=== PATIENT | male | born 1960 | race Caucasian/White ===

== ENCOUNTER → 2016-04-21 | Outpatient (CLI) | payer MEDICARE ==
[2016-04-21 16:31] LABS: CH 34.2; CHCM 32.7; HCT 38.2 % (39.0-53.0); HGB 12.5 gm/dL (13.0-17.5); MCH 34.4 pg (25.0-35.0); MCHC 32.8 g/dL (31.0-37.0); Macrocytosis Slight; Mean Platelet Volume 7.4; RBC 3.64 m/uL (4.30-5.90); RDW 14.9 % (11.5-15.5); WBC 7.1 k/uL (3.8-10.6)
[2016-04-21 16:41] LABS: INR 1.5 (<1.1); Prothrombin Time 14.4 sec (9.0-12.0)
[2016-04-21 16:46] LABS: ALT 36 U/L (21-72); AST 104 U/L (17-59); Alkaline Phosphatase 57 U/L (38-126); Anion Gap 14 mmol/L; Blood Urea Nitrogen 3 mg/dL (9-20); Calcium 8.2 mg/dL (8.4-10.2); Carbon Dioxide 26 mmol/L (22-30); Chloride 107 mmol/L (98-107); Glucose 102 mg/dL (74-99); Non-African American GFR(MDRD) >60 (>60 ml/min/1.73 sqM); Potassium 4.5 mmol/L (3.5-5.1); Sodium 147 mmol/L (137-145); Total Bilirubin 1.1 mg/dL (0.2-1.3); Total Protein 9.8 g/dL (6.3-8.2)
== END | disposition home or self-care (01) ==
LOC: LABWHC1 15:44
PROVIDERS: ATTEND Internal Medicine Gastroenterology
DX: K74.60 Unspecified cirrhosis of liver (principal)
CPT/HCPCS: 36415; 80053; 82105; 85027; 85610

== ENCOUNTER → 2016-06-18 | Outpatient (CLI) | payer MEDICARE ==
[2016-06-18 15:43] LABS: CH 34.4; CHCM 32.7; HCT 34.5 % (39.0-53.0); HDW 2.22; HGB 11.5 gm/dL (13.0-17.5); MCH 35.2 pg (25.0-35.0); MCHC 33.3 g/dL (31.0-37.0); MCV 105.8 fL (80.0-100.0); Macrocytosis Moderate; Mean Platelet Volume 8.4; RBC 3.26 m/uL (4.30-5.90); RDW 15.6 % (11.5-15.5)
[2016-06-18 15:56] LABS: ALT 22 U/L (21-72); AST 79 U/L (17-59); Alkaline Phosphatase 58 U/L (38-126); Anion Gap 12 mmol/L; Blood Urea Nitrogen 6 mg/dL (9-20); Calcium 8.7 mg/dL (8.4-10.2); Carbon Dioxide 25 mmol/L (22-30); Chloride 102 mmol/L (98-107); Glucose 102 mg/dL (74-99); INR 1.7 (<1.1); Non-African American GFR(MDRD) >60 (>60 ml/min/1.73 sqM); Potassium 4.3 mmol/L (3.5-5.1); Prothrombin Time 16.9 sec (9.0-12.0); Sodium 139 mmol/L (137-145); Total Bilirubin 2.3 mg/dL (0.2-1.3); Total Protein 9.5 g/dL (6.3-8.2)
--- NOTE | 2016-06-18 16:42 | US ---
EXAMINATION TYPE: US scrotum with doppler. Grayscale and color Doppler Duplex imaging performed of nika chen scrotum. DATE OF EXAM: 06/18/2016 3:28 PM COMPARISON: NONE CLINICAL HISTORY: N49.2 Chron's Disease. enlarged scrotal sac with thickened skin wall EXAM MEASUREMENTS: TESTICLES: Right Testicle: 3.7 x 1.4 x 2.8 cm Left Testicle: 3.8 x 2.7 x 2.7 cm EPIDIDYMIS HEAD: Right Epididymis: 0.7 cm Left Epididymis: 0.7 cm Doppler performed to assess for testicular vascularity; good bilateral color flow and waveforms are s een. There is no evidence of testicular torsion. Bilateral testicles were found and scanned within the inguinal canal. Within the enlarged scrotal sa c there is a significant amount of heterogeneous mixed tissue. Patients states he has a lot of fistu las. Scrotal contents demonstrates a small amount of vascularity. No hydrocele is evident. No fluid surrounding the testicles is evident. IMPRESSION: 1. No evidence of torsion. 2. Irregular signal within the scrotal sac can be compatible with debris. Testicles reside within the inguinal canals.
== END | disposition home or self-care (01) ==
LOC: RADUSWWP 15:06
PROVIDERS: ATTEND Internal Medicine Gastroenterology
DX: N49.2 Inflammatory disorders of scrotum (principal); K74.60 Unspecified cirrhosis of liver
CPT/HCPCS: 76870; 80053; 82105; 85027; 85610; 93975

== ENCOUNTER → 2016-10-20 | Outpatient (CLI) | payer MEDICARE ==
[2016-10-20 11:04] LABS: INR 1.7 (<1.2); Prothrombin Time 16.3 sec (9.0-12.0)
[2016-10-20 11:06] LABS: CH 34.3; CHCM 32.8; HCT 32.7 % (39.0-53.0); HDW 2.03; HGB 11.2 gm/dL (13.0-17.5); MCH 36.2 pg (25.0-35.0); MCHC 34.4 g/dL (31.0-37.0); MCV 105.3 fL (80.0-100.0); Macrocytosis Slight; Mean Platelet Volume 7.7; WBC 9.1 k/uL (3.8-10.6)
[2016-10-20 11:23] LABS: ALT 32 U/L (21-72); AST 77 U/L (17-59); Alkaline Phosphatase 59 U/L (38-126); Anion Gap 10 mmol/L; Blood Urea Nitrogen 6 mg/dL (9-20); Calcium 8.8 mg/dL (8.4-10.2); Carbon Dioxide 24 mmol/L (22-30); Chloride 101 mmol/L (98-107); Glucose 70 mg/dL (74-99); Non-African American GFR(MDRD) >60 (>60 ml/min/1.73 sqM); Sodium 135 mmol/L (137-145); Total Bilirubin 4.4 mg/dL (0.2-1.3); Total Protein 9.3 g/dL (6.3-8.2)
== END | disposition home or self-care (01) ==
LOC: LABWHC1 10:38
PROVIDERS: ATTEND Internal Medicine Gastroenterology
DX: K74.60 Unspecified cirrhosis of liver (principal)
CPT/HCPCS: 36415; 80053; 82105; 85027; 85610

== ENCOUNTER → 2017-05-25 | Outpatient (CLI) | payer MEDICARE ==
[2017-05-25 15:39] LABS: HCT 32.5 % (39.0-53.0); HGB 11.1 gm/dL (13.0-17.5); MCH 35.1 pg (25.0-35.0); MCHC 34.1 g/dL (31.0-37.0); MCV 102.7 fL (80.0-100.0); Macrocytosis Slight; Mean Platelet Volume 7.1; Platelet Count 160 k/uL (150-450); RBC 3.17 m/uL (4.30-5.90); RDW 15.6 % (11.5-15.5); WBC 10.4 k/uL (3.8-10.6)
[2017-05-25 15:56] LABS: ALT 12 U/L (21-72); AST 39 U/L (17-59); Albumin 3.2 g/dL (3.5-5.0); Alkaline Phosphatase 44 U/L (38-126); Anion Gap 9 mmol/L; Blood Urea Nitrogen 4 mg/dL (9-20); Calcium 8.5 mg/dL (8.4-10.2); Carbon Dioxide 25 mmol/L (22-30); Chloride 100 mmol/L (98-107); Glucose 94 mg/dL (74-99); Potassium 4.3 mmol/L (3.5-5.1); Sodium 134 mmol/L (137-145); Total Bilirubin 2.7 mg/dL (0.2-1.3); Total Protein 8.7 g/dL (6.3-8.2)
[2017-05-25 15:59] LABS: INR 1.6 (<1.2)
== END | disposition home or self-care (01) ==
LOC: LABWHC1 14:55
PROVIDERS: ATTEND Internal Medicine Gastroenterology
DX: K74.60 Unspecified cirrhosis of liver (principal)
CPT/HCPCS: 36415; 80053; 85027; 85610

== ENCOUNTER → 2017-08-12 | Outpatient (CLI) | payer MEDICARE ==
[2017-08-12 13:43] LABS: ALT 27 U/L (21-72); AST 65 U/L (17-59); Albumin 3.1 g/dL (3.5-5.0); Alkaline Phosphatase 53 U/L (38-126); Anion Gap 13 mmol/L; Blood Urea Nitrogen 2 mg/dL (9-20); Calcium 7.9 mg/dL (8.4-10.2); Carbon Dioxide 26 mmol/L (22-30); Chloride 105 mmol/L (98-107); Glucose 94 mg/dL (74-99); Potassium 4.4 mmol/L (3.5-5.1); Sodium 144 mmol/L (137-145); Total Bilirubin 1.5 mg/dL (0.2-1.3); Total Protein 8.4 g/dL (6.3-8.2)
[2017-08-12 14:00] LABS: INR 1.6 (<1.2)
[2017-08-12 14:04] LABS: HGB 11.5 gm/dL (13.0-17.5); MCH 34.9 pg (25.0-35.0); MCHC 33.8 g/dL (31.0-37.0); MCV 103.3 fL (80.0-100.0); Macrocytosis Slight; Mean Platelet Volume 7.1; Platelet Count 135 k/uL (150-450); RBC 3.29 m/uL (4.30-5.90); RDW 13.8 % (11.5-15.5)
== END | disposition home or self-care (01) ==
LOC: LABWHC1 12:23
PROVIDERS: ATTEND Internal Medicine Gastroenterology
DX: K74.60 Unspecified cirrhosis of liver (principal)
CPT/HCPCS: 36415; 80053; 85027; 85610

== ENCOUNTER → 2017-11-10 | Outpatient (CLI) | payer MEDICARE ==
[2017-11-10 15:30] LABS: HCT 33.6 % (39.0-53.0); MCH 35.2 pg (25.0-35.0); MCHC 32.8 g/dL (31.0-37.0); MCV 107.4 fL (80.0-100.0); Macrocytosis Moderate; Mean Platelet Volume 6.8; Platelet Count 162 k/uL (150-450); RBC 3.13 m/uL (4.30-5.90); RDW 15.4 % (11.5-15.5); WBC 7.3 k/uL (3.8-10.6)
[2017-11-10 15:38] LABS: INR 1.5 (<1.2)
[2017-11-10 15:41] LABS: ALT 26 U/L (21-72); AST 64 U/L (17-59); Albumin 3.3 g/dL (3.5-5.0); Alkaline Phosphatase 54 U/L (38-126); Anion Gap 10 mmol/L; Blood Urea Nitrogen 3 mg/dL (9-20); Carbon Dioxide 24 mmol/L (22-30); Chloride 110 mmol/L (98-107); Glucose 95 mg/dL (74-99); Potassium 4.2 mmol/L (3.5-5.1); Sodium 144 mmol/L (137-145); Total Bilirubin 1.4 mg/dL (0.2-1.3); Total Protein 9.3 g/dL (6.3-8.2)
== END | disposition home or self-care (01) ==
LOC: LABWHC1 14:55
PROVIDERS: ATTEND Internal Medicine Gastroenterology
DX: K74.60 Unspecified cirrhosis of liver (principal)
CPT/HCPCS: 36415; 80053; 85027; 85610

== ENCOUNTER → 2017-12-10 | Outpatient (CLI) | payer MEDICARE ==
[2017-12-10 11:04] LABS: INR 1.5 (<1.2); Prothrombin Time 14.3 sec (9.0-12.0)
[2017-12-10 11:17] LABS: ALT 16 U/L (21-72); AST 59 U/L (17-59); Albumin 3.4 g/dL (3.5-5.0); Alkaline Phosphatase 51 U/L (38-126); Anion Gap 10 mmol/L; Blood Urea Nitrogen 5 mg/dL (9-20); Calcium 8.5 mg/dL (8.4-10.2); Carbon Dioxide 23 mmol/L (22-30); Chloride 113 mmol/L (98-107); Glucose 81 mg/dL (74-99); Potassium 4.3 mmol/L (3.5-5.1); Sodium 146 mmol/L (137-145); Total Bilirubin 2.1 mg/dL (0.2-1.3); Total Protein 9.7 g/dL (6.3-8.2)
[2017-12-10 11:50] LABS: HCT 35.4 % (39.0-53.0); HGB 11.5 gm/dL (13.0-17.5); Hypochromasia Slight; MCHC 32.4 g/dL (31.0-37.0); Macrocytosis Moderate; Platelet Count 119 k/uL (150-450); RBC 3.28 m/uL (4.30-5.90); RDW 13.9 % (11.5-15.5); WBC 8.2 k/uL (3.8-10.6)
--- NOTE | 2017-12-10 14:50 | US ---
EXAMINATION TYPE: US abdomen complete DATE OF EXAM: 12/10/2017 COMPARISON: US 01/25/2010 CLINICAL HISTORY: 57-year-old male K70.30 ALCOHOLIC CIRRHOSIS OF THE LIVER WITHOUT ASCITES. TECHNIQUE: Multiple sonographic images of the abdomen are obtained. FINDINGS: EXAM MEASUREMENTS: Liver Length: 15.4 cm Gallbladder Wall: 0.4 cm CBD: 0.3 cm Spleen: 14.6 cm Right Kidney: 12.8 x 5.1 x 5.7 cm Left Kidney: 12.9 x 5.2 x 5.3 cm Pancreas: Most of the pancreas is seen and shows no gross abnormality. Liver: Cirrhotic nodular contour with parenchymal heterogeneity. No focal lesion. Color flow patency within the portal vein? Yes Portal Vein flow: Dilated at 1.5 cm with sluggish Hepatopetal flow of approximately 10 cm/s. Gallbladder: 1.1 cm calculus. Hydropic measuring 5.5 cm wide. Circumferential bladder wall thickening is noted. Evidence for sonographic Ham's sign: No CBD: wnl as visualized, distal portion obscured by bowel gas Spleen: Enlarged Right Kidney: No hydronephrosis. Left Kidney: No hydronephrosis. Upper IVC: wnl Abd Aorta: Prox portion ectatic a 2.6 cm, limited visualization due to overlying bowel gas Ascites noted? Yes, mild in the right upper quadrant. IMPRESSION: 1. Cirrhosis with evidence of portal venous hypertension (sluggish flow in a mildly dilated portal ve in, mild right upper quadrant ascites, and splenomegaly). 2. No sonographic evidence for hepatoma.
== END | disposition home or self-care (01) ==
LOC: RADUSWWP 09:00
PROVIDERS: ATTEND Internal Medicine Gastroenterology
DX: K70.31 Alcoholic cirrhosis of liver with ascites (principal); K76.6 Portal hypertension; R16.1 Splenomegaly, not elsewhere classified
CPT/HCPCS: 36415; 76700; 80053; 85027; 85610

== ENCOUNTER 2018-03-19 12:15 | Inpatient (IN) | payer MEDICARE ==
[2018-03-19] MEDS ORDERED: SODIUM CHLORIDE 0.9% 1,000 ML IV STA (12:45)
--- NOTE | 2018-03-19 12:50 | ED ---
General Adult HPI - General Chief complaint: Abdominal Pain Stated complaint: rectal bleeding Time Seen by Provider: 03/19/18 12:23 Source: patient, RN notes reviewed Mode of arrival: ambulatory Limitations: no limitations - History of Present Illness Initial comments: 58-year-old male with a past medical history of Crohn's, alcoholism presents to the emergency department for a chief complaint of rectal bleeding. Patient states this has been ongoing for a week. He states he is using a Maxi pad at home that he is changing twice a day due to the rectal bleeding. He states he cannot walk to the bathroom without the bleeding dripping on the floor. Patient states he also has some lower abdominal pain that has been consistent over the past month. Patient normally sees Dr. Lomas for his Crohn's but has not yet seen her for this. He states he did call the office today but she was not in. Her staff told him to come to the emergency department. Patient does admit to some feelings of lightheadedness. He states he has been eating normally and drinking water. He states he has not been drinking alcohol excessively for the past 2 months. Patient has no other complaints at this time including shortness of breath, chest pain, nausea or vomiting, headache, or visual changes. - Related Data Home Medications Medication Instructions Recorded Confirmed Albuterol Sulfate [Proair Hfa] 2 puff INHALATION RT-Q6H PRN 03/19/18 03/19/18 Clobetasol Propionate [Temovate 1 applic TOPICAL BID 03/19/18 03/19/18 0.05% Oint] Humira (Unknown Dose) 1 dose SQ Q14D 03/19/18 03/19/18 Hydrocodone/Acetaminophen [Milfay 1 tab PO TID PRN 03/19/18 03/19/18 7.5-325] Hydrocortisone Oint 1 applic TOPICAL BID 03/19/18 03/19/18 [Hydrocortisone 2.5% Oint] Loperamide [Imodium] 4 mg PO QID PRN 03/19/18 03/19/18 Multivitamin [Men's Multi-Vitamin] 1 tab PO DAILY 03/19/18 03/19/18 Triamcinolone 0.025% Cream 1 applic TOPICAL BID 03/19/18 03/19/18 [Kenalog 0.025% Cream] Allergies Allergy/AdvReac Type Severity Reaction Status Date / Time infliximab [[facility] Allergy Unknown Verified 03/19/18 13:28 Review of Systems ROS Statement: Those systems with pertinent positive or pertinent negative responses have been documented in the HPI. ROS Other: All systems not noted in ROS Statement are negative. Past Medical History Additional Past Medical History / Comment(s): crohn's History of Any Multi-Drug Resistant Organisms: None Reported Past Surgical History: Bowel Resection Past Psychological History: No Psychological Hx Reported Smoking Status: Current every day smoker Past Alcohol Use History: Daily Past Drug Use History: None Reported General Exam Limitations: no limitations General appearance: alert, in no apparent distress Head exam: Present: atraumatic, normocephalic, normal inspection Eye exam: Present: normal appearance, PERRL, EOMI. Absent: scleral icterus, conjunctival injection, periorbital swelling ENT exam: Present: normal exam, mucous membranes moist Neck exam: Present: normal inspection, full ROM. Absent: tenderness, meningismus, lymphadenopathy Respiratory exam: Present: normal lung sounds bilaterally. Absent: respiratory distress, wheezes, rales, rhonchi, stridor Cardiovascular Exam: Present: regular rate, normal rhythm, normal heart sounds. Absent: systolic murmur, diastolic murmur, rubs, gallop, clicks GI/Abdominal exam: Present: soft, tenderness (minimal LLQ tenderness), normal bowel sounds. Absent: distended, guarding, rebound, rigid Rectal exam: Present: normal rectal tone, other (sores on right buttock) Neurological exam: Present: alert, oriented X3, CN II-XII intact Psychiatric exam: Present: normal affect, normal mood Course Vital Signs 03/19/18 03/19/18 12:16 14:41 Temperature 97.9 F Pulse Rate 99 82 Respiratory 20 18 Rate Blood Pressure 117/73 126/75 O2 Sat by Pulse 98 98 Oximetry Medical Decision Making - Medical Decision Making 58-year-old male with a past medical history of Crohn's, alcoholism, anal fistula presents for rectal bleeding. Patient states this has been ongoing for a week and states he is using a Maxi pad changing twice a day due to the bleeding. He states he cannot walk to the bathroom without dripping blood on the floor. He also some lower abdominal pain that has been consistent over the past month. He does admit to feelings of lightheadedness. States he has been drinking water and eating normally. He does have history of alcoholism and has cut back on his drinking over the past 2 months. Vitals are within acceptable limits. On exam patient's lower abdomen is minimally tender, exam is unremarkable. However patient does have some sores noted to the right buttock. Hemoglobin 9.4, usually around 11. INR 1.4, no blood thinners on board. Sodium 133, patient given normal saline. Occult blood was negative, however patient's clinical description is significant for rectal bleeding. CT abdomen and pelvis with contrast did show anterior abdominal wall hernia with nonobstructive loops of small bowel, patient was unaware of this. There is also thickening of the rectal wall which is correlated for colitis. Anastomosis of the rectosigmoid junction and appears uninvolved. At this time it is believed patient will benefit from inpatient admission with GI consult. - Lab Data Result diagrams: 03/19/18 12:34 03/19/18 12:34 Lab Results 03/19/18 03/19/18 03/19/18 Range/Units 12:34 12:34 12:34 WBC 8.5 (3.8-10.6) k/uL RBC 2.79 L (4.30-5.90) m/uL Hgb 9.4 L (13.0-17.5) gm/dL Hct 29.0 L (39.0-53.0) % MCV 104.0 H (80.0-100.0) fL MCH 33.8 (25.0-35.0) pg MCHC 32.6 (31.0-37.0) g/dL RDW 14.9 (11.5-15.5) % Plt Count 153 (150-450) k/uL Neutrophils % 73 % Lymphocytes % 12 % Monocytes % 10 % Eosinophils % 2 % Basophils % 1 % Neutrophils # 6.2 (1.3-7.7) k/uL Lymphocytes # 1.0 (1.0-4.8) k/uL Monocytes # 0.9 (0-1.0) k/uL Eosinophils # 0.2 (0-0.7) k/uL Basophils # 0.1 (0-0.2) k/uL Macrocytosis Moderate PT 14.3 H (9.0-12.0) sec INR 1.4 H (<1.2) APTT 30.6 H (22.0-30.0) sec Sodium 133 L (137-145) mmol/L Potassium 4.3 (3.5-5.1) mmol/L Chloride 103 (98-107) mmol/L Carbon Dioxide 23 (22-30) mmol/L Anion Gap 7 mmol/L BUN 4 L (9-20) mg/dL Creatinine 0.60 L (0.66-1.25) mg/dL Est GFR (CKD-EPI)AfAm >90 (>60 ml/min/1.73 sqM) Est GFR (CKD-EPI)NonAf >90 (>60 ml/min/1.73 sqM) Glucose 122 H (74-99) mg/dL Calcium 7.6 L (8.4-10.2) mg/dL Total Bilirubin 1.8 H (0.2-1.3) mg/dL AST 51 (17-59) U/L ALT 12 L (21-72) U/L Alkaline Phosphatase 47 (38-126) U/L Total Protein 8.5 H (6.3-8.2) g/dL Albumin 2.8 L (3.5-5.0) g/dL Amylase 88 (30-110) U/L Lipase 172 (23-300) U/L Urine Color Urine Appearance (Clear) Urine pH (5.0-8.0) Ur Specific [place] (1.001-1.035) Urine Protein (Negative) Urine Glucose (UA) (Negative) Urine Ketones (Negative) Urine Blood (Negative) Urine Nitrite (Negative) Urine Bilirubin (Negative) Urine Urobilinogen (<2.0) mg/dL Ur Leukocyte Esterase (Negative) Stool Occult Blood (Negative) 03/19/18 03/19/18 Range/Units 12:34 14:22 WBC (3.8-10.6) k/uL RBC (4.30-5.90) m/uL Hgb (13.0-17.5) gm/dL Hct (39.0-53.0) % MCV (80.0-100.0) fL MCH (25.0-35.0) pg MCHC (31.0-37.0) g/dL RDW (11.5-15.5) % Plt Count (150-450) k/uL Neutrophils % % Lymphocytes % % Monocytes % % Eosinophils % % Basophils % % Neutrophils # (1.3-7.7) k/uL Lymphocytes # (1.0-4.8) k/uL Monocytes # (0-1.0) k/uL Eosinophils # (0-0.7) k/uL Basophils # (0-0.2) k/uL Macrocytosis PT (9.0-12.0) sec INR (<1.2) APTT (22.0-30.0) sec Sodium (137-145) mmol/L Potassium (3.5-5.1) mmol/L Chloride (98-107) mmol/L Carbon Dioxide (22-30) mmol/L Anion Gap mmol/L BUN (9-20) mg/dL Creatinine (0.66-1.25) mg/dL Est GFR (CKD-EPI)AfAm (>60 ml/min/1.73 sqM) Est GFR (CKD-EPI)NonAf (>60 ml/min/1.73 sqM) Glucose (74-99) mg/dL Calcium (8.4-10.2) mg/dL Total Bilirubin (0.2-1.3) mg/dL AST (17-59) U/L ALT (21-72) U/L Alkaline Phosphatase (38-126) U/L Total Protein (6.3-8.2) g/dL Albumin (3.5-5.0) g/dL Amylase (30-110) U/L Lipase (23-300) U/L Urine Color Yellow Urine Appearance Clear (Clear) Urine pH 6.5 (5.0-8.0) Ur Specific [place] 1.050 H (1.001-1.035) Urine Protein Trace H (Negative) Urine Glucose (UA) Negative (Negative) Urine Ketones Negative (Negative) Urine Blood Negative (Negative) Urine Nitrite Negative (Negative) Urine Bilirubin Negative (Negative) Urine Urobilinogen 2.0 (<2.0) mg/dL Ur Leukocyte Esterase Negative (Negative) Stool Occult Blood Negative (Negative) Disposition Clinical Impression: Rectal bleeding, Anemia Disposition: ADMITTED IP TO THIS [facility] Condition: Good Referrals: Elfego Yepez III, MD [Primary Care Provider] - 1-2 days Time of Disposition: 14:51
[2018-03-19 13:23] LABS: INR 1.4 (<1.2); Partial Thromboplastin Time 30.6 sec (22.0-30.0); Prothrombin Time 14.3 sec (9.0-12.0)
[2018-03-19 13:32] LABS: ALT 12 U/L (21-72); AST 51 U/L (17-59); Albumin 2.8 g/dL (3.5-5.0); Alkaline Phosphatase 47 U/L (38-126); Amylase 88 U/L (30-110); Anion Gap 7 mmol/L; Blood Urea Nitrogen 4 mg/dL (9-20); Calcium 7.6 mg/dL (8.4-10.2); Carbon Dioxide 23 mmol/L (22-30); Chloride 103 mmol/L (98-107); Glucose 122 mg/dL (74-99); Lipase 172 U/L (23-300); Potassium 4.3 mmol/L (3.5-5.1); Sodium 133 mmol/L (137-145); Total Bilirubin 1.8 mg/dL (0.2-1.3); Total Protein 8.5 g/dL (6.3-8.2)
[2018-03-19 13:59] LABS: Basophils # (A) 0.1 k/uL (0-0.2); Basophils % (A) 1 %; Eosinophils # (A) 0.2 k/uL (0-0.7); Eosinophils % (A) 2 %; HGB 9.4 gm/dL (13.0-17.5); Lymphocytes % (A) 12 %; MCH 33.8 pg (25.0-35.0); MCHC 32.6 g/dL (31.0-37.0); Macrocytosis Moderate; Mean Platelet Volume 7.4; Monocytes # (A) 0.9 k/uL (0-1.0); Monocytes % (A) 10 %; Neutrophils # (A) 6.2 k/uL (1.3-7.7); Neutrophils % (A) 73 %; Platelet Count 153 k/uL (150-450); RBC 2.79 m/uL (4.30-5.90); RDW 14.9 % (11.5-15.5); WBC 8.5 k/uL (3.8-10.6)
--- NOTE | 2018-03-19 14:19 | CT ---
EXAMINATION TYPE: CT abdomen pelvis w con DATE OF EXAM: 03/19/2018 COMPARISON: 11/02/2017 INDICATION: Patient complains of pelvic pain and rectal bleeding. DLP: 687.4 mGycm, Automated exposure control for dose reduction was used. CONTRAST: 100 mL of Isovue 300. Study performed without Oral Contrast TECHNIQUE: Axial images were obtained from above the diaphragm to the pubic rami in the axial plane a t 5 mm thick sections. Reconstructed images are reviewed on the computer in the coronal plane. FINDINGS: Limited CT sections are obtained the lung bases. The lung bases are clear. There is a small hiatal hernia present. CT ABDOMEN: There is a large anterior abdominal wall hernia in the periumbilical region which contain s nonobstructed loops of small bowel with contrast. Opening wide measuring 6.7 cm. There is an additi onal anterior abdominal wall hernia containing mesenteric fat measuring 1.7 cm opening. Series 3 imag e 54. On delayed images a loop of small bowel containing contrast material is hernia. Series 7 2. No obstruction is evident. Liver: Normal Spleen: Normal Pancreas: Normal Adrenal glands: The adrenal glands are normal. Gallbladder: Normal Kidneys: No masses are evident. No hydronephrosis is present. No cysts are present. Delayed images were obtained through the kidneys, which remain unremarkable. Aorta: Vascular calcification is within the aorta. Inferior vena cava: Normal. CT PELVIS: The rectum appears to have thickened bowel wall. Correlate for colitis of the rectum. The sigmoid col on to the rectosigmoid anastomosis appears normal. Appendix: Not identified. No suspicious inflammatory changes are evident. Urinary bladder: Normal. Genitourinary structures: Prostate is prominent. Osseous structures: No suspicious lytic or sclerotic lesions. Scoliosis and degenerative disc changes are through the lumbar spine. IMPRESSIONS: 1. Anterior abdominal wall hernia containing nonobstructed loops of small bowel. Contrast extends th rough to the colon. 2. Thickening of the rectal wall. Correlate for colitis through this region. The anastomosis at the r ectosigmoid junction appears uninvolved.
[2018-03-19 14:37] LABS: Appearance,Urine Clear (Clear); Bilirubin,Urine Negative (Negative); Blood,Urine Negative (Negative); Color,Urine Yellow; Glucose,Urine (UA) Negative (Negative); Ketones,Urine Negative (Negative); Leukocyte Esterase,Urine Negative (Negative); Nitrite,Urine Negative (Negative); PH, Urine 6.5 (5.0-8.0); Protein,Urine Trace (Negative)
[2018-03-19] MEDS ORDERED: NALOXONE 0.4 MG/ML 1 ML VIAL IV PRN (14:47)
[2018-03-19] MEDS ORDERED: ONDANSETRON 4 MG/2 ML VIAL IVP PRN (14:47)
[2018-03-19 16:44] VITALS: BMI 23.0
[2018-03-19] MEDS: MORPHINE SULFATE 4 MG/ML SYRINGE IV PRN (18:05)
[2018-03-19] MEDS: SODIUM CHLORIDE 0.9% 1,000 ML IV SCH (18:06)
[2018-03-19] MEDS ORDERED: LORazepam 2 MG/ML INJ IV PRN ×3 (18:54)
[2018-03-19] MEDS ORDERED: THIAMINE 100 MG/ML 2 ML VIAL IM STA (18:54)
[2018-03-19] MEDS: THIAMINE 100 MG TAB PO SCH (22:39)
[2018-03-19] MEDS ORDERED: ALBUTEROL NEBULIZED 2.5 MG/3 ML INHALATION PRN (22:43)
--- NOTE | 2018-03-19 23:23 | HP ---
HISTORY AND PHYSICAL DATE IS SERVICE: 03/19/2018 CHIEF COMPLAINTS: Chief abdominal pain, rectal bleeding. HISTORY OF PRESENT ILLNESS: This 58-year-old gentleman with a past history of gastrointestinal bleed, history of Crohn's disease, history of bowel discussion because of Crohn's disease, nicotine dependence, history of EtOH being followed by Dr. Yepez in the outpatient setting, is complaining of abdominal pain, GI bleed for several days. The patient also had history of alcoholism. The bleeding was going for 1 week and the patient using a maxi pad. Because of increasing bleeding and discomfort and other issues, patient came to [facility] and admitted for further evaluation and treatment. There is significant keratotic lesions in and around the perianal region with severe pain, severe penile and genital edema was also noted. CT scan of the abdomen and pelvis showed anterior abdominal hernia and also thickening of the rectal wall and possible colitis also considered. The patient is also taking immunosuppressives at this time. There is no history of fever, rigors or chills. No history of headache, loss of consciousness or seizures. PAST MEDICAL HISTORY: History of Crohn's, history of GI bleed, history of bowel resection, history of EtOH, history of nicotine dependence. MEDICATIONS: Prior to admission include: 1. Humira 1 dose q14 days. 2. Kenalog local application. 3. Temovate b.i.d. 4. Imodium 4 mg q.i.d. p.r.n. 5. Hydrocortisone 2.5 mg 1 application topically b.i.d. 6. [place] 7.5 t.i.d. p.r.n. 7. Multivitamins. 8. ProAir 2 puffs q.6h p.r.n. ALLERGIES: INFLIXIMAB. FAMILY HISTORY: History of cancer in the family. History of pancreatitis. SOCIAL HISTORY: History of alcohol, history of smoking. REVIEW OF SYSTEMS: ENT: No diminished vision. No diminished hearing. CARDIOVASCULAR: No angina or palpitations. RESPIRATORY: No cough. GI as mentioned earlier. : As mentioned earlier. NERVOUS SYSTEM: No numbness or weakness. ALLERGY/IMMUNOLOGY: No asthma or hayfever. MUSCULOSKELETAL: As mentioned earlier. HEMATOLOGY/ONCOLOGY: No history of anemia. ENDOCRINE: No history of diabetes or hypothyroidism. CONSTITUTIONAL: As mentioned earlier. Dermatology: Negative. Rheumatology: Negative. Psychiatry: As mentioned earlier. PHYSICAL EXAMINATION: Alert and oriented times three. Pulse is 88. Blood pressure 129/71, respiration 22, temperature 98 degrees, pulse ox 98% on room air. HEENT: Conjunctivae normal. NECK: No jugular venous distention. CARDIOVASCULAR: S1, S2. RESPIRATION: Breath sounds diminished in the bases. A few rhonchi. No crackles. ABDOMEN: Soft. Mild diffuse distention. Mild diffuse discomfort on palpation. Hepatomegaly present. Otherwise significant penile edema and minimal scrotal edema. Significant keratotic lesions with fissures around the perianal area severely tender and bleeding also present. LEGS: No edema. No swelling. NERVOUS SYSTEM: Higher functions as mentioned earlier. Moves all four limbs. No focal deficits. Lymphatics: No lymph nodes palpable in the neck, axillae or groin. SKIN: As mentioned earlier. JOINTS: No active deforming arthropathy. Cranial nerves 2 thru 12 grossly intact. LABS: WBC 8.2, hemoglobin 9.4, INR 1.4. Sodium 133. Bilirubin is 1.8. ASSESSMENT: 1. Severe perianal skin lesions as well as gastrointestinal bleed, possibly colitis. 2. Possible acute cellulitis. 3. Rule out malignancy or oppertunistic infections. 4. Mild coagulopathy possible because of chronic liver disease. 5. Possible cirrhosis of liver with hepatomegaly. 6. Increased bilirubin. 7. Anemia macrocytic possibly secondary to alcohol. 8. History of gastrointestinal bleed. 9. History of Crohn's disease. 10.History of bowel resection. 11.History of nicotine dependence. 12.History of ETOH dependence. 13.FULL CODE. RECOMMENDATIONS AND DISCUSSION: In this 58-year-old gentleman who presents with multiple complex medical issues , we will monitor the patient closely, continue the current medications, management and symptomatic treatment. Otherwise, at this time, I recommend local cultures, the blood cultures and symptomatic treatment. Monitor hemoglobin closely. Gastroenterology and surgical evaluation, possible endoscopies. Infectious disease evaluation. Otherwise, the possibility of oppertunistic infections also to be considered. [facility] protocol for ETOH. Multivitamins supplements. Pain medications, symptomatic treatment. DVT prophylaxis. INR is elevated. Further recommendations to follow. A copy of dictation being forwarded to Dr. Yepez who is the primary physician. MMODL / IJN: [id number] / [facility]
[2018-03-20] MEDS: MORPHINE SULFATE 4 MG/ML SYRINGE IV PRN (00:28)
[2018-03-20] MEDS: SODIUM CHLORIDE 0.9% 1,000 ML IV SCH ×2 (03:00→16:58)
[2018-03-20] MEDS: HYDROcodone/APAP 7.5-325MG 1 EACH TAB PO PRN ×2 (07:04→16:57)
[2018-03-20 07:14] LABS: Basophils # (A) 0.1 k/uL (0-0.2); Basophils % (A) 1 %; Eosinophils # (A) 0.2 k/uL (0-0.7); Eosinophils % (A) 3 %; HCT 27.4 % (39.0-53.0); HGB 8.7 gm/dL (13.0-17.5); Lymphocytes % (A) 16 %; MCH 33.7 pg (25.0-35.0); MCHC 31.9 g/dL (31.0-37.0); MCV 105.6 fL (80.0-100.0); Macrocytosis Moderate; Mean Platelet Volume 7.1; Monocytes # (A) 0.7 k/uL (0-1.0); Monocytes % (A) 12 %; Neutrophils # (A) 4.2 k/uL (1.3-7.7); Neutrophils % (A) 66 %; Platelet Count 156 k/uL (150-450); RBC 2.59 m/uL (4.30-5.90); RDW 15.2 % (11.5-15.5); WBC 6.4 k/uL (3.8-10.6)
[2018-03-20 07:25] LABS: ALT 18 U/L (21-72); AST 32 U/L (17-59); Albumin 2.4 g/dL (3.5-5.0); Alkaline Phosphatase 33 U/L (38-126); Anion Gap 4 mmol/L; Blood Urea Nitrogen 4 mg/dL (9-20); Calcium 7.5 mg/dL (8.4-10.2); Carbon Dioxide 24 mmol/L (22-30); Chloride 107 mmol/L (98-107); Glucose 81 mg/dL (74-99); Potassium 4.6 mmol/L (3.5-5.1); Sodium 135 mmol/L (137-145); Total Bilirubin 2.7 mg/dL (0.2-1.3); Total Protein 7.6 g/dL (6.3-8.2)
[2018-03-20 07:33] LABS: INR 1.5 (<1.2); Prothrombin Time 15.4 sec (9.0-12.0)
[2018-03-20] MEDS ORDERED: NON-FORMULARY DRUG (Multivitamin [Men's Multi-Vitamin] 1 TAB) PO SCH (09:00)
[2018-03-20] MEDS: PANTOPRAZOLE 40 MG TABLET PO SCH (09:09)
[2018-03-20] MEDS: THIAMINE 100 MG TAB PO SCH ×2 (12:25→16:57)
[2018-03-20] MEDS: MULTIVITAMINS, THERA 1 EACH TAB PO SCH (12:25)
[2018-03-20] MEDS: NICOTINE 14MG/24HR PATCH TRANSDERM SCH (12:26)
[2018-03-20] MEDS: CLOBETASOL PROP 0.05% OINT 15GM TOPICAL SCH ×2 (12:27→20:02)
--- NOTE | 2018-03-20 18:24 | PN ---
PROGRESS NOTE DATE OF SERVICE: 03/20/2018 This 58-year-old gentleman who was admitted with severe perianal skin lesions and also GI bleed, possible colitis. Patient also had thickening in the CT scan. The patient also had Crohn's disease on immunosuppressants. The patient also has significant history of EtOH. Patient is on CIWA protocol. The abdomen and pelvis CAT scan was reviewed and hemoglobin is 8.7. At this time, multiple consultants are following the patient. INR is 1.2. The patient also had chronic liver disease also. PAST MEDICAL HISTORY: Reviewed. REVIEW OF SYSTEMS: CARDIOVASCULAR: No angina or palpitations. RESPIRATORY: As mentioned earlier. GASTROINTESTINAL: As mentioned earlier. : No dysuria. CENTRAL NERVOUS SYSTEM: No numbness or weakness. CURRENT MEDICATIONS: Reviewed and include: 1. [place] 7.5 t.i.d. p.r.n. 2. Ventolin 2.5 q.6h p.r.n. 3. Clobetasol. 4. Ativan 1 mg q.2h p.r.n. 5. Ativan. 6. CIWA protocol. 7. Morphine. 8. Narcan. 9. Habitrol 14. 10.Zofran. 11.Protonix. 12.Vitamin B1. PHYSICAL EXAM: GENERAL: Patient is alert, oriented x3. VITAL SIGNS: Pulse 70, blood pressure 118/66, respiration 18, temperature 98.2, pulse ox 94% on room air. HEENT is conjunctivae normal. NECK: No jugular venous distention. CARDIOVASCULAR: S1, S2 muffled. RESPIRATORY: Breath sounds diminished in the bases. A few scattered rhonchi and crackles. ABDOMEN: Soft, nontender. LEGS: No edema. No swelling. CENTRAL NERVOUS SYSTEM: No focal deficits. with bleeding also present. LABS: WBC 6.2, hemoglobin is 8.7, INR 1.5. Sodium 135. Other labs are noted. Bilirubin 2.7. ASSESSMENT: 1. Severe perianal and perineal skin lesions as well as gastrointestinal bleed, possibly cellulitis with possible colitis. 2. Possible acute cellulitis. 3. Rule out malignancy or infections. 4. Mild coagulopathy secondary to chronic liver disease. 5. History of possible cirrhosis of liver with hepatomegaly. 6. Increased bilirubin. 7. Anemia macrocytic possibly secondary to alcohol. 8. History of gastrointestinal bleed. 9. History of Crohn's disease. 10.History of bowel resection. 11.History of nicotine dependence. 12.History of ETOH. 13.FULL CODE. RECOMMENDATIONS AND DISCUSSION: Recommend to continue current medications, management and symptomatic treatment. Otherwise, at this time, I recommend continue with broad-spectrum IV antibiotics , infectious disease evaluation. Also recommend surgery and gastroenterology consultations also. Prognosis guarded because of multiple complex medical issues. Further recommendations to follow. MMODL / IJN: [id number] / [facility]
[2018-03-21] MEDS: PIPERACILLIN-TAZOBACTAM 3.375 GM in SODIUM CHLORIDE 0.9% 100 ML IVPB SCH ×3 (01:00→16:03)
[2018-03-21] MEDS: HYDROcodone/APAP 7.5-325MG 1 EACH TAB PO PRN ×3 (01:02→20:17)
[2018-03-21] MEDS: SODIUM CHLORIDE 0.9% 1,000 ML IV SCH ×2 (03:30→16:02)
[2018-03-21] MEDS: PANTOPRAZOLE 40 MG TABLET PO SCH (07:52)
[2018-03-21] MEDS: NICOTINE 14MG/24HR PATCH TRANSDERM SCH (07:57)
[2018-03-21 08:00] LABS: INR 1.6 (<1.2); Prothrombin Time 15.9 sec (9.0-12.0)
[2018-03-21 08:01] LABS: ALT 15 U/L (21-72); AST 29 U/L (17-59); Albumin 2.5 g/dL (3.5-5.0); Alkaline Phosphatase 31 U/L (38-126); Anion Gap 6 mmol/L; Blood Urea Nitrogen 4 mg/dL (9-20); Calcium 7.8 mg/dL (8.4-10.2); Carbon Dioxide 23 mmol/L (22-30); Chloride 107 mmol/L (98-107); Glucose 108 mg/dL (74-99); Potassium 4.8 mmol/L (3.5-5.1); Sodium 136 mmol/L (137-145); Total Bilirubin 2.3 mg/dL (0.2-1.3); Total Protein 7.9 g/dL (6.3-8.2)
[2018-03-21 08:46] LABS: Basophils % (A) 0 %; Eosinophils # (A) 0.1 k/uL (0-0.7); Eosinophils % (A) 1 %; HCT 33.1 % (39.0-53.0); HGB 10.6 gm/dL (13.0-17.5); Lymphocytes # (A) 0.8 k/uL (1.0-4.8); Lymphocytes % (A) 14 %; MCH 33.8 pg (25.0-35.0); MCHC 32.1 g/dL (31.0-37.0); MCV 105.3 fL (80.0-100.0); Macrocytosis Moderate; Mean Platelet Volume 7.3; Monocytes # (A) 0.5 k/uL (0-1.0); Monocytes % (A) 9 %; Neutrophils # (A) 4.6 k/uL (1.3-7.7); Neutrophils % (A) 76 %; Platelet Count 148 k/uL (150-450); RBC 3.14 m/uL (4.30-5.90); RDW 14.2 % (11.5-15.5)
--- NOTE | 2018-03-21 10:25 | CONS ---
CONSULTATION DATE OF SERVICE: 03/20/2018 REASON FOR CONSULTATION: cellulitis. HISTORY OF PRESENT ILLNESS: The patient is a 58-year-old male with a past medical history significant for Crohn's disease which the patient has had for almost 15 years now. The patient is on immune modulating agents presenting to the [facility] ER with chief complaints of rectal bleeding. The patient's said his symptoms have been getting worse for almost a month. However, for the last one week, he noticed to have more irritation around his left gluteal area with some superficial ulceration. He did have some dull aching pain at that side. Pain is mostly 5 to 6/10, and no radiation. He did have some blood- stained drainage with it. The patient denies any high-grade fever, rigors or chills. Denies having any chest pain or shortness of breath or cough or any diarrhea. With these symptoms, the patient has been evaluated by the ER physician. On arrival to the ER, the patient did have a CT of abdomen and pelvis completed which shows anterior abdominal wall hernia containing nonobstructed loops of bowel, thickening of the rectal wall, colitis through this region. The rectosigmoid junction appears to be normal. No mention of any inflammatory changes at the left gluteal area or any abscess formation. The patient did not have any fever or any elevated white count. He did have some local wound cultures obtained and Infectious Disease was consulted for further recommendation regarding antibiotic therapy. Blood culture currently pending. REVIEW OF SYSTEMS: Positive points have been mentioned in HPI. Rest of the systems has been negative. PAST MEDICAL HISTORY: Significant for Crohn's disease. PAST SURGERY HISTORY: Did have history of bowel resection. SOCIAL HISTORY: Current everyday smoker and did have history of heavy drinking. No drug use. ALLERGIES: ALLERGY TO INFLIXIMAB. FAMILY HISTORY: No pertinent findings noticed. MEDICATIONS: The patient is currently on [place], Ventolin, Temovate, Ativan, morphine sulfate, Theragran, Narcan nicotine patch, Zofran, Protonix, vitamin B1. PHYSICAL EXAMINATION: Blood pressure 102/62 with a pulse of 65, temperature 98. He is 96% on room air. General description is a middle-aged male lying in bed in no distress. No tachypnea or accessory muscles of respiration use. HEENT: Shows pallor. No scleral icterus. Oral mucosa membranes are dry. No pharyngeal erythema or thrush. Neck trachea is central. No thyromegaly. LUNGS: Unlabored breathing. Clear to auscultation anteriorly. No wheeze or crackles. Heart S1, S2. Regular rate and rhythm. ABDOMEN: Soft, no tenderness. No guarding or rigidity. EXTREMITIES: No edema of the feet. Examination of the perirectal area: The patient did have a dark lesion of the left gluteal area only with some blood-stained drainage. No foul smelling. Did have some of his genital scrotal area, but no redness or any foul-smelling drainage. NEUROLOGICAL: Patient is awake, alert, oriented x3. Mood and affect normal. LABS: Hemoglobin 8.7, white count 6.4 with a BUN of 4, creatinine 0.54. Local wound culture showing gram-negative bacilli. DIAGNOSTIC IMPRESSION AND PLAN: Patient presenting to the hospital with bleeding per rectum. The patient also had ulcerative lesion to his left gluteal area that has been getting worse over the last 1 month with features suggestive more likely of a skin condition associated with Crohn's disease that is pyoderma and less likely a bacterial cellulitis in this patient currently not running any fever or did not have elevated white count. Did have some cultures obtained which are currently showing a gram-negative bacilli, more likely secondary to to the gastrointestinal tract. PLAN: 1. Await Gastroenterology evaluation and more aggressive treatment of his underlying Crohn's and steroids per Gastroenterology. 2. We will [facility] the [facility] while waiting for his cultures to finalize. 3. We will follow up on his clinical condition and culture to further adjust medication if needed. Thank you for this consultation. Will follow this patient along with you. MMODL / IJN: [id number] /
[2018-03-21] MEDS: THIAMINE 100 MG TAB PO SCH ×2 (11:49→16:03)
[2018-03-21] MEDS: MULTIVITAMINS, THERA 1 EACH TAB PO SCH (11:50)
[2018-03-21] MEDS: CLOBETASOL PROP 0.05% OINT 15GM TOPICAL SCH ×2 (11:57→20:16)
[2018-03-21] MEDS: PHYTONADIONE ORAL 5 MG/5 ML ORAL.SYRG PO SCH (12:29)
--- NOTE | 2018-03-21 12:39 | P.GSCN ---
History of Present Illness Consult date: 03/21/18 Reason for Consult: History of Crohn disease with perianal inflammation History of present illness: This is a 58-year-old male who has a history of Crohn's disease. Patient has seen Dr. Zaldivar in the past. Patient was admitted to the hospital complaints of abdominal pain and exacerbation of Crohn's disease. Patient's significant perianal Crohn's disease. He has multiple fistulas and inflammation in his perirectal area. Past Medical History Past Medical History: GI Bleed Additional Past Medical History / Comment(s): crohn's History of Any Multi-Drug Resistant Organisms: None Reported Past Surgical History: Bowel Resection Past Anesthesia/Blood Transfusion Reactions: No Reported Reaction Past Psychological History: No Psychological Hx Reported Smoking Status: Current every day smoker Past Alcohol Use History: Daily Past Drug Use History: None Reported - Past Family History Father History Unknown: Yes Additional Family Medical History / Comment(s): pancreatitis Mother History Unknown: Yes Family Medical History: Cancer Additional Family Medical History / Comment(s): mother of metastatic breast cancer Medications and Allergies Home Medications Medication Instructions Recorded Confirmed Type Albuterol Sulfate [Proair Hfa] 2 puff INHALATION RT-Q6H PRN 03/19/18 03/19/18 History Clobetasol Propionate [Temovate 1 applic TOPICAL BID 03/19/18 03/19/18 History 0.05% Oint] Humira (Unknown Dose) 1 dose SQ Q14D 03/19/18 03/19/18 History Hydrocodone/Acetaminophen [[place] 1 tab PO TID PRN 03/19/18 03/19/18 History 7.5-325] Hydrocortisone Oint 1 applic TOPICAL BID 03/19/18 03/19/18 History [Hydrocortisone 2.5% Oint] Loperamide [Imodium] 4 mg PO QID PRN 03/19/18 03/19/18 History Multivitamin [Men's Multi-Vitamin] 1 tab PO DAILY 03/19/18 03/19/18 History Triamcinolone 0.025% Cream 1 applic TOPICAL BID 03/19/18 03/19/18 History [Kenalog 0.025% Cream] Allergies Allergy/AdvReac Type Severity Reaction Status Date / Time infliximab [From Remicade] Allergy Unknown Verified 03/19/18 13:28 Surgical - Exam Vital Signs Temp Pulse Resp BP Pulse Ox 97.9 F 99 20 117/73 98 03/19/18 12:16 03/19/18 12:16 03/19/18 12:16 03/19/18 12:16 03/19/18 12:16 - General well developed, no distress - Eyes PERRL - ENT normal pinna - Neck no masses - Respiratory normal expansion - Cardiovascular Rhythm: regular - Abdomen Abdomen: soft, non tender - Rectum Multiple perianal fissures and fistulas. Patient will be evaluated by gastroenterology. He will have to have his medical therapy optimized. We will remain on surgical standby. Results - Labs 03/21/18 07:23 03/21/18 07:23 Abnormal Lab Results - Last 24 Hours (Table) 03/21/18 03/21/18 03/21/18 Range/Units 07:23 07:23 07:23 RBC 3.14 L (4.30-5.90) m/uL Hgb 10.6 L (13.0-17.5) gm/dL Hct 33.1 L (39.0-53.0) % MCV 105.3 H (80.0-100.0) fL Plt Count 148 L (150-450) k/uL Lymphocytes # 0.8 L (1.0-4.8) k/uL PT 15.9 H (9.0-12.0) sec INR 1.6 H (<1.2) Sodium 136 L (137-145) mmol/L BUN 4 L (9-20) mg/dL Creatinine 0.53 L (0.66-1.25) mg/dL Glucose 108 H (74-99) mg/dL Calcium 7.8 L (8.4-10.2) mg/dL Total Bilirubin 2.3 H (0.2-1.3) mg/dL ALT 15 L (21-72) U/L Alkaline Phosphatase 31 L (38-126) U/L Albumin 2.5 L (3.5-5.0) g/dL Microbiology - Last 24 Hours (Table) 03/19/18 03:15 Gram Stain - Preliminary Buttock Wound Culture - Preliminary Gram Neg Bacilli 03/20/18 03:15 Gram Stain - Preliminary Buttock Wound Culture - Preliminary Gram Neg Bacilli 03/19/18 14:22 Urine Culture - Final Urine,Voided 03/19/18 12:34 Blood Culture - Preliminary Blood No Growth after 24 hours Diabetes panel 03/21/18 Range/Units 07:23 Sodium 136 L (137-145) mmol/L Potassium 4.8 (3.5-5.1) mmol/L Chloride 107 (98-107) mmol/L Carbon Dioxide 23 (22-30) mmol/L BUN 4 L (9-20) mg/dL Creatinine 0.53 L (0.66-1.25) mg/dL Glucose 108 H (74-99) mg/dL Calcium 7.8 L (8.4-10.2) mg/dL AST 29 (17-59) U/L ALT 15 L (21-72) U/L Alkaline Phosphatase 31 L (38-126) U/L Total Protein 7.9 (6.3-8.2) g/dL Albumin 2.5 L (3.5-5.0) g/dL Calcium panel 03/21/18 Range/Units 07:23 Calcium 7.8 L (8.4-10.2) mg/dL Albumin 2.5 L (3.5-5.0) g/dL Pituitary panel 03/21/18 Range/Units 07:23 Sodium 136 L (137-145) mmol/L Potassium 4.8 (3.5-5.1) mmol/L Chloride 107 (98-107) mmol/L Carbon Dioxide 23 (22-30) mmol/L BUN 4 L (9-20) mg/dL Creatinine 0.53 L (0.66-1.25) mg/dL Glucose 108 H (74-99) mg/dL Calcium 7.8 L (8.4-10.2) mg/dL Adrenal panel 03/21/18 Range/Units 07:23 Sodium 136 L (137-145) mmol/L Potassium 4.8 (3.5-5.1) mmol/L Chloride 107 (98-107) mmol/L Carbon Dioxide 23 (22-30) mmol/L BUN 4 L (9-20) mg/dL Creatinine 0.53 L (0.66-1.25) mg/dL Glucose 108 H (74-99) mg/dL Calcium 7.8 L (8.4-10.2) mg/dL Total Bilirubin 2.3 H (0.2-1.3) mg/dL AST 29 (17-59) U/L ALT 15 L (21-72) U/L Alkaline Phosphatase 31 L (38-126) U/L Total Protein 7.9 (6.3-8.2) g/dL Albumin 2.5 L (3.5-5.0) g/dL
--- NOTE | 2018-03-21 22:19 | PN ---
PROGRESS NOTE DATE OF SERVICE: This 58 -year-old gentleman admitted with severe perianal and perineal skin lesion which is ulcerated, possibly fungating also. The patient also had multiple other medical issues and Crohn's disease, immunosuppression, history of significant alcohol also. The patient is started on broad-spectrum IV antibiotics by Dr. Montoya who is considering the possibility of pyoderma vegetans, which is an unusual manifestation of Crohn's at this time. Biopsies also recommended by Dr. Montoya, which could be done by Dr. Denis. The patient is being closely monitored. PAST MEDICAL HISTORY: Reviewed. REVIEW OF SYSTEMS: CARDIOVASCULAR: No angina or palpitations. RESPIRATION: As mentioned earlier. GI as mentioned earlier. : No dysuria. NERVOUS SYSTEM: As mentioned earlier. CURRENT MEDICATIONS ARE: Reviewed and include home medications are: 1. [place] 7.5 q.6h p.r.n. 2. Ventolin 2.5 q.i.d. p.r.n. 3. Temovate 1 application b.i.d. 4. Ativan 1 mg b.i.d. 5. Morphine sulfate. 6. Multivitamins. 7. Narcan 0.2 q.2h p.r.n. 8. Habitrol 14 daily. PHYSICAL EXAM: Patient is alert, oriented x3. Pulse 70, blood pressure 91/54, respirations 16, temperature 97.2, pulse ox 98% on room air. HEENT: Conjunctivae normal. NECK: No jugular venous distention. CARDIOVASCULAR: S1, S2. RESPIRATORY: Breath sounds diminished in the bases. A few scattered rhonchi and crackles. ABDOMEN is soft, nontender. LEGS are no edema. No swelling. CENTRAL NERVOUS SYSTEM: No focal deficits. LABS: WBC 6, hemoglobin is 10.6, INR 1.6 and total bilirubin 2.3. ASSESSMENT: 1. Severe perianal perineal lesions as well as gastrointestinal bleed, possibly cellulitis with possible colitis. 2. Possible acute cellulitis. 3. Rule out malignancy, opportunistic infections. 4. Mild coagulopathy secondary to chronic liver disease. 5. History of possible cirrhosis of the liver with hepatomegaly. 6. Increased bilirubin. 7. Anemia macrocytic. 8. History of gastrointestinal bleed. 9. History of Crohn's disease. 10.History of bowel resection. 11.History of nicotine dependence. 12.History of ETOH. 13.FULL CODE. RECOMMENDATIONS AND DISCUSSION: Recommend to continue the current medications, management and symptomatic treatment. Await cultures. The wound culture showed gram-negative bacilli. Otherwise, we will continue with broad-spectrum IV antibiotics. Closely follow with Infectious Disease and Gastroenterology and Surgery. Infectious Disease thoughts are detailed as mentioned earlier. The entire presentation could be a manifestation of Crohn's, but however we will continue to monitor. HIV has been ordered. Syphilis testing will also be ordered at this time. Once again the prognosis extremely guarded because of the multiple complex medical issues and further recommendations to follow. MMODL / IJN: [id number] /
--- NOTE | 2018-03-21 22:58 | PN ---
PROGRESS NOTE DATE OF SERVICE: 03/21/2018. REASON FOR FOLLOWUP: Right gluteal wound with cellulitis. INTERVAL HISTORY: The patient is currently afebrile. He has been breathing comfortably. Denies having any chest pain or shortness of breath. No cough. No abdominal pain or any worsening pain in the right gluteal rash area. PHYSICAL EXAMINATION: Blood pressure 101/61 with a pulse of 74. Temperature 97.5. He is 96% on room air. General description is a middle-aged male lying in bed in no distress. Respiratory system: Unlabored breathing. Clear to auscultation anteriorly. Heart S1, S2. Regular rate and rhythm. Abdomen soft. No tenderness. The right gluteal erythematous patch. However, less bleeding was noticed today. No purulent drainage. LABS: Hemoglobin is 10.0, white count 6.0, BUN of 4, creatinine 0.53. Wound culture with gram-negative bacilli. Blood culture has been negative. DIAGNOSTIC IMPRESSION AND PLAN: Patient with right gluteal rash branch more likely related to his underlying Crohn's disease with clinical suspicion for underlying cellulitis, though some superficial culture showing gram-negative. The patient is covered with Zosyn to continue. The pain is more aggressive management of underlying Crohn's disease that will have this pressure as well. Continue supportive care. MMODL / IJN: [id number] /
[2018-03-22] MEDS: PIPERACILLIN-TAZOBACTAM 3.375 GM in SODIUM CHLORIDE 0.9% 100 ML IVPB SCH ×3 (00:38→16:26)
[2018-03-22] MEDS: SODIUM CHLORIDE 0.9% 1,000 ML IV SCH ×2 (04:35→20:33)
[2018-03-22 08:09] LABS: INR 1.5 (<1.2); Prothrombin Time 15.3 sec (9.0-12.0)
[2018-03-22 08:15] LABS: Basophils % (A) 0 %; Eosinophils % (A) 0 %; HCT 29.3 % (39.0-53.0); HGB 9.4 gm/dL (13.0-17.5); Lymphocytes # (A) 0.5 k/uL (1.0-4.8); Lymphocytes % (A) 9 %; MCH 34.2 pg (25.0-35.0); MCHC 32.2 g/dL (31.0-37.0); MCV 106.2 fL (80.0-100.0); Macrocytosis Moderate; Mean Platelet Volume 6.8; Monocytes # (A) 0.3 k/uL (0-1.0); Monocytes % (A) 5 %; Neutrophils % (A) 84 %; Platelet Count 185 k/uL (150-450); RBC 2.76 m/uL (4.30-5.90); RDW 14.9 % (11.5-15.5)
[2018-03-22 08:22] LABS: ALT 12 U/L (21-72); AST 24 U/L (17-59); Albumin 2.3 g/dL (3.5-5.0); Alkaline Phosphatase 26 U/L (38-126); Anion Gap 6 mmol/L; Blood Urea Nitrogen 4 mg/dL (9-20); Calcium 7.6 mg/dL (8.4-10.2); Carbon Dioxide 22 mmol/L (22-30); Chloride 111 mmol/L (98-107); Glucose 114 mg/dL (74-99); Potassium 3.7 mmol/L (3.5-5.1); Sodium 139 mmol/L (137-145); Total Bilirubin 1.4 mg/dL (0.2-1.3)
[2018-03-22] MEDS: PANTOPRAZOLE 40 MG TABLET PO SCH (08:31)
[2018-03-22] MEDS: MULTIVITAMINS, THERA 1 EACH TAB PO SCH (08:31)
[2018-03-22] MEDS: NICOTINE 14MG/24HR PATCH TRANSDERM SCH (08:32)
[2018-03-22] MEDS: CLOBETASOL PROP 0.05% OINT 15GM TOPICAL SCH ×2 (08:38→20:34)
[2018-03-22] MEDS: HYDROcodone/APAP 7.5-325MG 1 EACH TAB PO PRN ×2 (08:50→20:42)
[2018-03-22] MEDS: PHYTONADIONE ORAL 5 MG/5 ML ORAL.SYRG PO SCH (08:53)
[2018-03-22 10:12] LABS: Anisocytosis (M) Present
[2018-03-22 12:28] LABS: HIV 1 AB Non-Reactive (Non-Reactive); HIV AB P24 Non-Reactive (Non-Reactive); HIV P24 AG Non-Reactive (Non-Reactive)
[2018-03-22] MEDS: THIAMINE 100 MG TAB PO SCH ×2 (13:43→16:25)
--- NOTE | 2018-03-22 15:02 | P.PN ---
Progress Note - Text Progress Note Date: 03/22/18 The patient is resting in his bed comfortably. He has no significant complaints of pain. Apparently he was seen by Dr. Pina yesterday. On exam his vital signs are stable. His perineum shows evidence of multiple perianal fistulas and chronic skin irritation. Exacerbation of Crohn's. Patient will be medically managed this point. We will remain on surgical standby.
--- NOTE | 2018-03-22 19:55 | PN ---
PROGRESS NOTE DATE OF SERVICE: 03/22/2018 This 58-year-old gentleman who was admitted with severe perianal and perineal lesions is being closely monitored at this time. Surgery is following the patient. No chest pain. No palpitations. No fever. On exam, alert and oriented x3. Pulse 57, blood pressure 92/53, respirations 16, temperature 97.5, pulse ox 96% on room air. HEENT: Conjunctivae normal. NECK: No jugular venous distention. CARDIOVASCULAR SYSTEM: S1, S2 muffled. RESPIRATORY SYSTEM: Breath sounds diminished at the bases. No rhonchi. No crackles. ABDOMEN: Soft, non-tender. LEGS: Perineal area with significant lesions present. The lab investigations at this time show WBC 6, hemoglobin 9.4. INR is 1.5. Other labs are noted. HIV not reactive. Troponin also not reactive. ASSESSMENT: 1. Severe perianal and perineal lesions as well as gastrointestinal bleed, possibly cellulitis with possible colitis or proctitis. 2. Acute cellulitis, possibly. 3. Rule out malignancy or opportunistic infections. 4. 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 5. Mild coagulopathy, possibly secondary to liver disease. 6. History of possible cirrhosis of the liver or hepatomegaly. 7. Increased bilirubin. 8. Anemia, normocytic. 9. History of gastrointestinal bleed. 10.History of Crohn's disease. 11.History of bowel resection. 12.History of nicotine dependence. 13.History of ethanol. 14.FULL CODE. RECOMMENDATIONS AND DISCUSSION: I recommend to continue current medication, continue symptomatic treatment. Closely follow with Gastroenterology and Surgery. Possible colonoscopy. Possible local biopsy. Guarded prognosis. Further recommendations to follow. MMODL / IJN: [id number] /
--- NOTE | 2018-03-22 21:23 | P.PN ---
Subjective Progress Note Date: 03/22/18 Principal diagnosis: Blood per rectum, perirectal fistula Patient sitting in bed. He reports less blood per rectum. Tolerating diet. No abdominal pain. Objective - Vital Signs Vital signs: Vital Signs Temp 97.5 F L 03/22/18 12:39 Pulse 57 L 03/22/18 12:39 Resp 16 03/22/18 12:39 BP 92/53 03/22/18 12:39 Pulse Ox 96 03/22/18 12:39 Intake & Output 03/22/18 03/22/18 03/23/18 06:59 18:59 06:59 Intake Total 300 1500 Output Total 1050 Balance -750 1500 Intake: Intake, IV Titration 300 700 Amount Piperacillin-Tazobactam 3 100 .375 gm In Sodium Chloride 0.9% 100 ml @ 25 mls/hr IVPB Q8HR [facility] Rx# :[id number] Sodium Chloride 0.9% 1, 300 600 000 ml @ 75 mls/hr IV . [id number] [facility] Rx#:[id number] Oral 800 Output: Urine 1050 Other: Voiding Method Toilet Toilet Urinal Urinal # Voids 1 2 # Bowel Movements 1 2 - Exam On physical examination, patient appears comfortable in no apparent distress. HEAD: Normocephalic, atraumatic. EYES: No scleral icterus. No conjunctival injection. MOUTH: No lesions, tongue midline. NECK: Trachea midline, no gross abnormalities. CHEST: Clear to auscultation with no wheezing or rhonchi appreciated. HEART: Regular rate and rhythm. ABDOMEN: Soft, obese. Bowel sounds are positive. No organomegaly. No guarding or rigidity. EXTREMITIES: No pedal edema. SKIN: No rashes, no jaundice. NEUROLOGIC: Alert and oriented x3. No focal deficits. - Labs CBC & Chem 7: 03/22/18 07:21 03/22/18 07:21 Labs: Abnormal Lab Results - Last 24 Hours (Table) 03/22/18 03/22/18 03/22/18 Range/Units 07:21 07:21 07:21 RBC 2.76 L (4.30-5.90) m/uL Hgb 9.4 L (13.0-17.5) gm/dL Hct 29.3 L (39.0-53.0) % MCV 106.2 H (80.0-100.0) fL Lymphocytes # 0.5 L (1.0-4.8) k/uL PT 15.3 H (9.0-12.0) sec INR 1.5 H (<1.2) Chloride 111 H (98-107) mmol/L BUN 4 L (9-20) mg/dL Creatinine 0.51 L (0.66-1.25) mg/dL Glucose 114 H (74-99) mg/dL Calcium 7.6 L (8.4-10.2) mg/dL Total Bilirubin 1.4 H (0.2-1.3) mg/dL ALT 12 L (21-72) U/L Alkaline Phosphatase 26 L (38-126) U/L Albumin 2.3 L (3.5-5.0) g/dL Microbiology - Last 24 Hours (Table) 03/19/18 12:34 Blood Culture - Preliminary Blood No Growth after 72 hours 03/19/18 03:15 Gram Stain - Final Buttock Wound Culture - Final Escherichia coli Strep agalactiae - (group b) 03/20/18 03:15 Gram Stain - Final Buttock Wound Culture - Final Escherichia coli Strep agalactiae - (group b) Assessment and Plan (1) Perianal fistula due to Crohn's disease Narrative/Plan: Patient with long-standing history of complicated Crohn's disease, requiring surgery due to abscess with small bowel resection in the past and active perianal Crohn's disease. The patient's disease has developed in spite of biologic therapy. Previously he has been on symptoms, and currently he is treated with Humira therapy. Current Visit: Yes Status: Acute Code(s): K50.913 - CROHN'S DISEASE, UNSPECIFIED, WITH FISTULA SNOMED Code(s): 142254176 (2) Anemia Current Visit: Yes Status: Acute Code(s): D64.9 - ANEMIA, UNSPECIFIED SNOMED Code(s): 625639556 (3) Rectal bleeding Current Visit: Yes Status: Acute Code(s): K62.5 - HEMORRHAGE OF ANUS AND RECTUM SNOMED Code(s): 05971040 Plan: Supportive care Appreciate surgical recommendations Continue to monitor for signs and symptoms of GI bleeding Continue to monitor hemoglobin and transfuse as needed Continue antibiotic therapy Continue Humira therapy Patient will need outpatient follow-up after discharge with Dr. Lomas the gastroenterology service, with possible titration of therapy and consideration for possible addition of immunomodulators or other medication to the patient's medical regimen Thank you for allowing us to discontinue the care of this patient we will continue to follow
--- NOTE | 2018-03-22 22:41 | PN ---
PROGRESS NOTE DATE OF SERVICE: 03/22/2018. REASON FOR FOLLOWUP: Right gluteal rash and possible cellulitis. INTERVAL HISTORY: The patient is currently afebrile. He is breathing comfortably. Denies having any chest pain or shortness of breath. No cough. No abdominal pain. Did have slight diarrhea but no blood in the stool. Overall pain and swelling to the right gluteal wound has decreased and less drainage. PHYSICAL EXAMINATION: Blood pressure 92/53 with a pulse of 57, temperature 97.5, he is 96% on room air. GENERAL DESCRIPTION: A middle-aged male lying in bed in no distress. RESPIRATORY SYSTEM: Unlabored breathing. Clear to auscultation anteriorly. HEART: S1, S2. Regular rate and rhythm. ABDOMEN: Soft, no tenderness. EXTREMITIES: Right gluteal area with swelling and redness, decreased drainage. LABS: Hemoglobin 9.4, white count 6.0, BUN of 4, creatinine 0.51. Culture from gluteal rash area is showing E coli and Streptococcus agalactiae. DIAGNOSTIC IMPRESSION AND PLAN: Patient with right gluteal area rash, likely related to his underlying Crohn's disease with question of pyoderma, with possible secondary cellulitis. Culture positive for E coli and Streptococcus agalactiae sensitive pathogen. Antibiotic will be transitioned to Augmentin 875 b.i.d. Continue for about a week. Continue supportive care. MMODL / IJN: [id number] /
[2018-03-23] MEDS: PIPERACILLIN-TAZOBACTAM 3.375 GM in SODIUM CHLORIDE 0.9% 100 ML IVPB SCH ×2 (00:41→08:15)
[2018-03-23] MEDS: SODIUM CHLORIDE 0.9% 1,000 ML IV SCH (00:45)
[2018-03-23] MEDS: PANTOPRAZOLE 40 MG TABLET PO SCH (08:14)
[2018-03-23] MEDS: NICOTINE 14MG/24HR PATCH TRANSDERM SCH (08:15)
[2018-03-23] MEDS: CLOBETASOL PROP 0.05% OINT 15GM TOPICAL SCH ×2 (08:17→20:18)
[2018-03-23] MEDS: THIAMINE 100 MG TAB PO SCH ×2 (08:18→18:02)
[2018-03-23] MEDS: MULTIVITAMINS, THERA 1 EACH TAB PO SCH (08:18)
[2018-03-23 09:57] LABS: Anion Gap 5 mmol/L; Blood Urea Nitrogen 3 mg/dL (9-20); Carbon Dioxide 22 mmol/L (22-30); Chloride 110 mmol/L (98-107); Glucose 144 mg/dL (74-99); Sodium 137 mmol/L (137-145)
[2018-03-23 09:58] LABS: ALT 9 U/L (21-72); AST 27 U/L (17-59); Albumin 2.4 g/dL (3.5-5.0); Alkaline Phosphatase 27 U/L (38-126); Calcium 7.8 mg/dL (8.4-10.2); Total Bilirubin 1.1 mg/dL (0.2-1.3); Total Protein 7.3 g/dL (6.3-8.2)
[2018-03-23 10:02] LABS: INR 1.5 (<1.2); Prothrombin Time 14.8 sec (9.0-12.0)
[2018-03-23 10:16] LABS: HCT 31.5 % (39.0-53.0); Hypochromasia Moderate; MCH 34.5 pg (25.0-35.0); MCHC 31.7 g/dL (31.0-37.0); MCV 108.6 fL (80.0-100.0); Macrocytosis Marked; Mean Platelet Volume 7.4; Platelet Count 218 k/uL (150-450); RDW 14.8 % (11.5-15.5); WBC 7.9 k/uL (3.8-10.6)
[2018-03-23] MEDS: PHYTONADIONE ORAL 5 MG/5 ML ORAL.SYRG PO SCH (11:25)
[2018-03-23] MEDS: AMOXIC-POT CLAV 875-125MG 1 EACH TAB PO SCH ×2 (12:53→20:18)
[2018-03-23 12:57] LABS: Lymphocytes # (M) 0.71 k/uL (1.0-4.8); Monocytes # (M) 0.47 k/uL (0-1.0); Neutrophils # (M) 6.72 k/uL (1.3-7.7); Neutrophils % (M) 85 %; Nucleated Red Blood Cells 0 /100 WBC (0-0); Total Cells Counted 100
--- NOTE | 2018-03-23 14:02 | P.PN ---
Subjective Progress Note Date: 03/23/18 Patient examined at the bedside. Patient is awake and alert. States his pain is tolerable. Diet has been upgraded to low fiber diet. Tolerating well without nausea or vomiting. Vital signs are stable. PHYSICAL EXAM: GENERAL: This is a 58-year-old male in no apparent distress at the time of examination. Pleasant and cooperative. HEENT: Head is atraumatic, normocephalic. Pupils are equal, round, and reactive to light. Conjunctivae are clear. Mucus membranes of the mouth are moist. Neck is supple. RESPIRATORY: Clear to auscultation. No wheezes, rales, or rhonchi. No use of accessory muscles. Patient maintaining oxygen saturation greater than 92%. CARDIOVASCULAR: Regular rate and rhythm. S1 and S2 noted. GASTROINTESTINAL: No distention noted. Abdomen soft and round. Normal active bowel sounds auscultated x 4 quadrants. : Perineum with multiple perianal fistulas and chronic skin irritation. No bleeding noted. INTEGUMENTARY: No cyanosis. No jaundice. No rashes noted. No cellulitis noted. EXTREMITIES: 2+ peripheral pulses. No evidence of peripheral edema. NEUROLOGIC: Cranial nerves II-XII intact. PSYCHIATRIC: Awake, alert, and oriented X 3. Appropriate affect. ASSESSMENT: Perianal fistula Crohns disease with acute exacerbation History of bowel resection Rectal bleeding Anemia secondary to rectal bleeding PLAN: Continue medical management. No acute surgical intervention at this time. Dr. Denis will consider performing skin biopsy of perineum on . Patient agreeable. Nurse practitioner note has been reviewed by physician. Signing provider agrees with the documented findings, assessment, and plan of care. Objective - Vital Signs Vital signs: Vital Signs Temp 97.5 F L 03/23/18 11:42 Pulse 63 03/23/18 11:42 Resp 16 03/23/18 11:42 BP 114/62 03/23/18 11:42 Pulse Ox 96 03/23/18 11:42 Intake & Output 03/22/18 03/23/18 03/23/18 18:59 06:59 18:59 Intake Total 1500 600 Output Total 800 Balance 1500 -200 Weight 70.76 kg 70.76 kg Intake: Intake, IV Titration 700 600 Amount Piperacillin-Tazobactam 3 100 .375 gm In Sodium Chloride 0.9% 100 ml @ 25 mls/hr IVPB Q8HR [facility] Rx# :[id number] Sodium Chloride 0.9% 1, 600 600 000 ml @ 75 mls/hr IV . [id number] [facility] Rx#:[id number] Oral 800 Output: Urine 800 Other: Voiding Method Toilet Toilet Toilet Urinal Urinal Urinal # Voids 2 1 # Bowel Movements 2 - Labs CBC & Chem 7: 03/23/18 09:00 03/23/18 09:00 Labs: Abnormal Lab Results - Last 24 Hours (Table) 03/23/18 03/23/18 03/23/18 Range/Units 09:00 09:00 09:00 RBC 2.90 L (4.30-5.90) m/uL Hgb 10.0 L (13.0-17.5) gm/dL Hct 31.5 L (39.0-53.0) % MCV 108.6 H (80.0-100.0) fL Lymphocytes # (Manual) 0.71 L (1.0-4.8) k/uL PT 14.8 H (9.0-12.0) sec INR 1.5 H (<1.2) Chloride 110 H (98-107) mmol/L BUN 3 L (9-20) mg/dL Creatinine 0.52 L (0.66-1.25) mg/dL Glucose 144 H (74-99) mg/dL Calcium 7.8 L (8.4-10.2) mg/dL ALT 9 L (21-72) U/L Alkaline Phosphatase 27 L (38-126) U/L Albumin 2.4 L (3.5-5.0) g/dL Microbiology - Last 24 Hours (Table) 03/19/18 03:15 Gram Stain - Final Buttock Wound Culture - Final Escherichia coli Strep agalactiae - (group b) 03/19/18 12:34 Blood Culture - Preliminary Blood No Growth after 72 hours 03/20/18 03:15 Gram Stain - Final Buttock Wound Culture - Final Escherichia coli Strep agalactiae - (group b)
[2018-03-23] MEDS: HYDROcodone/APAP 7.5-325MG 1 EACH TAB PO PRN (18:03)
--- NOTE | 2018-03-23 22:06 | PN ---
PROGRESS NOTE DATE OF SERVICE: 03/23/2018 REASON FOR FOLLOWUP: Right gluteal rash/cellulitis. INTERVAL HISTORY: The patient is currently afebrile, has been breathing comfortably. Pain to the right gluteal area has currently decreased. The patient denies having any chest pain, shortness of breath or cough. No abdominal pain. Denies having hematochezia. Mild diarrhea. PHYSICAL EXAMINATION: Blood pressure is 108/63 with a pulse of 58, temperature 97.9. He is 97% on room air. General description is a middle-aged male lying in bed in no distress. RESPIRATORY SYSTEM: Unlabored breathing. Clear to auscultation anteriorly. HEART: S1, S2. Regular rate and rhythm. ABDOMEN: Soft. No tenderness. EXTREMITIES: No edema of the feet. LABS: Hemoglobin is 10, white count 7.9, BUN of 3, creatinine 0.52. DIAGNOSTIC IMPRESSION AND PLAN: Patient with right gluteal area rash/cellulitis with culture positive for Escherichia coli and Streptococcus agalactiae, currently on oral Augmentin, to continue for about a week. Continue with supportive care. MMODL / IJN: [id number] /
[2018-03-24] MEDS: SODIUM CHLORIDE 0.9% 1,000 ML IV SCH ×2 (06:32→11:43)
[2018-03-24 07:11] LABS: Basophils % (A) 0 %; Eosinophils # (A) 0.1 k/uL (0-0.7); Eosinophils % (A) 1 %; HCT 29.2 % (39.0-53.0); HGB 9.3 gm/dL (13.0-17.5); Hypochromasia Slight; Lymphocytes # (A) 0.7 k/uL (1.0-4.8); Lymphocytes % (A) 11 %; MCH 34.2 pg (25.0-35.0); MCHC 31.7 g/dL (31.0-37.0); MCV 107.6 fL (80.0-100.0); Macrocytosis Marked; Mean Platelet Volume 7.3; Monocytes # (A) 0.5 k/uL (0-1.0); Monocytes % (A) 8 %; Neutrophils # (A) 5.2 k/uL (1.3-7.7); Neutrophils % (A) 79 %; Platelet Count 180 k/uL (150-450); RBC 2.72 m/uL (4.30-5.90); WBC 6.6 k/uL (3.8-10.6)
[2018-03-24 07:26] LABS: INR 1.4 (<1.2); Prothrombin Time 14.6 sec (9.0-12.0)
[2018-03-24 07:27] LABS: ALT 19 U/L (21-72); AST 31 U/L (17-59); Albumin 2.3 g/dL (3.5-5.0); Alkaline Phosphatase 36 U/L (38-126); Anion Gap 4 mmol/L; Blood Urea Nitrogen 5 mg/dL (9-20); Carbon Dioxide 26 mmol/L (22-30); Chloride 108 mmol/L (98-107); Glucose 105 mg/dL (74-99); Potassium 3.9 mmol/L (3.5-5.1); Sodium 138 mmol/L (137-145); Total Bilirubin 0.9 mg/dL (0.2-1.3); Total Protein 7.2 g/dL (6.3-8.2)
[2018-03-24] MEDS: PANTOPRAZOLE 40 MG TABLET PO SCH (08:39)
[2018-03-24] MEDS: PHYTONADIONE ORAL 5 MG/5 ML ORAL.SYRG PO SCH (08:40)
[2018-03-24] MEDS: AMOXIC-POT CLAV 875-125MG 1 EACH TAB PO SCH ×2 (08:40→20:19)
[2018-03-24] MEDS: NICOTINE 14MG/24HR PATCH TRANSDERM SCH (08:40)
[2018-03-24] MEDS: THIAMINE 100 MG TAB PO SCH ×2 (08:41→17:09)
[2018-03-24] MEDS: MULTIVITAMINS, THERA 1 EACH TAB PO SCH (08:41)
[2018-03-24] MEDS: CLOBETASOL PROP 0.05% OINT 15GM TOPICAL SCH ×2 (08:42→20:19)
[2018-03-24] MEDS: HYDROcodone/APAP 7.5-325MG 1 EACH TAB PO PRN ×2 (08:49→17:10)
[2018-03-24 09:01] LABS: Rouleaux Present
--- NOTE | 2018-03-24 11:18 | P.PN ---
Subjective Progress Note Date: 03/24/18 Principal diagnosis: Crohns disease perirectal fistula Afebrile. No bleeding. Perianal soreness. Hemoglobin 9.3. Objective - Vital Signs Vital signs: Vital Signs Temp 97.7 F 03/24/18 05:00 Pulse 57 L 03/24/18 05:00 Resp 16 03/24/18 05:00 BP 129/65 03/24/18 05:00 Pulse Ox 97 03/24/18 05:00 Intake & Output 03/23/18 03/24/18 03/24/18 18:59 06:59 18:59 Intake Total 400 570 Output Total 500 Balance 400 70 Weight 70.76 kg 70.76 kg Intake: Intake, IV Titration 400 Amount Piperacillin-Tazobactam 3 100 .375 gm In Sodium Chloride 0.9% 100 ml @ 25 mls/hr IVPB Q8HR [facility] Rx# :[id number] Sodium Chloride 0.9% 1, 300 000 ml @ 75 mls/hr IV . [id number] [facility] Rx#:[id number] Oral 570 Output: Urine 500 Other: Voiding Method Toilet Toilet Toilet Urinal Urinal Urinal # Voids 1 # Bowel Movements 1 - Constitutional General appearance: Present: average body habitus - EENT Eyes: Present: normal appearance ENT: Present: normal oropharynx - Neck Neck: Present: normal ROM Carotids: bilateral: upstroke normal - Respiratory Respiratory: bilateral: CTA - Cardiovascular Rhythm: regular Heart sounds: normal: S1, S2 - Gastrointestinal General gastrointestinal: Present: soft - Neurologic Neurologic: Present: CNII-XII intact - Psychiatric Psychiatric: Present: A&O x's 3, appropriate affect - Labs CBC & Chem 7: 03/24/18 06:53 03/24/18 06:53 Labs: Abnormal Lab Results - Last 24 Hours (Table) 03/23/18 03/24/18 03/24/18 Range/Units 09:00 06:53 06:53 RBC 2.72 L (4.30-5.90) m/uL Hgb 9.3 L (13.0-17.5) gm/dL Hct 29.2 L (39.0-53.0) % MCV 107.6 H (80.0-100.0) fL Lymphocytes # 0.7 L (1.0-4.8) k/uL Lymphocytes # (Manual) 0.71 L (1.0-4.8) k/uL PT 14.6 H (9.0-12.0) sec INR 1.4 H (<1.2) Chloride (98-107) mmol/L BUN (9-20) mg/dL Creatinine (0.66-1.25) mg/dL Glucose (74-99) mg/dL Calcium (8.4-10.2) mg/dL ALT (21-72) U/L Alkaline Phosphatase (38-126) U/L Albumin (3.5-5.0) g/dL 03/24/18 Range/Units 06:53 RBC (4.30-5.90) m/uL Hgb (13.0-17.5) gm/dL Hct (39.0-53.0) % MCV (80.0-100.0) fL Lymphocytes # (1.0-4.8) k/uL Lymphocytes # (Manual) (1.0-4.8) k/uL PT (9.0-12.0) sec INR (<1.2) Chloride 108 H (98-107) mmol/L BUN 5 L (9-20) mg/dL Creatinine 0.60 L (0.66-1.25) mg/dL Glucose 105 H (74-99) mg/dL Calcium 8.0 L (8.4-10.2) mg/dL ALT 19 L (21-72) U/L Alkaline Phosphatase 36 L (38-126) U/L Albumin 2.3 L (3.5-5.0) g/dL Microbiology - Last 24 Hours (Table) 03/19/18 03:15 Gram Stain - Final Buttock Wound Culture - Final Escherichia coli Strep agalactiae - (group b) 03/19/18 12:34 Blood Culture - Preliminary Blood No Growth after 96 hours Assessment and Plan (1) Perianal fistula due to Crohn's disease Current Visit: Yes Status: Acute Code(s): K50.913 - CROHN'S DISEASE, UNSPECIFIED, WITH FISTULA SNOMED Code(s): 386751625 (2) Anemia Current Visit: Yes Status: Acute Code(s): D64.9 - ANEMIA, UNSPECIFIED SNOMED Code(s): 895676686 (3) Rectal bleeding Current Visit: Yes Status: Acute Code(s): K62.5 - HEMORRHAGE OF ANUS AND RECTUM SNOMED Code(s): 83237785 Plan: 1. Agreeable for discharge. Continue Humira next dose Thursday03/26/18. Assessment and plan of care discussed with Dr. Landis
--- NOTE | 2018-03-24 16:49 | PN ---
PROGRESS NOTE DATE OF SERVICE: 03/24/2018. REASON FOR FOLLOWUP: Right gluteal cellulitis and wound. INTERVAL HISTORY: The patient is currently afebrile, has been breathing comfortably. Denies having any chest pain or shortness of breath or cough. No abdominal pain. Did have some diarrhea, but no hematochezia. Overall, swelling and redness to the right gluteal area has improved. No further drainage. PHYSICAL EXAMINATION: Blood pressure is 98/56, pulse of 57, temperature 97.7. He is 97% on room air. General description is a middle-aged male lying in bed in no distress. Respiratory system: Unlabored breathing. Clear to auscultation anteriorly. Heart S1, S2. Regular rate and rhythm. Abdomen soft, no tenderness. LABS: Hemoglobin 9.8, white count 6.6, BUN of 5, creatinine 0.60. DIAGNOSTIC IMPRESSION AND PLAN: Patient with right gluteal skin rash with possible cellulitis, more likely due to his underlying Crohn's disease secondary cellulitis not entirely excluded. Currently on oral Augmentin, continue for a short course and continue supportive care. MMODL / IJN: [id number] /
[2018-03-25] MEDS: SODIUM CHLORIDE 0.9% 1,000 ML IV SCH (03:04)
[2018-03-25 05:15] VITALS: PULSE 60
[2018-03-25] MEDS: PANTOPRAZOLE 40 MG TABLET PO SCH (08:54)
[2018-03-25] MEDS: AMOXIC-POT CLAV 875-125MG 1 EACH TAB PO SCH (08:54)
[2018-03-25] MEDS: NICOTINE 14MG/24HR PATCH TRANSDERM SCH (08:55)
[2018-03-25] MEDS: CLOBETASOL PROP 0.05% OINT 15GM TOPICAL SCH (08:56)
[2018-03-25] MEDS: PHYTONADIONE ORAL 5 MG/5 ML ORAL.SYRG PO SCH (09:40)
[2018-03-25 11:44] VITALS: BP 123/68; RESP 16; TEMP 97
[2018-03-25] MEDS: THIAMINE 100 MG TAB PO SCH (12:15)
[2018-03-25] MEDS: MULTIVITAMINS, THERA 1 EACH TAB PO SCH (12:15)
--- NOTE | 2018-03-25 14:15 | P.PN ---
Subjective Progress Note Date: 03/25/18 Patient examined at the bedside. Patient is awake and alert. States his pain is tolerable. Denies rectal bleeding. Tolerating oral intake without nausea or vomiting. Vital signs are stable. He is anticipating discharge home today. PHYSICAL EXAM: GENERAL: This is a 58-year-old male in no apparent distress at the time of examination. Pleasant and cooperative. HEENT: Head is atraumatic, normocephalic. Pupils are equal, round, and reactive to light. Conjunctivae are clear. Mucus membranes of the mouth are moist. Neck is supple. RESPIRATORY: Clear to auscultation. No wheezes, rales, or rhonchi. No use of accessory muscles. Patient maintaining oxygen saturation greater than 92%. CARDIOVASCULAR: Regular rate and rhythm. S1 and S2 noted. GASTROINTESTINAL: No distention noted. Abdomen soft and round. Normal active bowel sounds auscultated x 4 quadrants. : Perineum with multiple perianal fistulas and chronic skin irritation. No bleeding noted. INTEGUMENTARY: No cyanosis. No jaundice. No rashes noted. No cellulitis noted. EXTREMITIES: 2+ peripheral pulses. No evidence of peripheral edema. NEUROLOGIC: Cranial nerves II-XII intact. PSYCHIATRIC: Awake, alert, and oriented X 3. Appropriate affect. ASSESSMENT: Perianal fistula Crohns disease with acute exacerbation History of bowel resection Rectal bleeding Anemia secondary to rectal bleeding PLAN: Continue medical management. No acute surgical intervention at this time. Patient is stable for discharge from a surgical standpoint. We will sign off at this time. Nurse practitioner note has been reviewed by physician. Signing provider agrees with the documented findings, assessment, and plan of care. Objective - Vital Signs Vital signs: Vital Signs Temp 97 F L 03/25/18 11:43 Pulse 60 03/25/18 11:43 Resp 16 03/25/18 11:43 BP 123/68 03/25/18 11:43 Pulse Ox 98 03/25/18 11:43 Intake & Output 03/24/18 03/25/18 03/25/18 18:59 06:59 18:59 Intake Total 500 Output Total 525 Balance -25 Intake: Oral 500 Output: Urine 525 Other: Voiding Method Toilet Toilet Toilet Urinal # Voids 1 # Bowel Movements 3 - Labs CBC & Chem 7: 03/24/18 06:53 03/24/18 06:53 Labs: Microbiology - Last 24 Hours (Table) 03/19/18 12:34 Blood Culture - Preliminary Blood No Growth after 120 hours 03/19/18 03:15 Gram Stain - Final Buttock Wound Culture - Final Escherichia coli Strep agalactiae - (group b)
--- NOTE | 2018-03-25 17:20 | PN ---
PROGRESS NOTE DATE OF SERVICE: 03/25/2018. REASON FOR FOLLOWUP: Right gluteal rash and possible cellulitis. INTERVAL HISTORY: The patient is afebrile. He was seen on rounds earlier this afternoon. He is breathing comfortably. Denies having any chest pain. No cough. No abdominal pain or any worsening diarrhea. Pain to the right gluteal rash, is decreased. PHYSICAL EXAMINATION: Blood pressure 123/68, pulse of 73, temperature 97. He is 98% on room air. General description is a middle-aged male lying in bed in no distress. Respiratory system: Unlabored breathing. Clear to auscultation anteriorly. Heart S1, S2. Regular rate and rhythm. Abdomen is soft, no tenderness. LABORATORY DATA: Hemoglobin 9.8, white count 6.6, BUN of 5, creatinine 0.60. DIAGNOSTIC IMPRESSION AND PLAN: Patient with right gluteal rash with secondary cellulitis. Culture positive for gram- negative and E. coli. The patient can finish short course of oral Augmentin with close outpatient follow up. Continue supportive care. MMODL / IJN: [id number] /
== END 2018-03-25 15:10 | disposition home or self-care (01) | DRG 386 ==
LOC: EC 12:15 → 3NMEDONC 15:27
PROVIDERS: ADMIT Hospitalist; ATTEND Hospitalist
DX: K50.113 Crohn's disease of large intestine with fistula (principal); D68.4 Acquired coagulation factor deficiency; L03.317 Cellulitis of buttock; D50.0 Iron deficiency anemia secondary to blood loss (chronic); D53.9 Nutritional anemia, unspecified; F17.210 Nicotine dependence, cigarettes, uncomplicated; F10.21 Alcohol dependence, in remission; K43.9 Ventral hernia without obstruction or gangrene; K60.4 Rectal fistula; K70.30 Alcoholic cirrhosis of liver without ascites; L08.0 Pyoderma; Z80.3 Family history of malignant neoplasm of breast; Z90.49 Acquired absence of other specified parts of digestive tract; B96.20 Unspecified Escherichia coli [E. coli] as the cause of diseases classified elsewhere; E80.6 Other disorders of bilirubin metabolism; Z79.899 Other long term (current) drug therapy; Z87.19 Personal history of other diseases of the digestive system; Z83.79 Family history of other diseases of the digestive system
CPT/HCPCS: 36415; 74177; 80053; 81003; 82150; 82272; 83690; 85025; 85610; 85730; 86780; 87040; 87070; 87077; 87086; 87186; 87205; 87390; 96360; 96361; 99285

== ENCOUNTER → 2018-04-26 | Outpatient (CLI) | payer MEDICARE ==
[2018-04-26 16:05] LABS: Anisocytosis Slight; HCT 29.8 % (39.0-53.0); HGB 10.9 gm/dL (13.0-17.5); MCH 36.9 pg (25.0-35.0); MCHC 36.5 g/dL (31.0-37.0); Macrocytosis Slight; Mean Platelet Volume 6.7; Platelet Count 204 k/uL (150-450); RBC 2.95 m/uL (4.30-5.90); WBC 12.6 k/uL (3.8-10.6)
[2018-04-26 16:16] LABS: MCV 101.1 fL (80.0-100.0)
[2018-04-27 02:42] LABS: Albumin/Globulin Ratio 0.64 (1.60-3.17); Anion Gap 10.4 mmol/L (4.00-12.00); Calcium 8.6 mg/dL (8.7-10.3); Carbon Dioxide 22.6 mmol/L (21.6-31.8); Globulin 4.7 g/dL (1.6-3.3); Potassium 4.6 mmol/L (3.5-5.5); Total Bilirubin 1.7 mg/dL (0.2-1.2); Total Protein 7.7 g/dL (6.2-8.2)
== END | disposition home or self-care (01) ==
LOC: LABWHC1 14:35
PROVIDERS: ATTEND Internal Medicine Gastroenterology
DX: K74.60 Unspecified cirrhosis of liver (principal)
CPT/HCPCS: 36415; 80053; 85027

== ENCOUNTER → 2018-05-07 | Day surgery (SDC) | payer MEDICARE ==
[2018-05-05 10:42] VITALS: BMI 24.0
[~2018-05-07] MED LIST: LACTATED RINGERS 1,000 ML IV SCH; LIDOCAINE 1% 20 ML VIAL (10MG/ML) FOR IV START INTRADERMA PRN; LIDOCAINE 1% INJ 10MG/ML (20 ML MDV) ONE; PROPOFOL 10 MG/ML 20 ML VIAL IV ONE
[2018-05-07 11:17] VITALS: RESP 16; TEMP 98.4
[2018-05-07 12:36] VITALS: BP 116/68; PULSE 97
--- NOTE | 2018-05-07 12:43 | P.PCN ---
Date of Procedure: 05/07/18 Procedure(s) Performed: Brief history: Patient is a pleasant 58-year-old white male scheduled for an elective upper endoscopy as well as colonoscopy as a part of evaluation of alcoholic cirrhosis of the liver/screening for esophageal varices. He has history of visualizing Crohn's disease diagnosed 20 years ago and recently was admitted to the hospital in March 2018 with severe rectal bleeding. His and scheduled for an upper endoscopy as well as colonoscopy today. He is maintained on Humira for the Crohn's disease for the last 1 year. Complains of multiple fistulas that are draining all the time. Procedure performed: Esophagogastroduodenoscopy with biopsy Colonoscopy with biopsy Preoperative diagnosis: Cirrhosis of the liver/screening for esophageal varices History of Crohn's ileitis/perianal visualizing Crohn's Rectal bleeding Anesthesia: MAC Procedure: After informed consent was obtained from the patient was brought into the endoscopy unit and IV sedation was administered by anesthesia under continuous monitoring. Initially upper endoscopy was done. The Olympus GF 160 video endoscope was inserted inserted into the mouth and esophagus intubated without any difficulty and was gradually advanced into the stomach and duodenum and carefully examined. The bulb and second part of the duodenum appeared normal. The scope was then withdrawn into the stomach adequately insufflated with air and upon careful examination the antrum appeared normal. There was mild to moderate portal hypertensive gastropathy involving the fundus and cardia of the stomach. No gastric varices seen. The scope was then withdrawn into the esophagus. The GE junction was located at 40 cm to the incisors. It appeared regular with no erythema erosions or ulcerations. There were large esophageal varices mainly in the distal esophagus. Rest of the esophagus appeared normal. Patient tolerated the procedure well. At this time the patient continued to remain sedation. Initial digital rectal examination was normal. Olympus CF 160 video colonoscope was then inserted into the rectum and gradually advanced to the right colon where the ileocolic anastomosis was visualized and appeared patent and normal. The distal ileum appeared normal., Labs were done from the anastomosis and transverse colon. Mucosa of the ascending colon, transverse colon, descending colon, sigmoid colon and rectum appeared normal. Retroflexion was performed in the rectum and rectal varices noted.. Patient tolerated the procedure well. Impression: 1. Upper endoscopy revealed large distal esophageal varices and severe portal hypertensive gastropathy 2. Colonoscopy revealed severe perianal erythema, induration and fistulous and rectal varices. No evidence of recurrent Crohn's at the anastomosis. Recommendations: Findings of this examination were discussed with the patient as well as his family. He will be scheduled for MRI of the pelvis and he'll be seen back in office in 2 weeks
== END ==
LOC: ORWHC2ENDO 10:50
PROVIDERS: ATTEND Internal Medicine Gastroenterology
DX: K52.9 Noninfective gastroenteritis and colitis, unspecified (principal); K29.50 Unspecified chronic gastritis without bleeding; K76.6 Portal hypertension; K70.30 Alcoholic cirrhosis of liver without ascites; K31.89 Other diseases of stomach and duodenum; I85.00 Esophageal varices without bleeding; I86.8 Varicose veins of other specified sites; Z98.0 Intestinal bypass and anastomosis status; J44.9 Chronic obstructive pulmonary disease, unspecified; F17.210 Nicotine dependence, cigarettes, uncomplicated; Z79.891 Long term (current) use of opiate analgesic; Z79.899 Other long term (current) drug therapy; Z88.8 Allergy status to other drugs, medicaments and biological substances
CPT/HCPCS: 88305; 45380; 43239; J2001; J2704

== ENCOUNTER → 2018-05-12 | Outpatient (CLI) | payer MEDICARE ==
--- NOTE | 2018-05-12 12:34 | MR ---
EXAMINATION TYPE: MR pelvis wo/w con DATE OF EXAM: 05/12/2018 COMPARISON: NONE HISTORY: 58-year-old male with history of Crohn's disease Technique: Multiplanar, multisequence images of the pelvis were obtained before and after administrat ion of 7 mL intravenous Gadavist gadolinium contrast. FINDINGS: Complex perianal fistulas are demonstrated. The cutaneous perianal surface is not included on this ex am. There appears to be a right-sided perianal fistula arising from just anterior to the transverse anal line, axial image 9 that extends inferiorly into the ischiorectal fossa, axial image 7, and then serv es as the origin for 2 separate fistulous tracts, one coursing posteriorly to the skin surface near t he superior gluteal crease (axial image 4). The second coursing inferiorly beyond the [id number], axial image 1. The mid aspect of the posteriorly coursing fistulous tract seems to have an additional branch which e xtends up and anteriorly (axial image 6). At the posterior midline, the fistula becomes patulous gudelia uring 2.1 x 1.6 cm, axial image 7, and then courses around to the left side of the anus to insert jus t posterior anal line (axial image 8). The patulous portion of the midline posterior fistula seems to also give off additional tracts extend ing posterior to the superior gluteal crease, axial image 6. No abnormal fluid collection is seen in the pelvis. IMPRESSION: 1. Complex, multidirectional perianal fistulas. 2. Right-sided fistula arising just anterior to the transverse anal line extends inferiorly to the is chiorectal fossa and then serves as an origin for 2 branches, one extending inferiorly beyond the fie ld-of-view, and the second extending posteriorly to the skin surface near the superior gluteal crease . 3. The mid aspect of the posteriorly coursing fistula seems to have an additional branch which extend s up and anterior to the posterior midline where it becomes patulous (possible small subcutaneous abs cess measuring 2.1 x 1.6 cm) and then courses around to the left side of the anus and seems to insert just posterior to the transverse anal line. 4. The patulous portion along the posterior midline also gives off additional tracts extending supervisor [employer] iorly to the superior gluteal crease. A number of fistulous openings to the skin surface seem to be p resent. 5. Note that this is a routine pelvic MRI and was not tailored for detailed perianal fistula characte rization. In particular, the right-sided fistula which courses inferiorly from the ischiorectal fossa is not fully characterized. If indicated, this may need to be done at a site with an established pro tocol.
== END | disposition home or self-care (01) ==
LOC: RADMRIMAIN 07:12
PROVIDERS: ATTEND Internal Medicine Gastroenterology
DX: K60.3 Anal fistula (principal); K50.90 Crohn's disease, unspecified, without complications
CPT/HCPCS: 72197; A9585

== ENCOUNTER → 2018-06-15 | Outpatient (CLI) | payer MEDICARE ==
[2018-06-15 17:21] LABS: Anisocytosis Slight; HCT 31.9 % (39.0-53.0); HGB 10.8 gm/dL (13.0-17.5); MCH 33.6 pg (25.0-35.0); MCV 98.9 fL (80.0-100.0); Macrocytosis Slight; Mean Platelet Volume 6.7; Platelet Count 190 k/uL (150-450); RBC 3.22 m/uL (4.30-5.90); RDW 19.1 % (11.5-15.5); WBC 8.6 k/uL (3.8-10.6)
[2018-06-16 01:52] LABS: Albumin 2.8 g/dL (3.80-4.90); Albumin/Globulin Ratio 0.62 (1.60-3.17); Anion Gap 7.3 mmol/L (4.00-12.00); Carbon Dioxide 23.7 mmol/L (21.6-31.8); Globulin 4.5 g/dL (1.6-3.3); Potassium 4.4 mmol/L (3.5-5.5); Total Bilirubin 1.3 mg/dL (0.2-1.2); Total Protein 7.3 g/dL (6.2-8.2)
== END | disposition home or self-care (01) ==
LOC: LABWHC1 16:09
PROVIDERS: ATTEND Internal Medicine Gastroenterology
DX: K74.60 Unspecified cirrhosis of liver (principal)
CPT/HCPCS: 36415; 80053; 85027

== ENCOUNTER → 2018-08-12 | Outpatient (CLI) | payer MEDICARE ==
[2018-08-12 15:43] LABS: Anisocytosis Slight; HCT 30.7 % (39.0-53.0); HGB 11.1 gm/dL (13.0-17.5); MCH 36.5 pg (25.0-35.0); MCV 101.6 fL (80.0-100.0); Macrocytosis Slight; Mean Platelet Volume 6.7; Platelet Count 194 k/uL (150-450); RBC 3.03 m/uL (4.30-5.90); RDW 18.1 % (11.5-15.5); WBC 7.7 k/uL (3.8-10.6)
[2018-08-12 23:18] LABS: Albumin/Globulin Ratio 0.68 (1.60-3.17); Anion Gap 7.4 mmol/L (4.00-12.00); Carbon Dioxide 23.6 mmol/L (21.6-31.8); Globulin 4.4 g/dL (1.6-3.3); Potassium 4.6 mmol/L (3.5-5.5); Total Protein 7.4 g/dL (6.2-8.2)
== END | disposition home or self-care (01) ==
LOC: LABWHC1 14:23
PROVIDERS: ATTEND Internal Medicine Gastroenterology
DX: K74.60 Unspecified cirrhosis of liver (principal)
CPT/HCPCS: 36415; 80053; 85027

== ENCOUNTER → 2019-10-17 | Outpatient (CLI) | payer MEDICARE ==
[2019-10-17 14:26] LABS: Anisocytosis Slight; HCT 37.7 % (39.0-53.0); HGB 12.2 gm/dL (13.0-17.5); Hypochromasia Slight; MCH 32.2 pg (25.0-35.0); MCHC 32.4 g/dL (31.0-37.0); MCV 99.4 fL (80.0-100.0); Macrocytosis Slight; Mean Platelet Volume 7.1; Platelet Count 243 k/uL (150-450); RBC 3.79 m/uL (4.30-5.90); RDW 16.8 % (11.5-15.5); WBC 14.8 k/uL (3.8-10.6)
[2019-10-17 20:21] LABS: Anion Gap 5.3 mmol/L (4.00-12.00); BUN/Creat Ratio 12.86 Ratio (12.00-20.00); Carbon Dioxide 27.7 mmol/L (21.6-31.8); Potassium 4.6 mmol/L (3.5-5.5)
[2019-10-17 20:22] LABS: African American GFR (CKD) 120.6 (60.0-200.0); Albumin 3.4 g/dL (3.80-4.90); Albumin/Globulin Ratio 0.72 (1.60-3.17); Calcium 9.3 mg/dL (8.7-10.3); Globulin 4.7 g/dL (1.6-3.3); Total Protein 8.1 g/dL (6.2-8.2)
== END | disposition home or self-care (01) ==
LOC: LABWHC1 13:30
PROVIDERS: ATTEND Internal Medicine Gastroenterology
DX: K74.60 Unspecified cirrhosis of liver (principal); K50.90 Crohn's disease, unspecified, without complications
CPT/HCPCS: 36415; 80053; 85027; 86480

== ENCOUNTER 2022-01-31 13:08 | Day surgery (SDC) | payer MEDICARE ==
[2022-01-30 10:29] VITALS: BMI 22.6
[~2022-01-31 13:08] MED LIST changes: -LIDOCAINE 1% 20 ML VIAL (10MG/ML) FOR IV START INTRADERMA PRN; -LIDOCAINE 1% INJ 10MG/ML (20 ML MDV) ONE; -PROPOFOL 10 MG/ML 20 ML VIAL IV ONE
[2022-01-31 14:37] VITALS: TEMP 97
[2022-01-31] MEDS ORDERED: PROPOFOL 10 MG/ML 20 ML VIAL IV ONE (15:29)
[2022-01-31] MEDS ORDERED: LIDOCAINE 2% INJ 20 MG/ML (2 ML VIAL) ONE (15:29)
--- NOTE | 2022-01-31 15:57 | P.PCN ---
Date of Procedure: 01/31/22 Procedure(s) Performed: BRIEF HISTORY: Patient is a 61-year-old pleasant male scheduled for an elective colonoscopy as a part of long-standing history of Crohn's disease and prior history of colon polyps. He was diagnosed with Crohn's disease 25 years ago. He is status post terminal ileal resection 7 years ago PROCEDURE PERFORMED: Colonoscopy with random biopsies. PREOPERATIVE DIAGNOSIS: Long-standing history of Crohn's disease status post right colon resection. IV sedation per Anesthesia. PROCEDURE: After informed consent was obtained, the patient, was brought into the endoscopy unit. IV sedation was administered by Anesthesia under continuous monitoring. Digital rectal examination was normal. Initially the Olympus CF-160 flexible video colonoscope was then inserted in the rectum, gradually advanced into the right colon where the prep was extremely poor endoscopic sticky still noted in this area. The ileocolic anastomosis could not be adequately visualized because of poor prep in the right colon. Mucosa of ascending colon transverse colon, descending colon, sigmoid colon, and rectum appeared normal. Random biopsies were done from the rectum to right colon at every 10 cm into well. Retroflexion was performed in the rectum and no lesions were seen. The patient tolerated the procedure well. IMPRESSION: Normal-appearing colon from rectum to right colon with ileocolic anastomosis could not be adequately visualized because of poor prep in this area. No evidence of colorectal neoplasia RECOMMENDATIONS: Findings of this examination were discussed with the patient as well as his family. He was advised to have a repeat colonoscopy in 5 years..
[2022-01-31 16:01] VITALS: RESP 16
[2022-01-31 16:20] VITALS: BP 127/73; PULSE 71
== END 2022-01-31 16:36 | disposition home or self-care (01) ==
LOC: ORWHC2ENDO 13:08
PROVIDERS: ATTEND Internal Medicine Gastroenterology
DX: K50.90 Crohn's disease, unspecified, without complications (principal); F17.210 Nicotine dependence, cigarettes, uncomplicated; K74.60 Unspecified cirrhosis of liver; Z79.899 Other long term (current) drug therapy
CPT/HCPCS: 45380; J2704; J2001; 88305

== ENCOUNTER → 2022-02-20 | Outpatient (CLI) | payer MEDICARE ==
--- NOTE | 2022-02-20 11:44 | CTL ---
EXAMINATION TYPE: CT Low Dose Lung DATE OF EXAM ORDERED: 02/20/2022 COMPARISON: None HISTORY: . Low Dose CT Lung Screening CT DLP: 86.[address] CTDI: 2.2 mGy IV CONTRAST USED: None. SCREENING VISIT: First visit COMPARISON: None. TECHNIQUE: Low dose computed tomography scan was performed through the chest at 1 millimeter thick se ctions and reconstructed images in the coronal plane at [address] DIAGNOSTIC QUALITY: Satisfactory FINDINGS: LUNG NODULES: Not presentLeft lung: no nodules identified.Right lung: no nodules identified. LUNGS: COPD: Severity: None Fibrosis: Severity: Small area of fibrotic change right upper lobe. Lymph nodes: None Other findings: None RIGHT PLEURAL SPACE: Effusion: None Calcification: None Thickening: None Pneumothorax: None LEFT PLEURAL SPACE: Effusion: None Calcification: None Thickening: None Pneumothorax: None HEART: Heart Size: Mildly enlarged Coronary calcification: Mild Pericardial effusion: None OTHER FINDINGS: Upper abdomen: Splenomegaly with AP measurement of 17.5 cm. Bony thorax: Degenerative changes Supraclavicular region: No significant abnormalityOther: No significant abnormalityI IMPRESSION: 1. No evidence for pulmonary nodularity. 2. Splenomegaly. FOLLOW UP CT CHEST RECOMMENDATION: Follow-up screening in one year CT LUNG RAD: LUNG RAD CATEGORY 1 negative
== END | disposition home or self-care (01) ==
LOC: RADCTMAIN 11:03
PROVIDERS: ATTEND Internal Medicine Hematology & Oncology
DX: Z12.2 Encounter for screening for malignant neoplasm of respiratory organs (principal); R16.1 Splenomegaly, not elsewhere classified; Z87.891 Personal history of nicotine dependence
CPT/HCPCS: 71271

== ENCOUNTER → 2022-04-11 | Outpatient (CLI) | payer MEDICARE, OTHER ==
[2022-04-11 18:56] LABS: Anion Gap 9.5 mmol/L (10.00-18.00); BUN/Creat Ratio 10.69 Ratio (12.00-20.00); Blood Urea Nitrogen 6.4 mg/dL (9.0-27.0); Calcium 8.4 mg/dL (8.7-10.3); Carbon Dioxide 22.8 mmol/L (20.0-27.5); Non-African American GFR(CKD) 108.7 (60.0-200.0); Potassium 4.2 mmol/L (3.5-5.5)
[2022-04-11 20:01] LABS: Eosinophils # (A) 0.21 X 10*3/uL (0.04-0.35); Eosinophils % (A) 2.2 %; HCT 41.2 % (39.6-50.0); Immature Grans, Automated 0.9 %; Lymphocytes % (A) 9.3 %; MCH 34.1 pg (27.0-32.0); MCHC 31.6 g/dL (32.0-37.0); MCV 108.1 fL (80.0-97.0); Mean Platelet Volume 9.1 fL (9.5-12.2); Monocytes # (A) 1.06 X 10*3/uL (0.20-1.00); NRBC Per 100 WBC 0 /100 WBCS (0.0-0.0); Neutrophils # (A) 7.32 X 10*3/uL (1.80-7.70); Neutrophils % (A) 75.6 %; Platelet Count 133 X 10*3/uL (140-440); RBC 3.81 X 10*6/uL (4.40-5.60); RDW 15.9 % (11.5-14.5); WBC 9.68 X 10*3/uL (4.50-10.00)
== END | disposition home or self-care (01) ==
LOC: LABPAT 09:12
PROVIDERS: ATTEND Orthopaedic Surgery Hand Surgery
DX: Z01.818 Encounter for other preprocedural examination (principal); S52.532A Colles' fracture of left radius, initial encounter for closed fracture
CPT/HCPCS: 80048; 85025; 93005

== ENCOUNTER 2022-08-05 20:02 | Emergency (ER) | payer MEDICARE, OTHER ==
[2022-08-05 20:31] VITALS: BP 121/78; PULSE 74; TEMP 97.4
--- NOTE | 2022-08-05 21:33 | XR ---
EXAMINATION TYPE: XR wrist complete RT DATE OF EXAM: 08/05/2022 COMPARISON: None HISTORY: Injury, pain, fall TECHNIQUE: 3 view right wrist FINDINGS: There is a transverse fracture of the distal metaphyseal radius. The distal fracture fragme nt is dorsally angulated. There is shift of the distal fracture fragment posteriorly approximately tw o thirds one shaft width. Soft tissue swelling is present. Distal ulnar fracture also appears to be present. This may be impacted. IMPRESSION: 1. Fracture distal radius with dorsal displacement and angulation of the distal fracture fragment of the radius. 2. There may be an impacted fracture of the distal ulna.
[2022-08-05] MEDS ORDERED: SODIUM CHLORIDE 0.9% 1,000 ML IV ONE (22:24)
[2022-08-05] MEDS ORDERED: LIDOCAINE 1% INJ 10MG/ML (30 ML VIAL-PF) SQ ONE (23:26)
--- NOTE | 2022-08-06 00:17 | ED ---
Upper Extremity HPI - General Chief Complaint: Extremity Injury, Upper Stated Complaint: RT WRIST INJURY Time Seen by Provider: 08/05/22 22:15 Source: patient Mode of arrival: ambulatory Limitations: no limitations - History of Present Illness Initial Comments: Patient is a 62-year-old male presenting with chief complaint of right wrist pain. Patient had a trip and fall earlier this afternoon and is complaining of continuing pain and swelling to the right wrist. There is obvious deformity. No numbness or tingling. No discoloration. No head injury, loss of consciousness, or use of blood thinners. Patient did admit to having "a few shots of whiskey" after the injury to help with the pain - Related Data Home Medications Medication Instructions Recorded Confirmed Albuterol Sulfate [Proair Hfa] 2 puff INHALATION RT-Q6H PRN 03/19/18 04/10/22 Clobetasol Propionate [Temovate 1 applic TOPICAL BID PRN 03/19/18 04/10/22 0.05% Oint] Hydrocodone/Acetaminophen [[place] 1 tab PO TID PRN 03/19/18 04/15/22 7.5-325] Hydrocortisone Oint 1 applic TOPICAL BID 03/19/18 04/10/22 [Hydrocortisone 2.5% Oint] Loperamide [Imodium] 4 mg PO QID PRN 03/19/18 04/10/22 Multivitamin [Men's Multi-Vitamin] 1 tab PO DAILY 03/19/18 04/10/22 Triamcinolone 0.025% Cream 1 applic TOPICAL BID 03/19/18 04/10/22 [Kenalog 0.025% Cream] Albuterol Nebulized [Ventolin 2.5 mg INHALATION Q4H PRN 05/05/18 04/10/22 Nebulized] Furosemide [Lasix] 20 mg PO BID 05/05/18 04/10/22 Spironolactone 50 mg PO BID 05/05/18 04/10/22 Clindamycin Phosphate [Cleocin T 1 applic TOPICAL DAILY 01/30/22 04/10/22 1%] Ferrous Sulfate [Feosol] 325 mg PO DAILY 01/30/22 04/10/22 Guselkumab [Tremfya] 100 mg SQ Q60D 01/30/22 04/10/22 hydrOXYzine pamoate [hydrOXYzine 25 mg PO DAILY PRN 01/30/22 04/10/22 PAMOATE] metroNIDAZOLE [Flagyl] 500 mg PO TID 04/15/22 04/15/22 Previous Rx's Medication Instructions Recorded HYDROcodone/APAP 5-325MG [[place] 1 tab PO Q6HR PRN 3 Days #18 tab 04/15/22 5-325] Allergies Allergy/AdvReac Type Severity Reaction Status Date / Time infliximab [From Remicade] Allergy Rash/Hives Verified 04/15/22 09:48 Review of Systems ROS Statement: Those systems with pertinent positive or pertinent negative responses have been documented in the HPI. ROS Other: All systems not noted in ROS Statement are negative. Past Medical History Past Medical History: GI Bleed, Skin Disorder Additional Past Medical History / Comment(s): crohn's,. "ezcema type rash". seasonal allergies. HX CIRRHOSIS. FX LT WRIST 04/06/22 History of Any Multi-Drug Resistant Organisms: None Reported Past Surgical History: Bowel Resection Additional Past Surgical History / Comment(s): lt achilles tendon, rt leg ligament repair. COLONOSCOPIES Past Anesthesia/Blood Transfusion Reactions: No Reported Reaction Past Psychological History: No Psychological Hx Reported Smoking Status: Current every day smoker - Past Family History Father History Unknown: Yes Family Medical History: Cancer Additional Family Medical History / Comment(s): pancreatitis Mother History Unknown: Yes Family Medical History: Cancer Additional Family Medical History / Comment(s): mother of metastatic breast cancer General Exam Limitations: no limitations General appearance: alert, in no apparent distress Head exam: Present: atraumatic, normocephalic, normal inspection Eye exam: Present: normal appearance, EOMI. Absent: scleral icterus, periorbit al swelling Neck exam: Present: normal inspection, full ROM Right Forearm Wrist exam: Present: tenderness, swelling, deformity. Absent: normal i nspection, full ROM Neurological exam: Present: alert, oriented X3, CN II-XII intact Psychiatric exam: Present: normal affect, normal mood Skin exam: Present: warm, dry, intact, normal color. Absent: rash Course Vital Signs 08/05/22 08/06/22 20:28 01:00 Temperature 97.4 F L Pulse Rate 74 Respiratory 20 18 Rate Blood Pressure 121/78 O2 Sat by Pulse 96 Oximetry Medical Decision Making - Medical Decision Making Was pt. sent in by a medical professional or institution ([facility], [employer], urgent care, hospital, or retirement...) When possible be specific @ -No Did you speak to anyone other than the patient for history (EMS, parent, family, police, friend...)? What history was obtained from this source @ -No Did you review nursing and triage notes (agree or disagree)? Why? @ -I reviewed and agree with nursing and triage notes Were old charts reviewed (outside hosp., previous admission, EMS record, old EKG, old radiological studies, urgent care reports/EKG's, retirement records)? Report findings @ -No old charts were reviewed Differential Diagnosis (chest pain, altered mental status, abdominal pain women, abdominal pain men, vaginal bleeding, weakness, fever, dyspnea, syncope, headache, dizziness, GI bleed, back pain, seizure, CVA, palpatations, mental health, musculoskeletal)? @ -Differential Musculoskeletal Muscular strain, contusion, ligament sprain, fracture, arthritis, septic arthritis, bursitis, cellulitis, muscle spasm, nerve compression, DVT, arterial occlusion, herpes zoster, electrolyte abnormality, tumor.... This is not meant to be in all inclusive list EKG interpreted by me (3pts min.). @ -As above X-rays interpreted by me (1pt min.). @ -X-ray shows distal radius fracture with dorsal displacement and angulation of the distal fracture fragment of the radius. There may be an impacted fracture of the distal ulna. CT interpreted by me (1pt min.). @ -None done U/S interpreted by me (1pt. min.). @ -None done What testing was considered but not performed or refused? (CT, X-rays, U/S, labs)? Why? @ -None What meds were considered but not given or refused? Why? @ -None Did you discuss the management of the patient with other professionals (professionals i.e. [facility], [employer], lab, RT, psych nurse, social organization professor, second steward, teacher, command center officer, case folder)? Give summary @ -No Was smoking cessation discussed for >3mins.? @ -No Was critical care preformed (if so, how long)? @ -No Were there social determinants of health that impacted care today? How? (Homelessness, low income, unemployed, alcoholism, drug addiction, transportation, low edu. Level, literacy, decrease access to med. care, assisted, rehab)? @ -No Was there de-escalation of care discussed even if they declined (Discuss DNR or withdrawal of care, Hospice)? DNR status @ -No What co-morbidities impacted this encounter? (DM, HTN, Smoking, COPD, CAD, Cancer, CVA, ARF, Chemo, Hep., AIDS, mental health diagnosis, sleep apnea, morbid obesity)? @ -None Was patient admitted / discharged? Hospital course, mention meds given and route, prescriptions, significant lab abnormalities, going to OR and other pertinent info. @ -This is a 62-year-old male presenting with chief complaint of right wrist injury after a trip and fall. No head injury, loss of consciousness, use of blood thinners. X-ray shows dorsally displaced distal radius fracture. Hematoma block was placed and fracture was reduced. Patient is placed in a sugar tong splint and instructed to follow-up with orthopedics. He has seen Dr. Ventura in the past and is instructed to call the office tomorrow. Follow-up with PCP. Report back to ER with any new or worsening symptoms. Discussed return parameters and answered all questions. Patient conveyed verbal understanding and agreed to the plan. I discussed this case in detail with my attending Dr. Walters Undiagnosed new problem with uncertain prognosis? @ -No Drug Therapy requiring intensive monitoring for toxicity (Heparin, Nitro, Insulin, Cardizem)? @ -No Were any procedures done? @ -Reduction of displaced fracture and hematoma block Diagnosis/symptom? @ -Distal radius fracture Acute, or Chronic, or Acute on Chronic? @ -Acute Uncomplicated (without systemic symptoms) or Complicated (systemic symptoms)? @ -Uncomplicated Side effects of treatment? @ -No Exacerbation, Progression, or Severe Exacerbation? @ -No Poses a threat to life or bodily function? How? (Chest pain, [place], [place], pneumonia, PE, COPD, DKA, ARF, appy, cholecystitis, CVA, Diverticulitis, Homicidal, Suicidal, threat to staff... and all critical care pts) @ -No Disposition Clinical Impression: Radial fracture Disposition: HOME SELF-CARE Condition: Good Instructions (If sedation given, give patient instructions): Wrist Fracture in Adults (ED) Additional Instructions: Follow-up with orthopedist. Report back to ER with any new or worsening symptoms. Take Motrin and Tylenol as needed for pain control. Rest, ice, elevate the wrist. Is patient prescribed a controlled substance at d/c from ED?: No Referrals: Elfego Yepez III, MD [Primary Care Provider] - 1-2 days Sean Ventura DO [Doctor of Osteopathic Medicine] - 1-2 days Time of Disposition: 00:17
--- NOTE | 2022-08-06 00:36 | XR ---
EXAM: XR Right Wrist Complete, 3 or More Views CLINICAL HISTORY: ITS.REASON XR Reason: post-reduction TECHNIQUE: Frontal, lateral and oblique views of the right wrist. COMPARISON: 08/05/22 [id number] FINDINGS: Bones/joints: Acute comminuted distal radial and ulnar metaphyseal fractures with dorsal displacement of the distal fracture fragments. Alignment is not significantly changed since prior exam. Soft tissues: Soft tissue edema. No radiopaque foreign body. IMPRESSION: Similar alignment of distal radial and ulnar fractures.
[2022-08-06 01:02] VITALS: RESP 18
== END 2022-08-06 01:02 | disposition home or self-care (01) ==
LOC: EC 20:02
DX: S52.501A Unspecified fracture of the lower end of right radius, initial encounter for closed fracture (principal); F17.200 Nicotine dependence, unspecified, uncomplicated; Z88.8 Allergy status to other drugs, medicaments and biological substances; W01.0XXA Fall on same level from slipping, tripping and stumbling without subsequent striking against object, initial encounter
CPT/HCPCS: 25605; 99283

== ENCOUNTER 2022-08-13 11:46 | Day surgery (SDC) | payer MEDICARE, OTHER ==
--- NOTE | 2022-08-12 09:26 | P.HPOR ---
History of Present Illness H&P Date: 08/12/22 Subjective: This is a 62 year old male that presents today for initial evaluation regarding a right wrist injury that occurred on 08/05/22 when he fell on a ceramic floor. He was seen at [facility] ED and closed reduction and immobilization was performed. He complains of pain and swelling in the hand. He just recently underwent a left distal radius ORIF in March of this year. Physical Examination: RUE: AIN/PIN/Radial/Ulnar/Median motor intact. Radial/Ulnar/Median SILT. 2+/4 Radial/Ulnar pulses palpated. / APB, / FDI. TTP over distal radius with bruising/swelling present. Imaging: X-Rays of the right wrist 2 view taken in the office today demonstrate a comminuted intra-articular distal radius fracture with 40% dorsal displacement and nondisplaced ulnar styloid fracture. X-Rays of the right elbow 3V taken in office today demonstrate no acute fracture/dislocation. Impression: 1.) Right intra-articular distal radius fracture 2.) Right ulnar styloid fracture Plan: Diagnosis and treatment options were discussed with the patient. Due to the amount of displacement and angulation on imaging today I recommend surgical intervention with a left distal radius open reduction internal fixation. Risks and benefits of surgery including bleeding, infection, damage to surrounding tissue, need for further surgery, residual numbness were discussed and the patient wished to go forward with surgery. The patient was agreeable with this plan. -Sean Ventura DO Orthopedic Hand/Upper Extremity Surgeon Past Medical History Past Medical History: GI Bleed, Skin Disorder Additional Past Medical History / Comment(s): crohn's,. "ezcema type rash". seasonal allergies. HX CIRRHOSIS. FX LT WRIST 04/06/22 History of Any Multi-Drug Resistant Organisms: None Reported Past Surgical History: Bowel Resection Additional Past Surgical History / Comment(s): lt achilles tendon, rt leg ligament repair. COLONOSCOPIES Past Anesthesia/Blood Transfusion Reactions: No Reported Reaction Past Psychological History: No Psychological Hx Reported Smoking Status: Current every day smoker - Past Family History Father History Unknown: Yes Family Medical History: Cancer Additional Family Medical History / Comment(s): pancreatitis Mother History Unknown: Yes Family Medical History: Cancer Additional Family Medical History / Comment(s): mother of metastatic breast cancer Medications and Allergies Home Medications Medication Instructions Recorded Confirmed Type Albuterol Sulfate [Proair Hfa] 2 puff INHALATION RT-Q6H PRN 03/19/18 04/10/22 History Clobetasol Propionate [Temovate 1 applic TOPICAL BID PRN 03/19/18 04/10/22 History 0.05% Oint] Hydrocodone/Acetaminophen [[place] 1 tab PO TID PRN 03/19/18 04/15/22 History 7.5-325] Hydrocortisone Oint 1 applic TOPICAL BID 03/19/18 04/10/22 History [Hydrocortisone 2.5% Oint] Loperamide [Imodium] 4 mg PO QID PRN 03/19/18 04/10/22 History Multivitamin [Men's Multi-Vitamin] 1 tab PO DAILY 03/19/18 04/10/22 History Triamcinolone 0.025% Cream 1 applic TOPICAL BID 03/19/18 04/10/22 History [Kenalog 0.025% Cream] Albuterol Nebulized [Ventolin 2.5 mg INHALATION Q4H PRN 05/05/18 04/10/22 History Nebulized] Furosemide [Lasix] 20 mg PO BID 05/05/18 04/10/22 History Spironolactone 50 mg PO BID 05/05/18 04/10/22 History Clindamycin Phosphate [Cleocin T 1 applic TOPICAL DAILY 01/30/22 04/10/22 History 1%] Ferrous Sulfate [Feosol] 325 mg PO DAILY 01/30/22 04/10/22 History Guselkumab [Tremfya] 100 mg SQ Q60D 01/30/22 04/10/22 History hydrOXYzine pamoate [hydrOXYzine 25 mg PO DAILY PRN 01/30/22 04/10/22 History PAMOATE] HYDROcodone/APAP 5-325MG [[place] 1 tab PO Q6HR PRN 3 Days #18 tab 04/15/22 Rx 5-325] metroNIDAZOLE [Flagyl] 500 mg PO TID 04/15/22 04/15/22 History Allergies Allergy/AdvReac Type Severity Reaction Status Date / Time infliximab [From Remicade] Allergy Rash/Hives Verified 04/15/22 09:48 Physical Examination Osteopathic Statement: *. No significant issues noted on an osteopathic structural exam other than those noted in the History and Physical/Consult.
[2022-08-12 13:52] VITALS: BMI 22.1
[2022-08-13] MEDS ORDERED: ONDANSETRON 4 MG/2 ML VIAL ONE (12:09)
[2022-08-13] MEDS ORDERED: LACTATED RINGERS 1,000 ML IV ONE (12:14)
[2022-08-13] MEDS ORDERED: ONDANSETRON 4 MG/2 ML VIAL IVP ONE ×2 (12:30→14:40)
[2022-08-13] MEDS ORDERED: DEXAMETHASONE SOD PHOSPHATE 4 MG/ML 1 ML VIAL IVP ONE (12:30)
[2022-08-13] MEDS ORDERED: MIDAZOLAM 2 MG/2 ML VIAL IVP ONE (12:47)
[2022-08-13] MEDS ORDERED: fentaNYL (PF) 50 MCG/ML 2 ML AMP IVP ONE (12:48)
[2022-08-13] MEDS ORDERED: ROPIVACAINE 5 MG/ML 30 ML VIAL ONE (12:51)
[2022-08-13] MEDS ORDERED: fentaNYL (PF) 50 MCG/ML 2 ML AMP ONE (12:51)
[2022-08-13] MEDS ORDERED: LIDOCAINE 2% INJ 20 MG/ML (2 ML VIAL) ONE (12:51)
[2022-08-13] MEDS ORDERED: PROPOFOL 10 MG/ML 20 ML VIAL IV ONE (12:51)
[2022-08-13] MEDS ORDERED: SODIUM CHLORIDE 0.9% (PF) 10 ML VIAL ONE (12:51)
--- NOTE | 2022-08-13 14:05 | P.OP ---
Date of Procedure: 08/13/22 Preoperative Diagnosis: Right intra-articular distal radius fracture, 3 parts. Postoperative Diagnosis: Right intra-articular distal radius fracture, 3 parts. Procedure(s) Performed: Open reduction internal fixation of right intra-articular distal radius f racture, 3 parts. Implants: Arthrex volar distal radius locking plate Anesthesia: YAMILE, regional Surgeon: Sean Ventura Estimated Blood Loss (ml): 5 Pathology: none sent Condition: stable Disposition: PACU Description of Procedure: This is a 62 year old male who sustained a displaced intra-articular distal radius fracture and presents today for open reduction internal fixation of their right distal radius fracture. Risks and benefits of surgery were discussed with the patient including bleeding, damage to surrounding tissue, infection, need for further surgery as well as risks of anesthesia including pulmonary embolism and even and the patient wished to proceed with surgical intervention. The patients was seen in the pre-operative area by myself. Consent and H&P were completed and updated. The correct extremity was marked in the pre- operative area by myself and all other questions were answered. Operative Narrative: The patient was brought to the operating room by the department of anesthesia. They remained on the portable stretcher and a rolling hand table was brought to the side of the operative extremity. Pre-operative time out was performed indicating the correct patient, procedure and laterality. All in the room agreed. Pre-operative antibiotics were given prior to skin incision. The patient was then drifted off to sleep by the department of anesthesia. A nonsterile tourniquet was then applied to the operative extremity and the right upper extremity was then prepped and draped in normal sterile fashion. The operative extremity was the exsanguinated with an esmarch bandage and the tourniquet was inflated to 250mmHg. A longitudinal incision centered over the FCR tendon was made with a 15-blade scalpel. Blunt dissection was taken down to the FCR tendon sheath using Bovie cautery for meticulous hemostasis. The FCR sheath was opened with tenotomy scissors. The floor of the FCR sheath was then incised with a 15-blade scalpel and the FPL tendon and muscle belly was swept bluntly in an ulnar direction to reveal the pronator quadratus. Pronator quadratus was sharply incised with a 15-blade scalpel along the radial border of the distal radius, coming across transversely parallel to the joint at the level of the watershed line, radial artery was identified and protected. Periosteal elevator was then used to elevate the pronator quadratus off the distal radius from a radial to ulnar fashion. A Gerry elevator was used to lever the distal piece back into place and free up the fractured fragments. A narrow width 3 hole Arthrex titanium volar locking distal radius plate was chosen to fit the patients anatomy best. This was placed on the distal radius under direct visualization and the oblong hole was drilled and filled with a non-locking screw. The fracture was then reduced to the plate distally and a k-wire was placed in the ulnar most k-wire hole in the proximal row. Fluoroscopy was then utilized to confirm correct placement of plate in the radial/ulnar plane and distal k-wire placement was confirmed to be proximal to the subchondral bone on 20 degree elevated lateral view confirming extra-articular screw placement. Yazdanism of radial height, inclination and volar tilt was achieved. The distal rows and radial styloid screw holes were then drilled and filled from ulnar to radial with locking screw s. Attention was then brought to the proximal shaft screws. Proximal nonlocking and locking shaft screws were drilled, measured, and filled. The wrist joint was the ranged and full smooth flexion/extension with no crepitus appreciated. Final imaging was taken confirming extra-articular placement of distal screws at DRUJ and radiocarpal joint. The wound was then irrigated. Subcutaneous closure was performed with 4-0 monocryl followed by skin closure with 4-0 nylon suture. Sterile dressing consisting of adaptic, 4x4s, and a volar plaster splint was applied. Tourniquet was let down and the hand had immediate perfusion. The patient was then woken by the department of anesthesia and transferred to PACU in stable condition. Gerhard MONTAGUE was present for the case and assisted in major portions of the operation and hardware placement. Sean Ventura D.O. Orthopedic Hand/Upper Extremity Surgeon
[2022-08-13 14:17] VITALS: TEMP 98.4
--- NOTE | 2022-08-13 14:33 | P.ANPRN ---
Procedure Note - Anesthesia - Nerve Block Performed Right Axillary Single Time Out Performed: Yes ([id number]) Date of Procedure: 08/13/22 Procedure Start Time: 12:48 Procedure Stop Time: 12:53 Location of Patient: PreOp Indication: Acute Post-Operative Pain, Requested by Surgeon Specifically requested for management of pain by DrJose: Sean Ventura Sedation Type: Sedate with meaningful contact maintained Preparation: Sterile Prep Position: Supine Catheter: None Needle Types: Pajunk Needle Gauge: 21 Ultrasound used to visualize needle placement: Yes Ultrasound used to observe medication spread: Yes Injectate: 0.5% Ropivacaine (see comment for volume) ((7.5 + 5cc nacl pf)x4 each side) Blood Aspirated: No Pain Paresthesia on Injection Noted: No Resistance on Injection: Normal Image Stored and Saved: Yes Events: Uneventful and Well Tolerated
[2022-08-13 16:06] VITALS: PULSE 113
[2022-08-13 16:39] VITALS: BP 108/70; RESP 20
== END 2022-08-13 16:30 | disposition home or self-care (01) ==
LOC: OR 11:46
PROVIDERS: ATTEND Orthopaedic Surgery Hand Surgery
DX: S52.571A Other intraarticular fracture of lower end of right radius, initial encounter for closed fracture (principal); S52.614A Nondisplaced fracture of right ulna styloid process, initial encounter for closed fracture; W01.198A Fall on same level from slipping, tripping and stumbling with subsequent striking against other object, initial encounter; J44.9 Chronic obstructive pulmonary disease, unspecified; F17.210 Nicotine dependence, cigarettes, uncomplicated; K74.60 Unspecified cirrhosis of liver; Z87.19 Personal history of other diseases of the digestive system; Z79.51 Long term (current) use of inhaled steroids; Z79.899 Other long term (current) drug therapy; Z88.1 Allergy status to other antibiotic agents; Z88.8 Allergy status to other drugs, medicaments and biological substances; G89.18 Other acute postprocedural pain
CPT/HCPCS: 25609; 64415; 84132; C1713; J2250; J1100; J0690; J2405; J3010; J2795; J2704; J2001

== ENCOUNTER → 2022-11-14 | Outpatient (CLI) | payer MEDICARE, OTHER ==
--- NOTE | 2022-11-14 08:57 | US ---
EXAMINATION TYPE: US liver DATE OF EXAM: 11/14/2022 COMPARISON: CT abdomen and pelvis 03/19/2018 CLINICAL INDICATION: Male, 62 years old with history of K70.30 alcoholic cirrhosis; cirrhosis TECHNIQUE: Multiple sonographic images of the right upper quadrant are obtained. FINDINGS: EXAM MEASUREMENTS: Liver Length: 15.2 cm Gallbladder Wall: .3 cm CBD: .3 cm Right Kidney: 11.9 x 5.3 x 5.4 cm MINCEMEAT MAKER NOTES: Pancreas: Tail obscured by overlying bowel gas heterogenous Liver: Heterogenous lobulated Gallbladder: stone visualized Evidence for sonographic Ham's sign: no CBD: wnl Right Kidney: No hydronephrosis or masses seen The visualized portions of pancreas unremarkable. The tail is obscured by overlying bowel gas. Hetero genous lobulated appearance of the liver with coarsened echotexture consistent with cirrhosis. No foc al lesion identified. No intrahepatic biliary duct dilatation. Cholelithiasis demonstrated. No wall t hickening or pericholecystic fluid identified. Per camp head counselor, negative sonographic Ham sign. Com mon bile duct is within normal limits. Right kidney is unremarkable without evidence of hydronephrosi s, solid mass, or nephrolithiasis. No visualized ascites. IMPRESSION: 1. Hepatic cirrhosis without focal lesion identified. 2. Cholelithiasis without evidence for acute cholecystitis.
== END | disposition home or self-care (01) ==
LOC: RADUSWWP 07:42
PROVIDERS: ATTEND Internal Medicine Gastroenterology
DX: K70.30 Alcoholic cirrhosis of liver without ascites (principal); K80.20 Calculus of gallbladder without cholecystitis without obstruction
CPT/HCPCS: 76705

== ENCOUNTER 2023-01-21 10:16 | Day surgery (SDC) | payer MEDICARE, OTHER ==
[~2023-01-21 10:16] MED LIST changes: -LACTATED RINGERS 1,000 ML IV SCH; +LIDOCAINE 1% (10MG/ML) FOR IV START INTRADERMA PRN
[2023-01-21] MEDS: LACTATED RINGERS 1,000 ML IV SCH ×2 (11:50→12:02)
[2023-01-21 11:55] VITALS: TEMP 98.5
[2023-01-21] MEDS ORDERED: PROPOFOL 10 MG/ML 20 ML VIAL IV ONE (12:05)
[2023-01-21] MEDS ORDERED: LIDOCAINE 2% (PF) 20 MG/ML 5 ML VIAL ONE (12:05)
--- NOTE | 2023-01-21 12:19 | P.PCN ---
Date of Procedure: 01/21/23 Procedure(s) Performed: BRIEF HISTORY: Patient is a 62-year-old, pleasant, white male with history of liver cirrhosis secondary to alcohol abuse and prior history of esophageal varices for which she underwent EGD with variceal ligation about 3 years ago. He scheduled for follow-up upper endoscopy today.. PROCEDURE PERFORMED: Esophagogastroduodenoscopy with variceal ligation. PREOPERATIVE DIAGNOSIS: History of alcoholic liver cirrhosis/esophageal varices. IV sedation per anesthesia. PROCEDURE: After informed consent was obtained, the patient was brought into the endoscopy unit. IV sedation was administered by Anesthesia under continuous monitoring. Initially the Olympus GIF-140 video endoscope was inserted into the mouth. Esophagus intubated without any difficulty. It was gradually advanced into the stomach and duodenum and carefully examined. The bulb and the second part of the duodenum appeared normal. The scope at this time was withdrawn to the stomach, adequately insufflated with air, and upon careful examination, mucosa of the antrum, body, cardia and the fundus had changes consistent with moderate portal hypertensive gastropathy. No gastric varices seen. The scope was then withdrawn into the esophagus. The GE junction was located at 40 cm from the incisors. There were large mid and distal esophageal varices seen with no stigmata of bleeding. At this time the scope was removed and esophageal variceal ligation equipment was introduced onto the tip of the scope and eso phagus reintubated without any difficulty. It was gradually advanced and the proximal cervical esophagus there was an esophageal web identified and with gentle pressure I was able to advance the scope into the distal esophagus. Using suction total of seven bands were deployed in a spiral fashion starting distally and into the midesophagus. The proximal cervical esophagus and a small mucosal tear at the site of passage of the scope noted. Patient tolerated the procedure well. IMPRESSION: 1. Large mid and distal esophageal varices status post variceal ligation as described above. 2. Moderate portal hypertensive gastropathy. RECOMMENDATIONS: The findings of this examination were discussed with the patient as well as his family. He will remain on a soft diet today. We will plan on repeat upper endoscopy in 3 months. Recommended strict abstinence from alcohol..
[2023-01-21 12:47] VITALS: BP 149/80; PULSE 75; RESP 14
== END 2023-01-21 13:04 | disposition home or self-care (01) ==
LOC: ORWHC2ENDO 10:16
PROVIDERS: ATTEND Internal Medicine Gastroenterology
DX: I85.00 Esophageal varices without bleeding (principal); K76.6 Portal hypertension; K31.89 Other diseases of stomach and duodenum; J44.9 Chronic obstructive pulmonary disease, unspecified; K50.90 Crohn's disease, unspecified, without complications; K70.30 Alcoholic cirrhosis of liver without ascites; F17.200 Nicotine dependence, unspecified, uncomplicated; Z79.51 Long term (current) use of inhaled steroids; Z98.890 Other specified postprocedural states; Z79.899 Other long term (current) drug therapy
CPT/HCPCS: 43255; J2704; J2001

== ENCOUNTER 2023-05-07 17:50 | Inpatient (IN) | payer MEDICARE, OTHER ==
--- NOTE | 2023-05-07 19:29 | ED ---
General Adult HPI - General Chief complaint: GI Bleed Stated complaint: Bloody stool Time Seen by Provider: 05/07/23 19:25 Source: patient Mode of arrival: ambulatory Limitations: no limitations - History of Present Illness Initial comments: 63-year-old male with past medical history significant for at bedtime presenting to the ED for chief complaint skin problem. Patient notes lesions near the rectum that intermittently causes pain and bleeding ongoing for the past few months however recently feels as if with lesions has got bigger and "blew up" an d started bleeding recently prompting presentation to the ED for further evaluation. - Related Data Home Medications Medication Instructions Recorded Confirmed Albuterol Sulfate [Proair Hfa] 2 puff INHALATION RT-Q6H PRN 03/19/18 01/21/23 Clobetasol Propionate [Temovate 1 applic TOPICAL BID PRN 03/19/18 01/21/23 0.05% Oint] Hydrocortisone Oint 1 applic TOPICAL BID PRN 03/19/18 01/21/23 [Hydrocortisone 2.5% Oint] Loperamide [Imodium] 4 mg PO QID PRN 03/19/18 01/21/23 Multivitamin [Men's Multi-Vitamin] 1 tab PO DAILY 03/19/18 01/21/23 Triamcinolone 0.025% Cream 1 applic TOPICAL BID 03/19/18 01/21/23 [Kenalog 0.025% Cream] Albuterol Nebulized [Ventolin 2.5 mg INHALATION Q4H PRN 05/05/18 01/21/23 Nebulized] Furosemide [Lasix] 20 mg PO BID PRN 05/05/18 01/21/23 Spironolactone 50 mg PO BID PRN 05/05/18 01/21/23 Clindamycin Phosphate [Cleocin T 1 applic TOPICAL DAILY 01/30/22 01/21/23 1%] Ferrous Sulfate [Feosol] 325 mg PO DAILY 01/30/22 01/21/23 Infliximab-Dyyb [Inflectra] 100 mg IV Q30D 08/12/22 01/21/23 Previous Rx's Medication Instructions Recorded HYDROcodone/APAP 5-325MG [[place] 1 tab PO Q6HR PRN 3 Days #24 tab 08/13/22 5-325] Allergies Allergy/AdvReac Type Severity Reaction Status Date / Time No Known Allergies Allergy Verified 05/07/23 18:32 Review of Systems ROS Statement: Those systems with pertinent positive or pertinent negative responses have been documented in the HPI. ROS Other: All systems not noted in ROS Statement are negative. Past Medical History Past Medical History: COPD, GI Bleed, Hearing Disorder / Deafness, Liver Disease, Skin Disorder Additional Past Medical History / Comment(s): crohn's,. "ezcema type rash". seasonal allergies. HX CIRRHOSIS. FX LT WRIST 04/06/22 rt wrist 08/05/2022 fx History of Any Multi-Drug Resistant Organisms: None Reported Past Surgical History: Bowel Resection Additional Past Surgical History / Comment(s): lt achilles tendon repair , rt leg ligament repair, bilateral cataract surgery with implants gary wrist fx repair. COLONOSCOPIES, left hand surgery Past Anesthesia/Blood Transfusion Reactions: No Reported Reaction Past Psychological History: No Psychological Hx Reported Smoking Status: Current every day smoker - Past Family History Father History Unknown: Yes Family Medical History: Cancer Additional Family Medical History / Comment(s): pancreatitis Mother History Unknown: Yes Family Medical History: Cancer Additional Family Medical History / Comment(s): mother of metastatic breast cancer General Exam - General Exam Comments Initial Comments: Visual Physical Exam Vital signs reviewed General: Well-appearing, nontoxic, no acute distress. Head: Normocephalic, atraumatic Eyes: PERRLA, EOMI ENT: Airway patent Chest: Nonlabored breathing Skin: No visual rash, normal skin tone Neuro: Alert and oriented 3 Musculoskeletal: No gross abnormalities Limitations: no limitations General appearance: alert Eye exam: Present: scleral icterus Neck exam: Present: normal inspection Respiratory exam: Present: normal lung sounds bilaterally Cardiovascular Exam: Present: regular rate GI/Abdominal exam: Present: soft Neurological exam: Present: alert, oriented X3 Skin exam: Present: warm, other (Jaundiced. Review of the perianal area revealed erythema of the skin with several nodularities. ) Course Vital Signs 05/07/23 05/07/23 05/07/23 18:26 21:59 23:36 Temperature 98.3 F Pulse Rate 99 85 84 Respiratory 16 16 16 Rate Blood Pressure 119/71 121/71 91/50 O2 Sat by Pulse 97 97 97 Oximetry Medical Decision Making - Medical Decision Making Was pt. sent in by a medical professional or institution (, PA, SERVICE ORDER CLERK, urgent care, hospital, or custodial...) When possible be specific @ -No Did you speak to anyone other than the patient for history (EMS, parent, family, police, friend...)? What history was obtained from this source @ -No Did you review nursing and triage notes (agree or disagree)? Why? @ -I reviewed and agree with nursing and triage notes Were old charts reviewed (outside hosp., previous admission, EMS record, old EKG, old radiological studies, urgent care reports/EKG's, custodial records)? Report findings @ -Review of prior medical records shows history of alcoholic cirrhosis Differential Diagnosis (chest pain, altered mental status, abdominal pain women, abdominal pain men, vaginal bleeding, weakness, fever, dyspnea, syncope, headache, dizziness, GI bleed, back pain, seizure, CVA, palpatations, mental health, musculoskeletal)? @ -Differential Abdominal Pain Men: Appendicitis, cholecystitis, diverticulosis, ischemic bowel, pancreatitis, hepatitis, UTI, gastroenteritis, AAA, incarcerated hernia, bowel obstruction, constipation, inflammatory bowel, hepatitis, peptic ulcer disease, splenic infarction, perforated viscus, testicular torsion, this is not meant to be an all-inclusive list EKG interpreted by me (3pts min.). @ -None X-rays interpreted by me (1pt min.). @ -None done CT interpreted by me (1pt min.). @ -None done U/S interpreted by me (1pt. min.). @ -None done What testing was considered but not performed or refused? (CT, X-rays, U/S, labs)? Why? @ -None What meds were considered but not given or refused? Why? @ -None Did you discuss the management of the patient with other professionals (professionals i.e. EDDI Stark, SERVICE ORDER CLERK, lab, RT, psych nurse, social media assistant, keg header, teacher, president and chief commercial officer, home health care case manager)? Give summary @ -Case discussed with Dr. Terry who accepts admission. Was smoking cessation discussed for >3mins.? @ -No Was critical care preformed (if so, how long)? @ -No Were there social determinants of health that impacted care today? How? (Homelessness, low income, unemployed, alcoholism, drug addiction, transportation, low edu. Level, literacy, decrease access to med. care, half-way, rehab)? @ -No Was there de-escalation of care discussed even if they declined (Discuss DNR or withdrawal of care, Hospice)? DNR status @ -No What co-morbidities impacted this encounter? (DM, HTN, Smoking, COPD, CAD, Ca ncer, CVA, ARF, Chemo, Hep., AIDS, mental health diagnosis, sleep apnea, morbid obesity)? @ -Alcoholism Was patient admitted / discharged? Hospital course, mention meds given and route, prescriptions, significant lab abnormalities, going to OR and other pertinent info. @ -Admission 63-year-old male presenting to the ED complaints of lesions in the perianal area. However on exam patient does appear to be jaundiced with some scleral icterus. Patient denies any abdominal pain. Reports that he does still drink 3 beers daily. Laboratory studies reviewed. CBC shows hemoglobin of 11.3 with some macrocytosis. PT elevated at 19.9. INR 2.0. PTT 32.4. Chemistry panel significant for a elevated lactic acid at 2.2. Hypocalcemia at 7.4. Bilirubin is 6.6. AST of 115. UA does show trace protein and 2+ bilirubin. Patient will be admitted for IV antibiotics and continued monitoring of his liver function. Undiagnosed new problem with uncertain prognosis? @ -No Drug Therapy requiring intensive monitoring for toxicity (Heparin, Nitro, Insulin, Cardizem)? @ -No Were any procedures done? @ -No Diagnosis/symptom? @ -Perianal skin lesions, alcoholic cirrhosis Acute, or Chronic, or Acute on Chronic? @ -Acute Uncomplicated (without systemic symptoms) or Complicated (systemic symptoms)? @ -Complicated Side effects of treatment? @ -No Exacerbation, Progression, or Severe Exacerbation? @ -No Poses a threat to life or bodily function? How? (Chest pain, USA, CA, pneumonia, PE, COPD, DKA, ARF, appy, cholecystitis, CVA, Diverticulitis, Homicidal, Jones icidal, threat to staff... and all critical care pts) @ -Possibly - Lab Data Result diagrams: 05/07/23 21:57 05/07/23 21:57 Lab Results 05/07/23 05/07/23 05/07/23 Range/Units 21:57 21:57 21:57 WBC 10.6 (3.8-10.6) k/uL RBC 2.98 L (4.30-5.90) m/uL Hgb 11.3 L (13.0-17.5) gm/dL Hct 32.5 L (39.0-53.0) % MCV 109.1 H (80.0-100.0) fL MCH 37.9 H (25.0-35.0) pg MCHC 34.7 (31.0-37.0) g/dL RDW 16.8 H (11.5-15.5) % Plt Count 98 L (150-450) k/uL MPV 9.0 Neutrophils % 82 % Lymphocytes % 7 % Monocytes % 8 % Eosinophils % 1 % Basophils % 1 % Neutrophils # 8.7 H (1.3-7.7) k/uL Lymphocytes # 0.7 L (1.0-4.8) k/uL Monocytes # 0.8 (0-1.0) k/uL Eosinophils # 0.1 (0-0.7) k/uL Basophils # 0.1 (0-0.2) k/uL Manual Slide Review Performed Anisocytosis Slight Macrocytosis Marked A PT 19.9 H (10.0-12.5) sec INR 2.0 H (<1.2) APTT 32.4 H (22.0-30.0) sec Sodium (137-145) mmol/L Potassium (3.5-5.1) mmol/L Chloride (98-107) mmol/L Carbon Dioxide (22-30) mmol/L Anion Gap mmol/L BUN (9-20) mg/dL Creatinine (0.66-1.25) mg/dL Est GFR (CKD-EPI)AfAm (>60 ml/min/1.73 sqM) Est GFR (CKD-EPI)NonAf (>60 ml/min/1.73 sqM) Glucose (74-99) mg/dL Plasma Lactic Acid José (0.7-2.0) mmol/L Calcium (8.4-10.2) mg/dL Total Bilirubin (0.2-1.3) mg/dL AST (17-59) U/L ALT (4-49) U/L Alkaline Phosphatase (38-126) U/L Ammonia (<30) umol/L Total Protein (6.3-8.2) g/dL Albumin (3.5-5.0) g/dL Urine Color Dark Brown Urine Appearance Cloudy (Clear) Urine pH 6.0 (5.0-8.0) Ur Specific [place] 1.031 (1.001-1.035) Urine Protein Trace H (Negative) Urine Glucose (UA) Negative (Negative) Urine Ketones Negative (Negative) Urine Blood Negative (Negative) Urine Nitrite Negative (Negative) Urine Bilirubin 2+ H (Negative) Urine Urobilinogen 8.0 (<2.0) mg/dL Ur Leukocyte Esterase Negative (Negative) Urine RBC 2 (0-5) /hpf Urine WBC 3 (0-5) /hpf Urine Mucus Many H (None) /hpf 05/07/23 05/07/23 Range/Units 21:57 21:57 WBC (3.8-10.6) k/uL RBC (4.30-5.90) m/uL Hgb (13.0-17.5) gm/dL Hct (39.0-53.0) % MCV (80.0-100.0) fL MCH (25.0-35.0) pg MCHC (31.0-37.0) g/dL RDW (11.5-15.5) % Plt Count (150-450) k/uL MPV Neutrophils % % Lymphocytes % % Monocytes % % Eosinophils % % Basophils % % Neutrophils # (1.3-7.7) k/uL Lymphocytes # (1.0-4.8) k/uL Monocytes # (0-1.0) k/uL Eosinophils # (0-0.7) k/uL Basophils # (0-0.2) k/uL Manual Slide Review Anisocytosis Macrocytosis PT (10.0-12.5) sec INR (<1.2) APTT (22.0-30.0) sec Sodium 134 L (137-145) mmol/L Potassium 4.3 (3.5-5.1) mmol/L Chloride 108 H (98-107) mmol/L Carbon Dioxide 21 L (22-30) mmol/L Anion Gap 5 mmol/L BUN 9 (9-20) mg/dL Creatinine 0.43 L (0.66-1.25) mg/dL Est GFR (CKD-EPI)AfAm >90 (>60 ml/min/1.73 sqM) Est GFR (CKD-EPI)NonAf >90 (>60 ml/min/1.73 sqM) Glucose 129 H (74-99) mg/dL Plasma Lactic Acid José 2.2 H* (0.7-2.0) mmol/L Calcium 7.4 L (8.4-10.2) mg/dL Total Bilirubin 6.6 H (0.2-1.3) mg/dL AST 115 H (17-59) U/L ALT 41 (4-49) U/L Alkaline Phosphatase 70 (38-126) U/L Ammonia 29 (<30) umol/L Total Protein 7.8 (6.3-8.2) g/dL Albumin 2.5 L (3.5-5.0) g/dL Urine Color Urine Appearance (Clear) Urine pH (5.0-8.0) Ur Specific [place] (1.001-1.035) Urine Protein (Negative) Urine Glucose (UA) (Negative) Urine Ketones (Negative) Urine Blood (Negative) Urine Nitrite (Negative) Urine Bilirubin (Negative) Urine Urobilinogen (<2.0) mg/dL Ur Leukocyte Esterase (Negative) Urine RBC (0-5) /hpf Urine WBC (0-5) /hpf Urine Mucus (None) /hpf Disposition Clinical Impression: Alcoholic cirrhosis, Perianal lesion Disposition: ADMITTED IP TO THIS HOSP Condition: Fair Referrals: Pramod Terry MD [Primary Care Provider] - 1-2 days Time of Disposition: 00:00
[2023-05-07 22:14] LABS: ALT 41 U/L (4-49); African American GFR (CKD) >90 (>60 ml/min/1.73 sqM); Anion Gap 5 mmol/L; Blood Urea Nitrogen 9 mg/dL (9-20); Calcium 7.4 mg/dL (8.4-10.2); Carbon Dioxide 21 mmol/L (22-30); Chloride 108 mmol/L (98-107); Glucose 129 mg/dL (74-99); Non-African American GFR(CKD) >90 (>60 ml/min/1.73 sqM); Partial Thromboplastin Time 32.4 sec (22.0-30.0); Prothrombin Time 19.9 sec (10.0-12.5); Sodium 134 mmol/L (137-145); Total Bilirubin 6.6 mg/dL (0.2-1.3)
[2023-05-07 22:22] LABS: AST 115 U/L (17-59); Albumin 2.5 g/dL (3.5-5.0); Alkaline Phosphatase 70 U/L (38-126); Potassium 4.3 mmol/L (3.5-5.1); Total Protein 7.8 g/dL (6.3-8.2)
[2023-05-07 22:23] LABS: Lactic Acid, Venous 2.2 mmol/L (0.7-2.0)
[2023-05-07 22:25] LABS: Anisocytosis Slight; Basophils # (A) 0.1 k/uL (0-0.2); Basophils % (A) 1 %; Eosinophils # (A) 0.1 k/uL (0-0.7); Eosinophils % (A) 1 %; HCT 32.5 % (39.0-53.0); HGB 11.3 gm/dL (13.0-17.5); Lymphocytes # (A) 0.7 k/uL (1.0-4.8); Lymphocytes % (A) 7 %; MCH 37.9 pg (25.0-35.0); MCHC 34.7 g/dL (31.0-37.0); MCV 109.1 fL (80.0-100.0); Macrocytosis Marked; Monocytes # (A) 0.8 k/uL (0-1.0); Monocytes % (A) 8 %; Neutrophils # (A) 8.7 k/uL (1.3-7.7); Neutrophils % (A) 82 %; RBC 2.98 m/uL (4.30-5.90); RDW 16.8 % (11.5-15.5); WBC 10.6 k/uL (3.8-10.6)
[2023-05-07 22:50] LABS: Platelet Count 98 k/uL (150-450)
[2023-05-07 22:52] LABS: Appearance,Urine Cloudy (Clear); Bilirubin,Urine 2+ (Negative); Blood,Urine Negative (Negative); Color,Urine Dark Brown; Glucose,Urine (UA) Negative (Negative); Ketones,Urine Negative (Negative); Leukocyte Esterase,Urine Negative (Negative); Mucus,Urine Many /hpf; Nitrite,Urine Negative (Negative); Protein,Urine Trace (Negative); RBC,Urine 2 /hpf (0-5); Specific Gravity,Urine 1.031 (1.001-1.035); WBC,Urine 3 /hpf (0-5)
[2023-05-08] MEDS ORDERED: NALOXONE 0.4 MG/ML 1 ML VIAL IV PRN (00:19)
[2023-05-08] MEDS ORDERED: ONDANSETRON 4 MG/2 ML VIAL IVP PRN (00:19)
[2023-05-08] MEDS ORDERED: LORazepam 2 MG/ML INJ IV PRN ×3 (00:23)
[2023-05-08] MEDS: AMPICILLIN-SULBACTAM 3 GM in SODIUM CHLORIDE 0.9% 100 ML IVPB STA (01:13)
[2023-05-08] MEDS: SODIUM CHLORIDE 0.9% 1,000 ML IV SCH (01:19)
[2023-05-08] MEDS: THIAMINE 100 MG/ML 2 ML VIAL IM STA (01:37)
[2023-05-08] MEDS: AMPICILLIN-SULBACTAM 3 GM in SODIUM CHLORIDE 0.9% 100 ML IVPB SCH (06:11)
[2023-05-08] MEDS ORDERED: AMPICILLIN-SULBACTAM 3 GM in SODIUM CHLORIDE 0.9% 50 ML IVPB SCH (07:00)
[2023-05-08] MEDS ORDERED: IOPAMIDOL CONTRAST (ORAL USE) VIAL PO PRN (10:21)
[2023-05-08] MEDS ORDERED: LORazepam 0.5 MG TAB PO PRN (10:22)
--- NOTE | 2023-05-08 13:29 | CT ---
EXAMINATION TYPE: CT abdomen pelvis w con DATE OF EXAM: 05/08/2023 COMPARISON: 03/19/2018 HISTORY: Elevated LFTs, pernial abscess CT DLP: 929.6 mGycm Automated exposure control for dose reduction was used. TECHNIQUE: Helical acquisition of images was performed from the lung bases through the pelvis. CONTRAST: Performed with Oral Contrast and with IV Contrast, patient injected with 100 ml mL of Isovue 300. FINDINGS: There is a partially consolidative/airspace density in the left lung base with a small left pleural e ffusion consistent with acute pneumonia. There is mild atelectasis in the right lung base. There are multiple left rib deformities consistent with healed fractures.. The liver contour is markedly irregular/nodular and shrunken consistent with cirrhosis. There is a ne w large ill-defined mass in the medial segment left lobe of the liver measuring approximately 0.5 x 5 .2 cm. It is highly suspicious for neoplasm. There is persistent marked splenomegaly with portal hypertension There has been interval development of moderate to large ascites. There is a large gallstone. There is no pancreatic mass. There is a stable 1.5 cm left adrenal mass. There is no solid renal mass or hydronephrosis. The caliber of the abdominal aorta is normal. The bowel loops are normal in caliber and there is no dilatation or obstruction. There is no free int raperitoneal air. There are small bilateral inguinal hernias containing ascitic fluid. In the perineum, there is a 3.7 x 5.7 cm ill-defined soft tissue mass with a few gas bubbles which c ould represent developing peritoneal abscess. The osseous structures are intact. IMPRESSION: 1. Left lower lobe infiltrate and small effusion suspicious for acute pneumonia. 2. Markedly cirrhotic shrunken liver with marked splenomegaly consistent with cirrhosis and portal hy pertension. 3. Large ill-defined mass within the liver highly suspicious for primary neoplasm such as hepatocellu lar carcinoma. 4. Interval development of moderate to large ascites. 5. Stable large gallstone. 6. Stable left adrenal mass as described above. 7. Soft tissue mass with gas bubbles in the perineum suspicious for developing perineal abscess
--- NOTE | 2023-05-08 15:02 | P.GSCN ---
History of Present Illness Consult date: 05/08/23 History of present illness: CHIEF COMPLAINT: bleeding from rectal lesion HISTORY OF PRESENT ILLNESS: This is a 63-year-old male with a known history of Crohn's and significant perianal Crohn's disease with multiple fistulas and inflammation in the perirectal area. Patient is also jaundiced with known alcohol cirrhosis. Patient is currently in liver failure with elevated bilirubin he is jaundiced. Patient reports that he has chronic drainage from the fistulas around his rectum. However he did have 1 that started to bleed and therefore he came in to the ER for evaluation. CT scan of the abdomen and pelvis had revealed a soft tissue mass with gas bubbles in the perineum suspicious for developing perineal abscess. Patient also with evidence of an large ill-defined mass within the liver highly suspicious for primary neoplasm. PAST MEDICAL HISTORY: See list. PAST SURGICAL HISTORY: See list. MEDICATIONS: See list. ALLERGIES: See list. SOCIAL HISTORY: No illicit drug use. REVIEW OF SYSTEMS: CONSTITUTIONAL: Denies fever or chills. HEENT: Denies blurred vision, vision changes, or eye pain. Denies hemoptysis ENDOCRINE: Denies heat or cold intolerance. CARDIOVASCULAR: Denies chest pain or pressure. RESPIRATORY: No shortness of breath. GASTROINTESTINAL: Denies abdominal pain. Denies nausea or vomiting. NEURO: Denies history of seizures. PSYCH: No depression or suicidal ideation HEMATOLOGIC: Denies bleeding disorders. LYMPHATIC: The patient denies any lumps and bumps around the neck. GENITOURINARY: Denies any blood in urine or increased urinary frequency. MUSCULOSKELETAL: Denies myalgias. Denies joint swelling. Denies decreased range of motion beyond patients baseline. SKIN: Denies pruitis. Denies rash. PHYSICAL EXAM: VITAL SIGNS: Reviewed GENERAL: Jaundiced HEENT: sclera icterus present. Extraocular movements grossly intact. Moist buccal mucosa. Head is atraumatic, normocephalic. Hears conversational speech. No nasal drainage. NECK: Supple without lymphadenopathy. CHEST: Non-labored respirations and equal bilateral excursions. CARDIOVASCULAR: Palpable 2+ radial pulses. ABDOMEN: Soft. Distended with evidence of ascites. Nontender. Patient's buttocks shows inflammation along the right glute and left glut. There is evidence of fistula is draining stool and pus. The inflammation appears chronic it does reach into the testicular area MUSCULOSKELETAL: No clubbing or cyanosis. NEUROLOGIC: No focal or lateralizing signs. Cranial nerves II through XII grossly intact. PSYCH: Appropriate affect. Alert and oriented to person, place and time. SKIN: Well perfused. Good skin turgor. LABORATORY DATA: WBC 10.6 Hgb 11.3 platelets 98 INR elevated 2.0 Sodium 134 potassium is 4.3 creatinine 0.43 Lactic acid 2.2 down to 1.8 Total bilirubin 6.6 AST 115 ALT 41 alk phos 70 ammonia 29 Albumin 2.5 IMAGING: CT scan abdomen pelvis left lower lobe infiltrate and small effusion suspicious for acute pneumonia. Markedly cirrhotic shrunken liver with marked splenomegaly consistent with cirrhosis and portal hypertension large ill-defined mass within the liver highly suspicious for primary neoplasm such as hepatocellular carcinoma. Interval development of moderate to large ascites. Stable large gallstone. Stable left adrenal mass. Soft tissue mass with gas bubbles in the perineum suspicious for developing perineal abscess ASSESSMENT: 1. Complicated Crohn's disease with chronic perianal inflammation and fistulas 2. CT scan reports soft tissue mass with gas bubbles in the perineum suspicious for developing perineal abscess 3. Liver failure 4. History of alcohol liver cirrhosis with portal hypertension and abdominal ascites 5. CT findings of ill-defined mass within the liver highly suspicious for primary neoplasm PLAN: -Recommend transfer to tertiary care center. Patient needs to be evaluated by GI/liver specialist. No GI specialist available at this facility. -No surgical intervention planned -Continue supportive care -Consult infectious disease for complication of Crohn's -Continue antibiotics Physician Visiting Nurse note has been reviewed by physician. Signing provider agrees with the documented findings, assessment, and plan of care. Past Medical History Past Medical History: COPD, GI Bleed, Hearing Disorder / Deafness, Liver Dise ase, Skin Disorder Additional Past Medical History / Comment(s): crohn's,. "ezcema type rash". seasonal allergies. HX CIRRHOSIS. FX LT WRIST 04/06/22 rt wrist 08/05/2022 fx History of Any Multi-Drug Resistant Organisms: None Reported Past Surgical History: Bowel Resection Additional Past Surgical History / Comment(s): lt achilles tendon repair , rt leg ligament repair, bilateral cataract surgery with implants gary wrist fx repair. COLONOSCOPIES, left hand surgery Past Anesthesia/Blood Transfusion Reactions: No Reported Reaction Past Psychological History: No Psychological Hx Reported Smoking Status: Current every day smoker - Past Family History Father History Unknown: Yes Family Medical History: Cancer Additional Family Medical History / Comment(s): pancreatitis Mother History Unknown: Yes Family Medical History: Cancer Additional Family Medical History / Comment(s): mother of metastatic breast cancer Medications and Allergies Home Medications Medication Instructions Recorded Confirmed Type Spironolactone 100 mg PO DAILY 05/05/18 05/08/23 History Clindamycin Phosphate [Cleocin T 1 applic TOPICAL BID PRN 01/30/22 05/08/23 History 1%] HYDROcodone/APAP 5-325MG [[place] 1 tab PO Q6HR PRN 3 Days #24 tab 08/13/22 05/08/23 Rx 5-325] Benzoyl Peroxide 10% Gel 1 applic TOPICAL DAILY 05/08/23 05/08/23 History Budesonide/Formoterol Fumarate 2 puff INHALATION RT-BID 05/08/23 05/08/23 History [Symbicort 80-4.5 Mcg Inhaler] LORazepam 0.5 mg PO HS PRN 05/08/23 05/08/23 History Nystatin 100,000 Unit/gm Powd 1 applic TOPICAL QID PRN 05/08/23 05/08/23 History [Mycostatin Powder] Triamcinolone 0.1% Ointment 1 applic TOPICAL TID 05/08/23 05/08/23 History [Kenalog 0.1% Ointment] Allergies Allergy/AdvReac Type Severity Reaction Status Date / Time No Known Allergies Allergy Verified 05/08/23 08:39 Surgical - Exam Vital Signs Temp Pulse Resp BP Pulse Ox 98.3 F 99 16 119/71 97 05/07/23 18:26 05/07/23 18:26 05/07/23 18:26 05/07/23 18:26 05/07/23 18:26 Results - Labs 05/07/23 21:57 05/07/23 21:57 Abnormal Lab Results - Last 24 Hours (Table) 05/07/23 05/07/23 05/07/23 Range/Units 21:57 21:57 21:57 RBC 2.98 L (4.30-5.90) m/uL Hgb 11.3 L (13.0-17.5) gm/dL Hct 32.5 L (39.0-53.0) % MCV 109.1 H (80.0-100.0) fL MCH 37.9 H (25.0-35.0) pg RDW 16.8 H (11.5-15.5) % Plt Count 98 L (150-450) k/uL Neutrophils # 8.7 H (1.3-7.7) k/uL Lymphocytes # 0.7 L (1.0-4.8) k/uL Macrocytosis Marked A PT 19.9 H (10.0-12.5) sec INR 2.0 H (<1.2) APTT 32.4 H (22.0-30.0) sec Sodium (137-145) mmol/L Chloride (98-107) mmol/L Carbon Dioxide (22-30) mmol/L Creatinine (0.66-1.25) mg/dL Glucose (74-99) mg/dL Plasma Lactic Acid José (0.7-2.0) mmol/L Calcium (8.4-10.2) mg/dL Total Bilirubin (0.2-1.3) mg/dL AST (17-59) U/L Albumin (3.5-5.0) g/dL Urine Protein Trace H (Negative) Urine Bilirubin 2+ H (Negative) Urine Mucus Many H (None) /hpf 05/07/23 05/07/23 Range/Units 21:57 21:57 RBC (4.30-5.90) m/uL Hgb (13.0-17.5) gm/dL Hct (39.0-53.0) % MCV (80.0-100.0) fL MCH (25.0-35.0) pg RDW (11.5-15.5) % Plt Count (150-450) k/uL Neutrophils # (1.3-7.7) k/uL Lymphocytes # (1.0-4.8) k/uL Macrocytosis PT (10.0-12.5) sec INR (<1.2) APTT (22.0-30.0) sec Sodium 134 L (137-145) mmol/L Chloride 108 H (98-107) mmol/L Carbon Dioxide 21 L (22-30) mmol/L Creatinine 0.43 L (0.66-1.25) mg/dL Glucose 129 H (74-99) mg/dL Plasma Lactic Acid José 2.2 H* (0.7-2.0) mmol/L Calcium 7.4 L (8.4-10.2) mg/dL Total Bilirubin 6.6 H (0.2-1.3) mg/dL AST 115 H (17-59) U/L Albumin 2.5 L (3.5-5.0) g/dL Urine Protein (Negative) Urine Bilirubin (Negative) Urine Mucus (None) /hpf Diabetes panel 05/07/23 Range/Units 21:57 Sodium 134 L (137-145) mmol/L Potassium 4.3 (3.5-5.1) mmol/L Chloride 108 H (98-107) mmol/L Carbon Dioxide 21 L (22-30) mmol/L BUN 9 (9-20) mg/dL Creatinine 0.43 L (0.66-1.25) mg/dL Glucose 129 H (74-99) mg/dL Calcium 7.4 L (8.4-10.2) mg/dL AST 115 H (17-59) U/L ALT 41 (4-49) U/L Alkaline Phosphatase 70 (38-126) U/L Total Protein 7.8 (6.3-8.2) g/dL Albumin 2.5 L (3.5-5.0) g/dL Calcium panel 05/07/23 Range/Units 21:57 Calcium 7.4 L (8.4-10.2) mg/dL Albumin 2.5 L (3.5-5.0) g/dL Pituitary panel 05/07/23 Range/Units 21:57 Sodium 134 L (137-145) mmol/L Potassium 4.3 (3.5-5.1) mmol/L Chloride 108 H (98-107) mmol/L Carbon Dioxide 21 L (22-30) mmol/L BUN 9 (9-20) mg/dL Creatinine 0.43 L (0.66-1.25) mg/dL Glucose 129 H (74-99) mg/dL Calcium 7.4 L (8.4-10.2) mg/dL Adrenal panel 05/07/23 Range/Units 21:57 Sodium 134 L (137-145) mmol/L Potassium 4.3 (3.5-5.1) mmol/L Chloride 108 H (98-107) mmol/L Carbon Dioxide 21 L (22-30) mmol/L BUN 9 (9-20) mg/dL Creatinine 0.43 L (0.66-1.25) mg/dL Glucose 129 H (74-99) mg/dL Calcium 7.4 L (8.4-10.2) mg/dL Total Bilirubin 6.6 H (0.2-1.3) mg/dL AST 115 H (17-59) U/L ALT 41 (4-49) U/L Alkaline Phosphatase 70 (38-126) U/L Total Protein 7.8 (6.3-8.2) g/dL Albumin 2.5 L (3.5-5.0) g/dL
[2023-05-08] MEDS: SYMBICORT 80-4.5 MCG INHALER INHALATION SCH (19:53)
[2023-05-08] MEDS: HYDROcodone/APAP 5-325MG 1 EACH TAB PO PRN (22:45)
--- NOTE | 2023-05-08 23:00 | P.CONS ---
History of Present Illness - Reason for Consult Consult date: 05/08/23 Complicated Crohn's disease Requesting physician: Rosemary Gastelum - Chief Complaint Increased discomfort and drainage from his bilateral gluteal wound x days - History of Present Illness Patient is a 63-year-old male with a past medical history significant for COPD did have a history of Crohn's disease and hidradenitis suppurativa with multiple draining sinuses to the bilateral gluteal area also with a history of alcoholic cirrhosis patient presenting to the hospital for evaluation of multiple draining sinuses near the rectal area that has been bleeding and did have pain patient describing the pain to be sharp moderate intensity without any radiation patient mention lesion has gotten bigger and blew up and started bleeding for the patient to come to the ER patient did have some chills but denies high-grade fever patient denies having any headache or URI symptoms no chest pain shortness of breath or cough no abdominal pain or any diarrhea patient on presentation to the hospital was afebrile patient was not tachycardic or hypotensive no O2 sats on room air has been documented is currently 98% on room air patient did have white count of 10.6 with a left shift creatinine 0.43 lactic acid is over 2.2 repeat is normal, UA has been negative patient did have abdominal pelvis CT did shows left lower lobe infiltrate small effusion markedly cirrhotic shrunken liver large ill-defined mass within the liver highly suspicious for primary neoplasm such as hepatocellular carcinoma and development of moderate to large ascites soft tissue mass with gas bubbles in the perineum suspicious for developing perineal abscess patient was started on Unasyn admitte d to the hospital [facility] he was consulted who is recommend the patient to be transferred to the tertiary care infectious disease was consulted for further management of antibiotic therapy Review of Systems Positive point and negatives has been mentioned in the HPI, complete review of systems was performed and all other systems are negative Past Medical History Past Medical History: COPD, GI Bleed, Hearing Disorder / Deafness, Liver Disease, Skin Disorder Additional Past Medical History / Comment(s): crohn's,. "ezcema type rash". seasonal allergies. HX CIRRHOSIS. FX LT WRIST 04/06/22 rt wrist 08/05/2022 fx History of Any Multi-Drug Resistant Organisms: None Reported Past Surgical History: Bowel Resection Additional Past Surgical History / Comment(s): lt achilles tendon repair , rt leg ligament repair, bilateral cataract surgery with implants gary wrist fx repair. COLONOSCOPIES, left hand surgery Past Anesthesia/Blood Transfusion Reactions: No Reported Reaction Past Psychological History: No Psychological Hx Reported Smoking Status: Current every day smoker - Past Family History Father History Unknown: Yes Family Medical History: Cancer Additional Family Medical History / Comment(s): pancreatitis Mother History Unknown: Yes Family Medical History: Cancer Additional Family Medical History / Comment(s): mother of metastatic breast cancer Medications and Allergies Home Medications Medication Instructions Recorded Confirmed Type Spironolactone 100 mg PO DAILY 05/05/18 05/08/23 History Clindamycin Phosphate [Cleocin T 1 applic TOPICAL BID PRN 01/30/22 05/08/23 History 1%] HYDROcodone/APAP 5-325MG [Lindsay 1 tab PO Q6HR PRN 3 Days #24 tab 08/13/22 05/08/23 Rx 5-325] Benzoyl Peroxide 10% Gel 1 applic TOPICAL DAILY 05/08/23 05/08/23 History Budesonide/Formoterol Fumarate 2 puff INHALATION RT-BID 05/08/23 05/08/23 History [Symbicort 80-4.5 Mcg Inhaler] LORazepam 0.5 mg PO HS PRN 05/08/23 05/08/23 History Nystatin 100,000 Unit/gm Powd 1 applic TOPICAL QID PRN 05/08/23 05/08/23 History [Mycostatin Powder] Triamcinolone 0.1% Ointment 1 applic TOPICAL TID 05/08/23 05/08/23 History [Kenalog 0.1% Ointment] Amoxic-Pot Clav 875-125Mg 1 tab PO BID 10 Days #20 tab 05/15/23 Rx [Augmentin 875-125] Allergies Allergy/AdvReac Type Severity Reaction Status Date / Time No Known Allergies Allergy Verified 05/08/23 08:39 Physical Exam Vitals: Vital Signs Temp Pulse Pulse Resp BP BP Pulse Ox 05/08/23 13:25 97.7 F 72 18 101/63 97 05/08/23 13:15 73 20 107/75 98 05/08/23 12:45 79 18 97/64 99 05/08/23 11:36 74 18 97/86 98 05/08/23 09:15 98.7 F 70 20 100/57 98 05/08/23 07:38 98.2 F 74 18 100/63 98 05/08/23 06:12 72 16 96/57 96 05/08/23 03:30 79 17 93/48 95 05/07/23 23:36 84 16 91/50 97 05/07/23 21:59 85 16 121/71 97 05/07/23 18:26 98.3 F 99 16 119/71 97 Intake and Output 05/08/23 05/08/23 05/08/23 06:59 14:59 22:59 Other: Weight 65.771 kg GENERAL DESCRIPTION: Middle-aged male lying in bed, no distress. No tachypnea or accessory muscle of respiration use. HEENT: Shows Pallor , scleral icterus. Oral mucous membrane is dry. No pharyngeal erythema or thrush NECK: Trachea central, no thyromegaly. LUNGS: Unlabored breathing. Clear to auscultation anteriorly. No wheeze or crackle. HEART: S1, S2, regular rate and rhythm. No loud murmur ABDOMEN: Soft, no tenderness , guarding or rigidity, no organomegaly EXTREMITIES: No edema of feet. SKIN: Patient did have multiple draining sinus to the bilateral gluteal area with some purulent drainage induration NEUROLOGICAL: The patient is awake, alert, oriented x3, mood and affect normal. Results CBC & Chem 7: 05/25/23 05:51 05/25/23 05:51 Labs: Abnormal Lab Results - Last 24 Hours (Table) 05/07/23 05/07/23 05/07/23 Range/Units 21:57 21:57 21:57 RBC 2.98 L (4.30-5.90) m/uL Hgb 11.3 L (13.0-17.5) gm/dL Hct 32.5 L (39.0-53.0) % MCV 109.1 H (80.0-100.0) fL MCH 37.9 H (25.0-35.0) pg RDW 16.8 H (11.5-15.5) % Plt Count 98 L (150-450) k/uL Neutrophils # 8.7 H (1.3-7.7) k/uL Lymphocytes # 0.7 L (1.0-4.8) k/uL Macrocytosis Marked A PT 19.9 H (10.0-12.5) sec INR 2.0 H (<1.2) APTT 32.4 H (22.0-30.0) sec Sodium (137-145) mmol/L Chloride (98-107) mmol/L Carbon Dioxide (22-30) mmol/L Creatinine (0.66-1.25) mg/dL Glucose (74-99) mg/dL Plasma Lactic Acid José (0.7-2.0) mmol/L Calcium (8.4-10.2) mg/dL Total Bilirubin (0.2-1.3) mg/dL AST (17-59) U/L Albumin (3.5-5.0) g/dL Urine Protein Trace H (Negative) Urine Bilirubin 2+ H (Negative) Urine Mucus Many H (None) /hpf 05/07/23 05/07/23 Range/Units 21:57 21:57 RBC (4.30-5.90) m/uL Hgb (13.0-17.5) gm/dL Hct (39.0-53.0) % MCV (80.0-100.0) fL MCH (25.0-35.0) pg RDW (11.5-15.5) % Plt Count (150-450) k/uL Neutrophils # (1.3-7.7) k/uL Lymphocytes # (1.0-4.8) k/uL Macrocytosis PT (10.0-12.5) sec INR (<1.2) APTT (22.0-30.0) sec Sodium 134 L (137-145) mmol/L Chloride 108 H (98-107) mmol/L Carbon Dioxide 21 L (22-30) mmol/L Creatinine 0.43 L (0.66-1.25) mg/dL Glucose 129 H (74-99) mg/dL Plasma Lactic Acid José 2.2 H* (0.7-2.0) mmol/L Calcium 7.4 L (8.4-10.2) mg/dL Total Bilirubin 6.6 H (0.2-1.3) mg/dL AST 115 H (17-59) U/L Albumin 2.5 L (3.5-5.0) g/dL Urine Protein (Negative) Urine Bilirubin (Negative) Urine Mucus (None) /hpf Assessment and Plan (1) Perianal fistula due to Crohn's disease Status: Acute Code(s): K50.913 - CROHN'S DISEASE, UNSPECIFIED, WITH FISTULA SNOMED Code(s): 392863293 (2) Perirectal abscess Status: Acute Priority: High Code(s): K61.1 - RECTAL ABSCESS SNOMED Code(s): 50525668 Plan: 1patient with a complicated history of Crohn's disease this patient with concern for 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 perirectal area versus hidradenitis suppurative presenting to the hospital with multiple draining sinuses along the perirectal area with associated increasing pain patient did have abnormal CT suggestive of abscess we will need to cover for the enteric gram-negative both aerobes and anaerobes 2-patient would benefit from surgical drainage and culture that would guide further antibiotic therapy surgical team is requesting the patient to be transferred to the tertiary care patient preferring and report with the patient has been previously treated 3-we will continue patient on Unasyn 3 g every 6 hours while waiting for transfer Sister at the bedside questions were answered We will follow on clinical condition and cultures to further adjust medication if needed Thank you for this consultation we will follow the patient along with you Dictation was produced using [employer] dictation software. please excuse any grammatical, word or spelling errors. Time with Patient: Greater than 30
--- NOTE | 2023-05-09 00:16 | HP ---
HISTORY AND PHYSICAL CHIEF COMPLAINT: Jaundice and perineal infection. HISTORY OF PRESENT ILLNESS: First known admission for this 63-year-old white male to my service. He has been in the office over the last year or so. He is an alcoholic and has an encephalopathy. He also has been having purulent drainage from the left groin and scrotum area. He was being followed at [facility] for this. We are not completely clear as to whether or not he was seen in [facility] or if anything was done. He presented to the emergency room with weakness, increased confusion, excessive purulent drainage from the perineal area and jaundice. History cannot be reliably obtained otherwise. Past medical history, family history, personal and social histories reveal that he still is drinking and smoking. MEDICATIONS: He has been on include, 1. Ativan. 2. Xeljanz. 3. Nystatin powder. 4. Symbicort. 5. Spironolactone. PHYSICAL EXAMINATION: VITAL SIGNS: Blood pressure 116/60 with a pulse of 90, respirations of 36, and temperature of 99. GENERAL: He appeared weak, poorly nourished and jaundiced. HEENT: Head, ears, eyes, nose, mouth and throat were normal. CHEST: Clear. CARDIAC: Normal. ABDOMEN: Soft, nontender. : He had extensive purulent material on the perineum coming from the base of the scrotum. Neurologically, he was somewhat lethargic and he does have dementia. DIAGNOSES: He was admitted to the hospital with diagnoses, 1. Purulent drainage from perineal or scrotal abscess. 2. Jaundice. 3. Chronic alcoholism. 4. Alcoholic encephalopathy. PLAN: 1. Bed rest. 2. IV fluids. 3. CT scan of the abdomen and pelvis. 4. General surgery consult. MMODL / IJN: [id number] /
[2023-05-09] MEDS: THIAMINE 100 MG TAB PO SCH (08:29)
[2023-05-09 09:04] LABS: ALT 43 U/L (4-49); AST 89 U/L (17-59); African American GFR (CKD) >90 (>60 ml/min/1.73 sqM); Albumin 2.1 g/dL (3.5-5.0); Albumin/Globulin Ratio 0.4; Alkaline Phosphatase 87 U/L (38-126); Anion Gap 7 mmol/L; Blood Urea Nitrogen 8 mg/dL (9-20); Calcium 7.3 mg/dL (8.4-10.2); Carbon Dioxide 20 mmol/L (22-30); Chloride 109 mmol/L (98-107); Globulin 4.9 g/dL; Glucose 92 mg/dL (74-99); Non-African American GFR(CKD) >90 (>60 ml/min/1.73 sqM); Potassium 3.7 mmol/L (3.5-5.1); Sodium 136 mmol/L (137-145); Total Bilirubin 6.7 mg/dL (0.2-1.3)
--- NOTE | 2023-05-09 11:42 | P.PN ---
Subjective Progress Note Date: 05/09/23 Principal diagnosis: Reason for follow-up is perirectal abscess Patient is a 63-year-old male with a past medical history significant for COPD did have a history of Crohn's disease and hidradenitis suppurativa with multiple draining sinuses to the bilateral gluteal area also with a history of alcoholic cirrhosis patient presenting to the hospital for evaluation of mu ltiple draining sinuses near the rectal area that has been bleeding, patient did have a CT of abdominal pelvis suggestive of soft tissue mass with gas bubbles in the perineum suspicious for developing perineal abscess, general surgery was consulted recommending transfer to tertiary care and asked for infectious disease evaluation. On today's visit that is 05/09/2023, the patient continues to be afebrile, the patient is on 2 L nasal cannula oxygen and breathing comfortably, the Pt denies having any chest pain or cough, the patient complaining of some abdominal discomfort but no nausea vomiting still complaining of drainage from his sinuses and the perirectal area. Patient did have a creatinine of 0.47 today no CBC was done Objective - Vital Signs Vital signs: Vital Signs Temp 98.6 F 05/09/23 07:42 Pulse 74 05/09/23 07:42 Resp 16 05/09/23 07:42 BP 92/52 05/09/23 07:42 Pulse Ox 93 L 05/09/23 07:42 FiO2 Intake & Output 05/08/23 05/09/23 05/09/23 18:59 06:59 18:59 Output Total 450 Balance -450 Output: Urine 450 Other: # Bowel Movements 1 - Exam GENERAL DESCRIPTION: Middle-age male lying in bed in no distress RESPIRATORY SYSTEM: Unlabored breathing , decreased breath sounds at bases HEART: S1 S2 regular rate and rhythm , ABDOMEN: Soft , no tenderness EXTREMITIES: No edema feet - Labs CBC & Chem 7: 05/07/23 21:57 05/09/23 06:42 Labs: Abnormal Lab Results - Last 24 Hours (Table) 05/09/23 Range/Units 06:42 Sodium 136 L (137-145) mmol/L Chloride 109 H (98-107) mmol/L Carbon Dioxide 20 L (22-30) mmol/L BUN 8 L (9-20) mg/dL Creatinine 0.47 L (0.66-1.25) mg/dL Calcium 7.3 L (8.4-10.2) mg/dL Total Bilirubin 6.7 H (0.2-1.3) mg/dL AST 89 H (17-59) U/L Albumin 2.1 L (3.5-5.0) g/dL Assessment and Plan (1) Perirectal abscess Current Visit: Yes Status: Acute Code(s): K61.1 - RECTAL ABSCESS SNOMED Code(s): 37701716 Plan: 1patient with a complicated history of Crohn's disease this patient with concern for 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 perirectal area versus hidradenitis suppurative presenting to the hospital with multiple draining sinuses along the perirectal area with associated increasing pain pb ent did have abnormal CT suggestive of abscess we will need to cover for the enteric gram-negative both aerobes and anaerobes 2-patient would benefit from surgical drainage and culture that would guide further antibiotic therapy surgical team is requesting the patient to be transferred to the tertiary care, currently waiting for the transfer process 3-patient to patient on Unasyn 3 g every 6 hours while inpatient awaiting cultures Dictation was produced using [employer] dictation software. please excuse any grammatical, word or spelling errors. Time with Patient: Less than 30
--- NOTE | 2023-05-09 12:51 | PN ---
PROGRESS NOTE DATE OF SERVICE: 05/09/2023 CHIEF COMPLAINT: 1. Jaundice. 2. Alcoholism. 3. Alcoholic encephalopathy. 4. Perineal abscess or fistula. PLAN: Continue with current management and he is being evaluated by Surgery. MMODL / IJN: [id number] /
[2023-05-09 15:24] LABS: Basophils % (A) 0 %; Eosinophils # (A) 0.1 k/uL (0-0.7); Eosinophils % (A) 2 %; HCT 31.2 % (39.0-53.0); Lymphocytes # (A) 0.6 k/uL (1.0-4.8); Lymphocytes % (A) 8 %; MCH 35.2 pg (25.0-35.0); MCHC 32.2 g/dL (31.0-37.0); MCV 109.6 fL (80.0-100.0); Macrocytosis Marked; Mean Platelet Volume 9.2; Monocytes # (A) 0.5 k/uL (0-1.0); Monocytes % (A) 6 %; Neutrophils # (A) 6.7 k/uL (1.3-7.7); Neutrophils % (A) 83 %; RBC 2.84 m/uL (4.30-5.90); RDW 15.4 % (11.5-15.5); WBC 8.1 k/uL (3.8-10.6)
[2023-05-09 15:31] LABS: Platelet Count 89 k/uL (150-450)
--- NOTE | 2023-05-09 15:53 | P.PN ---
Subjective Progress Note Date: 05/09/23 ASSESSMENT: 1. Complicated Crohn's disease with chronic perianal inflammation and fistulas 2. CT scan reports soft tissue mass with gas bubbles in the perineum suspicious for developing perineal abscess 3. Liver failure 4. History of alcohol liver cirrhosis with portal hypertension and abdominal ascites 5. CT findings of ill-defined mass within the liver highly suspicious for primary neoplasm General-NAD Abdomen-soft, NTND PLAN: -Recommend transfer to tertiary care center. Patient needs to be evaluated by GI/liver specialist. No GI specialist available at this facility. -No surgical intervention planned -Continue supportive care -Consult infectious disease for complication of Crohn's -Continue antibiotics Objective - Vital Signs Vital signs: Vital Signs Temp 97.7 F 05/09/23 14:00 Pulse 74 05/09/23 14:00 Resp 17 05/09/23 14:00 BP 94/60 05/09/23 14:00 Pulse Ox 94 L 05/09/23 14:00 FiO2 Intake & Output 05/08/23 05/09/23 05/09/23 18:59 06:59 18:59 Output Total 450 Balance -450 Output: Urine 450 Other: # Bowel Movements 1 - Labs CBC & Chem 7: 05/09/23 14:18 05/09/23 06:42 Labs: Abnormal Lab Results - Last 24 Hours (Table) 05/09/23 05/09/23 05/09/23 Range/Units 06:42 14:18 14:18 RBC 2.84 L (4.30-5.90) m/uL Hgb 10.0 L (13.0-17.5) gm/dL Hct 31.2 L (39.0-53.0) % MCV 109.6 H (80.0-100.0) fL MCH 35.2 H (25.0-35.0) pg Plt Count 89 L (150-450) k/uL Lymphocytes # 0.6 L (1.0-4.8) k/uL Macrocytosis Marked A Sodium 136 L (137-145) mmol/L Chloride 109 H (98-107) mmol/L Carbon Dioxide 20 L (22-30) mmol/L BUN 8 L (9-20) mg/dL Creatinine 0.47 L (0.66-1.25) mg/dL Calcium 7.3 L (8.4-10.2) mg/dL Total Bilirubin 6.7 H (0.2-1.3) mg/dL AST 89 H (17-59) U/L C-Reactive Protein 2.8 H (<1.0) mg/dL Albumin 2.1 L (3.5-5.0) g/dL
--- NOTE | 2023-05-10 11:54 | P.PN ---
Subjective Progress Note Date: 05/10/23 Patient denies any significant perirectal pain. He complains primarily of occasional abdominal pain. He also reports most of his workup is at [facility] where he had a pending appointment. At this time, patient is pending transfer to [facility] due to fulminant liver failure. At this time, GI or triage technician not available for management. Infectious disease appreciated for antibiotic management. Also patient would benefit for Crohn's management for severe perirectal disease. Objective - Vital Signs Vital signs: Vital Signs Temp 97.8 F 05/10/23 08:00 Pulse 70 05/10/23 08:00 Resp 18 05/10/23 08:00 BP 100/62 05/10/23 08:00 Pulse Ox 91 L 05/10/23 08:29 FiO2 Intake & Output 05/09/23 05/10/23 05/10/23 18:59 06:59 18:59 Intake Total 1300 Balance 1300 Intake: Intake, IV Titration 800 Amount Ampicillin-Sulbactam 3 gm 200 In Sodium Chloride 0.9% 100 ml @ 200 mls/hr IVPB Q6H [facility]EL Rx#:[id number] Sodium Chloride 0.9% 1, 600 000 ml @ 50 mls/hr IV . Q20H [facility]EL Rx#:[id number] Oral 500 Other: # Voids 3 3 # Bowel Movements 2 - Labs CBC & Chem 7: 05/09/23 14:18 05/09/23 06:42 Labs: Abnormal Lab Results - Last 24 Hours (Table) 05/09/23 05/09/23 Range/Units 14:18 14:18 RBC 2.84 L (4.30-5.90) m/uL Hgb 10.0 L (13.0-17.5) gm/dL Hct 31.2 L (39.0-53.0) % MCV 109.6 H (80.0-100.0) fL MCH 35.2 H (25.0-35.0) pg Plt Count 89 L (150-450) k/uL Lymphocytes # 0.6 L (1.0-4.8) k/uL Macrocytosis Marked A C-Reactive Protein 2.8 H (<1.0) mg/dL
[2023-05-10 13:45] LABS: INR 2.1 (<1.2); Prothrombin Time 20.6 sec (10.0-12.5)
[2023-05-10 13:47] LABS: HCT 32.7 % (39.0-53.0); HGB 10.8 gm/dL (13.0-17.5); MCH 36.8 pg (25.0-35.0); MCHC 33.1 g/dL (31.0-37.0); MCV 111.2 fL (80.0-100.0); Macrocytosis Marked; RBC 2.94 m/uL (4.30-5.90); RDW 15.1 % (11.5-15.5); WBC 8.7 k/uL (3.8-10.6)
[2023-05-10 13:58] LABS: ALT 38 U/L (4-49); AST 81 U/L (17-59); African American GFR (CKD) >90 (>60 ml/min/1.73 sqM); Albumin 2.1 g/dL (3.5-5.0); Albumin/Globulin Ratio 0.4; Alkaline Phosphatase 75 U/L (38-126); Anion Gap 4 mmol/L; Blood Urea Nitrogen 6 mg/dL (9-20); Calcium 7.2 mg/dL (8.4-10.2); Carbon Dioxide 20 mmol/L (22-30); Chloride 112 mmol/L (98-107); Globulin 5.1 g/dL; Glucose 101 mg/dL (74-99); Non-African American GFR(CKD) >90 (>60 ml/min/1.73 sqM); Potassium 3.7 mmol/L (3.5-5.1); Sodium 136 mmol/L (137-145); Total Bilirubin 6.6 mg/dL (0.2-1.3); Total Protein 7.2 g/dL (6.3-8.2)
[2023-05-10 14:17] LABS: Platelet Count 99 k/uL (150-450)
--- NOTE | 2023-05-10 14:34 | P.PN ---
Subjective Progress Note Date: 05/10/23 Principal diagnosis: Reason for follow-up is perirectal abscess Patient is a 63-year-old male with a past medical history significant for COPD did have a history of Crohn's disease and hidradenitis suppurativa with multiple draining sinuses to the bilateral gluteal area also with a history of alcoholic cirrhosis patient presenting to the hospital for evaluation of mu ltiple draining sinuses near the rectal area that has been bleeding, patient did have a CT of abdominal pelvis suggestive of soft tissue mass with gas bubbles in the perineum suspicious for developing perineal abscess, general surgery was consulted recommending transfer to tertiary care and asked for infectious disease evaluation. On today's visit that is 05/10/2023, Patient is afebrile ,patient is currently on 3 L nasal cannula oxygen and denies having any shortness of breath, the patient denies any chest pain or cough, the patient denies any nausea vomiting abdominal and perirectal discomfort has slightly decreased in intensity mention less drainage. Patient white count is 8.7, creatinine 0.42 Objective - Vital Signs Vital signs: Vital Signs Temp 97.8 F 05/10/23 08:00 Pulse 70 05/10/23 08:00 Resp 18 05/10/23 08:00 BP 100/62 05/10/23 08:00 Pulse Ox 91 L 05/10/23 08:29 FiO2 Intake & Output 05/09/23 05/10/23 05/10/23 18:59 06:59 18:59 Intake Total 1300 Balance 1300 Intake: Intake, IV Titration 800 Amount Ampicillin-Sulbactam 3 gm 200 In Sodium Chloride 0.9% 100 ml @ 200 mls/hr IVPB Q6H [facility] Rx#:[id number] Sodium Chloride 0.9% 1, 600 000 ml @ 50 mls/hr IV . Q20H [facility]EL Rx#:[id number] Oral 500 Other: # Voids 3 3 # Bowel Movements 2 - Exam GENERAL DESCRIPTION: Middle-age male lying in bed in no distress RESPIRATORY SYSTEM: Unlabored breathing , decreased breath sounds at bases HEART: S1 S2 regular rate and rhythm , ABDOMEN: Soft , no tenderness EXTREMITIES: No edema feet - Labs CBC & Chem 7: 05/10/23 12:44 05/10/23 12:44 Labs: Abnormal Lab Results - Last 24 Hours (Table) 05/09/23 05/09/2305/10/24 Range/Units 14:18 14:18 12:44 RBC 2.84 L 2.94 L (4.30-5.90) m/uL Hgb 10.0 L 10.8 L (13.0-17.5) gm/dL Hct 31.2 L 32.7 L (39.0-53.0) % MCV 109.6 H 111.2 H (80.0-100.0) fL MCH 35.2 H 36.8 H (25.0-35.0) pg Plt Count 89 L 99 L (150-450) k/uL Lymphocytes # 0.6 L (1.0-4.8) k/uL Macrocytosis Marked A Marked A PT (10.0-12.5) sec INR (<1.2) Sodium (137-145) mmol/L Chloride (98-107) mmol/L Carbon Dioxide (22-30) mmol/L BUN (9-20) mg/dL Creatinine (0.66-1.25) mg/dL Glucose (74-99) mg/dL Calcium (8.4-10.2) mg/dL Total Bilirubin (0.2-1.3) mg/dL AST (17-59) U/L C-Reactive Protein 2.8 H (<1.0) mg/dL Albumin (3.5-5.0) g/dL 05/10/23 05/10/23 Range/Units 12:44 12:44 RBC (4.30-5.90) m/uL Hgb (13.0-17.5) gm/dL Hct (39.0-53.0) % MCV (80.0-100.0) fL MCH (25.0-35.0) pg Plt Count (150-450) k/uL Lymphocytes # (1.0-4.8) k/uL Macrocytosis PT 20.6 H (10.0-12.5) sec INR 2.1 H (<1.2) Sodium 136 L (137-145) mmol/L Chloride 112 H (98-107) mmol/L Carbon Dioxide 20 L (22-30) mmol/L BUN 6 L (9-20) mg/dL Creatinine 0.42 L (0.66-1.25) mg/dL Glucose 101 H (74-99) mg/dL Calcium 7.2 L (8.4-10.2) mg/dL Total Bilirubin 6.6 H (0.2-1.3) mg/dL AST 81 H (17-59) U/L C-Reactive Protein (<1.0) mg/dL Albumin 2.1 L (3.5-5.0) g/dL Assessment and Plan (1) Perirectal abscess Current Visit: Yes Status: Acute Code(s): K61.1 - RECTAL ABSCESS SNOMED Code(s): 64457984 Plan: 1patient with a complicated history of Crohn's disease this patient with concern for 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 perirectal area versus hidradenitis suppurative presenting to the hospital with multiple draining sinuses along the perirectal area with associated increasing pain patient did have abnormal CT suggestive of abscess we will need to cover for the enteric gram-negative both aerobes and anaerobes 2-patient would benefit from surgical drainage and culture that would guide further antibiotic therapy surgical team is requesting the patient to be transferred to the tertiary care, currently waiting for the transfer process 3-patient is afebrile, white count normal, to patient on Unasyn 3 g every 6 hours while inpatient awaiting cultures Dictation was produced using [employer] dictation software. please excuse any grammatical, word or spelling errors.
[2023-05-10 15:31] LABS: Eosinophils # (M) 0.09 k/uL (0-0.7); Lymphocytes # (M) 0.87 k/uL (1.0-4.8); Monocytes # (M) 0.78 k/uL (0-1.0); Neutrophils # (M) 6.96 k/uL (1.3-7.7); Neutrophils % (M) 80 %; Nucleated Red Blood Cells 0 /100 WBC (0-0); Total Cells Counted 100
--- NOTE | 2023-05-11 08:18 | PN ---
PROGRESS NOTE DATE OF SERVICE: 05/10/2023 CHIEF COMPLAINT: 1. Perineal abscess and fistula. 2. Alcoholism. 3. Cirrhosis. 4. Alcoholic hepatitis. 5. Crohn disease. PLAN: This gentleman remains fairly stable. He has been seen by surgery and it is recommended that he be transferred down to [facility] and this may be necessary. PHYSICAL EXAMINATION: GENERAL: He is quite alert. He remains jaundiced. CHEST: Clear. CARDIAC: Normal. ABDOMEN: Slightly distended. IMPRESSION: 1. 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 2. Cirrhosis. 3. Alcoholism. PLAN: Consider transfer back to [facility]. MMODL / IJN: [id number] /
[2023-05-11 10:45] LABS: ALT 35 U/L (4-49); AST 76 U/L (17-59); African American GFR (CKD) >90 (>60 ml/min/1.73 sqM); Albumin 1.9 g/dL (3.5-5.0); Albumin/Globulin Ratio 0.4; Alkaline Phosphatase 72 U/L (38-126); Anion Gap 3 mmol/L; Blood Urea Nitrogen 6 mg/dL (9-20); Calcium 7.1 mg/dL (8.4-10.2); Carbon Dioxide 21 mmol/L (22-30); Chloride 111 mmol/L (98-107); Globulin 4.8 g/dL; Glucose 119 mg/dL (74-99); INR 2.1 (<1.2); Non-African American GFR(CKD) >90 (>60 ml/min/1.73 sqM); Potassium 3.6 mmol/L (3.5-5.1); Prothrombin Time 21.4 sec (10.0-12.5); Sodium 135 mmol/L (137-145); Total Bilirubin 6.3 mg/dL (0.2-1.3); Total Protein 6.7 g/dL (6.3-8.2)
[2023-05-11 10:53] LABS: HCT 31.4 % (39.0-53.0); HGB 10.3 gm/dL (13.0-17.5); MCH 36.4 pg (25.0-35.0); MCHC 32.8 g/dL (31.0-37.0); MCV 111.1 fL (80.0-100.0); Macrocytosis Marked; Mean Platelet Volume 8.5; RBC 2.83 m/uL (4.30-5.90); RDW 14.9 % (11.5-15.5); WBC 7.8 k/uL (3.8-10.6)
[2023-05-11 10:55] LABS: Platelet Count 94 k/uL (150-450)
--- NOTE | 2023-05-11 12:05 | P.PN ---
Subjective Progress Note Date: 05/11/23 Principal diagnosis: Reason for follow-up is perirectal abscess Patient is a 63-year-old male with a past medical history significant for COPD did have a history of Crohn's disease and hidradenitis suppurativa with multiple draining sinuses to the bilateral gluteal area also with a history of alcoholic cirrhosis patient presenting to the hospital for evaluation of mu ltiple draining sinuses near the rectal area that has been bleeding, patient did have a CT of abdominal pelvis suggestive of soft tissue mass with gas bubbles in the perineum suspicious for developing perineal abscess, general surgery was consulted recommending transfer to tertiary care and asked for infectious disease evaluation. On today's visit that is 05/11/2023,the patient denies any fever or any chills, patient is breathing comfortably on 2 L nasal cannula oxygen, the patient denies chest pain shortness of breath and no significant cough, patient abdominal pain rectal pain has slightly decreased mention drainage Decreased. The patient did have white count of 7.8, creatinine 0.41 blood cultures so far negative Objective - Vital Signs Vital signs: Vital Signs Temp 97.8 F 05/11/23 07:15 Pulse 66 05/11/23 07:15 Resp 18 05/11/23 07:15 BP 95/51 05/11/23 07:15 Pulse Ox 94 L 05/11/23 07:15 FiO2 Intake & Output 05/10/23 05/11/23 05/11/23 18:59 06:59 18:59 Other: # Voids 3 - Exam GENERAL DESCRIPTION: Middle-age male lying in bed in no distress RESPIRATORY SYSTEM: Unlabored breathing , decreased breath sounds at bases HEART: S1 S2 regular rate and rhythm , ABDOMEN: Soft , no tenderness EXTREMITIES: No edema feet - Labs CBC & Chem 7: 05/11/23 10:11 05/11/23 10:11 Labs: Abnormal Lab Results - Last 24 Hours (Table) 05/10/23 05/10/23 05/10/23 Range/Units 12:44 12:44 12:44 RBC 2.94 L (4.30-5.90) m/uL Hgb 10.8 L (13.0-17.5) gm/dL Hct 32.7 L (39.0-53.0) % MCV 111.2 H (80.0-100.0) fL MCH 36.8 H (25.0-35.0) pg Plt Count 99 L (150-450) k/uL Lymphocytes # (Manual) 0.87 L (1.0-4.8) k/uL Macrocytosis Marked A PT 20.6 H (10.0-12.5) sec INR 2.1 H (<1.2) Sodium 136 L (137-145) mmol/L Chloride 112 H (98-107) mmol/L Carbon Dioxide 20 L (22-30) mmol/L BUN 6 L (9-20) mg/dL Creatinine 0.42 L (0.66-1.25) mg/dL Glucose 101 H (74-99) mg/dL Calcium 7.2 L (8.4-10.2) mg/dL Total Bilirubin 6.6 H (0.2-1.3) mg/dL AST 81 H (17-59) U/L Albumin 2.1 L (3.5-5.0) g/dL 05/11/23 05/11/23 05/11/23 Range/Units 10:11 10:11 10:11 RBC 2.83 L (4.30-5.90) m/uL Hgb 10.3 L (13.0-17.5) gm/dL Hct 31.4 L (39.0-53.0) % MCV 111.1 H (80.0-100.0) fL MCH 36.4 H (25.0-35.0) pg Plt Count 94 L (150-450) k/uL Lymphocytes # (Manual) (1.0-4.8) k/uL Macrocytosis Marked A PT 21.4 H (10.0-12.5) sec INR 2.1 H (<1.2) Sodium 135 L (137-145) mmol/L Chloride 111 H (98-107) mmol/L Carbon Dioxide 21 L (22-30) mmol/L BUN 6 L (9-20) mg/dL Creatinine 0.41 L (0.66-1.25) mg/dL Glucose 119 H (74-99) mg/dL Calcium 7.1 L (8.4-10.2) mg/dL Total Bilirubin 6.3 H (0.2-1.3) mg/dL AST 76 H (17-59) U/L Albumin 1.9 L (3.5-5.0) g/dL Microbiology - Last 24 Hours (Table) 05/09/23 14:18 Blood Culture - Preliminary Blood Assessment and Plan (1) Perirectal abscess Current Visit: Yes Status: Acute Code(s): K61.1 - RECTAL ABSCESS SNOMED Code(s): 07233316 Plan: 1patient with a complicated history of Crohn's disease this patient with concern for 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 perirectal area versus hidradenitis suppurative presenting to the hospital with multiple draining sinuses along the perirectal area with associated increasing pain patient did have abnormal CT suggestive of abscess we will need to cover for the enteric gram-negative both aerobes and anaerobes 2-patient would benefit from surgical drainage and culture that would guide further antibiotic therapy surgical team is requesting the patient to be transferred to the tertiary care, currently waiting for the transfer process 3-patient is afebrile, white count normal, patient is currently covered with the Unasyn to continue and monitor clinical course closely Dictation was produced using [employer] dictation software. please excuse any grammatical, word or spelling errors. Time with Patient: Less than 30
--- NOTE | 2023-05-11 12:20 | P.CONS ---
History of Present Illness - Reason for Consult Consult date: 05/11/23 Liver failure, Crohn's disease Requesting physician: Pramod Terry - Chief Complaint Rectal bleeding - History of Present Illness This is a pleasant 63-year-old male with a past medical history including Crohn's disease diagnosed about 27 years ago who has followed with Dr. Lomas in the past. He presented to the emergency department 4 days ago with concerns of rectal bleeding and perineal pain. He has a history of previous terminal ileal resection, COPD, alcohol cirrhosis of the liver. He is currently not on any medication because he states he lost his insurance but prior to that was getting infusions unclear which one at this time. Last colonoscopy done 01/31/[address] Lomas which reported normal colon, anastomosis not clearly seen due to poor prep. He underwent EGD in January [address] Lomas secondary to alcohol abuse and history of portal hypertension with findings of large mid and distal varices status post ligation, moderate portal hypertension gastropathy. States he has not follow-up with Dr. Lomas in a few months as he had lost his insurance. Again he stopped taking his medications at least 2 weeks ago. He has a history of underlying alcoholic liver disease with cirrhosis of the liver. He has been on diuretics however again has not been taking them for the last couple weeks or more. He has abdominal distention. He came in with rectal bleeding which he states he had for 2 days prior to coming in, also noticed perineal and rectal pain and swelling and discomfort. States he has been having about 3 bowel movements a day, mostly loose mostly nonbloody at this time. He had a CT of the abdomen and pelvis concerning for large ill-defined liver mass, moderate to large ascites and soft tissue mass with gas bubbles in the perineum suspicious for developing perineal abscess. Patient has been afebrile. He was started on IV Unasyn. General surgery was consulted for perirectal abscess, the recommendation was transfer to tertiary center for complicated Crohn's as well as consulted infectious disease. He currently denies any abdominal pain, nausea, or vomiting. No current rectal bleeding. Labs WBC 7.8 hemoglobin 10.3 platelet count 94,000 and INR 2.1 sodium 135 potassium 3.6 BUN 6 creatinine 0.4 total bilirubin 6.3 AST 76 ALT 35 alkaline phosphatase 72 Review of Systems REVIEW OF SYSTEMS: CARDIOPULMONARY: No chest pain or shortness of breath. Gastrointestinal: No abdominal pain. Abdominal distention, ascites. No nausea or vomiting. No hematemesis, coffee-ground emesis. Rectal bleeding with perirectal abscess and pain. GENITOURINARY: No dysuria or hematuria. MUSCULOSKELETAL: Reports normal range of motion. SKIN: No rashes. No jaundice. ENDOCRINE: No chills, fevers. No excessive weight gain or loss. No polydipsia or polyuria. PSYCHIATRIC: Unremarkable. NEUROLOGY: No change in mental status. Denies dizziness, headache. ENT: Vision unremarkable. CONSTITUTIONAL: No recent weight loss. No fever, chills, night sweats. Past Medical History Past Medical History: COPD, GI Bleed, Hearing Disorder / Deafness, Liver Disease, Skin Disorder Additional Past Medical History / Comment(s): crohn's,. "ezcema type rash". seasonal allergies. HX CIRRHOSIS. FX LT WRIST 04/06/22 rt wrist 08/05/2022 fx History of Any Multi-Drug Resistant Organisms: None Reported Past Surgical History: Bowel Resection Additional Past Surgical History / Comment(s): lt achilles tendon repair , rt leg ligament repair, bilateral cataract surgery with implants gary wrist fx repair. COLONOSCOPIES, left hand surgery Past Anesthesia/Blood Transfusion Reactions: No Reported Reaction Past Psychological History: No Psychological Hx Reported Smoking Status: Current every day smoker - Past Family History Father History Unknown: Yes Family Medical History: Cancer Additional Family Medical History / Comment(s): pancreatitis Mother History Unknown: Yes Family Medical History: Cancer Additional Family Medical History / Comment(s): mother of metastatic breast cancer Medications and Allergies Home Medications Medication Instructions Recorded Confirmed Type Spironolactone 100 mg PO DAILY 05/05/18 05/08/23 History Clindamycin Phosphate [Cleocin T 1 applic TOPICAL BID PRN 01/30/22 05/08/23 History 1%] HYDROcodone/APAP 5-325MG [Dunn 1 tab PO Q6HR PRN 3 Days #24 tab 08/13/22 05/08/23 Rx 5-325] Benzoyl Peroxide 10% Gel 1 applic TOPICAL DAILY 05/08/23 05/08/23 History Budesonide/Formoterol Fumarate 2 puff INHALATION RT-BID 05/08/23 05/08/23 History [Symbicort 80-4.5 Mcg Inhaler] LORazepam 0.5 mg PO HS PRN 05/08/23 05/08/23 History Nystatin 100,000 Unit/gm Powd 1 applic TOPICAL QID PRN 05/08/23 05/08/23 History [Mycostatin Powder] Triamcinolone 0.1% Ointment 1 applic TOPICAL TID 05/08/23 05/08/23 History [Kenalog 0.1% Ointment] Allergies Allergy/AdvReac Type Severity Reaction Status Date / Time No Known Allergies Allergy Verified 05/08/23 08:39 Physical Exam Vitals: Vital Signs Temp Pulse Resp BP Pulse Ox 05/11/23 07:15 97.8 F 66 18 95/51 94 L 05/11/23 02:00 98.2 F 73 103/61 94 L 05/10/23 19:17 98.0 F 71 14 106/51 97 05/10/23 14:00 98.1 F 68 15 94/56 94 L Intake and Output 05/10/23 05/11/23 05/11/23 22:59 06:59 14:59 Other: # Voids 3 General appearance: The patient is alert, oriented, appears in no acute distress. Emaciated appearing. HET: Head is normocephalic and atraumatic. Conjunctiva pink. Sclera anicteric. Neck: Supple without lymphadenopathy. Trachea midline. Heart: Regular. Lungs: Equal expansion, normal respiratory effort. Abdomen: Distended, ascites, nontender. Skin: No rashes. Jaundice. Perianal swelling, abscess. Extremities: Normal skin color and turgor. No pedal edema. Neurological: No focal deficits. Alert and oriented x3. Results CBC & Chem 7: 05/11/23 10:11 05/11/23 10:11 Labs: Abnormal Lab Results - Last 24 Hours (Table) 05/10/23 05/10/23 05/10/23 Range/Units 12:44 12:44 12:44 RBC 2.94 L (4.30-5.90) m/uL Hgb 10.8 L (13.0-17.5) gm/dL Hct 32.7 L (39.0-53.0) % MCV 111.2 H (80.0-100.0) fL MCH 36.8 H (25.0-35.0) pg Plt Count 99 L (150-450) k/uL Lymphocytes # (Manual) 0.87 L (1.0-4.8) k/uL Macrocytosis Marked A PT 20.6 H (10.0-12.5) sec INR 2.1 H (<1.2) Sodium 136 L (137-145) mmol/L Chloride 112 H (98-107) mmol/L Carbon Dioxide 20 L (22-30) mmol/L BUN 6 L (9-20) mg/dL Creatinine 0.42 L (0.66-1.25) mg/dL Glucose 101 H (74-99) mg/dL Calcium 7.2 L (8.4-10.2) mg/dL Total Bilirubin 6.6 H (0.2-1.3) mg/dL AST 81 H (17-59) U/L Albumin 2.1 L (3.5-5.0) g/dL Microbiology - Last 24 Hours (Table) 05/09/23 14:18 Blood Culture - Preliminary Blood Comments: CT abdomen pelvis with contrast reports left lower lobe infiltrate and small effusion suspicious for acute pneumonia. Markedly cirrhotic shrunken liver with marked splenomegaly consistent with cirrhosis and portal hypertension. Large ill-defined mass within the liver highly suspicious for primary neoplasm such as hepatocellular carcinoma. Interval development of moderate to large ascites. Stable large gallstone. Stable left adrenal mass as described above. Soft tissue mass with gas bubbles in the peritoneum suspicious for developing perineal abscess. In the perineum there is a 3.7 x 5.7 cm ill-defined soft tissue mass with a few gas bubbles which could represent developing peritoneal abscess. Assessment and Plan (1) Alcoholic cirrhosis Narrative/Plan: 63-year-old male with known history of alcoholic cirrhosis of the liver as well as longstanding history of Crohn's disease. Patient came in for rectal bleeding and perianal swelling and pain. He was noted to have elevated LFTs consistent with his underlying liver disease. He has stopped all of his medications rec ently over the last couple weeks due to loss of insurance. He has not followed with Dr. Lomas this last month as he was scheduled. He was on Biologics unsure which one at this point. CT abdomen pelvis concerning for liver mass, large amount of ascites. Patient denies previous history of paracentesis. He has not been taking his diuretics due to insurance coverage. Cirrhosis of the liver stable. Would recommend paracentesis however INR is at 2.1. Will monitor and resume diuretics. Current Visit: Yes Status: Acute Code(s): K70.30 - ALCOHOLIC CIRRHOSIS OF LIVER WITHOUT ASCITES SNOMED Code(s): 297489051 (2) Crohn's disease Narrative/Plan: 63-year-old with longstanding history of Crohn's disease with a history of terminal ileal resection. Patient was diagnosed with Crohn's about 27 years ago. Last colonoscopy in January 2022. Presenting with rectal bleeding and a perianal lesion/abscess. General surgery following, they consulted infectious disease who recommend surgical drainage and culture however general surgery is recommending recommending transfer to tertiary center for further surgical evaluation of complicated Crohn's disease. Currently on IV antibiotics. Pending transfer to [facility]. Current Visit: Yes Status: Acute Code(s): K50.90 - CROHN'S DISEASE, UNSPECIFIED, WITHOUT COMPLICATIONS SNOMED Code(s): 65395155 (3) Perianal lesion Current Visit: Yes Status: Acute Code(s): K62.9 - DISEASE OF ANUS AND RECTUM, UNSPECIFIED SNOMED Code(s): 242813184 (4) Rectal bleeding Current Visit: No Status: Acute Code(s): K62.5 - HEMORRHAGE OF ANUS AND RECTUM SNOMED Code(s): 43250000 Plan: 1. Continue symptomatic and supportive care 2. Consult to interventional radiology for paracentesis with fluid studies 3. Lasix 40 mg and Aldactone 100 mg daily ordered 4. Appreciate recommendations from infectious disease and general surgery 5. Current plan is for transfer to [facility] for surgical evaluation and treatment Thank you for this consultation, we will continue to follow. Dr. Jeremy Lomas I agree with the dictator's note, documented as a scribe by Mary Anne Lafleur.
[2023-05-11] MEDS: SPIRONOLACTONE 25 MG TAB PO SCH (12:42)
[2023-05-11] MEDS: FUROSEMIDE 40 MG TAB PO SCH (12:43)
--- NOTE | 2023-05-11 14:13 | P.PN ---
Subjective Progress Note Date: 05/11/23 CHIEF COMPLAINT: Extensive Crohn's disease with perirectal disease HISTORY OF PRESENT ILLNESS: Patient reports that he continues to have purulent drainage from the rectal area. Patient seen by GI service they have initiated his diuretics and recommending paracentesis. Patient on antibiotics. Afebrile. WBC 7.8 Hgb 10.3 platelets 94 INR 2.1 total bilirubin 6.3 AST 76 ALT 35 PHYSICAL EXAM: VITAL SIGNS: Reviewed GENERAL: Well-developed in no acute distress. HEENT: No sclera icterus. Extraocular movements grossly intact. Moist buccal mucosa. Head is atraumatic, normocephalic. Hears conversational speech. No nasal drainage. NECK: Supple without lymphadenopathy. CHEST: Non-labored respirations and equal bilateral excursions. CARDIOVASCULAR: Palpable 2+ radial pulses. ABDOMEN: Distended MUSCULOSKELETAL: No clubbing or cyanosis. NEUROLOGIC: No focal or lateralizing signs. Cranial nerves II through XII grossly intact. PSYCH: Appropriate affect. Alert and oriented to person, place and time. SKIN: Well perfused. Good skin turgor. ASSESSMENT: 1. Complicated Crohn's disease with chronic perianal inflammation and fistulas 2. History of alcohol liver cirrhosis with portal hypertension and abdominal ascites PLAN: -Continue antibiotics -Continue GI management of liver cirrhosis and Crohns -Continue low-salt diet -No need for transfer to [facility] from general surgical standpoint. GI service is now available to see patient. Physician Fire Management Specialist note has been reviewed by physician. Signing provider agrees with the documented findings, assessment, and plan of care. Objective - Vital Signs Vital signs: Vital Signs Temp 97.8 F 05/11/23 07:15 Pulse 67 05/11/23 14:07 Resp 16 05/11/23 14:07 BP 112/74 05/11/23 14:07 Pulse Ox 97 05/11/23 14:07 FiO2 Intake & Output 05/10/23 05/11/23 05/11/23 18:59 06:59 18:59 Other: # Voids 3 - Labs CBC & Chem 7: 05/11/23 10:11 05/11/23 10:11 Labs: Abnormal Lab Results - Last 24 Hours (Table) 05/10/23 05/11/23 05/11/23 Range/Units 12:44 10:11 10:11 RBC 2.94 L 2.83 L (4.30-5.90) m/uL Hgb 10.8 L 10.3 L (13.0-17.5) gm/dL Hct 32.7 L 31.4 L (39.0-53.0) % MCV 111.2 H 111.1 H (80.0-100.0) fL MCH 36.8 H 36.4 H (25.0-35.0) pg Plt Count 99 L 94 L (150-450) k/uL Lymphocytes # (Manual) 0.87 L (1.0-4.8) k/uL Macrocytosis Marked A Marked A PT 21.4 H (10.0-12.5) sec INR 2.1 H (<1.2) Sodium (137-145) mmol/L Chloride (98-107) mmol/L Carbon Dioxide (22-30) mmol/L BUN (9-20) mg/dL Creatinine (0.66-1.25) mg/dL Glucose (74-99) mg/dL Calcium (8.4-10.2) mg/dL Total Bilirubin (0.2-1.3) mg/dL AST (17-59) U/L Albumin (3.5-5.0) g/dL 05/11/23 Range/Units 10:11 RBC (4.30-5.90) m/uL Hgb (13.0-17.5) gm/dL Hct (39.0-53.0) % MCV (80.0-100.0) fL MCH (25.0-35.0) pg Plt Count (150-450) k/uL Lymphocytes # (Manual) (1.0-4.8) k/uL Macrocytosis PT (10.0-12.5) sec INR (<1.2) Sodium 135 L (137-145) mmol/L Chloride 111 H (98-107) mmol/L Carbon Dioxide 21 L (22-30) mmol/L BUN 6 L (9-20) mg/dL Creatinine 0.41 L (0.66-1.25) mg/dL Glucose 119 H (74-99) mg/dL Calcium 7.1 L (8.4-10.2) mg/dL Total Bilirubin 6.3 H (0.2-1.3) mg/dL AST 76 H (17-59) U/L Albumin 1.9 L (3.5-5.0) g/dL Microbiology - Last 24 Hours (Table) 05/09/23 14:18 Blood Culture - Preliminary Blood
--- NOTE | 2023-05-11 16:04 | US ---
EXAMINATION TYPE: US paracentesis abd w/image DATE OF EXAM: 05/11/2023 1:57 PM CLINICAL INDICATION:Male, 63 years old with history of ascites COMPARISON: 05/08/2023 ATTENDING: Dr. Rajinder Figueroa PROCEDURE: Informed consent was obtained. The risks of the procedure were extensively explained incl uding risk of damage to surrounding bowel with perforation and need for additional procedures. Proced ure was performed in the ultrasound procedure suite. Ultrasound imaging of the abdomen demonstrate as citic fluid. An appropriate access site was localized to the right lower abdomen. Timeout was taken p er protocol. The skin was prepped and draped in the usual sterile fashion and then locally anesthetiz ed with 1% lidocaine. The peritoneal cavity was then accessed via a 5-Marshallese one-step needle/cathete r. Approximately 5460 cc of clear straw-colored fluid was obtained. Samples were sent to the lab for analysis. Postprocedural imaging of the abdomen demonstrate a minimal amount of abdominal fluid. Patient tolerated procedure well without immediate complication. Hemostasis at the procedural site w as obtained with a sterile bandage placed. The patient was monitored in the holding area following th e procedure and was subsequently discharged in stable condition. IMPRESSION: Ultrasound guided paracentesis, with approximately 5460 cc of clear straw-colored fluid drained. Path ology results pending. No immediate complications were evident.
[2023-05-11] MEDS ORDERED: CALCIUM CARBONATE 500 MG CHEWABLE PO PRN (16:13)
[2023-05-11] MEDS: PHYTONADIONE ORAL 5 MG/5 ML ORAL.SYRG PO STA (16:41)
[2023-05-11] MEDS: ALBUMIN HUMAN 25% 50 ML in EMPTY BAG 1 BAG IVPB SCH (16:42)
[2023-05-11 20:26] LABS: Appearance,BF Clear (Clear)
--- NOTE | 2023-05-12 00:10 | PN ---
PROGRESS NOTE CHIEF COMPLAINT: Crohn disease with perineal fistula and abscess. HISTORY OF PRESENT ILLNESS: This gentleman is fairly stable. It has been recommended by surgery the patient will be transferred to [facility] and this will be arranged. REVIEW OF SYSTEMS: The patient is not having any significant amount of pain and he is responsive. He is awake and alert. PHYSICAL EXAMINATION: VITAL SIGNS: Normal. Jaundice is improving. HEENT: Head, ears, eyes, nose, mouth and throat are normal. CHEST: Clear but breath sounds are shallow. CARDIAC: Normal. ABDOMEN: Protuberant and somewhat firm with ascites. EXTREMITIES: Normal. IMPRESSION: 1. 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 2. Chronic alcoholism. 3. Cirrhosis. 4. Ascites. PLAN: He will be moved to [facility]. Transfer team was contacted and I spoke with the physician who agreed to take the patient. Several hours later, transfer service called back that they had more than 100 people waiting for admission and could not take the transfer. MMPRIYA / CHAIMN: [id number] /
[2023-05-12 00:53] LABS: T. Protein, Body Fluid Source Ascities; Total Protein, Body Fluid 694 mg/dL
[2023-05-12 01:26] LABS: Albumin, Fluid Source Ascities
[2023-05-12 09:29] LABS: Anisocytosis Slight; Basophils % (A) 0 %; Eosinophils # (A) 0.1 k/uL (0-0.7); Eosinophils % (A) 2 %; HCT 31.3 % (39.0-53.0); HGB 10.4 gm/dL (13.0-17.5); Lymphocytes # (A) 0.8 k/uL (1.0-4.8); Lymphocytes % (A) 11 %; MCH 37.2 pg (25.0-35.0); MCHC 33.4 g/dL (31.0-37.0); MCV 111.6 fL (80.0-100.0); Macrocytosis Marked; Mean Platelet Volume 8.7; Monocytes # (A) 0.4 k/uL (0-1.0); Monocytes % (A) 6 %; Neutrophils # (A) 5.4 k/uL (1.3-7.7); Neutrophils % (A) 79 %; RDW 16.4 % (11.5-15.5); WBC 6.8 k/uL (3.8-10.6)
[2023-05-12 09:32] LABS: Platelet Count 92 k/uL (150-450)
[2023-05-12 09:44] LABS: ALT 33 U/L (4-49); AST 70 U/L (17-59); African American GFR (CKD) >90 (>60 ml/min/1.73 sqM); Albumin 2.2 g/dL (3.5-5.0); Albumin/Globulin Ratio 0.5; Alkaline Phosphatase 82 U/L (38-126); Anion Gap 6 mmol/L; Blood Urea Nitrogen 4 mg/dL (9-20); Calcium 7.2 mg/dL (8.4-10.2); Carbon Dioxide 21 mmol/L (22-30); Chloride 108 mmol/L (98-107); Globulin 4.6 g/dL; Glucose 97 mg/dL (74-99); Non-African American GFR(CKD) >90 (>60 ml/min/1.73 sqM); Potassium 3.5 mmol/L (3.5-5.1); Sodium 135 mmol/L (137-145); Total Bilirubin 6.4 mg/dL (0.2-1.3); Total Protein 6.8 g/dL (6.3-8.2)
--- NOTE | 2023-05-12 13:55 | P.PN ---
Subjective Progress Note Date: 05/12/23 CHIEF COMPLAINT: Extensive Crohn's disease with perirectal disease HISTORY OF PRESENT ILLNESS: Patient reports that he continues to have purulent drainage from the rectal area. Patient reports that the drainage is less today. Reports decrease in pain. He is status post paracentesis with 5.4 L removed. Patient remains on antibiotics. Afebrile. WBC 6.8 Hgb 10.4 platelets 92 sodium is 135 potassium 3.5 creatinine 0.48 PHYSICAL EXAM: VITAL SIGNS: Reviewed GENERAL: Well-developed in no acute distress. HEENT: No sclera icterus. Extraocular movements grossly intact. Moist buccal mucosa. Head is atraumatic, normocephalic. Hears conversational speech. No nasal drainage. NECK: Supple without lymphadenopathy. CHEST: Non-labored respirations and equal bilateral excursions. CARDIOVASCULAR: Palpable 2+ radial pulses. ABDOMEN: Decrease in distention MUSCULOSKELETAL: No clubbing or cyanosis. NEUROLOGIC: No focal or lateralizing signs. Cranial nerves II through XII grossly intact. PSYCH: Appropriate affect. Alert and oriented to person, place and time. SKIN: Well perfused. Good skin turgor. ASSESSMENT: 1. Complicated Crohn's disease with chronic perianal inflammation and fistulas 2. History of alcohol liver cirrhosis with portal hypertension and abdominal ascites 3. History of suppurativa hidradenitis PLAN: -Continue antibiotics -Continue GI management of liver cirrhosis and Crohns -Continue low-salt diet -No surgical intervention planned Physician Fastener Sewing Machine Operator note has been reviewed by physician. Signing provider agrees with the documented findings, assessment, and plan of care. Objective - Vital Signs Vital signs: Vital Signs Temp 97.7 F 05/12/23 07:09 Pulse 66 05/12/23 07:09 Resp 16 05/12/23 07:09 BP 82/45 05/12/23 07:09 Pulse Ox 96 05/12/23 09:29 FiO2 Intake & Output 05/11/23 05/12/23 05/12/23 18:59 06:59 18:59 Output Total 400 Balance -400 Output: Urine 400 Other: Voiding Method Toilet Urinal # Voids 3 4 # Bowel Movements 1 - Labs CBC & Chem 7: 05/12/23 08:46 05/12/23 08:46 Labs: Abnormal Lab Results - Last 24 Hours (Table) 02/05/12/23 05/12/23 Range/Units 08:46 08:46 10:58 RBC 2.80 L (4.30-5.90) m/uL Hgb 10.4 L (13.0-17.5) gm/dL Hct 31.3 L (39.0-53.0) % MCV 111.6 H (80.0-100.0) fL MCH 37.2 H (25.0-35.0) pg RDW 16.4 H (11.5-15.5) % Plt Count 92 L (150-450) k/uL Lymphocytes # 0.8 L (1.0-4.8) k/uL Macrocytosis Marked A Sodium 135 L (137-145) mmol/L Chloride 108 H (98-107) mmol/L Carbon Dioxide 21 L (22-30) mmol/L BUN 4 L (9-20) mg/dL Creatinine 0.48 L (0.66-1.25) mg/dL Calcium 7.2 L (8.4-10.2) mg/dL Total Bilirubin 6.4 H (0.2-1.3) mg/dL AST 70 H (17-59) U/L Ammonia 30 H (<30) umol/L Albumin 2.2 L (3.5-5.0) g/dL Microbiology - Last 24 Hours (Table) 05/11/23 14:00 Gram Stain - Preliminary Ascites Fluid Body Fluid Culture - Preliminary 05/09/23 14:18 Blood Culture - Preliminary Blood
--- NOTE | 2023-05-12 15:34 | P.PN ---
Subjective Progress Note Date: 05/12/23 Principal diagnosis: Reason for follow-up is perirectal abscess Patient is a 63-year-old male with a past medical history significant for COPD did have a history of Crohn's disease and hidradenitis suppurativa with multiple draining sinuses to the bilateral gluteal area also with a history of alcoholic cirrhosis patient presenting to the hospital for evaluation of mu ltiple draining sinuses near the rectal area that has been bleeding, patient did have a CT of abdominal pelvis suggestive of soft tissue mass with gas bubbles in the perineum suspicious for developing perineal abscess, general surgery was consulted recommending transfer to tertiary care and asked for infectious disease evaluation. On today's visit that is 05/12/2023,the patient remains to be afebrile, patient is on room air not requiring supplemental oxygen and denies any shortness of breath no chest pain or cough.Patient denies having any nausea or vomiting, abdominal discomfort has decreased and drainage from the perirectal area slightly decreased. Patient did have a white count of 6.8, creatinine 0.48 blood cultures so far pending ascitic fluid cultures pending, ascitic fluid white count was 57 Objective - Vital Signs Vital signs: Vital Signs Temp 97.7 F 05/12/23 07:09 Pulse 66 05/12/23 07:09 Resp 16 05/12/23 07:09 BP 82/45 05/12/23 07:09 Pulse Ox 96 05/12/23 09:29 FiO2 Intake & Output 05/11/23 05/12/23 05/12/23 18:59 06:59 18:59 Output Total 400 Balance -400 Output: Urine 400 Other: Voiding Method Toilet Urinal # Voids 3 4 # Bowel Movements 1 - Exam GENERAL DESCRIPTION: Middle-age male lying in bed in no distress RESPIRATORY SYSTEM: Unlabored breathing , decreased breath sounds at bases HEART: S1 S2 regular rate and rhythm , ABDOMEN: Soft , no tenderness EXTREMITIES: No edema feet - Labs CBC & Chem 7: 05/12/23 08:46 05/12/23 08:46 Labs: Abnormal Lab Results - Last 24 Hours (Table) 05/12/23 05/12/23 05/12/23 Range/Units 08:46 08:46 10:58 RBC 2.80 L (4.30-5.90) m/uL Hgb 10.4 L (13.0-17.5) gm/dL Hct 31.3 L (39.0-53.0) % MCV 111.6 H (80.0-100.0) fL MCH 37.2 H (25.0-35.0) pg RDW 16.4 H (11.5-15.5) % Plt Count 92 L (150-450) k/uL Lymphocytes # 0.8 L (1.0-4.8) k/uL Macrocytosis Marked A Sodium 135 L (137-145) mmol/L Chloride 108 H (98-107) mmol/L Carbon Dioxide 21 L (22-30) mmol/L BUN 4 L (9-20) mg/dL Creatinine 0.48 L (0.66-1.25) mg/dL Calcium 7.2 L (8.4-10.2) mg/dL Total Bilirubin 6.4 H (0.2-1.3) mg/dL AST 70 H (17-59) U/L Ammonia 30 H (<30) umol/L Albumin 2.2 L (3.5-5.0) g/dL Microbiology - Last 24 Hours (Table) 05/11/23 14:00 Gram Stain - Preliminary Ascites Fluid Body Fluid Culture - Preliminary 05/09/23 14:18 Blood Culture - Preliminary Blood Assessment and Plan (1) Perirectal abscess Current Visit: Yes Status: Acute Code(s): K61.1 - RECTAL ABSCESS SNOMED Code(s): 30397704 Plan: 1patient with a complicated history of Crohn's disease this patient with concern for 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 perirectal area versus hidradenitis suppurative presenting to the hospital with multiple draining sinuses along the perirectal area with associated increasing pain patient did have abnormal CT suggestive of abscess we will need to cover for the enteric gram-negative both aerobes and anaerobes 2-patient would benefit from surgical drainage and culture that would guide further antibiotic therapy surgical team is requesting the patient to be transferred to the tertiary care, currently waiting for the transfer process 3-patient is afebrile, white count normal, patient to continue with the Unasyn for now in view of some clinical improvement and monitor the course closely Dictation was produced using [employer] dictation software. please excuse any grammatical, word or spelling errors. Time with Patient: Less than 30
--- NOTE | 2023-05-12 15:56 | P.PN ---
Subjective Progress Note Date: 05/12/23 Principal diagnosis: Liver cirrhosis, Crohn's This is a pleasant 63-year-old male with a past medical history including Crohn's disease diagnosed about 27 years ago who has followed with Dr. Lomas in the past. He presented to the emergency department 4 days ago with concerns of rectal bleeding and perineal pain. He has a history of Crohn's disease, hidradenitis suppurative, previous terminal ileal resection, COPD, alcohol cirrhosis of the liver. He has a history of he is currently not on any medication because he states he lost his insurance but prior to that was getting infusions unclear which one at this time. Last colonoscopy done 01/31/[address] Lomas which reported normal colon, anastomosis not clearly seen due to poor prep. He underwent EGD in January [address] Lomas secondary to alcohol abuse and history of portal hypertension with findings of large mid and distal varices status post ligation, moderate portal hypertension gastropathy. States he has not follow-up with Dr. Lomas in a few months as he had lost his insurance. Again he stopped taking his medications at least 2 weeks ago. He has a history of underlying alcoholic liver disease with cirrhosis of the liver. He has been on diuretics however again has not been taking them for the last couple weeks or more. He has abdominal distention. He came in with rectal bleeding which he states he had for 2 days prior to coming in, also noticed perineal and rectal pain and swelling and discomfort. States he has been having about 3 bowel movements a day, mostly loose mostly nonbloody at this time. He had a CT of the abdomen and pelvis concerning for large ill-defined liver mass, moderate to large ascites and soft tissue mass with gas bubbles in the perineum suspicious for developing perineal abscess. Patient has been afebrile. He was started on IV Unasyn. General surgery was consulted for perirectal abscess, the recommendation was transfer to tertiary center for complicated Crohn's as well as consulted infectious disease. He currently denies any abdominal pain, nausea, or vomiting. No current rectal bleeding. Patient has followed with [facility] in the past for his Crohn's disease and hidradenitis suppurative. Labs WBC 7.8 hemoglobin 10.3 platelet count 94,000 and INR 2.1 sodium 135 potassium 3.6 BUN 6 creatinine 0.4 total bilirubin 6.3 AST 76 ALT 35 alkaline phosphatase 72 05/12/2023 Patient seen and examined today as a follow-up. No acute changes through the night. He underwent paracentesis yesterday with 5 L of fluid removed. Patient seems a little slow when speaking to. Ammonia level ordered, elevated at 30. Plan is for patient transferred to [facility] to follow-up with his Crohn's specialist. Primary care physician working on transfer. Objective - Vital Signs Vital signs: Vital Signs Temp 98.6 F 05/12/23 05:15 Pulse 63 05/12/23 05:15 Resp 17 05/12/23 05:15 BP 100/53 05/12/23 05:15 Pulse Ox 94 L 05/12/23 05:15 FiO2 Intake & Output 05/11/23 05/12/23 05/12/23 18:59 06:59 18:59 Output Total 400 Balance -400 Output: Urine 400 Other: Voiding Method Toilet Urinal # Voids 3 4 - Exam General appearance: The patient is alert, oriented, appears in no acute distress. HET: Head is normocephalic and atraumatic. Conjunctiva pink. Sclera anicteric. Neck: Supple without lymphadenopathy. Abdomen: Soft, nontender, nondistended. Extremities: Normal skin color and turgor. No pedal edema Skin: No rashes, no jaundice Neurological: No focal deficits. Alert and oriented. - Labs CBC & Chem 7: 05/12/23 08:46 05/12/23 08:46 Labs: Abnormal Lab Results - Last 24 Hours (Table) 05/11/23 05/11/23 05/11/23 Range/Units 10:11 10:11 10:11 RBC 2.83 L (4.30-5.90) m/uL Hgb 10.3 L (13.0-17.5) gm/dL Hct 31.4 L (39.0-53.0) % MCV 111.1 H (80.0-100.0) fL MCH 36.4 H (25.0-35.0) pg Plt Count 94 L (150-450) k/uL Macrocytosis Marked A PT 21.4 H (10.0-12.5) sec INR 2.1 H (<1.2) Sodium 135 L (137-145) mmol/L Chloride 111 H (98-107) mmol/L Carbon Dioxide 21 L (22-30) mmol/L BUN 6 L (9-20) mg/dL Creatinine 0.41 L (0.66-1.25) mg/dL Glucose 119 H (74-99) mg/dL Calcium 7.1 L (8.4-10.2) mg/dL Total Bilirubin 6.3 H (0.2-1.3) mg/dL AST 76 H (17-59) U/L Albumin 1.9 L (3.5-5.0) g/dL Microbiology - Last 24 Hours (Table) 05/11/23 14:00 Gram Stain - Preliminary Ascites Fluid 05/09/23 14:18 Blood Culture - Preliminary Blood Assessment and Plan (1) Alcoholic cirrhosis Narrative/Plan: 63-year-old male with known history of alcoholic cirrhosis of the liver as well as longstanding history of Crohn's disease. Patient came in for rectal bleeding and perianal swelling and pain. He was noted to have elevated LFTs consistent with his underlying liver disease. He has stopped all of his medications recently over the last couple weeks due to loss of insurance. He has not followed with Dr. Lomas this last month as he was scheduled. He was on Biologics unsure which one at this point. CT abdomen pelvis concerning for liver mass, large amount of ascites. Patient denies previous history of paracentesis. He has not been taking his diuretics due to insurance coverage. Cirrhosis of the liver stable. Would recommend paracentesis however INR is at 2.1. Will monitor and resume diuretics. Current Visit: Yes Status: Acute Code(s): K70.30 - ALCOHOLIC CIRRHOSIS OF LIVER WITHOUT ASCITES SNOMED Code(s): 364151563 (2) Crohn's disease Narrative/Plan: 63-year-old with longstanding history of Crohn's disease with a history of terminal ileal resection. Patient was diagnosed with Crohn's about 27 years ago. Last colonoscopy in January 2022. Presenting with rectal bleeding and a perianal lesion/abscess. General surgery following, they consulted infectious disease who recommend surgical drainage and culture however general surgery is recommending recommending transfer to tertiary center for further surgical evaluation of complicated Crohn's disease. Currently on IV antibiotics. Pending transfer to [facility]. Current Visit: Yes Status: Acute Code(s): K50.90 - CROHN'S DISEASE, UNSPECIFIED, WITHOUT COMPLICATIONS SNOMED Code(s): 50924424 (3) Perianal lesion Current Visit: Yes Status: Acute Code(s): K62.9 - DISEASE OF ANUS AND RECTUM, UNSPECIFIED SNOMED Code(s): 033115291 (4) Rectal bleeding Current Visit: No Status: Acute Code(s): K62.5 - HEMORRHAGE OF ANUS AND RECTUM SNOMED Code(s): 75365093 (5) Hidradenitis suppurativa Current Visit: Yes Status: Acute Code(s): L73.2 - HIDRADENITIS SUPPURATIVA SNOMED Code(s): 70397650 Plan: 1. Continue symptomatic and supportive care 2. Status post paracentesis 3. Lasix 40 mg and Aldactone 100 mg daily ordered 4. Appreciate recommendations from infectious disease and general surgery 5. Current plan is for transfer to [facility] for surgical evaluation and treatment for complicated Crohn's disease with perirectal abscess 6. Lactulose 30 g twice daily added Thank you for this consultation, we will continue to follow. Dr. Jeremy Lomas I agree with the dictator's note, documented as a scribe by Mary Anne Lafleur.
[2023-05-12] MEDS: LACTULOSE 20 GM/30 ML CUP PO SCH (20:24)
[2023-05-12] MEDS: SPIRONOLACTONE 25 MG TAB PO SCH (20:25)
[2023-05-13] MEDS: FUROSEMIDE 40 MG TAB PO SCH (09:20)
--- NOTE | 2023-05-13 12:19 | P.PN ---
Subjective Progress Note Date: 05/13/23 Principal diagnosis: Reason for follow-up is perirectal abscess Patient is a 63-year-old male with a past medical history significant for COPD did have a history of Crohn's disease and hidradenitis suppurativa with multiple draining sinuses to the bilateral gluteal area also with a history of alcoholic cirrhosis patient presenting to the hospital for evaluation of mu ltiple draining sinuses near the rectal area that has been bleeding, patient did have a CT of abdominal pelvis suggestive of soft tissue mass with gas bubbles in the perineum suspicious for developing perineal abscess, general surgery was consulted recommending transfer to tertiary care and asked for infectious disease evaluation. On today's visit that is 05/13/2023, the patient continues to be afebrile, the patient is on room air and breathing comfortably, the Pt denies having any chest pain or cough, the patient abdominal pain decreased in intensity drainage from the Benadryl decreased as well no vomiting tolerating his diet. No CBC was done today abdominal fluid culture negative blood cultures so far negative Objective - Vital Signs Vital signs: Vital Signs Temp 98.0 F 05/13/23 07:32 Pulse 69 05/13/23 07:40 Resp 16 05/13/23 07:40 BP 92/40 05/13/23 07:32 Pulse Ox 93 L 05/13/23 07:32 FiO2 Intake & Output 05/12/23 05/13/23 05/13/23 18:59 06:59 18:59 Intake Total 236 Output Total 200 Balance -200 236 Intake: Oral 236 Output: Urine 200 Other: Voiding Method Toilet Toilet Urinal Urinal # Bowel Movements 1 1 - Exam GENERAL DESCRIPTION: Middle-age male lying in bed in no distress RESPIRATORY SYSTEM: Unlabored breathing , decreased breath sounds at bases HEART: S1 S2 regular rate and rhythm , ABDOMEN: Soft , no tenderness EXTREMITIES: No edema feet - Labs CBC & Chem 7: 05/12/23 08:46 05/12/23 08:46 Labs: Abnormal Lab Results - Last 24 Hours (Table) 05/13/23 Range/Units 11:27 Ammonia 32 H (<30) umol/L Microbiology - Last 24 Hours (Table) 05/11/23 14:00 Gram Stain - Preliminary Ascites Fluid Body Fluid Culture - Preliminary 05/09/23 14:18 Blood Culture - Preliminary Blood Assessment and Plan (1) Perirectal abscess Current Visit: Yes Status: Acute Code(s): K61.1 - RECTAL ABSCESS SNOMED Code(s): 29741450 Plan: 1patient with a complicated history of Crohn's disease this patient with concern for 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 perirectal area versus hidradenitis suppurative presenting to the hospital with multiple draining sinuses along the perirectal area with associated increasing pain patient did have abnormal CT suggestive of abscess we will need to cover for the enteric gram-negative both aerobes and anaerobes 2-patient would benefit from surgical drainage and culture that would guide further antibiotic therapy surgical team is requesting the patient to be trans ferred to the tertiary care, currently waiting for the transfer process 3-patient is afebrile, white count normal 4- patient will continue with Unasyn in view of some clinical improvement and monitor the course closely Dictation was produced using [employer] dictation software. please excuse any gramma tical, word or spelling errors. Time with Patient: Less than 30
--- NOTE | 2023-05-13 12:32 | P.PN ---
Subjective Progress Note Date: 05/13/23 Principal diagnosis: Liver cirrhosis, Crohn's This is a pleasant 63-year-old male with a past medical history including Crohn's disease diagnosed about 27 years ago who has followed with Dr. Lomas in the past. He presented to the emergency department 4 days ago with concerns of rectal bleeding and perineal pain. He has a history of Crohn's disease, hidradenitis suppurative, previous terminal ileal resection, COPD, alcohol cirrhosis of the liver. He has a history of he is currently not on any medication because he states he lost his insurance but prior to that was getting infusions unclear which one at this time. Last colonoscopy done 01/31/[address] Lomas which reported normal colon, anastomosis not clearly seen due to poor prep. He underwent EGD in January [address] Lomas secondary to alcohol abuse and history of portal hypertension with findings of large mid and distal varices status post ligation, moderate portal hypertension gastropathy. States he has not follow-up with Dr. Lomas in a few months as he had lost his insurance. Again he stopped taking his medications at least 2 weeks ago. He has a history of underlying alcoholic liver disease with cirrhosis of the liver. He has been on diuretics however again has not been taking them for the last couple weeks or more. He has abdominal distention. He came in with rectal bleeding which he states he had for 2 days prior to coming in, also noticed perineal and rectal pain and swelling and discomfort. States he has been having about 3 bowel movements a day, mostly loose mostly nonbloody at this time. He had a CT of the abdomen and pelvis concerning for large ill-defined liver mass, moderate to large ascites and soft tissue mass with gas bubbles in the perineum suspicious for developing perineal abscess. Patient has been afebrile. He was started on IV Unasyn. General surgery was consulted for perirectal abscess, the recommendation was transfer to tertiary center for complicated Crohn's as well as consulted infectious disease. He currently denies any abdominal pain, nausea, or vomiting. No current rectal bleeding. Patient has followed with [facility] in the past for his Crohn's disease and hidradenitis suppurative. Labs WBC 7.8 hemoglobin 10.3 platelet count 94,000 and INR 2.1 sodium 135 potassium 3.6 BUN 6 creatinine 0.4 total bilirubin 6.3 AST 76 ALT 35 alkaline phosphatase 72 05/12/2023 Patient seen and examined today as a follow-up. No acute changes through the night. He underwent paracentesis yesterday with 5 L of fluid removed. Patient seems a little slow when speaking to. Ammonia level ordered, elevated at 30. Plan is for patient transferred to [facility] to follow-up with his Crohn's specialist. Primary care physician working on transfer. 05/13/2023 Patient seen and examined today as a follow-up. He states overall he does not feel that while his back is hurting. He is awaiting transfer to a tertiary center per further surgical management for his perirectal abscess. Currently trying for transfer to [facility] however does not appear that they are accepting patient at this time. Patient was started on lactulose yesterday for hyperammonemia today ammonia level is 32. Objective - Vital Signs Vital signs: Vital Signs Temp 98.0 F 05/13/23 07:32 Pulse 69 05/13/23 07:32 Resp 16 05/13/23 07:32 BP 92/40 05/13/23 07:32 Pulse Ox 93 L 05/13/23 07:32 FiO2 Intake & Output 05/12/23 05/13/23 05/13/23 18:59 06:59 18:59 Intake Total 236 Output Total 200 Balance -200 236 Intake: Oral 236 Output: Urine 200 Other: Voiding Method Toilet Urinal # Bowel Movements 1 - Exam General appearance: The patient is alert, oriented, appears in no acute distress. HET: Head is normocephalic and atraumatic. Conjunctiva pink. Sclera anicteric. Neck: Supple without lymphadenopathy. Abdomen: Soft, nontender, nondistended. Extremities: Normal skin color and turgor. No pedal edema Skin: No rashes, no jaundice Neurological: No focal deficits. Alert and oriented. - Labs CBC & Chem 7: 05/12/23 08:46 05/12/23 08:46 Labs: Abnormal Lab Results - Last 24 Hours (Table) 05/12/23 Range/Units 10:58 Ammonia 30 H (<30) umol/L Microbiology - Last 24 Hours (Table) 05/11/23 14:00 Gram Stain - Preliminary Ascites Fluid Body Fluid Culture - Preliminary 05/09/23 14:18 Blood Culture - Preliminary Blood Assessment and Plan (1) Alcoholic cirrhosis Narrative/Plan: 63-year-old male with known history of alcoholic cirrhosis of the liver as well as longstanding history of Crohn's disease. Patient came in for rectal bleeding and perianal swelling and pain. He was noted to have elevated LFTs consistent with his underlying liver disease. He has stopped all of his medications recently over the last couple weeks due to loss of insurance. He has not followed with Dr. Lomas this last month as he was scheduled. He was on Biologics unsure which one at this point. CT abdomen pelvis concerning for liver mass, large amount of ascites. Patient denies previous history of paracentesis. He has not been taking his diuretics due to insurance coverage. Cirrhosis of the liver stable. Would recommend paracentesis however INR is at 2.1. Will monitor and resume diuretics. Current Visit: Yes Status: Acute Code(s): K70.30 - ALCOHOLIC CIRRHOSIS OF LIVER WITHOUT ASCITES SNOMED Code(s): 395518459 (2) Crohn's disease Narrative/Plan: 63-year-old with longstanding history of Crohn's disease with a history of terminal ileal resection. Patient was diagnosed with Crohn's about 27 years ago. Last colonoscopy in January 2022. Presenting with rectal bleeding and a perianal lesion/abscess. General surgery following, they consulted infectious disease who recommend surgical drainage and culture however general surgery is recommending recommending transfer to tertiary center for further surgical evaluation of complicated Crohn's disease. Currently on IV antibiotics. Pending transfer to [facility]. Current Visit: Yes Status: Acute Code(s): K50.90 - CROHN'S DISEASE, UNSPECIFIED, WITHOUT COMPLICATIONS SNOMED Code(s): 28882526 (3) Perianal lesion Narrative/Plan: General surgery and infectious disease following Current Visit: Yes Status: Acute Code(s): K62.9 - DISEASE OF ANUS AND RECTUM, UNSPECIFIED SNOMED Code(s): 449876720 (4) Rectal bleeding Current Visit: No Status: Acute Code(s): K62.5 - HEMORRHAGE OF ANUS AND RECTUM SNOMED Code(s): 86956539 (5) Hidradenitis suppurativa Current Visit: Yes Status: Acute Code(s): L73.2 - HIDRADENITIS SUPPURATIVA SNOMED Code(s): 43599131 Plan: 1. Continue symptomatic and supportive care 2. Status post paracentesis 3. Lasix 40 mg and Aldactone 100 mg daily ordered 4. Appreciate recommendations from infectious disease and general surgery 5. Current plan is for transfer to tertiary hospital for surgical evaluation and treatment for complicated Crohn's disease with perirectal abscess per primary medical team recommendations 6. Lactulose 30 g twice daily added, will increase to 3 times a day. Titrate to have 3-4 bowel movements daily. Thank you for this consultation, we will continue to follow. Dr. Jeremy Lomas I agree with the dictator's note, documented as a scribe by Mary Anne Lafleur.
--- NOTE | 2023-05-13 14:39 | P.PN ---
Subjective Progress Note Date: 05/13/23 CHIEF COMPLAINT: Extensive Crohn's disease with perirectal disease HISTORY OF PRESENT ILLNESS: Patient does complain of rectal pain. But reports the pain is not worsening. He does have drainage intermittently. His transfer to [facility] was denied. Afebrile. Ammonia level 32. Last WBC 6.8 PHYSICAL EXAM: VITAL SIGNS: Reviewed GENERAL: Well-developed in no acute distress. HEENT: Extraocular movements grossly intact. Moist buccal mucosa. Head is atraumatic, normocephalic. Hears conversational speech. No nasal drainage. NECK: Supple without lymphadenopathy. CHEST: Non-labored respirations and equal bilateral excursions. CARDIOVASCULAR: Palpable 2+ radial pulses. ABDOMEN: Decrease in distention MUSCULOSKELETAL: No clubbing or cyanosis. NEUROLOGIC: No focal or lateralizing signs. Cranial nerves II through XII grossly intact. PSYCH: Appropriate affect. Alert and oriented to person, place and time. SKIN: jaundiced. Well perfused. Good skin turgor. ASSESSMENT: 1. Complicated Crohn's disease with chronic perianal inflammation and fistulas 2. History of alcohol liver cirrhosis with portal hypertension and abdominal ascites 3. History of suppurativa hidradenitis PLAN: -Continue antibiotics -Continue GI management of liver cirrhosis and Crohns -Continue low-salt diet -No surgical intervention planned at this time Physician Bed Rubber note has been reviewed by physician. Signing provider agrees with the documented findings, assessment, and plan of care. Objective - Vital Signs Vital signs: Vital Signs Temp 98.1 F 05/13/23 13:31 Pulse 73 05/13/23 13:31 Resp 20 05/13/23 13:31 BP 104/64 05/13/23 13:31 Pulse Ox 94 L 05/13/23 13:31 FiO2 Intake & Output 05/12/23 05/13/23 05/13/23 18:59 06:59 18:59 Intake Total 346 Output Total 200 Balance -200 346 Intake: Oral 346 Output: Urine 200 Other: Voiding Method Toilet Toilet Urinal Urinal # Bowel Movements 1 1 - Labs CBC & Chem 7: 05/12/23 08:46 05/12/23 08:46 Labs: Abnormal Lab Results - Last 24 Hours (Table) 05/13/23 Range/Units 11:27 Ammonia 32 H (<30) umol/L Microbiology - Last 24 Hours (Table) 05/11/23 14:00 Anaerobic Culture - Preliminary Ascites Fluid 05/11/23 14:00 Gram Stain - Preliminary Ascites Fluid Body Fluid Culture - Preliminary 05/09/23 14:18 Blood Culture - Preliminary Blood
[2023-05-13] MEDS: LACTULOSE 20 GM/30 ML CUP PO SCH (15:29)
--- NOTE | 2023-05-13 22:58 | PN ---
PROGRESS NOTE CHIEF COMPLAINT: Crohn disease with perineal fistula and abscess. HISTORY OF PRESENT ILLNESS: This gentleman is just about the same. Ascitic fluid is reaccumulating. He was not accepted in transfer at [facility]. It is felt that his care would be more appropriate for a tertiary level hospital. One will have to be sought. PHYSICAL EXAMINATION: GENERAL: He remains jaundiced. He is alert. CHEST: Clear. CARDIAC: Normal. ABDOMEN: Is becoming more protuberant again with ascites. The purulent discharge in the perineum is the same. IMPRESSION: 1. Crohn disease with enterocutaneous perineal fistula. 2. Alcoholism. 3. Cirrhosis. 4. Ascites. PLAN: Continue with present management and Florist Manager will look for another institution that he might be transferred to. MMTERRYL / CHAIMN: [id number] /
--- NOTE | 2023-05-13 23:17 | PN ---
PROGRESS NOTE DATE OF SERVICE: 05/13/2023 CHIEF COMPLAINT: Crohn disease with perineal fistula. HISTORY OF PRESENT ILLNESS: This gentleman is about the same. His ascitic fluid is reaccumulating. He is not particularly uncomfortable. PHYSICAL EXAMINATION: GENERAL: He is somewhat hypertensive with a systolic around 100 to 105. CHEST: Clear. CARDIAC: Normal. ABDOMEN: Protuberant and firm. He still has a copious purulent drainage from the perineum. IMPRESSION: 1. Crohn disease with perineal fistula and perineal abscess. 2. Alcoholism. 3. Cirrhosis. 4. Ascites. PLAN: Continue to manage the patient and keep him as comfortable as possible while Rivet Spinner looks for another hospital for possible transfer. MMODL / IJN: [id number] /
[2023-05-14 10:41] LABS: ALT 30 U/L (4-49); AST 69 U/L (17-59); African American GFR (CKD) >90 (>60 ml/min/1.73 sqM); Albumin 2.1 g/dL (3.5-5.0); Albumin/Globulin Ratio 0.4; Alkaline Phosphatase 64 U/L (38-126); Anion Gap 5 mmol/L; Blood Urea Nitrogen 6 mg/dL (9-20); Calcium 7.5 mg/dL (8.4-10.2); Carbon Dioxide 19 mmol/L (22-30); Chloride 112 mmol/L (98-107); Globulin 4.8 g/dL; Glucose 115 mg/dL (74-99); Non-African American GFR(CKD) >90 (>60 ml/min/1.73 sqM); Potassium 3.6 mmol/L (3.5-5.1); Sodium 136 mmol/L (137-145); Total Bilirubin 9.4 mg/dL (0.2-1.3); Total Protein 6.9 g/dL (6.3-8.2)
[2023-05-14 10:50] LABS: Basophils # (A) 0.1 k/uL (0-0.2); Basophils % (A) 1 %; Eosinophils # (A) 0.1 k/uL (0-0.7); Eosinophils % (A) 1 %; HCT 31.6 % (39.0-53.0); HGB 10.2 gm/dL (13.0-17.5); Hypochromasia Marked; Lymphocytes # (A) 0.7 k/uL (1.0-4.8); Lymphocytes % (A) 6 %; MCH 39.3 pg (25.0-35.0); MCHC 32.2 g/dL (31.0-37.0); Mean Platelet Volume 9.5; Monocytes # (A) 1.1 k/uL (0-1.0); Monocytes % (A) 10 %; Neutrophils # (A) 8.9 k/uL (1.3-7.7); Neutrophils % (A) 80 %; RBC 2.59 m/uL (4.30-5.90); RDW 15.9 % (11.5-15.5); WBC 11.1 k/uL (3.8-10.6)
[2023-05-14 11:13] LABS: Platelet Count 95 k/uL (150-450)
--- NOTE | 2023-05-14 11:57 | P.PN ---
Subjective Progress Note Date: 05/14/23 Principal diagnosis: Liver cirrhosis, Crohn's This is a pleasant 63-year-old male with a past medical history including Crohn's disease diagnosed about 27 years ago who has followed with Dr. Lomas in the past. He presented to the emergency department 4 days ago with concerns of rectal bleeding and perineal pain. He has a history of Crohn's disease, hidradenitis suppurative, previous terminal ileal resection, COPD, alcohol cirrhosis of the liver. He has a history of he is currently not on any medication because he states he lost his insurance but prior to that was getting infusions unclear which one at this time. Last colonoscopy done 01/31/[address] Lomas which reported normal colon, anastomosis not clearly seen due to poor prep. He underwent EGD in January [address] Lomas secondary to alcohol abuse and history of portal hypertension with findings of large mid and distal varices status post ligation, moderate portal hypertension gastropathy. States he has not follow-up with Dr. Lomas in a few months as he had lost his insurance. Again he stopped taking his medications at least 2 weeks ago. He has a history of underlying alcoholic liver disease with cirrhosis of the liver. He has been on diuretics however again has not been taking them for the last couple weeks or more. He has abdominal distention. He came in with rectal bleeding which he states he had for 2 days prior to coming in, also noticed perineal and rectal pain and swelling and discomfort. States he has been having about 3 bowel movements a day, mostly loose mostly nonbloody at this time. He had a CT of the abdomen and pelvis concerning for large ill-defined liver mass, moderate to large ascites and soft tissue mass with gas bubbles in the perineum suspicious for developing perineal abscess. Patient has been afebrile. He was started on IV Unasyn. General surgery was consulted for perirectal abscess, the recommendation was transfer to tertiary center for complicated Crohn's as well as consulted infectious disease. He currently denies any abdominal pain, nausea, or vomiting. No current rectal bleeding. Patient has followed with [facility] in the past for his Crohn's disease and hidradenitis suppurative. Labs WBC 7.8 hemoglobin 10.3 platelet count 94,000 and INR 2.1 sodium 135 potassium 3.6 BUN 6 creatinine 0.4 total bilirubin 6.3 AST 76 ALT 35 alkaline phosphatase 72 05/12/2023 Patient seen and examined today as a follow-up. No acute changes through the night. He underwent paracentesis yesterday with 5 L of fluid removed. Patient seems a little slow when speaking to. Ammonia level ordered, elevated at 30. Plan is for patient transferred to [facility] to follow-up with his Crohn's specialist. Primary care physician working on transfer. 05/13/2023 Patient seen and examined today as a follow-up. He states overall he does not feel that while his back is hurting. He is awaiting transfer to a tertiary center per further surgical management for his perirectal abscess. Currently trying for transfer to [facility] however does not appear that they are accepting patient at this time. Patient was started on lactulose yesterday for hyperammonemia today ammonia level is 32. 05/14/2023 Patient seen and examined today as a follow-up. He has been having multiple bowel movements on his lactulose. No acute changes through the night. He has been afebrile. Repeat labs today WBC 11 hemoglobin 10.2 platelet count 95,000 sodium 136 potassium 3.6 total bilirubin 9.4 AST 69 ALT 30 alkaline phosphatase 64 ammonia level 32. Unclear at this time if primary medical team is transferring patient to tertiary center. That will be between the primary care team general surgeon and infectious disease. Objective - Vital Signs Vital signs: Vital Signs Temp 98.4 F 05/14/23 07:35 Pulse 73 05/14/23 07:35 Resp 18 05/14/23 07:35 BP 95/52 05/14/23 07:35 Pulse Ox 91 L 05/14/23 07:35 FiO2 Intake & Output 05/13/23 05/14/23 05/14/23 18:59 06:59 18:59 Intake Total 346 Output Total 300 Balance 346 -300 Intake: Oral 346 Output: Urine 300 Other: Voiding Method Toilet Toilet Urinal Urinal # Bowel Movements 2 3 - Exam General appearance: The patient is alert, oriented, appears in no acute distress. HET: Head is normocephalic and atraumatic. Conjunctiva pink. Sclera icteric. Neck: Supple without lymphadenopathy. Abdomen: Soft, nontender, ascites, nondistended. Extremities: Normal skin color and turgor. No pedal edema Skin: No rashes, jaundice. Neurological: No focal deficits. Alert and oriented. - Labs CBC & Chem 7: 05/14/23 10:04 05/14/23 10:04 Labs: Abnormal Lab Results - Last 24 Hours (Table) 05/13/23 Range/Units 11:27 Ammonia 32 H (<30) umol/L Microbiology - Last 24 Hours (Table) 05/11/23 14:00 Gram Stain - Preliminary Ascites Fluid Body Fluid Culture - Preliminary 05/11/23 14:00 Anaerobic Culture - Preliminary Ascites Fluid Assessment and Plan (1) Alcoholic cirrhosis Narrative/Plan: 63-year-old male with known history of alcoholic cirrhosis of the liver as well as longstanding history of Crohn's disease. Patient came in for rectal bleeding and perianal swelling and pain. He was noted to have elevated LFTs consistent with his underlying liver disease. He has stopped all of his medications recently over the last couple weeks due to loss of insurance. He has not followed with Dr. Lomas this last month as he was scheduled. CT abdomen pelvis concerning for liver mass, large amount of ascites. Patient will follow-up outpatient with [facility] liver specialist for new liver lesion. Diuretics resumed, he will continue Lasix 40 mg daily and spironolactone 100 mg daily. Cirrhosis of the liver stable. Ultrasound paracentesis ordered prior to discharge. Current Visit: Yes Status: Acute Code(s): K70.30 - ALCOHOLIC CIRRHOSIS OF LIVER WITHOUT ASCITES SNOMED Code(s): 514302821 (2) Crohn's disease Narrative/Plan: 63-year-old with longstanding history of Crohn's disease with a history of terminal ileal resection. Patient was diagnosed with Crohn's about 27 years ago. Last colonoscopy in January 2022. Presenting with rectal bleeding and a perianal lesion/abscess. General surgery following, they consulted infectious disease who recommend surgical drainage and culture however general surgery is recommending recommending transfer to tertiary center for further surgical evaluation of complicated Crohn's disease. Currently on IV antibiotics. Pending transfer to [facility]. Current Visit: Yes Status: Acute Code(s): K50.90 - CROHN'S DISEASE, UNSPECIFIED, WITHOUT COMPLICATIONS SNOMED Code(s): 11377050 (3) Perianal lesion Narrative/Plan: General surgery and infectious disease following, continue with their recommendations. Current Visit: Yes Status: Acute Code(s): K62.9 - DISEASE OF ANUS AND RECTUM, UNSPECIFIED SNOMED Code(s): 426007757 (4) Rectal bleeding Current Visit: No Status: Acute Code(s): K62.5 - HEMORRHAGE OF ANUS AND RECTUM SNOMED Code(s): 43405781 (5) Hidradenitis suppurativa Current Visit: Yes Status: Acute Code(s): L73.2 - HIDRADENITIS SUPPURATIVA SNOMED Code(s): 23066059 Plan: 1. Continue symptomatic and supportive care 2. Ultrasound paracentesis ordered 3. Lasix 40 mg and Aldactone 50 mg twice daily ordered 4. Continue with recommendations from infectious disease and general surgery for perirectal abscess 5. Lactulose 30 g twice daily added, will increase to 3 times a day. Titrate t o have 3-4 bowel movements daily. 6. Patient will need to follow-up with his specialist at [facility] regarding Crohn's disease and hidradenitis suppurativa to resume treatment. He will also be set up with his liver specialist regarding new liver lesion. Again this can be done as an outpatient. Thank you for this consultation, we will continue to follow. Dr. Jeremy Lomas I agree with the dictator's note, documented as a scribe by Mary Anne Lafleur.
[2023-05-14 12:19] LABS: Macrocytosis Marked
--- NOTE | 2023-05-14 12:42 | P.PN ---
Subjective Progress Note Date: 05/14/23 Principal diagnosis: Reason for follow-up is perirectal abscess Patient is a 63-year-old male with a past medical history significant for COPD did have a history of Crohn's disease and hidradenitis suppurativa with multiple draining sinuses to the bilateral gluteal area also with a history of alcoholic cirrhosis patient presenting to the hospital for evaluation of mu ltiple draining sinuses near the rectal area that has been bleeding, patient did have a CT of abdominal pelvis suggestive of soft tissue mass with gas bubbles in the perineum suspicious for developing perineal abscess, general surgery was consulted recommending transfer to tertiary care and asked for infectious disease evaluation. On today's visit that is 05/14/2023, Patient is afebrile patient is currently on room air and denies having any shortness of breath, the patient denies any chest pain or cough, the patient denies any nausea vomiting complaining of some abdominal distention related to multiple loose stools currently on lactulose. Patient white count is 11.1, creatinine 0.48 ascitic fluid culture negative Objective - Vital Signs Vital signs: Vital Signs Temp 98.4 F 05/14/23 07:35 Pulse 72 05/14/23 10:19 Resp 18 05/14/23 07:35 BP 104/52 05/14/23 10:19 Pulse Ox 91 L 05/14/23 07:35 FiO2 Intake & Output 05/13/23 05/14/23 05/14/23 18:59 06:59 18:59 Intake Total 346 Output Total 300 Balance 346 -300 Intake: Oral 346 Output: Urine 300 Other: Voiding Method Toilet Toilet Urinal Urinal # Bowel Movements 2 3 1 - Exam GENERAL DESCRIPTION: Middle-age male lying in bed in no distress RESPIRATORY SYSTEM: Unlabored breathing , decreased breath sounds at bases HEART: S1 S2 regular rate and rhythm , ABDOMEN: Soft , no tenderness EXTREMITIES: No edema feet - Labs CBC & Chem 7: 05/14/23 10:04 05/14/23 10:04 Labs: Abnormal Lab Results - Last 24 Hours (Table) 05/14/23 05/14/23 05/14/23 Range/Units 10:04 10:04 10:04 WBC 11.1 H (3.8-10.6) k/uL RBC 2.59 L (4.30-5.90) m/uL Hgb 10.2 L (13.0-17.5) gm/dL Hct 31.6 L (39.0-53.0) % MCV 122.0 H D (80.0-100.0) fL MCH 39.3 H (25.0-35.0) pg RDW 15.9 H (11.5-15.5) % Plt Count 95 L (150-450) k/uL Neutrophils # 8.9 H (1.3-7.7) k/uL Lymphocytes # 0.7 L (1.0-4.8) k/uL Monocytes # 1.1 H (0-1.0) k/uL Macrocytosis Marked A Sodium 136 L (137-145) mmol/L Chloride 112 H (98-107) mmol/L Carbon Dioxide 19 L (22-30) mmol/L BUN 6 L (9-20) mg/dL Creatinine 0.48 L (0.66-1.25) mg/dL Glucose 115 H (74-99) mg/dL Calcium 7.5 L (8.4-10.2) mg/dL Total Bilirubin 9.4 H (0.2-1.3) mg/dL AST 69 H (17-59) U/L Ammonia 32 H (<30) umol/L Albumin 2.1 L (3.5-5.0) g/dL Microbiology - Last 24 Hours (Table) 05/11/23 14:00 Gram Stain - Preliminary Ascites Fluid Body Fluid Culture - Preliminary 05/11/23 14:00 Anaerobic Culture - Preliminary Ascites Fluid Assessment and Plan (1) Perirectal abscess Current Visit: Yes Status: Acute Code(s): K61.1 - RECTAL ABSCESS SNOMED Code(s): 40405544 Plan: 1patient with a complicated history of Crohn's disease this patient with concern for 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 perirectal area versus hidradenitis suppurative presenting to the hospital with multiple draining sinuses along the perirectal area with associated increasing pain patient did have abnormal CT suggestive of abscess we will need to cover for the enteric gram-negative both aerobes and anaerobes 2-patient would benefit from surgical drainage and culture that would guide further antibiotic therapy surgical team is requesting the patient to be transferred to the tertiary care, and 40 has refused the transfer 3-patient is afebrile, white count slightly elevated 4- patient will continue with Unasyn may benefit from repeat CT of the pelvis to make sure overall improvement in the abscess discussed with the nursing staff Dictation was produced using [employer] dictation software. please excuse any grammatical, word or spelling errors. Time with Patient: Less than 30
--- NOTE | 2023-05-14 13:19 | PN ---
PROGRESS NOTE CHIEF COMPLAINT: 1. Crohn disease with perineal fistula. 2. Chronic alcoholism. 3. Cirrhosis. 4. Ascites. This gentleman remains fairly stable. His ammonia level is up slightly. He remains awake and alert. PHYSICAL EXAMINATION: CHEST: Clear. CARDIAC: Normal. ABDOMEN: Becoming more tightly distended with ascites. Purulent peritoneal drainage continues. IMPRESSION: 1. Crohn disease with perineal fistula and possible underlying abscess. 2. Chronic alcoholism. 3. Cirrhosis. 4. Ascites. PLAN: At the present time, there was no current plan for transferring this patient to another hospital as far as I know. Social Service is working on this. MMODL / IJN: [id number] /
[2023-05-14 13:47] LABS: INR 2.1 (<1.2); Prothrombin Time 20.6 sec (10.0-12.5)
--- NOTE | 2023-05-14 14:37 | P.PN ---
Subjective Progress Note Date: 05/14/23 CHIEF COMPLAINT: Extensive Crohn's disease with perirectal disease HISTORY OF PRESENT ILLNESS: Patient reports some rectal pain. But reports that he is now having frequent stools due to the lactulose and it is irritating his bottom. Patient continues to have intermittent drainage from the buttocks. Af ebrile. WBC has gone up from 6.8-11.1 INR 2.1 total bilirubin is up to 9.4 AST 69 ammonia level 32 PHYSICAL EXAM: VITAL SIGNS: Reviewed GENERAL: no acute distress. HEENT: Sclera icterus extraocular movements grossly intact. Moist buccal mucosa. Head is atraumatic, normocephalic. Hears conversational speech. No nasal drainage. NECK: Supple without lymphadenopathy. CHEST: Non-labored respirations and equal bilateral excursions. CARDIOVASCULAR: Palpable 2+ radial pulses. ABDOMEN: Distended. Buttocks area has decreased in inflammation and swelling. Still drainage noted. There is still firmness with palpation of the right buttocks. Purulent drainage noted from the left buttocks fistula MUSCULOSKELETAL: No clubbing or cyanosis. NEUROLOGIC: No focal or lateralizing signs. Cranial nerves II through XII grossly intact. PSYCH: Appropriate affect. Alert and oriented to person, place and time. SKIN: jaundiced. Well perfused. Good skin turgor. ASSESSMENT: 1. Complicated Crohn's disease with chronic perianal inflammation and fistulas 2. History of alcohol liver cirrhosis with portal hypertension and abdominal ascites 3. History of suppurativa hidradenitis 4. Leukocytosis PLAN: -Infectious ease has ordered a CT scan abdomen and pelvis. Will follow-up on those results. Noted the patient does have increase in white count. -Continue antibiotics -Continue GI management of liver cirrhosis and Crohns -Continue low-salt diet -Agree with paracentesis -Further recommendations forthcoming per surgeon Physician Corporate Sales Manager note has been reviewed by physician. Signing provider agrees with the documented findings, assessment, and plan of care. Objective - Vital Signs Vital signs: Vital Signs Temp 98.4 F 05/14/23 07:35 Pulse 72 05/14/23 10:19 Resp 18 05/14/23 07:35 BP 104/52 05/14/23 10:19 Pulse Ox 91 L 05/14/23 07:35 FiO2 Intake & Output 02/28/24 02/29/24 02/29/24 18:59 06:59 18:59 Intake Total 346 Output Total 300 Balance 346 -300 Intake: Oral 346 Output: Urine 300 Other: Voiding Method Toilet Toilet Urinal Urinal # Bowel Movements 2 3 1 - Labs CBC & Chem 7: 05/14/23 10:04 05/14/23 10:04 Labs: Abnormal Lab Results - Last 24 Hours (Table) 05/14/23 05/14/23 05/14/23 Range/Units 10:04 10:04 10:04 WBC 11.1 H (3.8-10.6) k/uL RBC 2.59 L (4.30-5.90) m/uL Hgb 10.2 L (13.0-17.5) gm/dL Hct 31.6 L (39.0-53.0) % MCV 122.0 H D (80.0-100.0) fL MCH 39.3 H (25.0-35.0) pg RDW 15.9 H (11.5-15.5) % Plt Count 95 L (150-450) k/uL Neutrophils # 8.9 H (1.3-7.7) k/uL Lymphocytes # 0.7 L (1.0-4.8) k/uL Monocytes # 1.1 H (0-1.0) k/uL Macrocytosis Marked A Sodium 136 L (137-145) mmol/L Chloride 112 H (98-107) mmol/L Carbon Dioxide 19 L (22-30) mmol/L BUN 6 L (9-20) mg/dL Creatinine 0.48 L (0.66-1.25) mg/dL Glucose 115 H (74-99) mg/dL Calcium 7.5 L (8.4-10.2) mg/dL Total Bilirubin 9.4 H (0.2-1.3) mg/dL AST 69 H (17-59) U/L Ammonia 32 H (<30) umol/L Albumin 2.1 L (3.5-5.0) g/dL Microbiology - Last 24 Hours (Table) 05/11/23 14:00 Gram Stain - Preliminary Ascites Fluid Body Fluid Culture - Preliminary 05/11/23 14:00 Anaerobic Culture - Preliminary Ascites Fluid
[2023-05-14] MEDS: IOPAMIDOL CONTRAST (ORAL USE) VIAL PO PRN (15:18)
--- NOTE | 2023-05-14 22:59 | CT ---
EXAMINATION TYPE: CT abdomen pelvis w con DATE OF EXAM: 05/14/2023 COMPARISON: 05/08/2023 INDICATION: Perianal abscess DLP: 1145.6 mGycm, Automated exposure control for dose reduction was used. CONTRAST: 0 mL of Isovue 300. Study performed without Oral Contrast TECHNIQUE: Axial images were obtained from above the diaphragm to the pubic rami in the axial plane a t 5 mm thick sections. Reconstructed images are reviewed on the computer in the coronal plane. FINDINGS: Limited CT sections are obtained the lung bases. Small bilateral pleural effusions are present. Joselyn cent compressive atelectasis is present. Moderate size hiatal hernia is present.. CT ABDOMEN: Ascites is present. Liver: Liver is lobulated. There are scattered hypodensities within the anterior right lobe liver whi ch are less well-defined than on prior exam. Biliary dilatation is not identified. Spleen: Splenomegaly is present Pancreas: No suspicious acute changes Adrenal glands: Left adrenal gland is hyperdense and thickened at 1.5 cm, stable from comparison. Rig ht adrenal gland appears normal. Gallbladder: Large gallstones at the neck of the gallbladder Kidneys: No masses are evident. No hydronephrosis is present. No cysts are present. Delayed images were obtained through the kidneys, which remain unremarkable. Aorta: Vascular calcification is within the aorta. Inferior vena cava: Normal. CT PELVIS: Small Bowel loops are prominent and thickened. Oral Contrast extends to the sigmoid colon and rectum. There are loops of bowel which are incompletely distended or lack oral contrast limiting their evalu ation. Appendix: Not identified. No inflammatory change or dilated tubular structure is evident. Urinary bladder: Decompressed limiting evaluation. Genitourinary structures: Prostate is normal Osseous structures: No suspicious lytic or sclerotic lesions. Perineal region: Thickening through the perineal region is again evident. This area is collapsing and is smaller than comparison. No focal collection is identified. This currently appears stable from co mparison. No new collection is evident. There is diminished in this region. IMPRESSION: 1. Peritoneal abscess appears to be resolving. Size appears similar with less well-visualized on abs cess collection. There is diminished. 2. Ascites. 3. Cirrhosis of the liver. Suspected neoplastic mass anterior right lobe liver. 4. Small pleural effusions with adjacent compressive atelectasis. 5. Hiatal hernia. 6. Diffusely thickened small bowel loops without evidence of obstruction. Consider ileus and jejuniti s within the differential.
--- NOTE | 2023-05-15 07:24 | P.PN ---
Subjective Progress Note Date: 05/15/23 Principal diagnosis: Liver cirrhosis, Crohn's This is a pleasant 63-year-old male with a past medical history including Crohn's disease diagnosed about 27 years ago who has followed with Dr. Lomas in the past. He presented to the emergency department 4 days ago with concerns of rectal bleeding and perineal pain. He has a history of Crohn's disease, hidradenitis suppurative, previous terminal ileal resection, COPD, alcohol cirrhosis of the liver. He has a history of he is currently not on any medication because he states he lost his insurance but prior to that was getting infusions unclear which one at this time. Last colonoscopy done 01/31/[address] Lomas which reported normal colon, anastomosis not clearly seen due to poor prep. He underwent EGD in January [address] Lomas secondary to alcohol abuse and history of portal hypertension with findings of large mid and distal varices status post ligation, moderate portal hypertension gastropathy. States he has not follow-up with Dr. Lomas in a few months as he had lost his insurance. Again he stopped taking his medications at least 2 weeks ago. He has a history of underlying alcoholic liver disease with cirrhosis of the liver. He has been on diuretics however again has not been taking them for the last couple weeks or more. He has abdominal distention. He came in with rectal bleeding which he states he had for 2 days prior to coming in, also noticed perineal and rectal pain and swelling and discomfort. States he has been having about 3 bowel movements a day, mostly loose mostly nonbloody at this time. He had a CT of the abdomen and pelvis concerning for large ill-defined liver mass, moderate to large ascites and soft tissue mass with gas bubbles in the perineum suspicious for developing perineal abscess. Patient has been afebrile. He was started on IV Unasyn. General surgery was consulted for perirectal abscess, the recommendation was transfer to tertiary center for complicated Crohn's as well as consulted infectious disease. He currently denies any abdominal pain, nausea, or vomiting. No current rectal bleeding. Patient has followed with [facility] in the past for his Crohn's disease and hidradenitis suppurative. Labs WBC 7.8 hemoglobin 10.3 platelet count 94,000 and INR 2.1 sodium 135 potassium 3.6 BUN 6 creatinine 0.4 total bilirubin 6.3 AST 76 ALT 35 alkaline phosphatase 72 05/12/2023 Patient seen and examined today as a follow-up. No acute changes through the night. He underwent paracentesis yesterday with 5 L of fluid removed. Patient seems a little slow when speaking to. Ammonia level ordered, elevated at 30. Plan is for patient transferred to [facility] to follow-up with his Crohn's specialist. Primary care physician working on transfer. 05/13/2023 Patient seen and examined today as a follow-up. He states overall he does not feel that while his back is hurting. He is awaiting transfer to a tertiary center per further surgical management for his perirectal abscess. Currently trying for transfer to [facility] however does not appear that they are accepting patient at this time. Patient was started on lactulose yesterday for hyperammonemia today ammonia level is 32. 05/14/2023 Patient seen and examined today as a follow-up. He has been having multiple bowel movements on his lactulose. No acute changes through the night. He has been afebrile. Repeat labs today WBC 11 hemoglobin 10.2 platelet count 95,000 sodium 136 potassium 3.6 total bilirubin 9.4 AST 69 ALT 30 alkaline phosphatase 64 ammonia level 32. Unclear at this time if primary medical team is transferring patient to tertiary center. That will be between the primary care team general surgeon and infectious disease. 05/15/2023 Patient seen and examined today as a follow-up. He is resting comfortably. He underwent a CT of the abdomen pelvis yesterday which again identified the right liver lobe lesion concerning for neoplasm. Perineal abscess improving in size. He is scheduled for paracentesis. Objective - Vital Signs Vital signs: Vital Signs Temp 97.7 F 05/15/23 00:53 Pulse 83 05/15/23 00:53 Resp 14 05/15/23 00:53 BP 105/54 05/15/23 00:53 Pulse Ox 91 L 05/15/23 00:53 FiO2 Intake & Output 05/14/23 05/15/23 05/15/23 18:59 06:59 18:59 Output Total 450 300 Balance -450 -300 Output: Urine 450 300 Other: Voiding Method Urinal Urinal # Voids 1 # Bowel Movements 3 4 - Exam General appearance: The patient is alert, oriented, appears in no acute distre ss. HET: Head is normocephalic and atraumatic. Conjunctiva pink. Sclera icteric. Neck: Supple without lymphadenopathy. Abdomen: Soft, nontender, ascites, mildly distended. Extremities: Normal skin color and turgor. No pedal edema Skin: No rashes, jaundice. Neurological: No focal deficits. Alert and oriented. - Labs CBC & Chem 7: 05/14/23 10:04 05/14/23 10:04 Labs: Abnormal Lab Results - Last 24 Hours (Table) 05/14/23 05/14/23 05/14/23 Range/Units 10:04 10:04 10:04 WBC 11.1 H (3.8-10.6) k/uL RBC 2.59 L (4.30-5.90) m/uL Hgb 10.2 L (13.0-17.5) gm/dL Hct 31.6 L (39.0-53.0) % MCV 122.0 H D (80.0-100.0) fL MCH 39.3 H (25.0-35.0) pg RDW 15.9 H (11.5-15.5) % Plt Count 95 L (150-450) k/uL Neutrophils # 8.9 H (1.3-7.7) k/uL Lymphocytes # 0.7 L (1.0-4.8) k/uL Monocytes # 1.1 H (0-1.0) k/uL Macrocytosis Marked A PT (10.0-12.5) sec INR (<1.2) Sodium 136 L (137-145) mmol/L Chloride 112 H (98-107) mmol/L Carbon Dioxide 19 L (22-30) mmol/L BUN 6 L (9-20) mg/dL Creatinine 0.48 L (0.66-1.25) mg/dL Glucose 115 H (74-99) mg/dL Calcium 7.5 L (8.4-10.2) mg/dL Total Bilirubin 9.4 H (0.2-1.3) mg/dL AST 69 H (17-59) U/L Ammonia 32 H (<30) umol/L Albumin 2.1 L (3.5-5.0) g/dL 05/14/23 Range/Units 13:07 WBC (3.8-10.6) k/uL RBC (4.30-5.90) m/uL Hgb (13.0-17.5) gm/dL Hct (39.0-53.0) % MCV (80.0-100.0) fL MCH (25.0-35.0) pg RDW (11.5-15.5) % Plt Count (150-450) k/uL Neutrophils # (1.3-7.7) k/uL Lymphocytes # (1.0-4.8) k/uL Monocytes # (0-1.0) k/uL Macrocytosis PT 20.6 H (10.0-12.5) sec INR 2.1 H (<1.2) Sodium (137-145) mmol/L Chloride (98-107) mmol/L Carbon Dioxide (22-30) mmol/L BUN (9-20) mg/dL Creatinine (0.66-1.25) mg/dL Glucose (74-99) mg/dL Calcium (8.4-10.2) mg/dL Total Bilirubin (0.2-1.3) mg/dL AST (17-59) U/L Ammonia (<30) umol/L Albumin (3.5-5.0) g/dL Microbiology - Last 24 Hours (Table) 05/09/23 14:18 Blood Culture - Final Blood 05/11/23 14:00 Gram Stain - Preliminary Ascites Fluid Body Fluid Culture - Preliminary Assessment and Plan (1) Alcoholic cirrhosis Narrative/Plan: 63-year-old male with known history of alcoholic cirrhosis of the liver as well as longstanding history of Crohn's disease. Patient came in for rectal bleeding and perianal swelling and pain. He was noted to have elevated LFTs consistent with his underlying liver disease. He has stopped all of his medications rece ntly over the last couple weeks due to loss of insurance. He has not followed with Dr. Lomas this last month as he was scheduled. CT abdomen pelvis concerning for liver mass, large amount of ascites. Patient will follow-up outpatient with [facility] liver specialist for new liver lesion. Diuretics resumed, he will continue Lasix 40 mg daily and spironolactone 100 mg daily. Cirrhosis of the liver stable. Ultrasound paracentesis ordered prior to discharge. Current Visit: Yes Status: Acute Code(s): K70.30 - ALCOHOLIC CIRRHOSIS OF LIVER WITHOUT ASCITES SNOMED Code(s): 229254817 (2) Crohn's disease Narrative/Plan: 63-year-old with longstanding history of Crohn's disease with a history of terminal ileal resection. Patient was diagnosed with Crohn's about 27 years ago. Last colonoscopy in January 2022. Presenting with rectal bleeding and a perianal lesion/abscess. General surgery following, they consulted infectious disease who recommend surgical drainage and culture however general surgery is recommending recommending transfer to tertiary center for further surgical evaluation of complicated Crohn's disease. Currently on IV antibiotics. Pending transfer to [facility]. Current Visit: Yes Status: Acute Code(s): K50.90 - CROHN'S DISEASE, UNSPECIFIED, WITHOUT COMPLICATIONS SNOMED Code(s): 21653522 (3) Perianal lesion Narrative/Plan: General surgery and infectious disease following, continue with their recommendations. Current Visit: Yes Status: Acute Code(s): K62.9 - DISEASE OF ANUS AND RECTUM, UNSPECIFIED SNOMED Code(s): 632947391 (4) Rectal bleeding Current Visit: No Status: Acute Code(s): K62.5 - HEMORRHAGE OF ANUS AND RECTUM SNOMED Code(s): 48337558 (5) Hidradenitis suppurativa Current Visit: Yes Status: Acute Code(s): L73.2 - HIDRADENITIS SUPPURATIVA SNOMED Code(s): 02829270 (6) Liver lesion Narrative/Plan: Newly identified liver lesion from previous liver ultrasound done in November 2022. This is concerning for possible hepatocellular carcinoma. Patient has followed in the past with brake tester/sr. payroll manager from [facility] and is being referred back there as an outpatient within the next 1 to 2 weeks. This will all be done as outpatient workup. aFP ordered. Paracentesis cytology was negative for diagnostic malignancy. Current Visit: Yes Status: Acute Code(s): K76.9 - LIVER DISEASE, UNSPECIFIED SNOMED Code(s): 363919313 Plan: 1. Continue symptomatic and supportive care 2. Continue diuretics as ordered 3. Low-sodium diet 4. Alcohol abstinence 5. Continue lactulose as ordered, titrate to have 3-4 bowel movements daily 6. AFP, ammonia level ordered for today 7. Paracentesis ordered 8. Repeat CT abdomen and pelvis shows decreased size of perineal abscess. Continue with recommendations from infectious disease and general surgery 9. From a gastroenterology perspective liver cirrhosis is stable, liver lesion will be worked up as an outpatient with his brake tester/sr. payroll manager at [facility]. Appointments being set up by Dr. Lomas's office. Patient to also follow-up with his Crohn's specialist at [facility]. Thank you for allowing us to participate in the care of the patient, the GI service will sign off, gastroenterology will not be available at the hospital this weekend and through next week. If further evaluation by gastroenterology is required the patient will need transfer as per the primary team's discretion. Dr. Jeremy Lomas I agree with the dictator's note, documented as a scribe by Mary Anne Lafleur.
[2023-05-15 08:27] LABS: Anisocytosis Slight; Basophils % (A) 0 %; Eosinophils # (A) 0.2 k/uL (0-0.7); Eosinophils % (A) 2 %; HCT 28.6 % (39.0-53.0); HGB 10.3 gm/dL (13.0-17.5); Lymphocytes # (A) 0.6 k/uL (1.0-4.8); Lymphocytes % (A) 7 %; MCH 40.8 pg (25.0-35.0); MCHC 35.9 g/dL (31.0-37.0); Macrocytosis Marked; Mean Platelet Volume 8.6; Monocytes # (A) 0.6 k/uL (0-1.0); Monocytes % (A) 6 %; Neutrophils % (A) 83 %; RBC 2.51 m/uL (4.30-5.90); RDW 17.1 % (11.5-15.5); WBC 8.5 k/uL (3.8-10.6)
[2023-05-15 08:39] LABS: ALT 29 U/L (4-49); AST 67 U/L (17-59); African American GFR (CKD) >90 (>60 ml/min/1.73 sqM); Albumin 2.1 g/dL (3.5-5.0); Albumin/Globulin Ratio 0.4; Alkaline Phosphatase 67 U/L (38-126); Anion Gap 7 mmol/L; Blood Urea Nitrogen 6 mg/dL (9-20); Calcium 7.5 mg/dL (8.4-10.2); Carbon Dioxide 17 mmol/L (22-30); Chloride 112 mmol/L (98-107); Globulin 4.9 g/dL; Glucose 78 mg/dL (74-99); Non-African American GFR(CKD) >90 (>60 ml/min/1.73 sqM); Potassium 3.5 mmol/L (3.5-5.1); Sodium 136 mmol/L (137-145); Total Bilirubin 9.5 mg/dL (0.2-1.3)
[2023-05-15 09:12] LABS: MCV 113.6 fL (80.0-100.0); Platelet Count 89 k/uL (150-450)
[2023-05-15] MEDS: ZINC OXIDE PASTE (Z-GUARD) 1 APPLIC TOPICAL SCH (12:14)
--- NOTE | 2023-05-15 14:51 | US ---
EXAMINATION TYPE: US paracentesis abd w/image DATE OF EXAM: 05/15/2023 10:41 AM CLINICAL INDICATION:Male, 63 years old with history of ascites; COMPARISON: 05/14/2023. ATTENDING: Dr. Rajinder Figueroa PROCEDURE: Informed consent was obtained. The risks of the procedure were extensively explained incl uding risk of damage to surrounding bowel with perforation and need for additional procedures. Proced ure was performed in the ultrasound procedure suite. Ultrasound imaging of the abdomen demonstrate as citic fluid. An appropriate access site was localized to the left lower abdomen. Timeout was taken pe r protocol. The skin was prepped and draped in the usual sterile fashion and then locally anesthetize d with 1% lidocaine. The peritoneal cavity was then accessed via a 5-Arabic one-step needle/catheter . Approximately 4900 cc of clear straw-colored fluid was obtained. Postprocedural imaging of the abd omen demonstrate a minimal amount of abdominal fluid. Patient tolerated procedure well without immediate complication. Hemostasis at the procedural site w as obtained with a sterile bandage placed. The patient was monitored in the holding area following th e procedure and was subsequently discharged in stable condition. IMPRESSION: Ultrasound guided paracentesis, with approximately 4900 cc of clear straw-colored fluid drained. No immediate complications were evident.
--- NOTE | 2023-05-15 14:54 | P.PN ---
Subjective Progress Note Date: 05/15/23 CHIEF COMPLAINT: Extensive Crohn's disease with perirectal disease HISTORY OF PRESENT ILLNESS: Patient status post paracentesis. Denies any abdominal pain. Denies any rectal pain. Reports a decrease in the drainage from his bottom. CT scan abdomen pelvis from yesterday reports peritoneal abscess appears to be resolving. Size appears similar with less well visualized abscess collection. Ascites. Cirrhosis of liver. Suspected neoplastic mass anterior right lobe of liver. Diffusely thickened small bowel loops without evidence of obstruction. Consider ileus and jejunitis within the differential. Hiatal hernia. Afebrile. WBC11.1 down to 8.5. Total bilirubin 9.5 AST 67 ALT 29 alk phos 67 PHYSICAL EXAM: VITAL SIGNS: Reviewed GENERAL: no acute distress. HEENT: Sclera icterus extraocular movements grossly intact. Moist buccal mucosa. Head is atraumatic, normocephalic. Hears conversational speech. No nasal drainage. NECK: Supple without lymphadenopathy. CHEST: Non-labored respirations and equal bilateral excursions. CARDIOVASCULAR: Palpable 2+ radial pulses. ABDOMEN: Distended. Buttocks area has decreased in inflammation and swelling. Still drainage noted. There is still firmness with palpation of the right buttocks. Purulent drainage noted from the left buttocks fistula MUSCULOSKELETAL: No clubbing or cyanosis. NEUROLOGIC: No focal or lateralizing signs. Cranial nerves II through XII grossly intact. PSYCH: Appropriate affect. Alert and oriented to person, place and time. SKIN: jaundiced. Well perfused. Good skin turgor. ASSESSMENT: 1. Complicated Crohn's disease with chronic perianal inflammation and fistulas. CT scan reporting resolving peritoneal abscess 2. History of alcohol liver cirrhosis with portal hypertension and abdominal ascites 3. History of suppurativa hidradenitis 4. Leukocytosis 5. Suspected neoplastic mass right lobe of liver noted on CT PLAN: -No surgical intervention planned -Antibiotic management per infectious disease -Recommend follow-up with his [facility], liver specialist and line up worker outpatient -Continue GI management of liver cirrhosis and Crohns -Continue low-salt diet Physician Sole Scraper note has been reviewed by physician. Signing provider agrees with the documented findings, assessment, and plan of care. Objective - Vital Signs Vital signs: Vital Signs Temp 97.9 F 05/15/23 11:36 Pulse 71 05/15/23 11:36 Resp 16 05/15/23 11:36 BP 101/57 05/15/23 11:36 Pulse Ox 96 05/15/23 11:36 FiO2 Intake & Output 05/14/23 05/15/23 05/15/23 18:59 06:59 18:59 Output Total 450 300 Balance -450 -300 Output: Urine 450 300 Other: Voiding Method Urinal Urinal Urinal # Voids 1 # Bowel Movements 3 4 - Labs CBC & Chem 7: 05/15/23 06:55 05/15/23 06:55 Labs: Abnormal Lab Results - Last 24 Hours (Table) 05/15/23 05/15/23 05/15/23 Range/Units 06:55 06:55 06:55 RBC 2.51 L (4.30-5.90) m/uL Hgb 10.3 L (13.0-17.5) gm/dL Hct 28.6 L (39.0-53.0) % MCV 113.6 H D (80.0-100.0) fL MCH 40.8 H (25.0-35.0) pg RDW 17.1 H (11.5-15.5) % Plt Count 89 L (150-450) k/uL Lymphocytes # 0.6 L (1.0-4.8) k/uL Macrocytosis Marked A Sodium 136 L (137-145) mmol/L Chloride 112 H (98-107) mmol/L Carbon Dioxide 17 L (22-30) mmol/L BUN 6 L (9-20) mg/dL Creatinine 0.48 L (0.66-1.25) mg/dL Calcium 7.5 L (8.4-10.2) mg/dL Total Bilirubin 9.5 H (0.2-1.3) mg/dL AST 67 H (17-59) U/L Albumin 2.1 L (3.5-5.0) g/dL Tumor Marker AFP 65.50 H (0.00-7.90) ng/mL Microbiology - Last 24 Hours (Table) 05/11/23 14:00 Anaerobic Culture - Final Ascites Fluid 05/11/23 14:00 Gram Stain - Final Ascites Fluid Body Fluid Culture - Final 05/09/23 14:18 Blood Culture - Final Blood
[2023-05-15] MEDS: ALBUMIN HUMAN 25% 50 ML in EMPTY BAG 1 BAG IVPB SCH (15:19)
[2023-05-15 15:22] VITALS: BMI 20.7
--- NOTE | 2023-05-15 15:55 | P.PN ---
Subjective Progress Note Date: 05/15/23 Principal diagnosis: Reason for follow-up is perirectal abscess Patient is a 63-year-old male with a past medical history significant for COPD did have a history of Crohn's disease and hidradenitis suppurativa with multiple draining sinuses to the bilateral gluteal area also with a history of alcoholic cirrhosis patient presenting to the hospital for evaluation of mu ltiple draining sinuses near the rectal area that has been bleeding, patient did have a CT of abdominal pelvis suggestive of soft tissue mass with gas bubbles in the perineum suspicious for developing perineal abscess, general surgery was consulted recommending transfer to tertiary care and asked for infectious disease evaluation. On today's visit that is 05/15/2023,the patient denies any fever or any chills, patient is breathing comfortably on room air, the patient denies chest pain shortness of breath and no significant cough, patient denies abdominal pain, no nausea vomiting or diarrhea. Pain to the perirectal area has decreased in intensity and less drainage. Patient did have white count of 8.5, creatinine 0.48 did have elevated tumor marker alpha-fetoprotein abdominal fluid culture negative repeat CT did shows decrease amount of the abscess Objective - Vital Signs Vital signs: Vital Signs Temp 97.9 F 05/15/23 11:36 Pulse 71 05/15/23 11:36 Resp 16 05/15/23 11:36 BP 101/57 05/15/23 11:36 Pulse Ox 96 05/15/23 11:36 FiO2 Intake & Output 05/14/23 05/15/23 05/15/23 18:59 06:59 18:59 Output Total 450 300 Balance -450 -300 Output: Urine 450 300 Other: Voiding Method Urinal Urinal Urinal # Voids 1 # Bowel Movements 3 4 - Exam GENERAL DESCRIPTION: Middle-age male lying in bed in no distress RESPIRATORY SYSTEM: Unlabored breathing , decreased breath sounds at bases HEART: S1 S2 regular rate and rhythm , ABDOMEN: Soft , no tenderness EXTREMITIES: No edema feet - Labs CBC & Chem 7: 05/15/23 06:55 05/15/23 06:55 Labs: Abnormal Lab Results - Last 24 Hours (Table) 05/14/23 05/15/23 05/15/23 Range/Units 13:07 06:55 06:55 RBC 2.51 L (4.30-5.90) m/uL Hgb 10.3 L (13.0-17.5) gm/dL Hct 28.6 L (39.0-53.0) % MCV 113.6 H D (80.0-100.0) fL MCH 40.8 H (25.0-35.0) pg RDW 17.1 H (11.5-15.5) % Plt Count 89 L (150-450) k/uL Lymphocytes # 0.6 L (1.0-4.8) k/uL Macrocytosis Marked A PT 20.6 H (10.0-12.5) sec INR 2.1 H (<1.2) Sodium (137-145) mmol/L Chloride (98-107) mmol/L Carbon Dioxide (22-30) mmol/L BUN (9-20) mg/dL Creatinine (0.66-1.25) mg/dL Calcium (8.4-10.2) mg/dL Total Bilirubin (0.2-1.3) mg/dL AST (17-59) U/L Albumin (3.5-5.0) g/dL Tumor Marker AFP 65.50 H (0.00-7.90) ng/mL 05/15/23 Range/Units 06:55 RBC (4.30-5.90) m/uL Hgb (13.0-17.5) gm/dL Hct (39.0-53.0) % MCV (80.0-100.0) fL MCH (25.0-35.0) pg RDW (11.5-15.5) % Plt Count (150-450) k/uL Lymphocytes # (1.0-4.8) k/uL Macrocytosis PT (10.0-12.5) sec INR (<1.2) Sodium 136 L (137-145) mmol/L Chloride 112 H (98-107) mmol/L Carbon Dioxide 17 L (22-30) mmol/L BUN 6 L (9-20) mg/dL Creatinine 0.48 L (0.66-1.25) mg/dL Calcium 7.5 L (8.4-10.2) mg/dL Total Bilirubin 9.5 H (0.2-1.3) mg/dL AST 67 H (17-59) U/L Albumin 2.1 L (3.5-5.0) g/dL Tumor Marker AFP (0.00-7.90) ng/mL Microbiology - Last 24 Hours (Table) 05/11/23 14:00 Gram Stain - Final Ascites Fluid Body Fluid Culture - Final 05/09/23 14:18 Blood Culture - Final Blood Assessment and Plan (1) Perirectal abscess Current Visit: Yes Status: Acute Code(s): K61.1 - RECTAL ABSCESS SNOMED Code(s): 23133341 Plan: 1patient with a complicated history of Crohn's disease this patient with concern for 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 perirectal area versus hidradenitis suppurative presenting to the hospital with multiple draini ng sinuses along the perirectal area with associated increasing pain patient did have abnormal CT suggestive of abscess we will need to cover for the enteric gram-negative both aerobes and anaerobes 2-patient would benefit from surgical drainage and culture that would guide further antibiotic therapy surgical team is requesting the patient to be transferred to the tertiary care, [facility] has refused the transfer 3-patient is afebrile, white count slightly elevated 4- patient did have repeat CT of the pelvis which was overall decrease in the abscess keeping in mind improvement with the Unasyn to continue finishing therapy with oral Augmentin Dictation was produced using [employer] dictation software. please excuse any grammatical, word or spelling errors. Time with Patient: Less than 30
--- NOTE | 2023-05-16 11:25 | PN ---
PROGRESS NOTE DATE OF SERVICE: 05/15/2023 CHIEF COMPLAINT: Crohn disease with perineal fistula and abscess. HISTORY OF PRESENT ILLNESS: This gentleman has been essentially stable. There has been no word from [employer] on possible transfer. PHYSICAL EXAMINATION: GENERAL: He remains cachectic and chronically ill in appearance. His jaundice continues. CHEST: Clear. CARDIAC: Normal. ABDOMEN: Tightly distended with ascites. EXTREMITIES: Normal. IMPRESSION: 1. 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 2. Alcoholism. 3. Cirrhosis. 4. Ascites. 5. Malnutrition. PLAN: No change in his management at this time and still considering which way to go with his discharge. MMODL / IJN: [id number] /
--- NOTE | 2023-05-16 13:37 | P.PN ---
Subjective Progress Note Date: 05/16/23 NAEON. No N/V. No F/C. No SOB or CP. No abdominal pain. Tolerating diet. Admits to flatus, no BM. Objective - Vital Signs Vital signs: Vital Signs Temp 98.3 F 05/16/23 08:00 Pulse 83 05/16/23 08:00 Resp 17 05/16/23 08:00 BP 99/48 05/16/23 08:00 Pulse Ox 94 L 05/16/23 08:00 FiO2 Intake & Output 05/15/23 05/16/23 05/16/23 18:59 06:59 18:59 Intake Total 118 Balance 118 Weight 65.771 kg Intake: Oral 118 Other: Voiding Method Urinal Urinal Toilet Urinal # Voids 2 # Bowel Movements 1 - Exam Gen: AxO, NAD Pulm; non-labored respirations Abd: soft, non-tender, non-distended. No guarding/rebound/rigidity Extrem: no edema seen - Labs CBC & Chem 7: 05/15/23 06:55 05/15/23 06:55 Labs: Microbiology - Last 24 Hours (Table) 05/11/23 14:00 Anaerobic Culture - Final Ascites Fluid 05/11/23 14:00 Gram Stain - Final Ascites Fluid Body Fluid Culture - Final Assessment and Plan Assessment: ASSESSMENT: 1. Complicated Crohn's disease with chronic perianal inflammation and fistulas. CT scan reporting resolving peritoneal abscess 2. History of alcohol liver cirrhosis with portal hypertension and abdominal ascites 3. History of suppurativa hidradenitis 4. Leukocytosis 5. Suspected neoplastic mass right lobe of liver noted on CT Plan: PLAN: -No surgical intervention planned -Antibiotic management per infectious disease -Recommend follow-up with his [facility], liver specialist and automotive mechanic outpatient -Continue GI management of liver cirrhosis and Crohns -Continue low-salt diet
--- NOTE | 2023-05-16 13:43 | P.PN ---
Subjective Progress Note Date: 05/16/23 Principal diagnosis: Reason for follow-up is perirectal abscess Patient is a 63-year-old male with a past medical history significant for COPD did have a history of Crohn's disease and hidradenitis suppurativa with multiple draining sinuses to the bilateral gluteal area also with a history of alcoholic cirrhosis patient presenting to the hospital for evaluation of mu ltiple draining sinuses near the rectal area that has been bleeding, patient did have a CT of abdominal pelvis suggestive of soft tissue mass with gas bubbles in the perineum suspicious for developing perineal abscess, general surgery was consulted recommending transfer to tertiary care and asked for infectious disease evaluation. On today's visit that is 05/16/2023,the patient remains to be afebrile, patient is on room air not requiring supplemental oxygen and denies any shortness of breath no chest pain or cough.Patient denies having any nausea or vomiting, no abdominal pain and overall drainage from the perirectal area has decreased in intensity per patient. Patient white count was 8.5 normal as of yesterday creatinine 0.48 no CBC done today Objective - Vital Signs Vital signs: Vital Signs Temp 98.3 F 05/16/23 08:00 Pulse 83 05/16/23 08:00 Resp 17 05/16/23 08:00 BP 99/48 05/16/23 08:00 Pulse Ox 94 L 05/16/23 08:00 FiO2 Intake & Output 05/15/23 05/16/23 05/16/23 18:59 06:59 18:59 Intake Total 118 Balance 118 Weight 65.771 kg Intake: Oral 118 Other: Voiding Method Urinal Urinal Toilet Urinal # Voids 2 # Bowel Movements 1 - Exam GENERAL DESCRIPTION: Middle-age male lying in bed in no distress RESPIRATORY SYSTEM: Unlabored breathing , decreased breath sounds at bases HEART: S1 S2 regular rate and rhythm , ABDOMEN: Soft , no tenderness EXTREMITIES: No edema feet - Labs CBC & Chem 7: 05/15/23 06:55 05/15/23 06:55 Labs: Microbiology - Last 24 Hours (Table) 05/11/23 14:00 Anaerobic Culture - Final Ascites Fluid 05/11/23 14:00 Gram Stain - Final Ascites Fluid Body Fluid Culture - Final Assessment and Plan (1) Perirectal abscess Current Visit: Yes Status: Acute Code(s): K61.1 - RECTAL ABSCESS SNOMED Code(s): 89851377 Plan: 1patient with a complicated history of Crohn's disease this patient with concern for 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 perirectal area versus hidradenitis suppurative presenting to the hospital with multiple draining sinuses along the perirectal area with associated increasing pain patient did have abnormal CT suggestive of abscess we will need to cover for the enteric gram-negative both aerobes and anaerobes 2-patient would benefit from surgical drainage and culture that would guide further antibiotic therapy surgical team is requesting the patient to be transferred to the tertiary care, Max Lau has refused the transfer 3-patient is afebrile, white count has normalized as of yesterday 4- patient did have repeat CT of the pelvis which was overall decrease in the abscess 5-patient to continue with Unasyn while inpatient finishing therapy with oral Augmentin Dictation was produced using [employer] dictation software. please excuse any grammatical, word or spelling errors. Time with Patient: Less than 30
--- NOTE | 2023-05-16 14:37 | P.CONS ---
History of Present Illness - Reason for Consult Consult date: 05/16/23 Possible malignancy - Chief Complaint Rectal pain - History of Present Illness Mr. Lindquist is a 63-year-old gentleman with a past medical history second for Crohn's disease and alcohol abuse for whom we were consulted regarding concerns for possible malignancy. He initially presented on 05/07/2023 with increased rectal pain and bleeding. Abdomen/pelvis CT on 05/08/2023 noted concern for potential perirectal abscess. In addition there was a 0.5 x 5.2 cm ill-defined mass in the medial segment of the left lobe of the liver concerning for malignancy in addition to moderate to large ascites. There was an incidental adrenal lesion that had not changed since imaging from March 2018. Parac entesis performed on 05/11/2023 removed 5.46 L of ascitic fluid. Cytology was negative. Repeat CT abdomen/pelvis on 05/14/2023 noted resolving perirectal abscess along with cirrhosis of the liver and suspected lesion in the right lobe of the liver being unchanged. AFP obtained on 05/15/2023 was 65.5. CBC noted hemoglobin 10.3 (MCV 113.6), WBC 8.5, platelets 89. He had been previously seen in our clinic for thrombocytopenia, last in January 2022 where his CBC was hemoglobin 13.8 (MCV 100), WBC 11.8 (ANC 9.53), platelets 109. Currently, he notes abdominal distention without pain. He denies any nausea, vomiting, diarrhea. Rectal pain is slowly improving along with decreased bloody drainage. He does have lower extremity anasarca bilaterally. Prior to admission, he notes drinking alcohol, particularly during football games. Review of Systems 14 point review of systems was conducted with pertinent positives and negatives as noted per HPI Past Medical History Past Medical History: COPD, GI Bleed, Hearing Disorder / Deafness, Liver Disease, Skin Disorder Additional Past Medical History / Comment(s): crohn's,. "ezcema type rash". seasonal allergies. HX CIRRHOSIS. FX LT WRIST 04/06/22 rt wrist 08/05/2022 fx History of Any Multi-Drug Resistant Organisms: None Reported Past Surgical History: Bowel Resection Additional Past Surgical History / Comment(s): lt achilles tendon repair , rt leg ligament repair, bilateral cataract surgery with implants gary wrist fx repair. COLONOSCOPIES, left hand surgery Past Anesthesia/Blood Transfusion Reactions: No Reported Reaction Past Psychological History: No Psychological Hx Reported Smoking Status: Current every day smoker - Past Family History Father History Unknown: Yes Family Medical History: Cancer Additional Family Medical History / Comment(s): pancreatitis Mother History Unknown: Yes Family Medical History: Cancer Additional Family Medical History / Comment(s): mother of metastatic breast cancer Medications and Allergies Home Medications Medication Instructions Recorded Confirmed Type Spironolactone 100 mg PO DAILY 05/05/18 05/08/23 History Clindamycin Phosphate [Cleocin T 1 applic TOPICAL BID PRN 01/30/22 05/08/23 History 1%] HYDROcodone/APAP 5-325MG [[place] 1 tab PO Q6HR PRN 3 Days #24 tab 08/13/22 05/08/23 Rx 5-325] Benzoyl Peroxide 10% Gel 1 applic TOPICAL DAILY 05/08/23 05/08/23 History Budesonide/Formoterol Fumarate 2 puff INHALATION RT-BID 05/08/23 05/08/23 History [Symbicort 80-4.5 Mcg Inhaler] LORazepam 0.5 mg PO HS PRN 05/08/23 05/08/23 History Nystatin 100,000 Unit/gm Powd 1 applic TOPICAL QID PRN 05/08/23 05/08/23 History [Mycostatin Powder] Triamcinolone 0.1% Ointment 1 applic TOPICAL TID 05/08/23 05/08/23 History [Kenalog 0.1% Ointment] Amoxic-Pot Clav 875-125Mg 1 tab PO BID 10 Days #20 tab 05/15/23 Rx [Augmentin 875-125] Allergies Allergy/AdvReac Type Severity Reaction Status Date / Time No Known Allergies Allergy Verified 05/08/23 08:39 Physical Exam Vitals: Vital Signs Temp Pulse Resp BP Pulse Ox 05/16/23 08:00 98.3 F 83 17 99/48 94 L 05/16/23 02:00 98.3 F 97 16 95/55 91 L 05/15/23 19:06 98.1 F 74 20 98/35 95 Intake and Output 05/15/23 05/16/23 05/16/23 22:59 06:59 14:59 Other: Voiding Method Urinal Toilet Urinal # Voids 2 # Bowel Movements 1 - Constitutional General appearance: cooperative, no acute distress - EENT Eyes: anicteric sclerae - Respiratory Respiratory: bilateral: CTA - Cardiovascular Rhythm: regular Abnormal Heart Sounds: systolic murmur - Gastrointestinal Dullness to percussion General gastrointestinal: distended, soft, no tenderness - Integumentary Integumentary: jaundiced - Neurologic Neurologic: CNII-XII intact Results CBC & Chem 7: 05/15/23 06:55 05/15/23 06:55 Labs: Microbiology - Last 24 Hours (Table) 05/11/23 14:00 Anaerobic Culture - Final Ascites Fluid Assessment and Plan (1) Alcoholic cirrhosis Current Visit: Yes Status: Acute Code(s): K70.30 - ALCOHOLIC CIRRHOSIS OF LIVER WITHOUT ASCITES SNOMED Code(s): 751338039 (2) Liver lesion Current Visit: Yes Status: Acute Code(s): K76.9 - LIVER DISEASE, UNSPECIFIED SNOMED Code(s): 902915166 (3) Perirectal abscess Current Visit: Yes Status: Acute Code(s): K61.1 - RECTAL ABSCESS SNOMED Code(s): 20691830 (4) Macrocytic anemia Current Visit: Yes Status: Acute Code(s): D53.9 - NUTRITIONAL ANEMIA, UNSPECIFIED SNOMED Code(s): 89442397 (5) Thrombocytopenia Current Visit: Yes Status: Chronic Code(s): D69.6 - THROMBOCYTOPENIA, UNSPECIFIED SNOMED Code(s): 038481780 Plan: #Liver lesion -Noted on CT of the abdomen/pelvis on 05/08/[address] on 05/14/2023 in the medial portion of the left hepatic lobe measuring 0.5 x 5.2 cm -He does have history notable for alcoholic cirrhosis and appears to be actively drinking prior to admission -Ascitic fluid cytology on 05/11/2023 was negative for malignancy -AFP on 05/15/2023 was 65.5 -The elevation in AFP could be secondary to hepatocellular carcinoma, but could also be secondary to decompensated liver function -In addition, sites of other primary malignancies in the abdomen with metastases to the liver is not excluded -CEA and CA 19-9 ordered -MRI of the liver with and without contrast also ordered for additional assessment #Macrocytic anemia, thrombocytopenia -Noted to have hemoglobin 10.3 on most recent CBC, decreased from hemoglobin of 13 seen in clinic in January 2022 -Macrocytic anemia is likely secondary to alcohol abuse -Thrombocytopenia is likely secondary to splenic sequestration from portal hypertension due to cirrhosis -Vitamin B12/methylmalonic acid, folic acid, and iron studies ordered for additional workup #Perirectal abscess -Currently on antibiotics with most recent imaging suggesting potential improvement -Plan is noted to be for potential transfer to [facility] for surgical intervention -Management per primary and consulting teams #Alcoholic cirrhosis -Defer to primary and consulting teams regarding management #Crohn's disease -Defer to primary and consulting teams regarding management Nuha Decker MD
--- NOTE | 2023-05-16 16:28 | PN ---
PROGRESS NOTE DATE OF SERVICE: 05/16/2023 CHIEF COMPLAINT: Cirrhosis, alcoholism, ascites, Crohn's disease, and perineal fistula. HISTORY OF PRESENT ILLNESS: This gentleman is stable. There has been no interval change. Waiting for discharge or transfer location. REVIEW OF SYSTEMS: He does not have any other complaints at this time. PHYSICAL EXAMINATION: GENERAL: He remains slightly jaundiced. CHEST: Clear. CARDIAC: Exam is normal. ABDOMEN: Distended with ascites. EXTREMITIES: Normal. IMPRESSION: 1. 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 2. Alcoholism. 3. Cirrhosis. 4. Ascites. 5. Malnutrition. PLAN: No change in program or management today. MMODL / IJN: [id number] /
[2023-05-16 23:41] LABS: Carcinoembryonic Antigen 4.1 ng/mL (0.0-4.9)
[2023-05-16 23:49] LABS: % Iron Saturation 44.66 (15.00-50.00)
--- NOTE | 2023-05-17 12:03 | P.PN ---
Subjective Progress Note Date: 05/17/23 Principal diagnosis: Reason for follow-up is perirectal abscess Patient is a 63-year-old male with a past medical history significant for COPD did have a history of Crohn's disease and hidradenitis suppurativa with multiple draining sinuses to the bilateral gluteal area also with a history of alcoholic cirrhosis patient presenting to the hospital for evaluation of mu ltiple draining sinuses near the rectal area that has been bleeding, patient did have a CT of abdominal pelvis suggestive of soft tissue mass with gas bubbles in the perineum suspicious for developing perineal abscess, general surgery was consulted recommending transfer to tertiary care and asked for infectious disease evaluation. On today's visit that is 05/17/2023, the patient continues to be afebrile, the patient is on room air and breathing comfortably, the Pt denies having any chest pain or cough, the patient denies having any abdominal pain no vomiting or any diarrhea has been reported by the nursing staff, the patient pain and drainage to the perirectal area has decreased. No new labs has been obtained today Objective - Vital Signs Vital signs: Vital Signs Temp 98.1 F 05/17/23 07:11 Pulse 66 05/17/23 07:11 Resp 16 05/17/23 07:11 BP 89/44 05/17/23 07:11 Pulse Ox 93 L 05/17/23 07:11 FiO2 Intake & Output 05/16/23 05/17/23 05/17/23 18:59 06:59 18:59 Intake Total 900 Output Total 3 Balance 897 Intake: Oral 900 Output: Urine 3 Other: Voiding Method Toilet Toilet Urinal Urinal # Voids 4 - Exam GENERAL DESCRIPTION: Middle-age male lying in bed in no distress RESPIRATORY SYSTEM: Unlabored breathing , decreased breath sounds at bases HEART: S1 S2 regular rate and rhythm , ABDOMEN: Soft , no tenderness EXTREMITIES: No edema feet - Labs CBC & Chem 7: 05/15/23 06:55 05/15/23 06:55 Labs: Abnormal Lab Results - Last 24 Hours (Table) 05/16/23 05/16/23 Range/Units 13:05 13:10 Iron 46 L (65-175) UG/DL TIBC 103 L (228-460) UG/DL Transferrin 73.6 L (204.0-354.0) mg/dL Ferritin 326.0 H (22.0-322.0) ng/mL CA 19-9 Antigen 265.0 H (0.0-34.9) U/mL Vitamin B12 1422.0 H (200.0-944.0) pg/mL Assessment and Plan (1) Perirectal abscess Current Visit: Yes Status: Acute Code(s): K61.1 - RECTAL ABSCESS SNOMED Code(s): 31572590 Plan: 1patient with a complicated history of Crohn's disease this patient with concern for 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 perirectal area versus hidradenitis suppurative presenting to the hospital with multiple draining sinuses along the perirectal area with associated increasing pain patient did have abnormal CT suggestive of abscess we will need to cover for the enteric gram-negative both aerobes and anaerobes 2-patient would benefit from surgical drainage and culture that would guide further antibiotic therapy surgical team is requesting the patient to be trans ferred to the tertiary care, Max Lau has refused the transfer 3-patient is afebrile, white count has normalized, patient did have repeat CT of the pelvis which was overall decrease in the abscess 4-patient to continue with Unasyn however plan is to therapy with oral Augmentin on discharge Dictation was produced using [employer] dictation software. please excuse any grammatical, word or spelling errors. Time with Patient: Less than 30
--- NOTE | 2023-05-17 14:39 | P.PN ---
Subjective Progress Note Date: 05/17/23 CHIEF COMPLAINT: Perirectal Crohn's disease HISTORY OF PRESENT ILLNESS: The patient is a 63-year-old male with severe cirrhosis, Crohn's disease of the perirectal area, chronically draining perirectal abscess. He does report straining from the rectum however no increased rectal pain. He is responding well to antibiotics. ROS: No reports of nausea and vomiting. No bowel movements. No fevers or ch ills. No new chest pain. No productive sputum PHYSICAL EXAM: VITAL SIGNS: Reviewed CONSTITUTIONAL: Well developed and in no acute distress. EYES: Conjuctivae sclera icterus. Extraocular movements grossly intact. HEAD, EARS, NOSE, THROAT: Moist buccal mucosa. Head is atraumatic, normocephalic . Hears conversational speech. No nasal drainage. RESPIRATORY: Non-labored respirations and equal bilateral excursions. CARDIOVASCULAR: Palpable 2+ radial pulses. ABDOMEN: No abdominal pain. Has ascites MUSCULOSKELETAL: No gross deformity of the lower extremities noted. No clubbing. No cyanosis. SKIN: Good skin turgor. Well perfused. NEUROLOGIC: Cranial nerves II through XII grossly intact. No focal or lateralizing signs. PSYCH: Appropriate affect. Alert and oriented to person, place and time. CLINICAL LABS: Reviewed. WBC normal. ASSESSMENT: 1. Cirrhosis of the liver with acute on chronic liver failure 2. Crohn disease with perirectal Crohn's disease PLAN: 1. Continue current management with antibiotics 2. 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 Stable for discharge from a surgical standpoint stable Objective - Vital Signs Vital signs: Vital Signs Temp 98.1 F 05/17/23 07:11 Pulse 66 05/17/23 07:11 Resp 16 05/17/23 07:11 BP 89/44 05/17/23 07:11 Pulse Ox 93 L 05/17/23 07:11 FiO2 Intake & Output 05/16/23 05/17/23 05/17/23 18:59 06:59 18:59 Intake Total 900 Output Total 3 Balance 897 Intake: Oral 900 Output: Urine 3 Other: Voiding Method Toilet Toilet Urinal Urinal # Voids 4 - Labs CBC & Chem 7: 05/15/23 06:55 05/15/23 06:55 Labs: Abnormal Lab Results - Last 24 Hours (Table) 05/16/23 05/16/23 Range/Units 13:05 13:10 Iron 46 L (65-175) UG/DL TIBC 103 L (228-460) UG/DL Transferrin 73.6 L (204.0-354.0) mg/dL Ferritin 326.0 H (22.0-322.0) ng/mL CA 19-9 Antigen 265.0 H (0.0-34.9) U/mL Vitamin B12 1422.0 H (200.0-944.0) pg/mL
--- NOTE | 2023-05-17 23:44 | PN ---
PROGRESS NOTE CHIEF COMPLAINT: Alcoholism, cirrhosis, ascites, Crohn disease, and perineal abscess and fistula. HISTORY OF PRESENT ILLNESS: This gentleman is just about the same. He is being seen now by Oncology because tumor markers are quite high. This could all be related to his liver disease, but is now wondering if he has an underlying hepatocellular neoplasm. PHYSICAL EXAMINATION: GENERAL: He is awake and alert. CHEST: Clear. CARDIAC: Normal. ABDOMEN: Distended and tight with ascites. IMPRESSION: 1. Crohn disease with a perineal fistula and abscess. 2. Alcoholism. 3. Cirrhosis. 4. Ascites. 5. Possible hepatocellular neoplasm. PLAN: Continue with workup with Oncology. MMODL / IJN: [id number] /
--- NOTE | 2023-05-18 14:16 | P.PN ---
Subjective Progress Note Date: 05/18/23 CHIEF COMPLAINT: Extensive Crohn's disease with perirectal disease HISTORY OF PRESENT ILLNESS: The patient is a 63-year-old male with severe cirrhosis, Crohn's disease of the perirectal area, chronically draining perirectal abscess. Patient has no increase in pain around the rectum. He does report having drainage. He feels a abdomen is becoming more distended. Denies any nausea or vomiting. Afebrile. PHYSICAL EXAM: VITAL SIGNS: Reviewed GENERAL: no acute distress. HEENT: Sclera icterus extraocular movements grossly intact. Moist buccal mucosa. Head is atraumatic, normocephalic. Hears conversational speech. No nasal drainage. NECK: Supple without lymphadenopathy. CHEST: Non-labored respirations and equal bilateral excursions. CARDIOVASCULAR: Palpable 2+ radial pulses. ABDOMEN: Distended. Buttocks area has decreased in inflammation and swelling. Still drainage noted. the inflammed areas have become softer MUSCULOSKELETAL: No clubbing or cyanosis. NEUROLOGIC: No focal or lateralizing signs. Cranial nerves II through XII grossly intact. PSYCH: Appropriate affect. Alert and oriented to person, place and time. SKIN: jaundiced. Well perfused. Good skin turgor. ASSESSMENT: 1. Complicated Crohn's disease with perirectal 2. History of alcohol liver cirrhosis with portal hypertension and abdominal ascites 3. History of suppurativa hidradenitis 4. Leukocytosis 5. Suspected neoplastic mass right lobe of liver noted on CT PLAN: 1. Continue current management with antibiotics 2. 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 Stable for discharge from a surgical standpoint stable Physician Controlled Area Checker note has been reviewed by physician. Signing provider agrees with the documented findings, assessment, and plan of care. Objective - Vital Signs Vital signs: Vital Signs Temp 98.1 F 05/18/23 07:20 Pulse 70 05/18/23 08:03 Resp 18 05/18/23 08:03 BP 108/64 05/18/23 07:20 Pulse Ox 92 L 05/18/23 09:03 FiO2 Intake & Output 05/17/23 05/18/23 05/18/23 18:59 06:59 18:59 Intake Total 850 Output Total 6 1000 Balance 844 -1000 Intake: Oral 850 Output: Urine 4 1000 Stool 2 Other: Voiding Method Toilet Toilet Urinal Urinal # Voids 3 1 - Labs CBC & Chem 7: 05/15/23 06:55 05/15/23 06:55
--- NOTE | 2023-05-19 05:55 | PN ---
PROGRESS NOTE DATE OF SERVICE: 05/18/2023 CHIEF COMPLAINT: Cirrhosis, Crohn disease, and possible hepatic neoplasm. HISTORY OF PRESENT ILLNESS: This gentleman is about the same. He remains fairly weak. He is being evaluated by Oncology and he may have underlying hepatocellular carcinoma. PHYSICAL EXAMINATION: ABDOMEN: Distended. GENERAL: He remains slightly jaundiced. CHEST: Clear. IMPRESSION: 1. Crohn disease with perineal fistula and abscess formation. 2. Alcoholism. 3. Cirrhosis. 4. Ascites. 5. Possible hepatocellular neoplasm. PLAN: Await outcome of workup by Oncology. If he should be found to have a neoplasm, we will discuss hospice with this patient. MMODL / IJN: [id number] /
[2023-05-19 13:13] LABS: Mean Platelet Volume 8.5; Platelet Count 104 k/uL (150-450)
[2023-05-19 13:25] LABS: INR 2.2 (<1.2); Prothrombin Time 21.8 sec (10.0-12.5)
--- NOTE | 2023-05-19 13:41 | P.PN ---
Subjective Progress Note Date: 05/19/23 CHIEF COMPLAINT: Extensive Crohn's disease with perirectal disease HISTORY OF PRESENT ILLNESS: The patient is a 63-year-old male with severe cirrhosis, Crohn's disease of the perirectal area, chronically draining perirectal abscess. Patient continues to report drainage from the buttocks. There is been no increase in pain. Afebrile. WBC normalized. Patient being evaluated by oncology service regarding liver lesion. They have also ordered interventional radiology for possible paracentesis PHYSICAL EXAM: VITAL SIGNS: Reviewed GENERAL: no acute distress. HEENT: Sclera icterus extraocular movements grossly intact. Moist buccal mucosa. Head is atraumatic, normocephalic. Hears conversational speech. No nasal drainage. NECK: Supple without lymphadenopathy. CHEST: Non-labored respirations and equal bilateral excursions. CARDIOVASCULAR: Palpable 2+ radial pulses. ABDOMEN: Distended. Buttocks area has decreased in inflammation and swelling. Still drainage noted. the inflammed areas have become softer MUSCULOSKELETAL: No clubbing or cyanosis. NEUROLOGIC: No focal or lateralizing signs. Cranial nerves II through XII grossly intact. PSYCH: Appropriate affect. Alert and oriented to person, place and time. SKIN: jaundiced. Well perfused. Good skin turgor. ASSESSMENT: 1. Complicated Crohn's disease with perirectal 2. History of alcohol liver cirrhosis with portal hypertension and abdominal ascites 3. History of suppurativa hidradenitis 4. Leukocytosis 5. Suspected neoplastic mass right lobe of liver noted on CT PLAN: -No surgical intervention planned -Patient can be discharged from surgical standpoint -Discharge antibiotics per infectious disease -Surgical service will sign off. Please call with any questions or concerns -Due to complicated nature of Crohn disease including liver disease, patient advised to follow-up with his slip caster for coordinated management of Crohn's perirectal disease as well Physician Dairy Nutrition Specialist note has been reviewed by physician. Signing provider agrees with the documented findings, assessment, and plan of care. Objective - Vital Signs Vital signs: Vital Signs Temp 97.8 F 05/19/23 07:35 Pulse 74 05/19/23 07:35 Resp 17 05/19/23 07:35 BP 105/62 05/19/23 07:35 Pulse Ox 94 L 05/19/23 07:35 FiO2 Intake & Output 05/18/23 05/19/23 05/19/23 18:59 06:59 18:59 Intake Total 200 Output Total 1300 400 Balance -1300 -400 200 Intake: Oral 200 Output: Urine 1300 400 Other: Voiding Method Toilet Toilet Urinal # Voids 1 # Bowel Movements 1 4 - Labs CBC & Chem 7: 05/19/23 12:43 05/15/23 06:55 Labs: Abnormal Lab Results - Last 24 Hours (Table) 05/19/23 05/19/23 Range/Units 12:43 12:43 Plt Count 104 L (150-450) k/uL PT 21.8 H (10.0-12.5) sec INR 2.2 H (<1.2)
--- NOTE | 2023-05-19 13:55 | P.PN ---
Subjective Progress Note Date: 05/19/23 In follow-up today, patient is resting comfortably in bed. Patient is reporting increasing abdominal distention. Patient was scheduled for MRI liver yesterday but scan was not completed due to significant abdominal distention. Patient did have paracentesis on 05/14 with 4900 cc removed. Will repeat paracentesis and coordinate MRI liver following procedure. Plan was discussed with patient and he was agreeable Objective - Vital Signs Vital signs: Vital Signs Temp 97.8 F 05/19/23 07:35 Pulse 74 05/19/23 07:35 Resp 17 05/19/23 07:35 BP 105/62 05/19/23 07:35 Pulse Ox 94 L 05/19/23 07:35 FiO2 Intake & Output 05/18/23 05/19/23 05/19/23 18:59 06:59 18:59 Intake Total 200 Output Total 1300 400 Balance -1300 -400 200 Intake: Oral 200 Output: Urine 1300 400 Other: Voiding Method Toilet Toilet Urinal # Voids 1 # Bowel Movements 1 4 - Constitutional General appearance: Present: no acute distress - EENT Eyes: Present: EOMI ENT: Present: hearing grossly normal - Respiratory Details: breathing even and unlabored - Cardiovascular Details: well-perfused - Gastrointestinal General gastrointestinal: Present: distended, tenderness Localized gastrointestinal: tender: diffuse (mild tenderness, no guarding or rebound tenderness ) - Integumentary Integumentary: Absent: cyanotic - Psychiatric Psychiatric: Present: A&O x's 3 - Labs CBC & Chem 7: 05/19/23 12:43 05/15/23 06:55 Labs: Abnormal Lab Results - Last 24 Hours (Table) 05/19/23 05/19/23 Range/Units 12:43 12:43 Plt Count 104 L (150-450) k/uL PT 21.8 H (10.0-12.5) sec INR 2.2 H (<1.2) Assessment and Plan (1) Alcoholic cirrhosis Current Visit: Yes Status: Acute Priority: Medium Code(s): K70.30 - ALCOHOLIC CIRRHOSIS OF LIVER WITHOUT ASCITES SNOMED Code(s): 922926930 (2) Crohn's disease Current Visit: Yes Status: Acute Priority: Medium Code(s): K50.90 - CROHN'S DISEASE, UNSPECIFIED, WITHOUT COMPLICATIONS SNOMED Code(s): 10005174 (3) Liver lesion Current Visit: Yes Status: Acute Priority: High Code(s): K76.9 - LIVER DISEASE, UNSPECIFIED SNOMED Code(s): 313435962 (4) Macrocytic anemia Current Visit: Yes Status: Acute Priority: Medium Code(s): D53.9 - NUTRITIONAL ANEMIA, UNSPECIFIED SNOMED Code(s): 68901503 (5) Perirectal abscess Current Visit: Yes Status: Acute Priority: High Code(s): K61.1 - RECTAL ABSCESS SNOMED Code(s): 32451048 Plan: #Liver lesion -Noted on CT of the abdomen/pelvis on 05/08/[address] on 05/14/2023 in the medial portion of the left hepatic lobe measuring 0.5 x 5.2 cm -He does have history notable for alcoholic cirrhosis and appears to be actively drinking prior to admission -Ascitic fluid cytology on 05/11/2023 was negative for malignancy -AFP on 05/15/2023 was 65.5 -The elevation in AFP could be secondary to hepatocellular carcinoma, but could also be secondary to decompensated liver function -In addition, sites of other primary malignancies in the abdomen with metastases to the liver is not excluded -CEA normal at 4.1. CA 19-9 elevated at 265, however, elevation could be reactive to his decompensated liver dysfunction and is non-diagnostic -MRI of the liver with and without contrast ordered for additional assessment. Unfortunately scan was not able to be completed due to significant abdominal distention. Patient did have paracentesis on 05/14 with 4900 cc removed. Will repeat paracentesis and coordinate MRI liver following procedure. Requested repeat fluid analysis and cytology. Spoke with MRI dept and primary RN to ensure we coordinate para with MRI dept to ensure scan is completed #Macrocytic anemia, thrombocytopenia -Noted to have hemoglobin 10.3 on most recent CBC, decreased from hemoglobin of 13 seen in clinic in January 2022 -Macrocytic anemia is likely secondary to alcohol abuse -Thrombocytopenia is likely secondary to splenic sequestration from portal hypertension due to cirrhosis -Vitamin B12/methylmalonic acid, folic acid, and iron studies ordered for additional workup. No nutritional deficiencies noted #Perirectal abscess -Currently on antibiotics with most recent imaging suggesting potential improvement -Spoke with surgery team, no plan for surgical intervention, continue abx and conservative management at this time -Management per primary and consulting teams #Alcoholic cirrhosis -Defer to primary and consulting teams regarding management #Crohn's disease -Defer to primary and consulting teams regarding management
--- NOTE | 2023-05-19 15:06 | P.PN ---
Subjective Progress Note Date: 05/18/23 Principal diagnosis: Reason for follow-up is perirectal abscess Patient is a 63-year-old male with a past medical history significant for COPD did have a history of Crohn's disease and hidradenitis suppurativa with multiple draining sinuses to the bilateral gluteal area also with a history of alcoholic cirrhosis patient presenting to the hospital for evaluation of mu ltiple draining sinuses near the rectal area that has been bleeding, patient did have a CT of abdominal pelvis suggestive of soft tissue mass with gas bubbles in the perineum suspicious for developing perineal abscess, general surgery was consulted recommending transfer to tertiary care and asked for infectious disease evaluation. On today's visit that is 05/18/2023, Patient is afebrile patient is currently on room air and denies having any shortness of breath, the patient denies any chest pain or cough, the patient denies any nausea vomiting, did not have any abdominal pain pain to the perirectal area has decreased in intensity. No new labs has been obtained today Objective - Vital Signs Vital signs: Vital Signs Temp 98.1 F 05/18/23 07:20 Pulse 70 05/18/23 08:03 Resp 18 05/18/23 08:03 BP 108/64 05/18/23 07:20 Pulse Ox 92 L 05/18/23 09:03 FiO2 Intake & Output 05/17/23 05/18/23 05/18/23 18:59 06:59 18:59 Intake Total 850 Output Total 6 1000 Balance 844 -1000 Intake: Oral 850 Output: Urine 4 1000 Stool 2 Other: Voiding Method Toilet Toilet Urinal Urinal # Voids 3 1 - Exam GENERAL DESCRIPTION: Middle-age male lying in bed in no distress RESPIRATORY SYSTEM: Unlabored breathing , decreased breath sounds at bases HEART: S1 S2 regular rate and rhythm , ABDOMEN: Soft , no tenderness EXTREMITIES: No edema feet - Labs CBC & Chem 7: 05/19/23 12:43 05/15/23 06:55 Assessment and Plan (1) Perirectal abscess Current Visit: Yes Status: Acute Priority: High Code(s): K61.1 - RECTAL ABSCESS SNOMED Code(s): 45681278 Plan: 1patient with a complicated history of Crohn's disease this patient with concern for 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 perirectal area versus hidradenitis suppurative presenting to the hospital with multiple draining sinuses along the perirectal area with associated increasing pain patient did have abnormal CT suggestive of abscess we will need to cover for the enteric gram-negative both aerobes and anaerobes 2-patient would benefit from surgical drainage and culture that would guide further antibiotic therapy surgical team is requesting the patient to be transferred to the tertiary care, [facility] has refused the transfer 3-patient is afebrile, white count has normalized, patient did have repeat CT of the pelvis which was overall decrease in the abscess 4-patient to continue with Unasyn while inpatient and monitor clinical course closely Dictation was produced using [employer] dictation software. please excuse any grammatical, word or spelling errors. Time with Patient: Less than 30
--- NOTE | 2023-05-19 15:06 | P.PN ---
Subjective Progress Note Date: 05/19/23 Principal diagnosis: Reason for follow-up is perirectal abscess Patient is a 63-year-old male with a past medical history significant for COPD did have a history of Crohn's disease and hidradenitis suppurativa with multiple draining sinuses to the bilateral gluteal area also with a history of alcoholic cirrhosis patient presenting to the hospital for evaluation of mu ltiple draining sinuses near the rectal area that has been bleeding, patient did have a CT of abdominal pelvis suggestive of soft tissue mass with gas bubbles in the perineum suspicious for developing perineal abscess, general surgery was consulted recommending transfer to tertiary care and asked for infectious disease evaluation. On today's visit that is 05/19/2023,the patient denies any fever or any chills, patient is breathing comfortably on room air, the patient denies chest pain shortness of breath and no significant cough, patient complaining of some abdominal distention and mention may need another paracentesis denies any worsening pain to the perirectal area. Patient did have a platelet count of 104 INR is 2.2 Objective - Vital Signs Vital signs: Vital Signs Temp 98.0 F 05/19/23 14:10 Pulse 71 05/19/23 14:10 Resp 17 05/19/23 07:35 BP 100/52 05/19/23 14:10 Pulse Ox 95 05/19/23 14:10 FiO2 Intake & Output 05/18/23 05/19/23 05/19/23 18:59 06:59 18:59 Intake Total 200 Output Total 1300 400 Balance -1300 -400 200 Weight 65.771 kg Intake: Oral 200 Output: Urine 1300 400 Other: Voiding Method Toilet Toilet Urinal # Voids 1 # Bowel Movements 1 4 - Exam GENERAL DESCRIPTION: Middle-age male lying in bed in no distress RESPIRATORY SYSTEM: Unlabored breathing , decreased breath sounds at bases HEART: S1 S2 regular rate and rhythm , ABDOMEN: Soft , no tenderness EXTREMITIES: No edema feet - Labs CBC & Chem 7: 05/19/23 12:43 05/15/23 06:55 Labs: Abnormal Lab Results - Last 24 Hours (Table) 05/19/23 05/19/23 Range/Units 12:43 12:43 Plt Count 104 L (150-450) k/uL PT 21.8 H (10.0-12.5) sec INR 2.2 H (<1.2) Assessment and Plan (1) Perirectal abscess Current Visit: Yes Status: Acute Priority: High Code(s): K61.1 - RECTAL ABSCESS SNOMED Code(s): 02389933 Plan: 1patient with a complicated history of Crohn's disease this patient with concern for 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 perirectal area versus hidradenitis suppurative presenting to the hospital with multiple dr shah sinuses along the perirectal area with associated increasing pain patient did have abnormal CT suggestive of abscess we will need to cover for the enteric gram-negative both aerobes and anaerobes 2-patient would benefit from surgical drainage and culture that would guide further antibiotic therapy surgical team is requesting the patient to be transferred to the tertiary care, [facility] has refused the transfer 3-patient is afebrile, white count has normalized, patient did have repeat CT of the pelvis which was overall decrease in the abscess 4-patient is slowly clinically improving and will continue with Unasyn while inpatient however plan for oral antibiotics on discharge Dictation was produced using [employer] dictation software. please excuse any grammatical, word or spelling errors. Time with Patient: Less than 30
--- NOTE | 2023-05-20 01:20 | PN ---
PROGRESS NOTE DATE OF SERVICE: 05/19/2023 CHIEF COMPLAINT: 1. 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 2. Alcoholism. 3. Cirrhosis. 4. Ascites. HISTORY OF PRESENT ILLNESS: This gentleman remains stable. There has been no further activity on a discharge plan. He is being evaluated by Oncology because his CA-19, CEA are markedly elevated. I discussed with the patient discharge plans. He feels that he can manage at home with his son. This may be the only option for discharge. Once workup is finished with Oncology, a decision will have to be made as to where he goes after discharge. I did talk to the patient about hospice. He will think about it. MMTERRYL / IJN: [id number] /
[2023-05-20 05:19] LABS: INR 2.3 (<1.2); Prothrombin Time 22.5 sec (10.0-12.5)
[2023-05-20] MEDS: PHYTONADIONE 5 MG in SODIUM CHLORIDE 0.9% 50 ML IVPB STA ×2 (09:06→10:07)
--- NOTE | 2023-05-20 16:33 | US ---
EXAMINATION TYPE: US paracentesis abd w/image (diagnostic and therapeutic) DATE OF EXAM: 05/20/2023 CLINICAL HISTORY: 63-year-old male ascites, inpatient, referred for paracentesis prior to MRI. The procedure was discussed with the patient. The risks, complications, benefits, and alternatives we re discussed and any questions were answered. Informed consent was obtained. The patient was placed s upine on the ultrasound table and prepped and draped in the usual sterile fashion. All elements of maximal barrier technique were utilized. Patient received vitamin K and FFP due to elevated INR. Ultrasound was utilized to determine the precise skin entry site along the right lower quadrant/right flank. A 5 Norwegian One-Step catheter and trocar technique was utilized to access the ascites collection under direct ultrasound guidance. Three 60 mL samples were collected for laboratory analysis. Subsequently, approximately 6.2 liters of clear, straw-colored fluid was removed. Catheter was removed, hemostasis obtained, and a dressing placed. The patient was stable throughout the procedure and remained stable upon discharge from Department of Radiology. IMPRESSION: Successful diagnostic and therapeutic paracentesis under ultrasound guidance. 6.2 L of fluid removed .
[2023-05-20] MEDS: ALBUMIN HUMAN 25% 50 ML in EMPTY BAG 1 BAG IVPB SCH (16:37)
[2023-05-21 04:31] LABS: Appearance,BF Clear (Clear)
[2023-05-21 05:20] LABS: Glucose, BF Source Ascities; Glucose, Body Fluid 135 mg/dL; T. Protein, Body Fluid Source Ascities; Total Protein, Body Fluid 535 mg/dL
--- NOTE | 2023-05-21 06:28 | P.PN ---
Subjective Progress Note Date: 05/20/23 This is a patient of Dr. Renee and currently covering This is a 63-year-old male with significant past medical history of alcoholic cirrhosis was hospitalized with complicated Crohn's disease with a perirectal fistula and abscess with multiple consultations following. Infectious disease initially recommended transfer to tertiary treatment although was refused. Patient is undergoing paracentesis today and will likely need albumin. Patient also scheduled to undergo MRI of the liver with oncology following with concerns of neoplasm as noted on the CT. Will await report. Follow-up on repeat labs Review of systems: Constitutional: No reports of fatigue, fever, or chills Cardiovascular: No reports of chest pain or palpitations Respiratory: No reports of shortness of breath or cough GI: no reports of nausea, no reports of vomiting, loose stools : No reports of dysuria or retention Neurovascular: reports of generalized weakness All medications have been reviewed PHYSICAL EXAMINATION: GENERAL: The patient is alert and oriented, Well developed, well nourished. Elderly appearing, thin built, ill appearing HEENT: Pupils are round and equally reacting to light. EOMI. no scleral icterus. No conjunctival pallor. Normocephalic, atraumatic. No pharyngeal erythema. No thyromegaly. CARDIOVASCULAR: S1 and S2 muffled PULMONARY: diminished breath sounds bilaterally with no wheezing or rhonchi noted. ABDOMEN: taut. distended, normoactive bowel sounds. No palpable organomegaly. MUSCULOSKELETAL: No joint swelling or deformity. EXTREMITIES: No cyanosis, clubbing, or pedal edema. NEUROLOGICAL: Gross neurological examination did not reveal any focal deficits. Diffuse weakness SKIN: No rashes. Assessment: Complicated Crohn's disease with perirectal abscess Liver lesion with concerns of neoplasm, MRI pending Alcoholic cirrhosis with ascites status post paracentesis of approximately 6 L removed today History of suppurativa hidradenitis Leukocytosis GI prophylaxis DVT prophylaxis Plan: Recommend to continue with current medications and management with multiple medical consultations following including oncology. Patient is status post paracentesis with approximately 6 L removed and will give albumin Patient maintained on antibiotics with infectious disease following recommended transfer to tertiary treatment for surgical drainage for deep cultures of the abscess although transfer was refused. General surgery following recommending continued antibiotics with no plans of intervention at this time Oncology following ordered MRI of the liver which is pending for this afternoon Per nursing staff this is likely cancer and will discuss further once MRI is performed Will follow-up on repeat labs Due to multiple complex medical issues, prognosis is guarded The impression and plan of care has been dictated by Marcela Rizo, nurse practitioner as directed. Dr. Shlomo MD I have performed a history and examination and MDM of this patient, discussed the same with the dictator, and agree with the dictator's assessment and plan as written ,documented as a scribe. Based on total visit time, I have performed more than 50% of the visit. Any additional findings or plans will be noted. Objective - Vital Signs Vital signs: Vital Signs Temp 98.2 F 05/20/23 13:23 Pulse 79 05/20/23 13:23 Resp 16 05/20/23 13:23 BP 97/61 05/20/23 13:23 Pulse Ox 97 05/20/23 13:23 FiO2 Intake & Output 05/19/23 05/20/23 05/20/23 18:59 06:59 18:59 Intake Total 200 223 Output Total 200 100 Balance 200 -200 123 Weight 65.771 kg Intake: Oral 200 Blood Product 223 Ffp 24 Pher Acda Cnt1 223 Unit [id number] Output: Urine 200 100 Other: Voiding Method Toilet # Bowel Movements 7 - Labs CBC & Chem 7: 05/19/23 12:43 05/15/23 06:55 Labs: Abnormal Lab Results - Last 24 Hours (Table) 05/20/23 Range/Units 04:53 PT 22.5 H (10.0-12.5) sec INR 2.3 H (<1.2)
--- NOTE | 2023-05-21 08:44 | MR ---
EXAMINATION TYPE: MR liver wo/w con DATE OF EXAM: 05/20/2023 4:24 PM CLINICAL INDICATION:Male, 63 years old with history of Liver lesion and elevated AFP, concern for HCC ; PHH, Liver lesion and elevated AFP, concern for HCC. COMPARISON: 05/14/2023 CT. TECHNIQUE: Multiplanar multi-sequence imaging was performed without contra st. Post contrast imaging was performed. Post IV contrast subtraction images were also submitted for review. IV Contrast: 7 cc Gadavist FINDINGS: LOWER CHEST: Tracer pleural effusion.. 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 Overall the mass is under the dome of the liver surroun ded by diaphragm and the lung. The mass measures at least 5.8 x 5.3 cm with fingerlike extensions in the vasculature. Gallbladder and Bile ducts: No evidence for ductal dilation, or biliary stricture or evidence of chol edocholithiasis. Large gallstone in the gallbladder neck Pancreas: No ductal dilation. No evidence for solid mass. Spleen: Spleen is enlarged for size measuring up to 15.0 cm in caudocranial dimension. Adrenal glands: Unremarkable. Kidneys: No evidence for obstructive uropathy. No suspicious renal masses. Small hiatal hernia is present. Stomach and Bowel: No evidence for bowel wall thickening or evidence for obstruction. Peritoneum: No evidence of pneumoperitoneum. Scattered free fluid throughout the abdomen. Vasculature: No aortic aneurysm. Musculoskeletal: The osseous structures appear intact. Lymph Nodes: No gross evidence for lymphadenopathy. Abdominal wall: Unremarkable. IMPRESSION: 1. Hepatic cirrhosis with hepatic mass within the right dome of the liver with fingerlike extension into the venous system including the portal vein with portal vein suspected tumor thrombus. There is also evidence of portal hypertension with splenomegaly and upper abdominal varices. No lymphadenopath y identified. Findings most compatible with hepatocellular carcinoma in the setting of cirrhosis. 2. Trace abdominal ascites.
[2023-05-21 11:12] LABS: Magnesium 1.4 mg/dL (1.5-2.4)
[2023-05-21 11:17] LABS: ALT 28 U/L (10-49); AST 61 U/L (14-35); Albumin 2.5 g/dL (3.8-4.9); Alkaline Phosphatase 70 U/L (41-126); Blood Urea Nitrogen 5.4 mg/dL (9.0-27.0); Carbon Dioxide 19.9 mmol/L (21.6-31.8); Chloride 106 mmol/L (96-109); Globulin 4.2 g/dL (1.6-3.3); Glucose 77 mg/dL (70-110); Potassium 3.3 mmol/L (3.5-5.5); Sodium 134 mmol/L (135-145); Total Bilirubin 9.1 mg/dL (0.3-1.2); Total Protein 6.7 g/dL (6.2-8.2)
[2023-05-21 11:28] LABS: INR 2.1 (<1.2); Prothrombin Time 21.2 sec (10.0-12.5)
[2023-05-21 11:38] LABS: Basophils # (A) 0.05 X 10*3/uL (0.00-0.10); Basophils % (A) 0.5 %; Eosinophils # (A) 0.14 X 10*3/uL (0.04-0.35); Eosinophils % (A) 1.4 %; HCT 27.7 % (39.6-50.0); HGB 9.4 g/dL (13.0-17.0); Immature Platelet Fraction 5.5 % (1.1-6.1); Lymphocytes # (A) 0.83 X 10*3/uL (0.90-5.00); Lymphocytes % (A) 8.5 %; MCHC 33.9 g/dL (32.0-37.0); MCV 109.1 FL (80.0-97.0); Mean Platelet Volume 10.8 FL (9.5-12.2); Monocytes # (A) 1.18 X 10*3/uL (0.20-1.00); Monocytes % (A) 12.1 %; NRBC Per 100 WBC 0 X 10*3/uL (0.00-0.01); Neutrophils # (A) 7.48 X 10*3/uL (1.80-7.70); Neutrophils % (A) 76.7 %; Platelet Count 82 X 10*3/uL (140-440); RBC 2.54 X 10*6/uL (4.40-5.60); RDW 16.4 % (11.5-14.5); WBC 9.76 X 10*3/uL (4.50-10.00)
[2023-05-21 11:39] LABS: Macrocytosis (M) 2+
[2023-05-21] MEDS ORDERED: RX INFO: IV CONTRAST WAS GIVEN 1 EACH MISC MISCELLANE PRN (13:41)
--- NOTE | 2023-05-21 14:53 | P.PN ---
Subjective Progress Note Date: 05/20/23 Principal diagnosis: Reason for follow-up is perirectal abscess Patient is a 63-year-old male with a past medical history significant for COPD did have a history of Crohn's disease and hidradenitis suppurativa with multiple draining sinuses to the bilateral gluteal area also with a history of alcoholic cirrhosis patient presenting to the hospital for evaluation of mu ltiple draining sinuses near the rectal area that has been bleeding, patient did have a CT of abdominal pelvis suggestive of soft tissue mass with gas bubbles in the perineum suspicious for developing perineal abscess, general surgery was consulted recommending transfer to tertiary care and asked for infectious disease evaluation. On today's visit that is 05/20/2023,the patient remains to be afebrile, patient is on 2 L nasal cannula supplemental oxygen and denies any shortness of breath no chest pain or cough.Patient denies having any nausea or vomiting, complaining of some abdominal distention and discomfort denies any worsening perirectal drainage Patient did have INR of 2.3 no CBC was done today Objective - Vital Signs Vital signs: Vital Signs Temp 98.3 F 05/20/23 11:54 Pulse 77 05/20/23 12:14 Resp 16 05/20/23 12:14 BP 113/70 05/20/23 12:14 Pulse Ox 95 05/20/23 12:14 FiO2 Intake & Output 05/19/23 05/20/23 05/20/23 18:59 06:59 18:59 Intake Total 200 0 Output Total 200 100 Balance 200 -200 -100 Weight 65.771 kg Intake: Oral 200 Blood Product 0 Ffp 24 Pher Acda Cnt1 0 Unit [id number] Output: Urine 200 100 Other: Voiding Method Toilet # Bowel Movements 7 - Exam GENERAL DESCRIPTION: Middle-age male lying in bed in no distress RESPIRATORY SYSTEM: Unlabored breathing , decreased breath sounds at bases HEART: S1 S2 regular rate and rhythm , ABDOMEN: Soft , no tenderness EXTREMITIES: No edema feet - Labs CBC & Chem 7: 05/21/23 06:15 05/21/23 06:15 Labs: Abnormal Lab Results - Last 24 Hours (Table) 05/19/23 05/19/23 05/20/23 Range/Units 12:43 12:43 04:53 Plt Count 104 L (150-450) k/uL PT 21.8 H 22.5 H (10.0-12.5) sec INR 2.2 H 2.3 H (<1.2) Assessment and Plan (1) Perirectal abscess Current Visit: Yes Status: Acute Priority: High Code(s): K61.1 - RECTAL ABSCESS SNOMED Code(s): 50375655 Plan: 1patient with a complicated history of Crohn's disease this patient with concern for 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 perirectal area versus hidradenitis suppurative presenting to the hospital with multiple draining sinuses along the perirectal area with associated increasing pain patient did have abnormal CT suggestive of abscess we will need to cover for the enteric gram-negative both aerobes and anaerobes 2-patient would benefit from surgical drainage and culture that would guide further antibiotic therapy surgical team is requesting the patient to be transferred to the tertiary care, [facility] has refused the transfer 3-patient is afebrile, white count has normalized, patient did have repeat CT of the pelvis which was overall decrease in the abscess 4-patient currently waiting for repeat paracentesis this afternoon fluid should be sent for culture will continue with Unasyn while inpatient and monitor clinical course closely Dictation was produced using [employer] dictation software. please excuse any grammatical, word or spelling errors. Time with Patient: Less than 30
--- NOTE | 2023-05-21 14:53 | P.PN ---
Subjective Progress Note Date: 05/21/23 Principal diagnosis: Reason for follow-up is perirectal abscess Patient is a 63-year-old male with a past medical history significant for COPD did have a history of Crohn's disease and hidradenitis suppurativa with multiple draining sinuses to the bilateral gluteal area also with a history of alcoholic cirrhosis patient presenting to the hospital for evaluation of mu ltiple draining sinuses near the rectal area that has been bleeding, patient did have a CT of abdominal pelvis suggestive of soft tissue mass with gas bubbles in the perineum suspicious for developing perineal abscess, general surgery was consulted recommending transfer to tertiary care and asked for infectious disease evaluation. On today's visit that is 05/21/2023, the patient continues to be afebrile, the patient is on room air and breathing comfortably, the Pt denies having any chest pain or cough, the patient denies having any abdominal pain no vomiting or any diarrhea has been reported by the nursing staff. Patient white count is 9.76 creatinine 0.50, paracentesis fluid white count is 5 Objective - Vital Signs Vital signs: Vital Signs Temp 98.4 F 05/21/23 06:43 Pulse 81 05/21/23 06:43 Resp 17 05/21/23 06:43 BP 101/82 05/21/23 06:43 Pulse Ox 94 L 05/21/23 06:43 FiO2 Intake & Output 05/20/23 05/21/23 05/21/23 18:59 06:59 18:59 Intake Total 423 Output Total 600 Balance -177 Intake: Intake, IV Titration 200 Amount Albumin Human 25% 50 ml 150 In Empty Bag 1 bag @ 200 mls/hr IVPB Q15M [facility] Rx#: [id number] Phytonadione 5 mg In 50 Sodium Chloride 0.9% 50 ml @ 100 mls/hr IVPB ONCE STA Rx#:[id number] Blood Product 223 Ffp 24 Pher Acda Cnt1 223 Unit [id number] Output: Urine 600 Other: # Voids 1 1 # Bowel Movements 1 - Exam GENERAL DESCRIPTION: Middle-age male lying in bed in no distress RESPIRATORY SYSTEM: Unlabored breathing , decreased breath sounds at bases HEART: S1 S2 regular rate and rhythm , ABDOMEN: Soft , no tenderness EXTREMITIES: No edema feet - Labs CBC & Chem 7: 05/21/23 06:15 05/21/23 06:15 Labs: Abnormal Lab Results - Last 24 Hours (Table) 05/21/23 05/21/23 05/21/23 Range/Units 06:15 06:15 11:09 RBC 2.54 L (4.40-5.60) X 10*6/uL Hgb 9.4 L (13.0-17.0) g/dL Hct 27.7 L (39.6-50.0) % MCV 109.1 H (80.0-97.0) FL MCH 37.0 H (27.0-32.0) pg RDW 16.4 H (11.5-14.5) % Plt Count 82 L (140-440) X 10*3/uL Immature Gran # 0.08 H (0.00-0.04) X 10*3/uL Lymphocytes # 0.83 L (0.90-5.00) X 10*3/uL Monocytes # 1.18 H (0.20-1.00) X 10*3/uL Macrocytosis (manual) 2+ A PT 21.2 H (10.0-12.5) sec INR 2.1 H (<1.2) Sodium 134 L (135-145) mmol/L Potassium 3.3 L (3.5-5.5) mmol/L Carbon Dioxide 19.9 L (21.6-31.8) mmol/L BUN 5.4 L (9.0-27.0) mg/dL Creatinine 0.5 L (0.6-1.5) mg/dL BUN/Creatinine Ratio 10.80 L (12.00-20.00) Ratio Calcium 8.0 L (8.7-10.3) mg/dL Magnesium 1.4 L (1.5-2.4) mg/dL Total Bilirubin 9.1 H (0.3-1.2) mg/dL AST 61 H (14-35) U/L Albumin 2.5 L (3.8-4.9) g/dL Globulin 4.2 H (1.6-3.3) g/dL Albumin/Globulin Ratio 0.60 L (1.60-3.17) Ratio Assessment and Plan (1) Perirectal abscess Current Visit: Yes Status: Acute Priority: High Code(s): K61.1 - RECTAL ABSCESS SNOMED Code(s): 45740472 Plan: 1patient with a complicated history of Crohn's disease this patient with concern for 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 perirectal area versus hidradenitis suppurative presenting to the hospital with multiple draini ng sinuses along the perirectal area with associated increasing pain patient did have abnormal CT suggestive of abscess we will need to cover for the enteric gram-negative both aerobes and anaerobes 2-patient would benefit from surgical drainage and culture that would guide further antibiotic therapy surgical team is requesting the patient to be transferred to the tertiary care, Max Gallegosd has refused the transfer 3-patient is afebrile, white count has normalized, patient did have repeat CT of the pelvis which was overall decrease in the abscess 4-patient is status post repeat paracentesis completed on 05/20/2023 with white count is only 5 not behaving as SBP 5-patient to continue with Unasyn while inpatient and plan is for oral Augmentin on discharge Dictation was produced using [employer] dictation software. please excuse any grammatical, word or spelling errors. Time with Patient: Less than 30
[2023-05-21] MEDS ORDERED: Magnesium Replacement Protocol 1 EACH MISC MISCELLANE PRN (15:58)
[2023-05-21] MEDS ORDERED: Potassium Replacement Protocol 1 EACH MISC MISCELLANE PRN (15:58)
--- NOTE | 2023-05-21 16:18 | CT ---
Exam: CT Chest with contrast. Date: 05/21/2023. Comparison: CT abdomen and pelvis on 05/14/2023. History: Liver cancer staging. Technique: CT examination of the chest was performed following the intravenous administration of 100 mL of Isovue-300. Coronal and sagittal reformats were performed. CT dose lowering techniques were us ed, to include: automated exposure control, adjustment for patient size, and/or use of iterative eloy nstruction. FINDINGS: CHEST WALL: Bilateral gynecomastia is moderate. Mediastinum and Malinda: There is no axillary, mediastinal or hilar lymphadenopathy. Pleural and Pericardial spaces: There are small bilateral pleural effusions. Upper Abdomen: Diffuse nodular contour to the liver is compatible with cirrhosis. Diffuse heterogenei ty and a mass in the dome of the liver is compatible with patient's history of hepatocellular carcino ma and was better evaluated on the CT abdomen study.. There is a large amount of ascites in the visua lized upper abdomen. The spleen is enlarged measuring 18 cm in AP dimension. There is a small hiatal hernia. Cardiovascular: There is mild vascular calcific lesion. The thoracic aorta without evidence of aneury smal dilation or dissection. Moderate patchy coronary artery calcifications are seen. Moderate cardio megaly. Pulmonary Artery: There are no central pulmonary arterial abnormalities. The examination was not per formed to evaluate for pulmonary embolism. Lung Parenchyma and Airways: There are scattered linear bands of opacity throughout the lungs bilater ally which are likely atelectasis or scarring. There are no significant pulmonary nodules. No focal c onsolidation. Bones: Multiple old healed left-sided rib fractures. IMPRESSION: 1. Patchy changes at the lungs bilaterally are likely chronic due to atelectasis and/or scarring. Min imal groundglass attenuation is seen in the left upper lobe. No suspicious pulmonary nodules are mercy rly identified. 2. Small bilateral pleural effusions. 3. Cirrhosis, splenomegaly and ascites with hepatic mass compatible with patient's history of hepatoc ellular carcinoma is not well evaluated on this examination. 4. Small hiatal hernia. 5. Cardiomegaly with coronary artery calcifications.
[2023-05-21] MEDS: POTASSIUM CHLORIDE ER 20 MEQ TAB.ER PO SCH (17:35)
[2023-05-21] MEDS: MAGNESIUM SULFATE-D5W PMX 1 GM in DEXTROSE/WATER 1 100ML.BAG IVPB SCH (17:36)
--- NOTE | 2023-05-21 17:44 | P.PN ---
Subjective Progress Note Date: 05/21/23 In follow-up today, patient is reporting improvement in abd distention and abd discomfort. S/p para with 6.2L removed. MRI liver revealing right hepatic lobe mass measuring 5.8 x 5.3cm. Objective - Vital Signs Vital signs: Vital Signs Temp 98.4 F 05/21/23 06:43 Pulse 81 05/21/23 06:43 Resp 17 05/21/23 06:43 BP 101/82 05/21/23 06:43 Pulse Ox 94 L 05/21/23 06:43 FiO2 Intake & Output 05/20/23 05/21/23 05/21/23 18:59 06:59 18:59 Intake Total 423 Output Total 600 Balance -177 Intake: Intake, IV Titration 200 Amount Albumin Human 25% 50 ml 150 In Empty Bag 1 bag @ 200 mls/hr IVPB Q15M [facility] Rx#: [id number] Phytonadione 5 mg In 50 Sodium Chloride 0.9% 50 ml @ 100 mls/hr IVPB ONCE STA Rx#:[id number] Blood Product 223 Ffp 24 Pher Acda Cnt1 223 Unit [id number] Output: Urine 600 Other: # Voids 1 - Constitutional General appearance: Present: no acute distress - EENT Eyes: Present: EOMI ENT: Present: hearing grossly normal - Respiratory Details: breathing is even and unlabored - Cardiovascular Details: skin warm and dry - Gastrointestinal Gastrointestinal Comment(s): mild distention, much improved s/p para General gastrointestinal: Present: soft. Absent: tenderness - Integumentary Integumentary: Present: jaundiced - Musculoskeletal Musculoskeletal: Present: generalized weakness - Psychiatric Psychiatric: Present: A&O x's 3 - Labs CBC & Chem 7: 05/21/23 06:15 05/21/23 06:15 Labs: Abnormal Lab Results - Last 24 Hours (Table) 05/21/23 Range/Units 06:15 Sodium 134 L (135-145) mmol/L Potassium 3.3 L (3.5-5.5) mmol/L Carbon Dioxide 19.9 L (21.6-31.8) mmol/L BUN 5.4 L (9.0-27.0) mg/dL Creatinine 0.5 L (0.6-1.5) mg/dL BUN/Creatinine Ratio 10.80 L (12.00-20.00) Ratio Calcium 8.0 L (8.7-10.3) mg/dL Magnesium 1.4 L (1.5-2.4) mg/dL Total Bilirubin 9.1 H (0.3-1.2) mg/dL AST 61 H (14-35) U/L Albumin 2.5 L (3.8-4.9) g/dL Globulin 4.2 H (1.6-3.3) g/dL Albumin/Globulin Ratio 0.60 L (1.60-3.17) Ratio - Imaging and Cardiology MRI - abdomen: report reviewed Assessment and Plan (1) Alcoholic cirrhosis Current Visit: Yes Status: Acute Priority: Medium Code(s): K70.30 - ALCOHOLIC CIRRHOSIS OF LIVER WITHOUT ASCITES SNOMED Code(s): 683217974 (2) Crohn's disease Current Visit: Yes Status: Acute Priority: Medium Code(s): K50.90 - CROHN'S DISEASE, UNSPECIFIED, WITHOUT COMPLICATIONS SNOMED Code(s): 29414897 (3) Liver lesion Current Visit: Yes Status: Acute Priority: High Code(s): K76.9 - LIVER DISEASE, UNSPECIFIED SNOMED Code(s): 900743931 (4) Macrocytic anemia Current Visit: Yes Status: Acute Priority: Medium Code(s): D53.9 - NUTRITIONAL ANEMIA, UNSPECIFIED SNOMED Code(s): 02387061 (5) Perirectal abscess Current Visit: Yes Status: Acute Priority: High Code(s): K61.1 - RECTAL ABSCESS SNOMED Code(s): 86708226 Plan: #Liver lesion -Noted on CT of the abdomen/pelvis on 05/08/[address] on 05/14/2023 in the medial portion of the left hepatic lobe measuring 0.5 x 5.2 cm -He does have history notable for alcoholic cirrhosis and appears to be actively drinking prior to admission -Ascitic fluid cytology on 05/11/2023 was negative for malignancy -AFP on 05/15/2023 was 65.5 -The elevation in AFP could be secondary to hepatocellular carcinoma, but could also be secondary to decompensated liver function -In addition, sites of other primary malignancies in the abdomen with metastases to the liver is not excluded -CEA normal at 4.1. CA 19-9 elevated at 265, however, elevation could be reactive to his decompensated liver dysfunction and is non-diagnostic -S/p repeat para, 6.2 L removed, ascitic fluid culture and cytology pending. 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 Also evidence for portal hypertension with splenomegaly and upper abdominal varices. No lymphadenopathy noted. Trace abdominal ascites. -Consult placed to IR for liver biopsy. Unfortunatley, after [facility] IR dept, they do not feel like procedure can be performed due to location of mass and risk for pneumothorax -Will obtain CT chest for staging and to evaluate for any other potential biopsy sites. If chest CT shows no other sites for biopsy, will place referral to [facility] for further management/biopsy of liver mass. Will also speak to GI, and have them set patient up for outpt paracentesis #Macrocytic anemia, thrombocytopenia -Noted to have hemoglobin 10.3 on most recent CBC, decreased from hemoglobin of 13 seen in clinic in January 2022 -Macrocytic anemia is likely secondary to alcohol abuse -Thrombocytopenia is likely secondary to splenic sequestration from portal hypertension due to cirrhosis -Vitamin B12/methylmalonic acid, folic acid, and iron studies ordered for additional workup. No nutritional deficiencies noted #Perirectal abscess -Treated with antibiotics with most recent imaging suggesting potential improvement -Spoke with surgery team, no plan for surgical intervention, continue conservative management at this time -Management per primary and consulting teams #Alcoholic cirrhosis -Defer to primary and consulting teams regarding management #Crohn's disease -Defer to primary and consulting teams regarding management
--- NOTE | 2023-05-22 06:18 | P.PN ---
Subjective Progress Note Date: 05/21/23 This is a patient of Dr. Renee and currently covering This is a 63-year-old male with significant past medical history of alcoholic cirrhosis was hospitalized with complicated Crohn's disease with a perirectal fistula and abscess with multiple consultations following. Infectious disease initially recommended transfer to tertiary treatment although was refused. Patient is undergoing paracentesis today and will likely need albumin. Patient also scheduled to undergo MRI of the liver with oncology following with concerns of neoplasm as noted on the CT. Will await report. Follow-up on repeat labs 05/22/2023 Patient is seen in follow-up today status post paracentesis with approximately 6 L removed and is status post albumin transfusion. Patient maintained on antibiotics with infectious disease following along with oncology. Patient underwent MRI and oncology discussing with interventional radiology regarding a biopsy. Patient is afebrile with no reported chest pain or shortness of breath. Patient reports to tolerating diet and eating with no reported nausea or vomiting. Patient reports to feeling slightly improved since paracentesis. Review of systems: Constitutional: No reports of fatigue, fever, or chills Cardiovascular: No reports of chest pain or palpitations Respiratory: No reports of shortness of breath or cough GI: no reports of nausea, no reports of vomiting, loose stools : No reports of dysuria or retention Neurovascular: reports of generalized weakness All medications have been reviewed PHYSICAL EXAMINATION: GENERAL: The patient is alert and oriented, Well developed, thin built, emaciated. Elderly appearing, thin built, ill appearing HEENT: Pupils are round and equally reacting to light. EOMI. no scleral icterus. No conjunctival pallor. Normocephalic, atraumatic. No pharyngeal erythema. No thyromegaly. CARDIOVASCULAR: S1 and S2 muffled PULMONARY: diminished breath sounds bilaterally with no wheezing or rhonchi noted. ABDOMEN: Softer. A little less distended, normoactive bowel sounds. No palpable organomegaly. MUSCULOSKELETAL: No joint swelling or deformity. EXTREMITIES: No cyanosis, clubbing, or pedal edema. NEUROLOGICAL: Gross neurological examination did not reveal any focal deficits. Diffuse weakness SKIN: No rashes. Assessment: Complicated Crohn's disease with perirectal abscess Liver lesion with concerns of neoplasm, MRI pending Alcoholic cirrhosis with ascites status post paracentesis of approximately 6 L removed on 05/21/2023 History of suppurativa hidradenitis Leukocytosis moderate protein calorie malnutrition with a BMI of 20.8 Generalized weakness with gait dysfunction GI prophylaxis DVT prophylaxis Plan: Recommend to continue with current medications and management with multiple medical consultations following including oncology. Patient is status post paracentesis with approximately 6 L removed on 05/21/2023 Patient maintained on antibiotics with infectious disease following recommended transfer to tertiary treatment for surgical drainage for deep cultures of the abscess although transfer was refused. General surgery following recommending continued antibiotics with no plans of intervention at this time Oncology following ordered MRI of the liver and discussing further with possible biopsy with interventional radiology Per nursing staff this is likely cancer and will discuss further once MRI is resulted Will follow-up on repeat labs. Replace electrolytes per protocol Continue lactulose as scheduled Due to multiple complex medical issues, overall prognosis is poor and guarded The impression and plan of care has been dictated by Marcela Rizo, nurse practitioner as directed. Dr. Misty MD I have performed a history and examination and MDM of this patient, discussed the same with the dictator, and agree with the dictator's assessment and plan as written ,documented as a scribe. Based on total visit time, I have performed more than 50% of the visit. Any additional findings or plans will be noted. Objective - Vital Signs Vital signs: Vital Signs Temp 98.5 F 05/21/23 13:18 Pulse 105 H 05/21/23 13:18 Resp 18 05/21/23 13:18 BP 106/69 05/21/23 13:18 Pulse Ox 96 05/21/23 13:18 FiO2 Intake & Output 05/20/23 05/21/23 05/21/23 18:59 06:59 18:59 Intake Total 423 Output Total 600 Balance -177 Intake: Intake, IV Titration 200 Amount Albumin Human 25% 50 ml 150 In Empty Bag 1 bag @ 200 mls/hr IVPB Q15M [facility] Rx#: [id number] Phytonadione 5 mg In 50 Sodium Chloride 0.9% 50 ml @ 100 mls/hr IVPB ONCE STA Rx#:[id number] Blood Product 223 Ffp 24 Pher Acda Cnt1 223 Unit [id number] Output: Urine 600 Other: # Voids 1 1 # Bowel Movements 1 - Labs CBC & Chem 7: 05/21/23 06:15 03/07/24 06:15 Labs: Abnormal Lab Results - Last 24 Hours (Table) 05/21/23 05/21/23 05/21/23 Range/Units 06:15 06:15 11:09 RBC 2.54 L (4.40-5.60) X 10*6/uL Hgb 9.4 L (13.0-17.0) g/dL Hct 27.7 L (39.6-50.0) % MCV 109.1 H (80.0-97.0) FL MCH 37.0 H (27.0-32.0) pg RDW 16.4 H (11.5-14.5) % Plt Count 82 L (140-440) X 10*3/uL Immature Gran # 0.08 H (0.00-0.04) X 10*3/uL Lymphocytes # 0.83 L (0.90-5.00) X 10*3/uL Monocytes # 1.18 H (0.20-1.00) X 10*3/uL Macrocytosis (manual) 2+ A PT 21.2 H (10.0-12.5) sec INR 2.1 H (<1.2) Sodium 134 L (135-145) mmol/L Potassium 3.3 L (3.5-5.5) mmol/L Carbon Dioxide 19.9 L (21.6-31.8) mmol/L BUN 5.4 L (9.0-27.0) mg/dL Creatinine 0.5 L (0.6-1.5) mg/dL BUN/Creatinine Ratio 10.80 L (12.00-20.00) Ratio Calcium 8.0 L (8.7-10.3) mg/dL Magnesium 1.4 L (1.5-2.4) mg/dL Total Bilirubin 9.1 H (0.3-1.2) mg/dL AST 61 H (14-35) U/L Albumin 2.5 L (3.8-4.9) g/dL Globulin 4.2 H (1.6-3.3) g/dL Albumin/Globulin Ratio 0.60 L (1.60-3.17) Ratio
--- NOTE | 2023-05-22 11:08 | P.PN ---
Subjective Progress Note Date: 05/22/23 In follow-up today, patient is reporting increasing abdominal distention and discomfort. mprovement in abd distention and abd discomfort. S/p para on 05/19 with 6.2L removed. MRI liver revealing right hepatic lobe mass measuring 5.8 x 5.3cm. Objective - Vital Signs Vital signs: Vital Signs Temp 98.2 F 05/22/23 06:53 Pulse 69 05/22/23 07:43 Resp 16 05/22/23 06:53 BP 106/64 05/22/23 07:43 Pulse Ox 94 L 05/22/23 07:41 FiO2 Intake & Output 05/21/23 05/22/23 05/22/23 18:59 06:59 18:59 Intake Total 240 Balance 240 Intake: Oral 240 Other: # Voids 1 # Bowel Movements 1 - Constitutional General appearance: Present: average body habitus, no acute distress - EENT ENT: Present: hearing grossly normal - Respiratory Details: breathing even and unlabored - Cardiovascular Details: skin warm and dry - Gastrointestinal General gastrointestinal: Present: distended, tenderness Localized gastrointestinal: tender: diffuse - Integumentary Integumentary: Present: jaundiced - Musculoskeletal Musculoskeletal: Present: generalized weakness - Psychiatric Psychiatric: Present: A&O x's 3 - Labs CBC & Chem 7: 05/21/23 06:15 05/21/23 06:15 Labs: Abnormal Lab Results - Last 24 Hours (Table) 05/21/23 05/21/23 05/21/23 Range/Units 06:15 06:15 11:09 RBC 2.54 L (4.40-5.60) X 10*6/uL Hgb 9.4 L (13.0-17.0) g/dL Hct 27.7 L (39.6-50.0) % MCV 109.1 H (80.0-97.0) FL MCH 37.0 H (27.0-32.0) pg RDW 16.4 H (11.5-14.5) % Plt Count 82 L (140-440) X 10*3/uL Immature Gran # 0.08 H (0.00-0.04) X 10*3/uL Lymphocytes # 0.83 L (0.90-5.00) X 10*3/uL Monocytes # 1.18 H (0.20-1.00) X 10*3/uL Macrocytosis (manual) 2+ A PT 21.2 H (10.0-12.5) sec INR 2.1 H (<1.2) Sodium 134 L (135-145) mmol/L Potassium 3.3 L (3.5-5.5) mmol/L Carbon Dioxide 19.9 L (21.6-31.8) mmol/L BUN 5.4 L (9.0-27.0) mg/dL Creatinine 0.5 L (0.6-1.5) mg/dL BUN/Creatinine Ratio 10.80 L (12.00-20.00) Ratio Calcium 8.0 L (8.7-10.3) mg/dL Magnesium 1.4 L (1.5-2.4) mg/dL Total Bilirubin 9.1 H (0.3-1.2) mg/dL AST 61 H (14-35) U/L Albumin 2.5 L (3.8-4.9) g/dL Globulin 4.2 H (1.6-3.3) g/dL Albumin/Globulin Ratio 0.60 L (1.60-3.17) Ratio Microbiology - Last 24 Hours (Table) 05/20/23 12:25 Gram Stain - Preliminary Ascites Fluid Body Fluid Culture - Preliminary Assessment and Plan (1) Alcoholic cirrhosis Current Visit: Yes Status: Acute Priority: Medium Code(s): K70.30 - ALCOHOLIC CIRRHOSIS OF LIVER WITHOUT ASCITES SNOMED Code(s): 094799707 (2) Crohn's disease Current Visit: Yes Status: Acute Priority: Medium Code(s): K50.90 - CROHN'S DISEASE, UNSPECIFIED, WITHOUT COMPLICATIONS SNOMED Code(s): 52843938 (3) Liver lesion Current Visit: Yes Status: Acute Priority: High Code(s): K76.9 - LIVER DISEASE, UNSPECIFIED SNOMED Code(s): 357414467 (4) Macrocytic anemia Current Visit: Yes Status: Acute Priority: Medium Code(s): D53.9 - NUTRITIONAL ANEMIA, UNSPECIFIED SNOMED Code(s): 34591618 (5) Perirectal abscess Current Visit: Yes Status: Acute Priority: High Code(s): K61.1 - RECTAL ABSCESS SNOMED Code(s): 65332745 Plan: #Liver lesion -Noted on CT of the abdomen/pelvis on 05/08/2023 [address] on CT on 05/14/2023 in the medial portion of the left hepatic lobe measuring 0.5 x 5.2 cm -He does have history notable for alcoholic cirrhosis and appears to be actively drinking prior to admission -Ascitic fluid cytology on 05/11/2023 was negative for malignancy -AFP on 05/15/2023 was 65.5 -The elevation in AFP could be secondary to hepatocellular carcinoma, but could also be secondary to decompensated liver function -In addition, sites of other primary malignancies in the abdomen with metastases to the liver is not excluded -CEA normal at 4.1. CA 19-9 elevated at 265, however, elevation could be reactive to his decompensated liver dysfunction and is non-diagnostic -S/p repeat para, 6.2 L removed, ascitic fluid culture negative thus far. Cytology pending. 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 Also evidence for portal hypertension with splenomegaly and upper abdominal varices. No lymphadenopathy noted. Trace abdominal ascites. -Consult placed to IR for liver biopsy. Unfortunately, after speaking with IR dept, they do not feel like procedure can be performed due to location of mass and risk for pneumothorax -CT chest obtained, showing patchy changes of the lungs bilaterally, likely chronic due to atelectasis and/or scarring. Minimal groundglass attenuation seen in the left upper lobe. No suspicious pulmonary nodules are identified. Small bilateral pleural effusions. -Will place referral to [facility], Dr. Morrow for further management/biopsy of liver mass. Will also speak to GI, and have them set patient up for outpt paracentesis Above results and plan discussed with patient in detail, he was agreeable POC #Macrocytic anemia, thrombocytopenia -Noted to have hemoglobin 10.3 on most recent CBC, decreased from hemoglobin of 13 seen in clinic in January 2022 -Macrocytic anemia is likely secondary to alcohol abuse -Thrombocytopenia is likely secondary to splenic sequestration from portal hype rtension due to cirrhosis -Vitamin B12/methylmalonic acid, folic acid, and iron studies ordered for additional workup. No nutritional deficiencies noted #Perirectal abscess -Treated with antibiotics with most recent imaging suggesting potential improvement -Surgery following, no plan for surgical intervention, continue conservative management at this time -Management per primary and consulting teams #Alcoholic cirrhosis -Defer to primary and consulting teams regarding management #Crohn's disease -Defer to primary and consulting teams regarding management
[2023-05-22 11:37] LABS: Magnesium 1.8 mg/dL (1.5-2.4)
[2023-05-22 11:38] LABS: ALT 28 U/L (10-49); AST 63 U/L (14-35); Albumin 2.4 g/dL (3.8-4.9); Albumin/Globulin Ratio 0.53 Ratio (1.60-3.17); Alkaline Phosphatase 76 U/L (41-126); Blood Urea Nitrogen 5.6 mg/dL (9.0-27.0); Calcium 7.6 mg/dL (8.7-10.3); Carbon Dioxide 19.2 mmol/L (21.6-31.8); Chloride 103 mmol/L (96-109); Globulin 4.5 g/dL (1.6-3.3); Glucose 83 mg/dL (70-110); Potassium 4.2 mmol/L (3.5-5.5); Sodium 131 mmol/L (135-145); Total Bilirubin 8.6 mg/dL (0.3-1.2); Total Protein 6.9 g/dL (6.2-8.2)
[2023-05-22 13:25] LABS: Basophils # (A) 0.04 X 10*3/uL (0.00-0.10); Basophils % (A) 0.4 %; Eosinophils # (A) 0.12 X 10*3/uL (0.04-0.35); Eosinophils % (A) 1.3 %; HCT 29.1 % (39.6-50.0); HGB 9.6 g/dL (13.0-17.0); Lymphocytes # (A) 0.71 X 10*3/uL (0.90-5.00); Lymphocytes % (A) 7.8 %; MCH 36.6 pg (27.0-32.0); MCV 111.1 FL (80.0-97.0); Macrocytosis (M) 2+; Mean Platelet Volume 10.7 FL (9.5-12.2); Monocytes # (A) 1.14 X 10*3/uL (0.20-1.00); Monocytes % (A) 12.5 %; NRBC Per 100 WBC 0 X 10*3/uL (0.00-0.01); Neutrophils # (A) 7.06 X 10*3/uL (1.80-7.70); Neutrophils % (A) 77.1 %; Platelet Count 82 X 10*3/uL (140-440); RBC 2.62 X 10*6/uL (4.40-5.60); RDW 16.1 % (11.5-14.5); WBC 9.15 X 10*3/uL (4.50-10.00)
--- NOTE | 2023-05-22 14:46 | P.PN ---
Subjective Progress Note Date: 05/22/23 This is a patient of Dr. Renee and currently covering This is a 63-year-old male with significant past medical history of alcoholic cirrhosis was hospitalized with complicated Crohn's disease with a perirectal fistula and abscess with multiple consultations following. Infectious disease initially recommended transfer to tertiary treatment although was refused. Patient is undergoing paracentesis today and will likely need albumin. Patient also scheduled to undergo MRI of the liver with oncology following with concerns of neoplasm as noted on the CT. Will await report. Follow-up on repeat labs 05/22/2023 Patient is seen in follow-up today status post paracentesis with approximately 6 L removed and is status post albumin transfusion. Patient maintained on antibiotics with infectious disease following along with oncology. Patient underwent MRI and oncology discussing with interventional radiology regarding a biopsy. Patient is afebrile with no reported chest pain or shortness of breath. Patient reports to tolerating diet and eating with no reported nausea or vomiting. Patient reports to feeling slightly improved since paracentesis. Nursing staff reporting some increased purulent drainage in the groin area and noted on the brief. Patient is afebrile and white count has normalized and will continue on antibiotics. Oncology following consulted to interventional radiolo gy for possible biopsy although they feel is too high risk recommending tertiary treatment outpatient for biopsy. Patient abdomen appears distended and patient feels tight like he is filling up again. Patient is continued on Lasix and Aldactone and will continue. Recommend follow-up labs. Continue lactulose to have at least 3-4 bowel movements daily Review of systems: Constitutional: No reports of fatigue, fever, or chills Cardiovascular: No reports of chest pain or palpitations Respiratory: No reports of shortness of breath or cough GI: no reports of nausea, no reports of vomiting, reports continued loose stools : No reports of dysuria or retention, reports scrotal and penile swelling with drainage Neurovascular: reports of generalized weakness All medications have been reviewed PHYSICAL EXAMINATION: GENERAL: The patient is alert and oriented, Well developed, thin built, emaciated. Elderly appearing, thin built, ill appearing, jaundice HEENT: Pupils are round and equally reacting to light. EOMI. no scleral icterus. No conjunctival pallor. Normocephalic, atraumatic. No pharyngeal erythema. No thyromegaly. CARDIOVASCULAR: S1 and S2 muffled PULMONARY: diminished breath sounds bilaterally with no wheezing or rhonchi noted. ABDOMEN: Softer. A little less distended, normoactive bowel sounds. No palpable organomegaly. MUSCULOSKELETAL: No joint swelling or deformity. EXTREMITIES: No cyanosis, clubbing, or pedal edema. NEUROLOGICAL: Gross neurological examination did not reveal any focal deficits. Diffuse weakness SKIN: No rashes. Assessment: Complicated Crohn's disease with perirectal abscess Liver lesion with concerns of neoplasm, MRI corresponds with likely carcinoma Alcoholic cirrhosis with ascites status post paracentesis of approximately 6 L removed on 05/21/2023 History of suppurativa hidradenitis Leukocytosis, improved moderate protein calorie malnutrition with a BMI of 20.8 Generalized weakness with gait dysfunction GI prophylaxis DVT prophylaxis Plan: Recommend to continue with current medications and management with multiple [facility] consultations following including oncology. Patient is status post paracentesis with approximately 6 L removed on 05/21/2023 Patient maintained on antibiotics with infectious disease following recommended transfer to tertiary treatment for surgical drainage for deep cultures of the abscess although transfer was refused. General surgery following recommending continued antibiotics with no plans of intervention at this time Oncology following ordered MRI of the liver and likely cancer, interventional radiology was consulted for biopsy although they are refusing as the location is too high risk. Oncology will plan for biopsy at a tertiary treatment center outpatient as well as arranging for palliative paracentesis with outpatient follow-up with GI Dr. Lomas Patient was noted to have purulence around the scrotum and penis with significant swelling noted and there is also appears to be a pinpoint hole on the left side of the penis that is draining purulent drainage. Will obtain a sample and send for cultures. To discuss further with infectious disease as well regarding wound care of that area. Discussed with nursing staff about cleansing the area and obtaining a sample today. Will follow-up on repeat labs. Replace electrolytes per protocol Patient reports to feeling somewhat distended already again and is status post paracentesis on 05/19. Abdomen was distended although soft. Will obtain abdominal ultrasound and consult to IR if needed. No IR available over the weekend. Discontinued IV fluids as patient is maintained on Lasix and Aldactone. GI services are back on Thursday and will reconsult for further evaluation Continue lactulose as scheduled Due to multiple complex medical issues, overall prognosis is poor and guarded The impression and plan of care has been dictated by Marcela Rizo, nurse practitioner as directed. Dr. Misty MD I have performed a history and examination and MDM of this patient, discussed the same with the dictator, and agree with the dictator's assessment and plan as written ,documented as a scribe. Based on total visit time, I have performed more than 50% of the visit. Any additional findings or plans will be noted. Objective - Vital Signs Vital signs: Vital Signs Temp 98.2 F 05/22/23 06:53 Pulse 69 05/22/23 07:43 Resp 16 05/22/23 06:53 BP 106/64 05/22/23 07:43 Pulse Ox 94 L 05/22/23 07:41 FiO2 Intake & Output 05/21/23 05/22/23 05/22/23 18:59 06:59 18:59 Other: # Voids 1 # Bowel Movements 1 - Labs CBC & Chem 7: 05/22/23 06:50 05/22/23 06:50 Labs: Abnormal Lab Results - Last 24 Hours (Table) 05/21/23 05/21/23 05/21/23 Range/Units 06:15 06:15 11:09 RBC 2.54 L (4.40-5.60) X 10*6/uL Hgb 9.4 L (13.0-17.0) g/dL Hct 27.7 L (39.6-50.0) % MCV 109.1 H (80.0-97.0) FL MCH 37.0 H (27.0-32.0) pg RDW 16.4 H (11.5-14.5) % Plt Count 82 L (140-440) X 10*3/uL Immature Gran # 0.08 H (0.00-0.04) X 10*3/uL Lymphocytes # 0.83 L (0.90-5.00) X 10*3/uL Monocytes # 1.18 H (0.20-1.00) X 10*3/uL Macrocytosis (manual) 2+ A PT 21.2 H (10.0-12.5) sec INR 2.1 H (<1.2) Sodium 134 L (135-145) mmol/L Potassium 3.3 L (3.5-5.5) mmol/L Carbon Dioxide 19.9 L (21.6-31.8) mmol/L BUN 5.4 L (9.0-27.0) mg/dL Creatinine 0.5 L (0.6-1.5) mg/dL BUN/Creatinine Ratio 10.80 L (12.00-20.00) Ratio Calcium 8.0 L (8.7-10.3) mg/dL Magnesium 1.4 L (1.5-2.4) mg/dL Total Bilirubin 9.1 H (0.3-1.2) mg/dL AST 61 H (14-35) U/L Albumin 2.5 L (3.8-4.9) g/dL Globulin 4.2 H (1.6-3.3) g/dL Albumin/Globulin Ratio 0.60 L (1.60-3.17) Ratio Microbiology - Last 24 Hours (Table) 05/20/23 12:25 Gram Stain - Preliminary Ascites Fluid Body Fluid Culture - Preliminary
[2023-05-22] MEDS: AMOXIC-POT CLAV 875-125MG 1 EACH TAB PO SCH (18:10)
--- NOTE | 2023-05-22 22:09 | P.PN ---
Subjective Progress Note Date: 05/22/23 Principal diagnosis: Reason for follow-up is perirectal abscess Patient is a 63-year-old male with a past medical history significant for COPD did have a history of Crohn's disease and hidradenitis suppurativa with multiple draining sinuses to the bilateral gluteal area also with a history of alcoholic cirrhosis patient presenting to the hospital for evaluation of mu ltiple draining sinuses near the rectal area that has been bleeding, patient did have a CT of abdominal pelvis suggestive of soft tissue mass with gas bubbles in the perineum suspicious for developing perineal abscess, general surgery was consulted recommending transfer to tertiary care and asked for infectious disease evaluation. On today's visit that is 05/22/2023, Patient is afebrile patient is currently on 2 L nasal cannula oxygen and denies having any shortness of breath, the patient denies any chest pain or cough, the patient denies any nausea vomiting however has been complaining of being feeling up with water again mentioning to the ascites and some discomfort associated with it pain to the bilateral gluteal area has decreased in intensity Patient white count is 9.15 creatinine 0.5 Objective - Vital Signs Vital signs: Vital Signs Temp 98.1 F 05/22/23 13:13 Pulse 66 05/22/23 13:13 Resp 17 05/22/23 13:13 BP 108/49 05/22/23 13:13 Pulse Ox 94 L 05/22/23 13:13 FiO2 Intake & Output 05/21/23 05/22/23 05/22/23 18:59 06:59 18:59 Intake Total 358 Balance 358 Weight 65.771 kg Intake: Oral 358 Other: # Voids 1 # Bowel Movements 1 - Exam GENERAL DESCRIPTION: Middle-age male lying in bed in no distress RESPIRATORY SYSTEM: Unlabored breathing , decreased breath sounds at bases HEART: S1 S2 regular rate and rhythm , ABDOMEN: Soft , no tenderness EXTREMITIES: No edema feet - Labs CBC & Chem 7: 05/22/23 06:50 05/22/23 06:50 Labs: Abnormal Lab Results - Last 24 Hours (Table) 05/22/23 05/22/23 Range/Units 06:50 06:50 RBC 2.62 L (4.40-5.60) X 10*6/uL Hgb 9.6 L (13.0-17.0) g/dL Hct 29.1 L (39.6-50.0) % MCV 111.1 H (80.0-97.0) FL MCH 36.6 H (27.0-32.0) pg RDW 16.1 H (11.5-14.5) % Plt Count 82 L (140-440) X 10*3/uL Immature Gran # 0.08 H (0.00-0.04) X 10*3/uL Lymphocytes # 0.71 L (0.90-5.00) X 10*3/uL Monocytes # 1.14 H (0.20-1.00) X 10*3/uL Macrocytosis (manual) 2+ A Sodium 131 L (135-145) mmol/L Carbon Dioxide 19.2 L (21.6-31.8) mmol/L BUN 5.6 L (9.0-27.0) mg/dL Creatinine 0.5 L (0.6-1.5) mg/dL BUN/Creatinine Ratio 11.20 L (12.00-20.00) Ratio Calcium 7.6 L (8.7-10.3) mg/dL Total Bilirubin 8.6 H (0.3-1.2) mg/dL AST 63 H (14-35) U/L Albumin 2.4 L (3.8-4.9) g/dL Globulin 4.5 H (1.6-3.3) g/dL Albumin/Globulin Ratio 0.53 L (1.60-3.17) Ratio Microbiology - Last 24 Hours (Table) 05/20/23 12:25 Gram Stain - Preliminary Ascites Fluid Body Fluid Culture - Preliminary Assessment and Plan (1) Perirectal abscess Current Visit: Yes Status: Acute Priority: High Code(s): K61.1 - RECTAL ABSCESS SNOMED Code(s): 54806526 Plan: 1patient with a complicated history of Crohn's disease this patient with concern for 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 perirectal area versus hidradenitis suppurative presenting to the hospital with multiple draining sinuses along the perirectal area with associated increasing pain patient did have abnormal CT suggestive of abscess we will need to cover for the enteric gram-negative both aerobes and anaerobes 2-patient would benefit from surgical drainage and culture that would guide further antibiotic therapy surgical team is requesting the patient to be transferred to the tertiary care, [facility] has refused the transfer 3-patient is afebrile, white count has normalized, patient did have repeat CT of the pelvis which was overall decrease in the abscess 4-patient is status post repeat paracentesis completed on 05/20/2023 with white count is only 5 not behaving as SBP 5-patient has received more than 2 weeks of IV Unasyn we will switch him over to oral Augmentin and monitor clinical course closely Dictation was produced using [employer] dictation software. please excuse any grammatical, word or spelling errors. Time with Patient: Less than 30
[2023-05-23 07:57] LABS: African American GFR (CKD) >90 (>60 ml/min/1.73 sqM); Anion Gap 6 mmol/L; Blood Urea Nitrogen 9 mg/dL (9-20); Calcium 7.6 mg/dL (8.4-10.2); Carbon Dioxide 20 mmol/L (22-30); Chloride 106 mmol/L (98-107); Glucose 80 mg/dL (74-99); Magnesium 1.5 mg/dL (1.6-2.3); Non-African American GFR(CKD) >90 (>60 ml/min/1.73 sqM); Potassium 4.2 mmol/L (3.5-5.1); Sodium 132 mmol/L (137-145)
[2023-05-23 08:11] LABS: Basophils % (A) 0 %; Eosinophils # (A) 0.1 k/uL (0-0.7); Eosinophils % (A) 1 %; HCT 30.4 % (39.0-53.0); HGB 10.2 gm/dL (13.0-17.5); Lymphocytes # (A) 0.4 k/uL (1.0-4.8); Lymphocytes % (A) 4 %; MCH 37.5 pg (25.0-35.0); MCHC 33.6 g/dL (31.0-37.0); MCV 111.4 fL (80.0-100.0); Macrocytosis Marked; Mean Platelet Volume 8.8; Monocytes # (A) 1.3 k/uL (0-1.0); Monocytes % (A) 12 %; Neutrophils # (A) 8.4 k/uL (1.3-7.7); Neutrophils % (A) 80 %; Platelet Count 91 k/uL (150-450); RBC 2.73 m/uL (4.30-5.90); RDW 14.6 % (11.5-15.5); WBC 10.6 k/uL (3.8-10.6)
[2023-05-23 09:15] LABS: Rouleaux Present
[2023-05-23] MEDS: MAGNESIUM SULFATE-D5W PMX 1 GM in DEXTROSE/WATER 1 100ML.BAG IVPB SCH (09:40)
--- NOTE | 2023-05-23 14:24 | P.PN ---
Subjective Progress Note Date: 05/23/23 Principal diagnosis: Reason for follow-up is perirectal abscess Patient is a 63-year-old male with a past medical history significant for COPD did have a history of Crohn's disease and hidradenitis suppurativa with multiple draining sinuses to the bilateral gluteal area also with a history of alcoholic cirrhosis patient presenting to the hospital for evaluation of mu ltiple draining sinuses near the rectal area that has been bleeding, patient did have a CT of abdominal pelvis suggestive of soft tissue mass with gas bubbles in the perineum suspicious for developing perineal abscess, general surgery was consulted recommending transfer to tertiary care and asked for infectious disease evaluation. On today's visit that is 05/23/2023, patient has been afebrile, patient is breathing comfortably and is currently on 2 L nasal cannula oxygen, patient denies having any significant cough no chest pain shortness of breath, patient denies nausea vomiting abdominal discomfort has decreased overall drainage from perirectal area has decreased. Patient white count is 10.6, creatinine 0.39 Objective - Vital Signs Vital signs: Vital Signs Temp 98.9 F 05/23/23 07:03 Pulse 76 05/23/23 07:03 Resp 17 05/23/23 07:03 BP 104/55 05/23/23 07:03 Pulse Ox 94 L 05/23/23 07:03 FiO2 Intake & Output 05/22/23 05/23/23 05/23/23 18:59 06:59 18:59 Intake Total 358 Output Total 125 Balance 233 Weight 65.771 kg Intake: Oral 358 Output: Urine 125 Other: Voiding Method Toilet Urinal - Exam GENERAL DESCRIPTION: Middle-age male lying in bed in no distress RESPIRATORY SYSTEM: Unlabored breathing , decreased breath sounds at bases HEART: S1 S2 regular rate and rhythm , ABDOMEN: Soft , no tenderness EXTREMITIES: No edema feet - Labs CBC & Chem 7: 05/23/23 06:58 05/23/23 06:58 Labs: Abnormal Lab Results - Last 24 Hours (Table) 05/23/23 05/23/23 Range/Units 06:58 06:58 RBC 2.73 L (4.30-5.90) m/uL Hgb 10.2 L (13.0-17.5) gm/dL Hct 30.4 L (39.0-53.0) % MCV 111.4 H (80.0-100.0) fL MCH 37.5 H (25.0-35.0) pg Plt Count 91 L (150-450) k/uL Neutrophils # 8.4 H (1.3-7.7) k/uL Lymphocytes # 0.4 L (1.0-4.8) k/uL Monocytes # 1.3 H (0-1.0) k/uL Macrocytosis Marked A Sodium 132 L (137-145) mmol/L Carbon Dioxide 20 L (22-30) mmol/L Creatinine 0.39 L (0.66-1.25) mg/dL Calcium 7.6 L (8.4-10.2) mg/dL Magnesium 1.5 L (1.6-2.3) mg/dL Microbiology - Last 24 Hours (Table) 05/20/23 12:25 Anaerobic Culture - Preliminary Ascites Fluid 05/20/23 12:25 Gram Stain - Preliminary Ascites Fluid Body Fluid Culture - Preliminary Assessment and Plan (1) Perirectal abscess Current Visit: Yes Status: Acute Priority: High Code(s): K61.1 - RECTAL ABSCESS SNOMED Code(s): 90551759 Plan: 1patient with a complicated history of Crohn's disease this patient with concern for 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 perirectal area versus hidradenitis suppurative presenting to the hospital with multiple drai lisa sinuses along the perirectal area with associated increasing pain patient did have abnormal CT suggestive of abscess we will need to cover for the enteric gram-negative both aerobes and anaerobes 2-patient would benefit from surgical drainage and culture that would guide further antibiotic therapy surgical team is requesting the patient to be transferred to the tertiary care, [facility] has refused the transfer 3-patient is afebrile, white count has normalized, patient did have repeat CT of the pelvis which was overall decrease in the abscess 4-patient is status post repeat paracentesis completed on 05/20/2023 with white count is only 5 not behaving as SBP 5-patient to continue with oral Augmentin possible transfer to tertiary care as per the medical team 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 please excuse any grammatical, word or spelling errors. Time with Patient: Less than 30
--- NOTE | 2023-05-23 15:44 | P.PN ---
Subjective Progress Note Date: 05/23/23 This is a patient of Dr. Renee and currently covering This is a 63-year-old male with significant past medical history of alcoholic cirrhosis was hospitalized with complicated Crohn's disease with a perirectal fistula and abscess with multiple consultations following. Infectious disease initially recommended transfer to tertiary treatment although was refused. Patient is undergoing paracentesis today and will likely need albumin. Patient also scheduled to undergo MRI of the liver with oncology following with concerns of neoplasm as noted on the CT. Will await report. Follow-up on repeat labs 05/22/2023 Patient is seen in follow-up today status post paracentesis with approximately 6 L removed and is status post albumin transfusion. Patient maintained on antibiotics with infectious disease following along with oncology. Patient underwent MRI and oncology discussing with interventional radiology regarding a biopsy. Patient is afebrile with no reported chest pain or shortness of breath. Patient reports to tolerating diet and eating with no reported nausea or vomiting. Patient reports to feeling slightly improved since paracentesis. Nursing staff reporting some increased purulent drainage in the groin area and noted on the brief. Patient is afebrile and white count has normalized and will continue on antibiotics. Oncology following consulted to interventional radiology for possible biopsy although they feel is too high risk recommending tertiary treatment outpatient for biopsy. Patient abdomen appears distended and patient feels tight like he is filling up again. Patient is continued on Lasix and Aldactone and will continue. Recommend follow-up labs. Continue lactulose to have at least 3-4 bowel movements daily 05/23/2023 Patient is seen in follow-up today with significant abdominal distention he is status post paracentesis on the and will recommend to undergo paracentesis again on Thursday when IR is able to perform the procedure. Additionally patient will be reevaluated by GI services on Thursday when they are available. Patient is high risk for liver biopsy per interventional radiology due to the risk for pneumothorax. Oncology will set the patient up for outpatient tertiary care treatment and liver biopsy. ID is following regarding multiple draining sinuses near the gluteal and rectal region. There is a decreased amount of drainage and patient remains on oral Augmentin. Patient was noted to have purulent/bloody drainage coming from the penis/groin area and this was cultured and currently pending. ID recommending surgical drainage for deep tissue cultures of the gluteal/rectal sinuses. No plans by surgery to do this today recommended transfer to tertiary care center however request for transfer was denied by the facility. Cultures remain negative so far. Hemodynamically patient is stable. Review of systems: Constitutional: No reports of fatigue, fever, or chills Cardiovascular: No reports of chest pain or palpitations Respiratory: No reports of shortness of breath or cough GI: no reports of nausea, no reports of vomiting, reports continued loose stools : No reports of dysuria or retention, reports scrotal and penile swelling with drainage Neurovascular: reports of generalized weakness All medications have been reviewed PHYSICAL EXAMINATION: GENERAL: The patient is alert and oriented, Well developed, thin built, emaciated. Elderly appearing, thin built, ill appearing, jaundice HEENT: Pupils are round and equally reacting to light. EOMI. no scleral icterus. No conjunctival pallor. Normocephalic, atraumatic. No pharyngeal erythema. No thyromegaly. CARDIOVASCULAR: S1 and S2 muffled PULMONARY: diminished breath sounds bilaterally with no wheezing or rhonchi noted. ABDOMEN: Softer. A little less distended, normoactive bowel sounds. No palpable organomegaly. MUSCULOSKELETAL: No joint swelling or deformity. EXTREMITIES: No cyanosis, clubbing, or pedal edema. NEUROLOGICAL: Gross neurological examination did not reveal any focal deficits. Diffuse weakness SKIN: No rashes. Assessment: Complicated Crohn's disease with perirectal abscess Liver lesion with concerns of neoplasm, MRI corresponds with likely carcinoma Alcoholic cirrhosis with ascites status post paracentesis of approximately 6 L removed on 05/21/2023 History of suppurativa hidradenitis with multiple draining sinuses in the bilateral gluteal and perirectal area Leukocytosis, improved moderate protein calorie malnutrition with a BMI of 20.8 Generalized weakness with gait dysfunction GI prophylaxis DVT prophylaxis Plan: Recommend to continue with current medications and management with multiple medical consultations following including oncology. Patient is status post paracentesis with approximately 6 L removed on 05/21/2023 Patient maintained on antibiotics with infectious disease following recommended transfer to tertiary treatment for surgical drainage for deep cultures of the abscess although transfer was refused. General surgery following recommending continued antibiotics with no plans of intervention at this time Oncology following ordered MRI of the liver and likely cancer, interventional radiology was consulted for biopsy although they are refusing as the location is too high risk. Oncology will plan for biopsy at a tertiary treatment center outpatient as well as arranging for palliative paracentesis with outpatient follow-up with GI Dr. Lomas Patient was noted to have purulence around the scrotum and penis with significant swelling noted and there is also appears to be a pinpoint hole on the left side of the penis that is draining purulent drainage. Will obtain a sample and send for cultures. To discuss further with infectious disease as well regarding wound care of that area. Culture has been sent and patient continues on oral antibiotics for now. Will follow-up on repeat labs. Replace electrolytes per protocol Patient reports to feeling somewhat distended already again and is status post paracentesis on 05/19. Abdomen was distended although soft. Will obtain abdomin al ultrasound and consult to IR if needed. No IR available over the weekend. Discontinued IV fluids as patient is maintained on Lasix and Aldactone. GI services are back on Thursday and will reconsult for further evaluation Continue lactulose as scheduled Due to multiple complex medical issues, overall prognosis is poor and guarded The impression and plan of care has been dictated by Shirin Tom, Nurse Practitioner as directed. Dr. Misty MD I have performed a history and physical examination and medical decision making of this patient, discussed the same with the dictator, and agree with the dictators assessment and plan as written, documented as a scribe. Based on total visit time, I have performed more than 50% of this visit. Objective - Vital Signs Vital signs: Vital Signs Temp 98.4 F 05/23/23 13:39 Pulse 84 05/23/23 13:39 Resp 17 05/23/23 13:39 BP 106/64 05/23/23 13:39 Pulse Ox 97 05/23/23 13:39 FiO2 Intake & Output 05/22/23 05/23/23 05/23/23 18:59 06:59 18:59 Intake Total 358 Output Total 125 Balance 233 Weight 65.771 kg Intake: Oral 358 Output: Urine 125 Other: Voiding Method Toilet Urinal - Labs CBC & Chem 7: 05/23/23 06:58 05/23/23 06:58 Labs: Abnormal Lab Results - Last 24 Hours (Table) 05/23/23 05/23/23 Range/Units 06:58 06:58 RBC 2.73 L (4.30-5.90) m/uL Hgb 10.2 L (13.0-17.5) gm/dL Hct 30.4 L (39.0-53.0) % MCV 111.4 H (80.0-100.0) fL MCH 37.5 H (25.0-35.0) pg Plt Count 91 L (150-450) k/uL Neutrophils # 8.4 H (1.3-7.7) k/uL Lymphocytes # 0.4 L (1.0-4.8) k/uL Monocytes # 1.3 H (0-1.0) k/uL Macrocytosis Marked A Sodium 132 L (137-145) mmol/L Carbon Dioxide 20 L (22-30) mmol/L Creatinine 0.39 L (0.66-1.25) mg/dL Calcium 7.6 L (8.4-10.2) mg/dL Magnesium 1.5 L (1.6-2.3) mg/dL Microbiology - Last 24 Hours (Table) 05/20/23 12:25 Anaerobic Culture - Preliminary Ascites Fluid 05/20/23 12:25 Gram Stain - Preliminary Ascites Fluid Body Fluid Culture - Preliminary Assessment and Plan Time with Patient: Less than 30
--- NOTE | 2023-05-24 14:59 | P.PN ---
Subjective Progress Note Date: 05/24/23 Principal diagnosis: Reason for follow-up is perirectal abscess Patient is a 63-year-old male with a past medical history significant for COPD did have a history of Crohn's disease and hidradenitis suppurativa with multiple draining sinuses to the bilateral gluteal area also with a history of alcoholic cirrhosis patient presenting to the hospital for evaluation of mu ltiple draining sinuses near the rectal area that has been bleeding, patient did have a CT of abdominal pelvis suggestive of soft tissue mass with gas bubbles in the perineum suspicious for developing perineal abscess, general surgery was consulted recommending transfer to tertiary care and asked for infectious disease evaluation. On today's visit that is 05/24/2023,the patient denies any fever or any chills, patient is breathing comfortably on room air, the patient denies chest pain shortness of breath and no significant cough, patient has been complaining about abdominal distention mention feeling of the belly but no nausea no vomiting no diarrhea or any worsening drainage from the bilateral gluteal wound area. No lab draw today Objective - Vital Signs Vital signs: Vital Signs Temp 98.6 F 05/24/23 13:29 Pulse 81 05/24/23 13:29 Resp 18 05/24/23 13:29 BP 91/48 05/24/23 13:29 Pulse Ox 92 L 05/24/23 13:29 FiO2 Intake & Output 05/23/23 05/24/23 05/24/23 17:59 06:59 18:59 Intake Total 350 Output Total 127 Balance 223 Intake: Oral 350 Output: Urine 125 Stool 2 Other: Voiding Method Toilet Urinal # Voids 2 # Bowel Movements 2 - Exam GENERAL DESCRIPTION: Middle-age male lying in bed in no distress RESPIRATORY SYSTEM: Unlabored breathing , decreased breath sounds at bases HEART: S1 S2 regular rate and rhythm , ABDOMEN: Soft , no tenderness EXTREMITIES: No edema feet - Labs CBC & Chem 7: 05/23/23 06:58 05/23/23 06:58 Labs: Microbiology - Last 24 Hours (Table) 05/20/23 12:25 Gram Stain - Preliminary Ascites Fluid Body Fluid Culture - Preliminary 05/22/23 16:40 Gram Stain - Preliminary Abdomen 05/20/23 12:25 Anaerobic Culture - Preliminary Ascites Fluid Assessment and Plan (1) Perirectal abscess Current Visit: Yes Status: Acute Priority: High Code(s): K61.1 - RECTAL ABSCESS SNOMED Code(s): 12218634 Plan: 1patient with a complicated history of Crohn's disease this patient with concer n for 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 perirectal area versus hidradenitis suppurative presenting to the hospital with multiple draining sinuses along the perirectal area with associated increasing pain patient did have abnormal CT suggestive of abscess we will need to cover for the enteric gram-negative both aerobes and anaerobes 2-patient would benefit from surgical drainage and culture that would guide further antibiotic therapy surgical team is requesting the patient to be michaels sferred to the tertiary care, [facility] has refused the transfer 3-patient is afebrile, white count has normalized, patient did have repeat CT of the pelvis which was overall decrease in the abscess 4-patient is status post repeat paracentesis completed on 05/20/2023 with white count is only 5 not behaving as SBP 5-patient is currently covered with oral Augmentin to continue possible repeat paracentesis tomorrow questions answered Dictation was produced using [employer] dictation software. please excuse any grammatical, word or spelling errors. Time with Patient: Less than 30
[2023-05-24] MEDS: IBUPROFEN 400 MG TAB PO PRN (17:06)
--- NOTE | 2023-05-24 22:14 | P.PN ---
Subjective Progress Note Date: 05/24/23 This is a patient of Dr. Renee and currently covering This is a 63-year-old male with significant past medical history of alcoholic cirrhosis was hospitalized with complicated Crohn's disease with a perirectal fistula and abscess with multiple consultations following. Infectious disease initially recommended transfer to tertiary treatment although was refused. Patient is undergoing paracentesis today and will likely need albumin. Patient also scheduled to undergo MRI of the liver with oncology following with concerns of neoplasm as noted on the CT. Will await report. Follow-up on repeat labs 05/22/2023 Patient is seen in follow-up today status post paracentesis with approximately 6 L removed and is status post albumin transfusion. Patient maintained on antibiotics with infectious disease following along with oncology. Patient underwent MRI and oncology discussing with interventional radiology regarding a biopsy. Patient is afebrile with no reported chest pain or shortness of breath. Patient reports to tolerating diet and eating with no reported nausea or vomiting. Patient reports to feeling slightly improved since paracentesis. Nursing staff reporting some increased purulent drainage in the groin area and noted on the brief. Patient is afebrile and white count has normalized and will continue on antibiotics. Oncology following consulted to interventional radiology for possible biopsy although they feel is too high risk recommending tertiary treatment outpatient for biopsy. Patient abdomen appears distended and patient feels tight like he is filling up again. Patient is continued on Lasix and Aldactone and will continue. Recommend follow-up labs. Continue lactulose to have at least 3-4 bowel movements daily 05/23/2023 Patient is seen in follow-up today with significant abdominal distention he is status post paracentesis on the and will recommend to undergo paracentesis again on Thursday when IR is able to perform the procedure. Additionally patient will be reevaluated by GI services on Thursday when they are available. Patient is high risk for liver biopsy per interventional radiology due to the risk for pneumothorax. Oncology will set the patient up for outpatient tertiary care treatment and liver biopsy. ID is following regarding multiple draining sinuses near the gluteal and rectal region. There is a decreased amount of drainage and patient remains on oral Augmentin. Patient was noted to have purulent/bloody drainage coming from the penis/groin area and this was cultured and currently pending. ID recommending surgical drainage for deep tissue cultures of the gluteal/rectal sinuses. No plans by surgery to do this today recommended transfer to tertiary care center however request for transfer was denied by the facility. Cultures remain negative so far. Hemodynamically patient is stable. 05/24/2023 Patient is evaluated today in follow up. Reports feeling abdominal fullness, IR is consulted for possible paracentesis tomorrow. Patient will also be evaluated by GI services tomorrow. Remains on oral augmentin at this time. Cultures pending from the groin/abdominal drainage. Review of systems: Constitutional: No reports of fatigue, fever, or chills Cardiovascular: No reports of chest pain or palpitations Respiratory: No reports of shortness of breath or cough GI: no reports of nausea, no reports of vomiting, reports continued loose stools : No reports of dysuria or retention, reports scrotal and penile swelling with drainage Neurovascular: reports of generalized weakness All medications have been reviewed PHYSICAL EXAMINATION: GENERAL: The patient is alert and oriented, Well developed, thin built, emaciated. Elderly appearing, thin built, ill appearing, jaundice HEENT: Pupils are round and equally reacting to light. EOMI. no scleral icterus. No conjunctival pallor. Normocephalic, atraumatic. No pharyngeal erythema. No thyromegaly. CARDIOVASCULAR: S1 and S2 muffled PULMONARY: diminished breath sounds bilaterally with no wheezing or rhonchi noted. ABDOMEN: Softer. A little less distended, normoactive bowel sounds. No palpable organomegaly. MUSCULOSKELETAL: No joint swelling or deformity. EXTREMITIES: No cyanosis, clubbing, or pedal edema. NEUROLOGICAL: Gross neurological examination did not reveal any focal deficits. Diffuse weakness SKIN: No rashes. Assessment: Complicated Crohn's disease with perirectal abscess Liver lesion with concerns of neoplasm, MRI corresponds with likely carcinoma Alcoholic cirrhosis with ascites status post paracentesis of approximately 6 L removed on 05/21/2023 History of suppurativa hidradenitis with multiple draining sinuses in the bi lateral gluteal and perirectal area Leukocytosis, improved moderate protein calorie malnutrition with a BMI of 20.8 Generalized weakness with gait dysfunction GI prophylaxis DVT prophylaxis Plan: -Recommend to continue with current medications and management with multiple medical consultations following including oncology. Patient is status post paracentesis with approximately 6 L removed on 05/21/2023 -Patient maintained on antibiotics with infectious disease following recommended transfer to tertiary treatment for surgical drainage for deep cultures of the abscess although transfer was refused. General surgery following recommending continued antibiotics with no plans of intervention at this time -Oncology following ordered MRI of the liver and likely cancer, interventional radiology was consulted for biopsy although they are refusing as the location is too high risk. Oncology will plan for biopsy at a tertiary treatment center outpatient as well as arranging for palliative paracentesis with outpatient follow-up with GI Dr. Lomas -Patient was noted to have purulence around the scrotum and penis with significant swelling noted and there is also appears to be a pinpoint hole on the left side of the penis that is draining purulent drainage. Cultures are currently pending for now patient is continued on oral augmentin. -Will follow-up on repeat labs. Replace electrolytes per protocol -Patient reports to feeling somewhat distended already again and is status post paracentesis on 05/19. Abdomen was distended although soft. Will obtain abdominal ultrasound and consult to IR if needed. No IR available over the weekend. Discontinued IV fluids as patient is maintained on Lasix and Aldactone. GI services are IR are back on Thursday and will reconsult for further evaluation -Continue lactulose as scheduled Due to multiple complex medical issues, overall prognosis is poor and guarded The impression and plan of care has been dictated by Shirin Tom Nurse Practitioner as directed. Dr. Misty MD I have performed a history and physical examination and medical decision making of this patient, discussed the same with the dictator, and agree with the dictators assessment and plan as written, documented as a scribe. Based on total visit time, I have performed more than 50% of this visit. Objective - Vital Signs Vital signs: Vital Signs Temp 98.6 F 05/24/23 13:29 Pulse 81 05/24/23 13:29 Resp 18 05/24/23 13:29 BP 91/48 05/24/23 13:29 Pulse Ox 92 L 05/24/23 13:29 FiO2 Intake & Output 05/24/23 05/24/23 05/25/23 06:59 18:59 06:59 Intake Total 350 Output Total 127 Balance 223 Intake: Oral 350 Output: Urine 125 Stool 2 Other: Voiding Method Toilet Toilet Urinal Urinal # Voids 4 # Bowel Movements 3 - Labs CBC & Chem 7: 05/23/23 06:58 05/23/23 06:58 Labs: Microbiology - Last 24 Hours (Table) 05/20/23 12:25 Gram Stain - Preliminary Ascites Fluid Body Fluid Culture - Preliminary 05/22/23 16:40 Gram Stain - Preliminary Abdomen Assessment and Plan Time with Patient: Less than 30
[2023-05-24] MEDS: HYDROcodone/APAP 5-325MG 1 EACH TAB PO PRN (22:52)
[2023-05-25 08:42] LABS: Magnesium 1.7 mg/dL (1.5-2.4)
[2023-05-25 09:08] LABS: ALT 49 U/L (10-49); AST 109 U/L (14-35); Albumin 2.2 g/dL (3.8-4.9); Alkaline Phosphatase 89 U/L (41-126); Calcium 7.7 mg/dL (8.7-10.3); Chloride 101 mmol/L (96-109); Globulin 4.4 g/dL (1.6-3.3); Glucose 93 mg/dL (70-110); Potassium 3.8 mmol/L (3.5-5.5); Sodium 129 mmol/L (135-145); Total Bilirubin 11.1 mg/dL (0.3-1.2); Total Protein 6.6 g/dL (6.2-8.2)
[2023-05-25 09:11] LABS: Prothrombin Time 20.2 sec (10.0-12.5)
[2023-05-25 10:32] LABS: Basophils # (A) 0.07 X 10*3/uL (0.00-0.10); Basophils % (A) 0.5 %; Eosinophils # (A) 0.17 X 10*3/uL (0.04-0.35); Eosinophils % (A) 1.2 %; HCT 27.6 % (39.6-50.0); HGB 9.1 g/dL (13.0-17.0); Immature Platelet Fraction 5.2 % (1.1-6.1); Lymphocytes % (A) 5.9 %; MCH 36.1 pg (27.0-32.0); MCV 109.5 FL (80.0-97.0); Mean Platelet Volume 10.6 FL (9.5-12.2); Monocytes # (A) 1.76 X 10*3/uL (0.20-1.00); Monocytes % (A) 12.9 %; NRBC Per 100 WBC 0 X 10*3/uL (0.00-0.01); Neutrophils # (A) 10.68 X 10*3/uL (1.80-7.70); Neutrophils % (A) 78.4 %; Platelet Count 85 X 10*3/uL (140-440); RBC 2.52 X 10*6/uL (4.40-5.60); RDW 15.9 % (11.5-14.5); WBC 13.63 X 10*3/uL (4.50-10.00)
--- NOTE | 2023-05-25 12:24 | P.PN ---
Subjective Progress Note Date: 05/25/23 Principal diagnosis: Reason for follow-up is perirectal abscess Patient is a 63-year-old male with a past medical history significant for COPD did have a history of Crohn's disease and hidradenitis suppurativa with multiple draining sinuses to the bilateral gluteal area also with a history of alcoholic cirrhosis patient presenting to the hospital for evaluation of mu ltiple draining sinuses near the rectal area that has been bleeding, patient did have a CT of abdominal pelvis suggestive of soft tissue mass with gas bubbles in the perineum suspicious for developing perineal abscess, general surgery was consulted recommending transfer to tertiary care and asked for infectious disease evaluation. On today's visit that is 05/25/2023,the patient remains to be afebrile, patient is on room air not requiring supplemental oxygen and denies any shortness of breath no chest pain or cough.Patient denies having any nausea or vomiting, complaining of some abdominal distention mentioned waiting for paracentesis no worsening symptoms. Patient white count is slightly up today 13.63 creatinine 0.6 Objective - Vital Signs Vital signs: Vital Signs Temp 97.9 F 05/25/23 07:42 Pulse 63 05/25/23 07:42 Resp 18 05/25/23 10:28 BP 95/47 05/25/23 07:42 Pulse Ox 95 05/25/23 07:42 FiO2 Intake & Output 05/24/23 05/25/23 05/25/23 18:59 06:59 18:59 Intake Total 350 Output Total 127 250 2 Balance 223 -250 -2 Intake: Oral 350 Output: Urine 125 250 Stool 2 2 Other: Voiding Method Toilet Toilet Toilet Urinal Urinal Urinal # Voids 4 3 # Bowel Movements 3 1 - Exam GENERAL DESCRIPTION: Middle-age male lying in bed in no distress RESPIRATORY SYSTEM: Unlabored breathing , decreased breath sounds at bases HEART: S1 S2 regular rate and rhythm , ABDOMEN: Soft , no tenderness EXTREMITIES: No edema feet - Labs CBC & Chem 7: 05/25/23 05:51 05/25/23 05:51 Labs: Abnormal Lab Results - Last 24 Hours (Table) 05/25/23 05/25/23 05/25/23 Range/Units 05:51 05:51 05:51 WBC 13.63 H (4.50-10.00) X 10*3/uL RBC 2.52 L (4.40-5.60) X 10*6/uL Hgb 9.1 L (13.0-17.0) g/dL Hct 27.6 L (39.6-50.0) % MCV 109.5 H (80.0-97.0) FL MCH 36.1 H (27.0-32.0) pg RDW 15.9 H (11.5-14.5) % Plt Count 85 L (140-440) X 10*3/uL Immature Gran # 0.15 H (0.00-0.04) X 10*3/uL Neutrophils # 10.68 H (1.80-7.70) X 10*3/uL Lymphocytes # 0.80 L (0.90-5.00) X 10*3/uL Monocytes # 1.76 H (0.20-1.00) X 10*3/uL PT (10.0-12.5) sec INR (<1.2) Sodium 129 L (135-145) mmol/L Carbon Dioxide 20.0 L (21.6-31.8) mmol/L Calcium 7.7 L (8.7-10.3) mg/dL Total Bilirubin 11.1 H (0.3-1.2) mg/dL AST 109 H (14-35) U/L Ammonia 52 H (<30) umol/L Albumin 2.2 L (3.8-4.9) g/dL Globulin 4.4 H (1.6-3.3) g/dL Albumin/Globulin Ratio 0.50 L (1.60-3.17) Ratio 05/25/23 Range/Units 08:51 WBC (4.50-10.00) X 10*3/uL RBC (4.40-5.60) X 10*6/uL Hgb (13.0-17.0) g/dL Hct (39.6-50.0) % MCV (80.0-97.0) FL MCH (27.0-32.0) pg RDW (11.5-14.5) % Plt Count (140-440) X 10*3/uL Immature Gran # (0.00-0.04) X 10*3/uL Neutrophils # (1.80-7.70) X 10*3/uL Lymphocytes # (0.90-5.00) X 10*3/uL Monocytes # (0.20-1.00) X 10*3/uL PT 20.2 H (10.0-12.5) sec INR 2.0 H (<1.2) Sodium (135-145) mmol/L Carbon Dioxide (21.6-31.8) mmol/L Calcium (8.7-10.3) mg/dL Total Bilirubin (0.3-1.2) mg/dL AST (14-35) U/L Ammonia (<30) umol/L Albumin (3.8-4.9) g/dL Globulin (1.6-3.3) g/dL Albumin/Globulin Ratio (1.60-3.17) Ratio Microbiology - Last 24 Hours (Table) 05/20/23 12:25 Gram Stain - Final Ascites Fluid Body Fluid Culture - Final 05/22/23 16:40 Gram Stain - Final Abdomen Wound Culture - Final Assessment and Plan (1) Perirectal abscess Current Visit: Yes Status: Acute Priority: High Code(s): K61.1 - RECTAL ABSCESS SNOMED Code(s): 16676244 Plan: 1patient with a complicated history of Crohn's disease this patient with concern for 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 perirectal area versus hidradenitis suppurative presenting to the hospital with multiple drainin g sinuses along the perirectal area with associated increasing pain patient did have abnormal CT suggestive of abscess we will need to cover for the enteric gram-negative both aerobes and anaerobes 2-patient would benefit from surgical drainage and culture that would guide further antibiotic therapy surgical team is requesting the patient to be transferred to the tertiary care, [facility] refused the transfer 3-patient is afebrile, patient did have repeat CT of the pelvis which was overall decrease in the abscess 4-patient is status post repeat paracentesis completed on 05/20/2023 with white count is only 5 not behaving as SBP, currently waiting for repeat paracentesis 5-patient noted to have slight worsening of his white count will monitor closely for now continue with oral Augmentin and monitor clinical course closely Dictation was produced using [email or web address] dictation software. please excuse any grammatical, word or spelling errors. Time with Patient: Less than 30
--- NOTE | 2023-05-25 13:41 | P.PN ---
Subjective Progress Note Date: 05/25/23 Principal diagnosis: Liver lesion In follow-up today patient is slowly responding to questions, he denied any pain currently, nausea or need to use the bathroom. Objective - Vital Signs Vital signs: Vital Signs Temp 97.9 F 05/25/23 07:42 Pulse 63 05/25/23 07:42 Resp 18 05/25/23 10:28 BP 95/47 05/25/23 07:42 Pulse Ox 95 05/25/23 07:42 FiO2 Intake & Output 05/24/23 05/25/23 05/25/23 18:59 06:59 18:59 Intake Total 350 Output Total 127 250 2 Balance 223 -250 -2 Intake: Oral 350 Output: Urine 125 250 Stool 2 2 Other: Voiding Method Toilet Toilet Toilet Urinal Urinal Urinal # Voids 4 3 # Bowel Movements 3 1 - Constitutional Constitutional Comment(s): Frail, cachectic General appearance: Present: thin - EENT Eyes: Present: EOMI, scleral icterus ENT: Present: hearing grossly normal - Respiratory Details: Respirations even and unlabored at rest - Peripheral edema leg Peripheral Edema: bilateral: None - Integumentary Integumentary: Present: jaundiced - Neurologic Neurologic: Present: CNII-XII intact (Grossly) - Musculoskeletal Musculoskeletal: Present: generalized weakness - Psychiatric Psychiatric Comment(s): Alert and oriented x 2, flat affect - Labs CBC & Chem 7: 05/25/23 05:51 05/25/23 05:51 Labs: Abnormal Lab Results - Last 24 Hours (Table) 05/25/23 05/25/23 05/25/23 Range/Units 05:51 05:51 05:51 WBC 13.63 H (4.50-10.00) X 10*3/uL RBC 2.52 L (4.40-5.60) X 10*6/uL Hgb 9.1 L (13.0-17.0) g/dL Hct 27.6 L (39.6-50.0) % MCV 109.5 H (80.0-97.0) FL MCH 36.1 H (27.0-32.0) pg RDW 15.9 H (11.5-14.5) % Plt Count 85 L (140-440) X 10*3/uL Immature Gran # 0.15 H (0.00-0.04) X 10*3/uL Neutrophils # 10.68 H (1.80-7.70) X 10*3/uL Lymphocytes # 0.80 L (0.90-5.00) X 10*3/uL Monocytes # 1.76 H (0.20-1.00) X 10*3/uL PT (10.0-12.5) sec INR (<1.2) Sodium 129 L (135-145) mmol/L Carbon Dioxide 20.0 L (21.6-31.8) mmol/L Calcium 7.7 L (8.7-10.3) mg/dL Total Bilirubin 11.1 H (0.3-1.2) mg/dL AST 109 H (14-35) U/L Ammonia 52 H (<30) umol/L Albumin 2.2 L (3.8-4.9) g/dL Globulin 4.4 H (1.6-3.3) g/dL Albumin/Globulin Ratio 0.50 L (1.60-3.17) Ratio 05/25/23 Range/Units 08:51 WBC (4.50-10.00) X 10*3/uL RBC (4.40-5.60) X 10*6/uL Hgb (13.0-17.0) g/dL Hct (39.6-50.0) % MCV (80.0-97.0) FL MCH (27.0-32.0) pg RDW (11.5-14.5) % Plt Count (140-440) X 10*3/uL Immature Gran # (0.00-0.04) X 10*3/uL Neutrophils # (1.80-7.70) X 10*3/uL Lymphocytes # (0.90-5.00) X 10*3/uL Monocytes # (0.20-1.00) X 10*3/uL PT 20.2 H (10.0-12.5) sec INR 2.0 H (<1.2) Sodium (135-145) mmol/L Carbon Dioxide (21.6-31.8) mmol/L Calcium (8.7-10.3) mg/dL Total Bilirubin (0.3-1.2) mg/dL AST (14-35) U/L Ammonia (<30) umol/L Albumin (3.8-4.9) g/dL Globulin (1.6-3.3) g/dL Albumin/Globulin Ratio (1.60-3.17) Ratio Microbiology - Last 24 Hours (Table) 05/20/23 12:25 Gram Stain - Final Ascites Fluid Body Fluid Culture - Final 05/22/23 16:40 Gram Stain - Final Abdomen Wound Culture - Final Assessment and Plan (1) Liver lesion Current Visit: Yes Status: Acute Priority: High Code(s): K76.9 - LIVER DISEASE, UNSPECIFIED SNOMED Code(s): 283278964 Plan: Liver lesions -Patient is symptomatic, abdominal distention, significant hyperbilirubinemia. -6.2 L paracentesis, cytology was nondiagnostic. -AFP is 65.5, Ca19-9 is 265 and CEA is 4.1. Unfortunately, results are not specific. Cannot consider empiric treatment, which can be done in some cases when AFP is significantly elevated and findings are most consistent with hepatocellular carcinoma. -Biopsy unable to be done locally. Recommendations are for referral to tertiary center. -Case was discussed with GI MACHINE BASTER. Patient does see a Yardmaster as well as a Sticker Operator at [facility]. Would be much more efficient for patient to see someone he is already established with and plan for biopsy. -Await biopsy results for further recommendations. Pt has been seen by Dr. Rosario in the past for anemia.
--- NOTE | 2023-05-25 14:22 | P.PN ---
Subjective Progress Note Date: 05/25/23 Principal diagnosis: Liver cirrhosis, Crohn's This is a pleasant 63-year-old male with a past medical history including Crohn's disease diagnosed about 27 years ago who has followed with Dr. Lomas in the past. He presented to the emergency department 17 days ago with concerns of rectal bleeding and perineal pain. He has a history of Crohn's disease, hidradenitis suppurative, previous terminal ileal resection, COPD, alcohol cirrhosis of the liver. He has a history of he is currently not on any medication because he states he lost his insurance but prior to that was getting infusions unclear which one at this time. Last colonoscopy done 01/31/[address] Lomas which reported normal colon, anastomosis not clearly seen due to poor prep. He underwent EGD in January [address] Lomas secondary to alcohol abuse and history of portal hypertension with findings of large mid and distal varices status post ligation, moderate portal hypertension gastropathy. States he has not follow-up with Dr. Lomas in a few months as he had lost his insurance. Again he stopped taking his medications at least 2 weeks ago. He has a history of underlying alcoholic liver disease with cirrhosis of the liver. He has been on diuretics however again has not been taking them for the last couple weeks or more. He has abdominal distention. He came in with rectal bleeding which he states he had for 2 days prior to coming in, also noticed perineal and rectal pain and swelling and discomfort. States he has been having about 3-4 bowel movements a day, mostly loose mostly nonbloody at this time. He had a CT of the abdomen and pelvis concerning for large ill-defined liver mass, moderate to large ascites and soft tissue mass with gas bubbles in the perineum suspicious for developing perineal abscess. Patient has been afebrile. He was started on IV Unasyn. General surgery was consulted for perirectal abscess, the recommendation was transfer to tertiary center for complicated Crohn's as well as consulted infectious disease. He currently denies any abdominal pain, nausea , or vomiting. No current rectal bleeding. Patient has followed with [facility] in the past for his Crohn's disease and hidradenitis suppurative. Labs WBC 7.8 hemoglobin 10.3 platelet count 94,000 and INR 2.1 sodium 135 potassium 3.6 BUN 6 creatinine 0.4 total bilirubin 6.3 AST 76 ALT 35 alkaline phosphatase 72 05/12/2023 Patient seen and examined today as a follow-up. No acute changes through the night. He underwent paracentesis yesterday with 5 L of fluid removed. Patient seems a little slow when speaking to. Ammonia level ordered, elevated at 30. Plan is for patient transferred to [facility] to follow-up with his Crohn's specialist. Primary care physician working on transfer. 05/13/2023 Patient seen and examined today as a follow-up. He states overall he does not feel that while his back is hurting. He is awaiting transfer to a tertiary center per further surgical management for his perirectal abscess. Currently trying for transfer to [facility] however does not appear that they are accepting patient at this time. Patient was started on lactulose yesterday for hyperammonemia today ammonia level is 32. 05/14/2023 Patient seen and examined today as a follow-up. He has been having multiple bowel movements on his lactulose. No acute changes through the night. He has been afebrile. Repeat labs today WBC 11 hemoglobin 10.2 platelet count 95,000 sodium 136 potassium 3.6 total bilirubin 9.4 AST 69 ALT 30 alkaline phosphatase 64 ammonia level 32. Unclear at this time if primary medical team is transferring patient to tertiary center. That will be between the primary care team general surgeon and infectious disease. 05/15/2023 Patient seen and examined today as a follow-up. He is resting comfortably. He underwent a CT of the abdomen pelvis yesterday which again identified the right liver lobe lesion concerning for neoplasm. Perineal abscess improving in size. He is scheduled for paracentesis. 05/25/2023 Patient is seen and examined today as a follow-up. There is no GI coverage the week of May 15 through the , we are resuming GI care to the patient who is still hospitalized. Patient denies any complaints at this time. Denies any abdominal pain, states that he does get some discomfort when he is distended. He underwent paracentesis on 04/21/2023 with 6.2 L removed and is scheduled to undergo paracentesis today as well. Oncology was consulted for liver mass, liver MRI ordered reports 5.8 x 5.3 cm liver mass. Their recommendation was for liver biopsy however interventional radiology does not feel comfortable doing procedure. The recommendation is for outpatient follow-up with [facility] for liver biopsy. Patient has been afebrile. Objective - Vital Signs Vital signs: Vital Signs Temp 97.9 F 05/25/23 07:42 Pulse 63 05/25/23 07:42 Resp 18 05/25/23 07:42 BP 95/47 05/25/23 07:42 Pulse Ox 95 05/25/23 07:42 FiO2 Intake & Output 05/24/23 05/25/23 05/25/23 18:59 06:59 18:59 Intake Total 350 Output Total 127 250 Balance 223 -250 Intake: Oral 350 Output: Urine 125 250 Stool 2 Other: Voiding Method Toilet Toilet Urinal Urinal # Voids 4 3 # Bowel Movements 3 1 - Exam General appearance: The patient is alert, oriented, appears in no acute distress. HET: Head is normocephalic and atraumatic. Conjunctiva pink. Sclera icteric. Neck: Supple without lymphadenopathy. Abdomen: Soft, nontender, ascites, mildly distended. Extremities: Normal skin color and turgor. No pedal edema Skin: No rashes, jaundice. Neurological: No focal deficits. Alert and oriented. - Labs CBC & Chem 7: 05/25/23 05:51 05/25/23 05:51 Labs: Abnormal Lab Results - Last 24 Hours (Table) 05/25/23 05/25/23 05/25/23 Range/Units 05:51 05:51 08:51 PT 20.2 H (10.0-12.5) sec INR 2.0 H (<1.2) Sodium 129 L (135-145) mmol/L Carbon Dioxide 20.0 L (21.6-31.8) mmol/L Calcium 7.7 L (8.7-10.3) mg/dL Total Bilirubin 11.1 H (0.3-1.2) mg/dL AST 109 H (14-35) U/L Ammonia 52 H (<30) umol/L Albumin 2.2 L (3.8-4.9) g/dL Globulin 4.4 H (1.6-3.3) g/dL Albumin/Globulin Ratio 0.50 L (1.60-3.17) Ratio Microbiology - Last 24 Hours (Table) 05/22/23 16:40 Gram Stain - Final Abdomen Wound Culture - Final 05/20/23 12:25 Gram Stain - Preliminary Ascites Fluid Body Fluid Culture - Preliminary Assessment and Plan (1) Alcoholic cirrhosis Narrative/Plan: 63-year-old male with known history of alcoholic cirrhosis of the liver as well as longstanding history of Crohn's disease. Patient came in for rectal bleeding and perianal swelling and pain. He was noted to have elevated LFTs consistent with his underlying liver disease. He has stopped all of his medications recently over the last couple weeks due to loss of insurance. He has not followed with Dr. Lomas this last month as he was scheduled. CT abdomen pelvis concerning for liver mass, large amount of ascites. Patient will follow-up outpatient with [facility] liver specialist for new liver lesion. Diuretics resumed, he will continue Lasix 40 mg daily and spironolactone 100 mg daily. Cirrhosis of the liver stable. Ultrasound paracentesis ordered prior to discharge. Current Visit: Yes Status: Acute Priority: Medium Code(s): K70.30 - ALCOHOLIC CIRRHOSIS OF LIVER WITHOUT ASCITES SNOMED Code(s): 063314731 (2) Liver lesion Narrative/Plan: Newly identified liver lesion from previous liver ultrasound done in November 2022. This is concerning for possible hepatocellular carcinoma. 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 Again this can all be done as an outpatient. Current Visit: Yes Status: Acute Priority: High Code(s): K76.9 - LIVER DISEASE, UNSPECIFIED SNOMED Code(s): 417105998 (3) Crohn's disease Narrative/Plan: 63-year-old with longstanding history of Crohn's disease with a history of terminal ileal resection. Patient was diagnosed with Crohn's about 27 years ago. Last colonoscopy in January 2022. Presenting with rectal bleeding and a perianal lesion/abscess. General surgery following, they consulted infectious disease who recommend surgical drainage and culture however general surgery is recommending recommending transfer to tertiary center for further surgical evaluation of complicated Crohn's disease. Currently on IV antibiotics. Pending transfer to [facility]. Current Visit: Yes Status: Acute Priority: Medium Code(s): K50.90 - CROHN'S DISEASE, UNSPECIFIED, WITHOUT COMPLICATIONS SNOMED Code(s): 56406079 (4) Perianal lesion Current Visit: Yes Status: Acute Code(s): K62.9 - DISEASE OF ANUS AND RECTUM, UNSPECIFIED SNOMED Code(s): 935024333 (5) Rectal bleeding Current Visit: No Status: Acute Code(s): K62.5 - HEMORRHAGE OF ANUS AND RECTUM SNOMED Code(s): 90762461 (6) Hidradenitis suppurativa Current Visit: Yes Status: Acute Code(s): L73.2 - HIDRADENITIS SUPPURATIVA SNOMED Code(s): 43312847 Plan: 1. Continue symptomatic and supportive care 2. Patient scheduled for paracentesis today 3. Continue Lasix and Aldactone as ordered 4. Continue lactulose as ordered, titrate to have 3-4 bowel movements daily 5. Appreciate recommendations from oncology on liver lesion. Agreeable for further outpatient workup done at [facility]. This will be set up through Dr. Lomas's office. 6. Continue with recommendations from infectious disease 7. Patient is cleared from gastroenterology for discharge Thank you for this consultation, we will continue to follow. Dr. Jeremy Lomas I agree with the dictator's note, documented as a scribe by Mary Anne Lafleur.
--- NOTE | 2023-05-26 10:34 | P.PN ---
Subjective Progress Note Date: 05/26/23 Principal diagnosis: Liver cirrhosis, Crohn's This is a pleasant 63-year-old male with a past medical history including Crohn's disease diagnosed about 27 years ago who has followed with Dr. Lomas in the past. He presented to the emergency department 17 days ago with concerns of rectal bleeding and perineal pain. He has a history of Crohn's disease, hidradenitis suppurative, previous terminal ileal resection, COPD, alcohol cirrhosis of the liver. He has a history of he is currently not on any medication because he states he lost his insurance but prior to that was getting infusions unclear which one at this time. Last colonoscopy done 01/31/[address] Lomas which reported normal colon, anastomosis not clearly seen due to poor prep. He underwent EGD in January [address] Lomas secondary to alcohol abuse and history of portal hypertension with findings of large mid and distal varices status post ligation, moderate portal hypertension gastropathy. States he has not follow-up with Dr. Lomas in a few months as he had lost his insurance. Again he stopped taking his medications at least 2 weeks ago. He has a history of underlying alcoholic liver disease with cirrhosis of the liver. He has been on diuretics however again has not been taking them for the last couple weeks or more. He has abdominal distention. He came in with rectal bleeding which he states he had for 2 days prior to coming in, also noticed perineal and rectal pain and swelling and discomfort. States he has been having about 3-4 bowel movements a day, mostly loose mostly nonbloody at this time. He had a CT of the abdomen and pelvis concerning for large ill-defined liver mass, moderate to large ascites and soft tissue mass with gas bubbles in the perineum suspicious for developing perineal abscess. Patient has been afebrile. He was started on IV Unasyn. General surgery was consulted for perirectal abscess, the recommendation was transfer to tertiary center for complicated Crohn's as well as consulted infectious disease. He currently denies any abdominal pain, nausea , or vomiting. No current rectal bleeding. Patient has followed with [facility] in the past for his Crohn's disease and hidradenitis suppurative. Labs WBC 7.8 hemoglobin 10.3 platelet count 94,000 and INR 2.1 sodium 135 potassium 3.6 BUN 6 creatinine 0.4 total bilirubin 6.3 AST 76 ALT 35 alkaline phosphatase 72 05/12/2023 Patient seen and examined today as a follow-up. No acute changes through the night. He underwent paracentesis yesterday with 5 L of fluid removed. Patient seems a little slow when speaking to. Ammonia level ordered, elevated at 30. Plan is for patient transferred to [facility] to follow-up with his Crohn's specialist. Primary care physician working on transfer. 05/13/2023 Patient seen and examined today as a follow-up. He states overall he does not feel that while his back is hurting. He is awaiting transfer to a tertiary center per further surgical management for his perirectal abscess. Currently trying for transfer to [facility] however does not appear that they are accepting patient at this time. Patient was started on lactulose yesterday for hyperammonemia today ammonia level is 32. 05/14/2023 Patient seen and examined today as a follow-up. He has been having multiple bowel movements on his lactulose. No acute changes through the night. He has been afebrile. Repeat labs today WBC 11 hemoglobin 10.2 platelet count 95,000 sodium 136 potassium 3.6 total bilirubin 9.4 AST 69 ALT 30 alkaline phosphatase 64 ammonia level 32. Unclear at this time if primary medical team is transferring patient to tertiary center. That will be between the primary care team general surgeon and infectious disease. 05/15/2023 Patient seen and examined today as a follow-up. He is resting comfortably. He underwent a CT of the abdomen pelvis yesterday which again identified the right liver lobe lesion concerning for neoplasm. Perineal abscess improving in size. He is scheduled for paracentesis. 05/25/2023 Patient is seen and examined today as a follow-up. There is no GI coverage the week of May 15 through the , we are resuming GI care to the patient who is still hospitalized. Patient denies any complaints at this time. Denies any abdominal pain, states that he does get some discomfort when he is distended. He underwent paracentesis on 04/21/2023 with 6.2 L removed and is scheduled to undergo paracentesis today as well. Oncology was consulted for liver mass, liver MRI ordered reports 5.8 x 5.3 cm liver mass. Their recommendation was for liver biopsy however interventional radiology does not feel comfortable doing procedure. The recommendation is for outpatient follow-up with [facility] for liver biopsy. Patient has been afebrile. 05/26/2023 Patient is seen and examined today as a follow-up. No acute changes through the night. Oncology is recommending outpatient follow-up with [facility] for liver biopsy. Yesterday patient underwent paracentesis with reported 4.8 L removed. He denies any abdominal pain, nausea or vomiting. He has been afebrile. Objective - Vital Signs Vital signs: Vital Signs Temp 98.4 F 05/26/23 07:24 Pulse 91 05/26/23 07:24 Resp 16 05/26/23 07:24 BP 110/59 05/26/23 07:24 Pulse Ox 94 L 05/26/23 07:24 FiO2 Intake & Output 05/25/23 05/26/23 05/26/23 18:59 06:59 18:59 Intake Total 540 Output Total 2 Balance -2 540 Intake: Oral 540 Output: Stool 2 Other: Voiding Method Toilet Toilet Urinal Urinal # Voids 2 - Exam General appearance: The patient is alert, oriented, appears in no acute distress. HET: Head is normocephalic and atraumatic. Conjunctiva pink. Sclera icteric. Neck: Supple without lymphadenopathy. Abdomen: Soft, nontender, nondistended. Extremities: Normal skin color and turgor. No pedal edema Skin: No rashes, jaundice. Neurological: No focal deficits. Alert and oriented. - Labs CBC & Chem 7: 05/25/23 05:51 05/25/23 05:51 Labs: Abnormal Lab Results - Last 24 Hours (Table) 05/25/23 05/25/23 05/25/23 Range/Units 05:51 05:51 08:51 WBC 13.63 H (4.50-10.00) X 10*3/uL RBC 2.52 L (4.40-5.60) X 10*6/uL Hgb 9.1 L (13.0-17.0) g/dL Hct 27.6 L (39.6-50.0) % MCV 109.5 H (80.0-97.0) FL MCH 36.1 H (27.0-32.0) pg RDW 15.9 H (11.5-14.5) % Plt Count 85 L (140-440) X 10*3/uL Immature Gran # 0.15 H (0.00-0.04) X 10*3/uL Neutrophils # 10.68 H (1.80-7.70) X 10*3/uL Lymphocytes # 0.80 L (0.90-5.00) X 10*3/uL Monocytes # 1.76 H (0.20-1.00) X 10*3/uL PT 20.2 H (10.0-12.5) sec INR 2.0 H (<1.2) Sodium 129 L (135-145) mmol/L Carbon Dioxide 20.0 L (21.6-31.8) mmol/L Calcium 7.7 L (8.7-10.3) mg/dL Total Bilirubin 11.1 H (0.3-1.2) mg/dL AST 109 H (14-35) U/L Albumin 2.2 L (3.8-4.9) g/dL Globulin 4.4 H (1.6-3.3) g/dL Albumin/Globulin Ratio 0.50 L (1.60-3.17) Ratio Microbiology - Last 24 Hours (Table) 05/20/23 12:25 Anaerobic Culture - Final Ascites Fluid 05/20/23 12:25 Gram Stain - Final Ascites Fluid Body Fluid Culture - Final 05/22/23 16:40 Gram Stain - Final Abdomen Wound Culture - Final Assessment and Plan (1) Alcoholic cirrhosis Narrative/Plan: 63-year-old male with known history of alcoholic cirrhosis of the liver as well as longstanding history of Crohn's disease. Patient came in for rectal bleeding and perianal swelling and pain. He was noted to have elevated LFTs consistent with his underlying liver disease. He has stopped all of his medications recently over the last couple weeks due to loss of insurance. He has not followed with Dr. Lomas this last month as he was scheduled. CT abdomen pelvis concerning for liver mass, large amount of ascites. Patient will follow-up outpatient with [facility] liver specialist for new liver lesion. Diuretics resumed, he will continue Lasix 40 mg daily and spironolactone 100 mg daily. Cirrhosis of the liver stable. Ultrasound paracentesis ordered prior to discharge. Current Visit: Yes Status: Acute Priority: Medium Code(s): K70.30 - A LCOHOLIC CIRRHOSIS OF LIVER WITHOUT ASCITES SNOMED Code(s): 286293379 (2) Liver lesion Narrative/Plan: Newly identified liver lesion from previous liver ultrasound done in November 2022. This is concerning for possible hepatocellular carcinoma. Patient has followed in the past with sales department manager/matrix supervisor from [facility] and is being referred back there as an outpatient, to follow-up with his matrix supervisor and likely tumor board. Again this can all be done as an outpatient. Current Visit: Yes Status: Acute Priority: High Code(s): K76.9 - LIVER DISEASE, UNSPECIFIED SNOMED Code(s): 969800620 (3) Crohn's disease Narrative/Plan: 63-year-old with longstanding history of Crohn's disease with a history of terminal ileal resection. Patient was diagnosed with Crohn's about 27 years ago. Last colonoscopy in January 2022. Presenting with rectal bleeding and a perianal lesion/abscess. General surgery following, they consulted infectious disease who recommend surgical drainage and culture however general surgery is recommending recommending transfer to tertiary center for further surgical evaluation of complicated Crohn's disease. Currently on IV antibiotics. Pending transfer to [facility]. Current Visit: Yes Status: Acute Priority: Medium Code(s): K50.90 - CROHN'S DISEASE, UNSPECIFIED, WITHOUT COMPLICATIONS SNOMED Code(s): 06339920 (4) Perianal lesion Current Visit: Yes Status: Acute Code(s): K62.9 - DISEASE OF ANUS AND RECTUM, UNSPECIFIED SNOMED Code(s): 465732466 (5) Rectal bleeding Current Visit: No Status: Acute Code(s): K62.5 - HEMORRHAGE OF ANUS AND RECTUM SNOMED Code(s): 46705320 (6) Hidradenitis suppurativa Current Visit: Yes Status: Acute Code(s): L73.2 - HIDRADENITIS SUPPURATIVA SNOMED Code(s): 43819734 Plan: 1. Continue symptomatic and supportive care 2. Encourage ambulation 3. Continue Lasix and Aldactone as ordered 4. Continue lactulose as ordered, titrate to have 3-4 bowel movements daily 5. Appreciate recommendations from oncology on liver lesion. Agreeable for further outpatient workup done at [facility]. This will be set up through Dr. Tumma's office. 6. Continue with recommendations from infectious disease 7. Unfortunately patient received a call from [facility] and appears that would be some time to get an outpatient appointment with matrix supervisor. Agree with transfer to tertiary center for further workup for liver mass. Thank you for this consultation, we will continue to follow. Dr. Jeremy Lomas I agree with the dictator's note, documented as a scribe by Mary Anne Lafleur.
--- NOTE | 2023-05-26 16:21 | P.PN ---
Subjective Progress Note Date: 05/26/23 Principal diagnosis: Reason for follow-up is perirectal abscess Patient is a 63-year-old male with a past medical history significant for COPD did have a history of Crohn's disease and hidradenitis suppurativa with multiple draining sinuses to the bilateral gluteal area also with a history of alcoholic cirrhosis patient presenting to the hospital for evaluation of mu ltiple draining sinuses near the rectal area that has been bleeding, patient did have a CT of abdominal pelvis suggestive of soft tissue mass with gas bubbles in the perineum suspicious for developing perineal abscess, general surgery was consulted recommending transfer to tertiary care and asked for infectious disease evaluation. On today's visit that is 05/26/2023, the patient continues to be afebrile, the patient is on room air and breathing comfortably, the Pt denies having any chest pain or cough, the patient abdominal discomfort and distention slightly decreased no nausea no vomiting. Patient did not have any blood draw today Objective - Vital Signs Vital signs: Vital Signs Temp 98.5 F 05/26/23 14:04 Pulse 83 05/26/23 14:04 Resp 16 05/26/23 14:04 BP 94/52 05/26/23 14:04 Pulse Ox 95 05/26/23 14:04 FiO2 Intake & Output 05/25/23 05/26/23 05/26/23 18:59 06:59 18:59 Intake Total 540 Output Total 2 Balance -2 540 Intake: Oral 540 Output: Stool 2 Other: Voiding Method Toilet Toilet Toilet Urinal Urinal Urinal # Voids 2 - Exam GENERAL DESCRIPTION: Middle-age male lying in bed in no distress RESPIRATORY SYSTEM: Unlabored breathing , decreased breath sounds at bases HEART: S1 S2 regular rate and rhythm , ABDOMEN: Soft , no tenderness EXTREMITIES: No edema feet - Labs CBC & Chem 7: 05/25/23 05:51 05/25/23 05:51 Labs: Microbiology - Last 24 Hours (Table) 05/20/23 12:25 Anaerobic Culture - Final Ascites Fluid Assessment and Plan (1) Perirectal abscess Current Visit: Yes Status: Acute Priority: High Code(s): K61.1 - RECTAL ABSCESS SNOMED Code(s): 47310881 Plan: 1patient with a complicated history of Crohn's disease this patient with concern for 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 perirectal area vers us hidradenitis suppurative presenting to the hospital with multiple draining sinuses along the perirectal area with associated increasing pain patient did have abnormal CT suggestive of abscess we will need to cover for the enteric gram-negative both aerobes and anaerobes 2-patient would benefit from surgical drainage and culture that would guide further antibiotic therapy surgical team is requesting the patient to be transferred to the tertiary care, [facility] has refused the transfer 3-patient is afebrile, patient did have repeat CT of the pelvis which was overall decrease in the abscess 4-patient is status post repeat paracentesis completed on 05/20/2023 with white count is only 5 not behaving as SBP, currently waiting for repeat paracentesis 5-patient remains to be afebrile no CBC was done today, patient to continue with oral Augmentin and monitor clinical course closely Dictation was produced using [employer] dictation software. please excuse any grammatical, word or spelling errors. Time with Patient: Less than 30
--- NOTE | 2023-05-26 23:10 | PN ---
PROGRESS NOTE DATE OF SERVICE: 05/25/2023 CHIEF COMPLAINT: Cirrhosis, Crohn's disease, peritoneal fistula, alcoholism, and possible hepatocellular carcinoma. HISTORY OF PRESENT ILLNESS: This gentleman is doing just about the same. He is fairly stable. Oncology feels that it is fairly likely given his history and tumor markers that he has a hepatocellular carcinoma. They are recommending transfer to [facility]. This was discussed with the patient. He was turned down 2 weeks ago. PHYSICAL EXAMINATION: GENERAL: He is awake and alert, but very weak. CHEST: Breath sounds are heard bilaterally. CARDIAC: Normal. ABDOMEN: Distended with ascites. IMPRESSION: 1. Crohn's disease. 2. Enteroperineal fistula. 3. Alcoholism. 4. Cirrhosis. 5. Ascites. 6. Probable hepatocellular carcinoma. PLAN: I will contact [facility] again about transfer. MILENA / ADAM: [id number] /
--- NOTE | 2023-05-26 23:22 | PN ---
PROGRESS NOTE DATE OF SERVICE: 05/26/2023 CHIEF COMPLAINT: Cirrhosis with ascites. HISTORY OF PRESENT ILLNESS: This gentleman is about the same. I will contact [facility] again today about a possible transfer. PHYSICAL EXAMINATION: VITAL SIGNS: Unchanged. CHEST: Clear. CARDIAC: Normal. ABDOMEN: Redeveloped significant amount of ascites. EXTREMITIES: Normal. IMPRESSION: 1. Crohn's disease with enteroperineal fistula. 2. Chronic alcoholism. 3. Cirrhosis. 4. Ascites. PLAN: Look in to transfer to [facility]. I talked to the transfer team with the information about the patient with a new consideration of probable hepatocellular carcinoma. They called back and stated that they could not take the patient. I would now discuss this further with the family and the patient and I would recommend considering hospice. MILENA / ADAM: [id number] /
[2023-05-27 07:36] VITALS: BP 116/64; PULSE 84; RESP 19; TEMP 98.5
--- NOTE | 2023-05-27 09:50 | US ---
EXAMINATION TYPE: US paracentesis abd w/image DATE OF EXAM: 05/25/2023 2:10 PM CLINICAL INDICATION:Male, 63 years old with history of Ascites; COMPARISON: 05/20/2023 ATTENDING: Dr. Rajinder Figueroa PROCEDURE: Informed consent was obtained. The risks of the procedure were extensively explained incl uding risk of damage to surrounding bowel with perforation and need for additional procedures. Proced ure was performed in the ultrasound procedure suite. Ultrasound imaging of the abdomen demonstrate as citic fluid. An appropriate access site was localized to the right lower abdomen. Timeout was taken p er protocol. The skin was prepped and draped in the usual sterile fashion and then locally anesthetiz ed with 1% lidocaine. The peritoneal cavity was then accessed via a 5-Panamanian one-step needle/cathete r. Approximately 3800 cc of clear straw-colored fluid was obtained. Postprocedural imaging of the ab domen demonstrate a minimal amount of abdominal fluid. Patient tolerated procedure well without immediate complication. Hemostasis at the procedural site w as obtained with a sterile bandage placed. The patient was monitored in the holding area following th e procedure and was subsequently discharged in stable condition. IMPRESSION: Ultrasound guided paracentesis, with approximately 3800 cc of clear straw-colored fluid drained. No immediate complications were evident.
--- NOTE | 2023-05-27 12:33 | P.PN ---
Subjective Progress Note Date: 05/27/23 Principal diagnosis: Liver cirrhosis, Crohn's This is a pleasant 63-year-old male with a past medical history including Crohn's disease diagnosed about 27 years ago who has followed with Dr. Lomas in the past. He presented to the emergency department 17 days ago with concerns of rectal bleeding and perineal pain. He has a history of Crohn's disease, hidradenitis suppurative, previous terminal ileal resection, COPD, alcohol cirrhosis of the liver. He has a history of he is currently not on any medication because he states he lost his insurance but prior to that was getting infusions unclear which one at this time. Last colonoscopy done 01/31/[address] Lomas which reported normal colon, anastomosis not clearly seen due to poor prep. He underwent EGD in January [address] Lomas secondary to alcohol abuse and history of portal hypertension with findings of large mid and distal varices status post ligation, moderate portal hypertension gastropathy. States he has not follow-up with Dr. Lomas in a few months as he had lost his insurance. Again he stopped taking his medications at least 2 weeks ago. He has a history of underlying alcoholic liver disease with cirrhosis of the liver. He has been on diuretics however again has not been taking them for the last couple weeks or more. He has abdominal distention. He came in with rectal bleeding which he states he had for 2 days prior to coming in, also noticed perineal and rectal pain and swelling and discomfort. States he has been having about 3-4 bowel movements a day, mostly loose mostly nonbloody at this time. He had a CT of the abdomen and pelvis concerning for large ill-defined liver mass, moderate to large ascites and soft tissue mass with gas bubbles in the perineum suspicious for developing perineal abscess. Patient has been afebrile. He was started on IV Unasyn. General surgery was consulted for perirectal abscess, the recommendation was transfer to tertiary center for complicated Crohn's as well as consulted infectious disease. He currently denies any abdominal pain, nausea , or vomiting. No current rectal bleeding. Patient has followed with [facility] in the past for his Crohn's disease and hidradenitis suppurative. Labs WBC 7.8 hemoglobin 10.3 platelet count 94,000 and INR 2.1 sodium 135 potassium 3.6 BUN 6 creatinine 0.4 total bilirubin 6.3 AST 76 ALT 35 alkaline phosphatase 72 05/12/2023 Patient seen and examined today as a follow-up. No acute changes through the night. He underwent paracentesis yesterday with 5 L of fluid removed. Patient seems a little slow when speaking to. Ammonia level ordered, elevated at 30. Plan is for patient transferred to [facility] to follow-up with his Crohn's specialist. Primary care physician working on transfer. 05/13/2023 Patient seen and examined today as a follow-up. He states overall he does not feel that while his back is hurting. He is awaiting transfer to a tertiary center per further surgical management for his perirectal abscess. Currently trying for transfer to [facility] however does not appear that they are accepting patient at this time. Patient was started on lactulose yesterday for hyperammonemia today ammonia level is 32. 05/14/2023 Patient seen and examined today as a follow-up. He has been having multiple bowel movements on his lactulose. No acute changes through the night. He has been afebrile. Repeat labs today WBC 11 hemoglobin 10.2 platelet count 95,000 sodium 136 potassium 3.6 total bilirubin 9.4 AST 69 ALT 30 alkaline phosphatase 64 ammonia level 32. Unclear at this time if primary medical team is transferring patient to tertiary center. That will be between the primary care team general surgeon and infectious disease. 05/15/2023 Patient seen and examined today as a follow-up. He is resting comfortably. He underwent a CT of the abdomen pelvis yesterday which again identified the right liver lobe lesion concerning for neoplasm. Perineal abscess improving in size. He is scheduled for paracentesis. 05/25/2023 Patient is seen and examined today as a follow-up. There is no GI coverage the week of May 15 through the , we are resuming GI care to the patient who is still hospitalized. Patient denies any complaints at this time. Denies any abdominal pain, states that he does get some discomfort when he is distended. He underwent paracentesis on 04/21/2023 with 6.2 L removed and is scheduled to undergo paracentesis today as well. Oncology was consulted for liver mass, liver MRI ordered reports 5.8 x 5.3 cm liver mass. Their recommendation was for liver biopsy however interventional radiology does not feel comfortable doing procedure. The recommendation is for outpatient follow-up with [facility] for liver biopsy. Patient has been afebrile. 05/26/2023 Patient is seen and examined today as a follow-up. No acute changes through the night. Oncology is recommending outpatient follow-up with [facility] for liver biopsy. Yesterday patient underwent paracentesis with reported 4.8 L removed. He denies any abdominal pain, nausea or vomiting. He has been afebrile. 05/27/2023 Patient seen and examined as a follow-up. No acute changes through the night. Apparently transfer to [facility] has been declined. He denies any abdominal pain, nausea or vomiting. He has been afebrile. Objective - Vital Signs Vital signs: Vital Signs Temp 98.5 F 05/27/23 07:30 Pulse 84 05/27/23 07:30 Resp 19 05/27/23 07:30 BP 116/64 05/27/23 07:30 Pulse Ox 92 L 05/27/23 07:30 FiO2 Intake & Output 05/26/23 05/27/23 05/27/23 18:59 06:59 18:59 Output Total 400 Balance -400 Output: Urine 400 Other: Voiding Method Toilet Urinal # Voids 2 # Bowel Movements 3 - Exam General appearance: The patient is alert, oriented, appears in no acute distress. HET: Head is normocephalic and atraumatic. Conjunctiva pink. Sclera icteric. Neck: Supple without lymphadenopathy. Abdomen: Soft, nontender, nondistended. Extremities: Normal skin color and turgor. No pedal edema Skin: No rashes, jaundice. Neurological: No focal deficits. Alert and oriented. - Labs CBC & Chem 7: 05/25/23 05:51 05/25/23 05:51 Assessment and Plan (1) Alcoholic cirrhosis Narrative/Plan: 63-year-old male with known history of alcoholic cirrhosis of the liver as well as longstanding history of Crohn's disease. Patient came in for rectal bleeding and perianal swelling and pain. He was noted to have elevated LFTs consistent with his underlying liver disease. He has stopped all of his medications recently over the last couple weeks due to loss of insurance. He has not followed with Dr. Lomas this last month as he was scheduled. CT abdomen pelvis concerning for liver mass, large amount of ascites. Patient will follow-up outpatient with [facility] liver specialist for new liver lesion. Diuretics resumed, he will continue Lasix 40 mg daily and spironolactone 100 mg daily. Cirrhosis of the liver stable. Ultrasound paracentesis ordered prior to discharge. Current Visit: Yes Status: Acute Priority: Medium Code(s): K70.30 - ALC OHOLIC CIRRHOSIS OF LIVER WITHOUT ASCITES SNOMED Code(s): 939078245 (2) Liver lesion Narrative/Plan: Newly identified liver lesion from previous liver ultrasound done in November 2022. This is concerning for possible hepatocellular carcinoma. Patient has followed in the past with adjunct teacher/machine iii coremaker from [facility] and is being referred back there as an outpatient, to follow-up with his machine iii coremaker and likely tumor board. Again this can all be done as an outpatient. Current Visit: Yes Status: Acute Priority: High Code(s): K76.9 - LIVER DISEASE, UNSPECIFIED SNOMED Code(s): 765303855 (3) Crohn's disease Narrative/Plan: 63-year-old with longstanding history of Crohn's disease with a history of terminal ileal resection. Patient was diagnosed with Crohn's about 27 years ago. Last colonoscopy in January 2022. Presenting with rectal bleeding and a perianal lesion/abscess. General surgery following, they consulted infectious disease who recommend surgical drainage and culture however general surgery is recommending recommending transfer to tertiary center for further surgical evaluation of complicated Crohn's disease. Currently on IV antibiotics. Recommend outpatient follow-up with his Crohn's specialist through [facility]. Current Visit: Yes Status: Acute Priority: Medium Code(s): K50.90 - CROHN'S DISEASE, UNSPECIFIED, WITHOUT COMPLICATIONS SNOMED Code(s): 88002561 (4) Perianal lesion Current Visit: Yes Status: Acute Code(s): K62.9 - DISEASE OF ANUS AND RECTUM, UNSPECIFIED SNOMED Code(s): 036301411 (5) Hidradenitis suppurativa Current Visit: Yes Status: Acute Code(s): L73.2 - HIDRADENITIS SUPPURATIVA SNOMED Code(s): 01701842 Plan: 1. Continue symptomatic supportive care 2. Paracentesis as needed 3. Continue diuretics as ordered 4. Continue lactulose as ordered, titrate to have 3-4 bowel movements daily 5. Primary care physician attempted transfer to [facility] for further evaluation and management of liver mass. Transfer was declined. Patient will need outpatient follow-up with [facility] machine iii coremaker. Arrangements have been set up with gastroenterology with referral sent down to [facility] specialist. 6. Patient is cleared from gastroenterology for discharge Thank you for this consultation, we will sign off at this time. Dr. Jeremy Lomas I agree with the dictator's note, documented as a scribe by Mary Anne Lafleur.
--- NOTE | 2023-05-28 03:03 | DS ---
DISCHARGE SUMMARY CHIEF COMPLAINT: Perineal fistula and abscess. HISTORY OF PRESENT ILLNESS AND PHYSICAL EXAMINATION: Details of this man's history and physical can be found in the initial workup. LABORATORY STUDIES: While he is in the hospital, he had laboratory studies, details of which can be found in the laboratory section of his chart. COURSE IN THE HOSPITAL: After admission, he was placed on bedrest, started on intravenous fluids. He was seen in consultation by Gastroenterology and Surgery. He had Crohn disease with enterocutaneous fistula in the perineum. He also was found to have an abscess in the pelvis. While he was in the hospital, he developed increasing ascites related to his cirrhosis, which was secondary to alcoholism. Surgery initially recommended, he be transferred back to [facility], where he had been a patient because his surgical issues exceeded the ability of the hospital to manage. He was turned down and the first time efforts were made to send him to [facility]. He then stayed in the hospital with no IVs, good discharge solutions. He is too weak and ill to go home and live with his son any longer, and [facility] facilities would not take him, in that he was not insured or under insured. He eventually underwent a paracentesis because there was a concern for the ascitic fluid and also to determine whether or not there is an underlying malignancy. He was seen by Oncology, and tumor markers were quite high including CA-19 and CEA. It was their feeling that he may have had hepatocellular carcinoma and he should be transferred to [facility]. Once again, I tried to have the patient transferred there for his care, and they refused to take him again. I did talk to the patient about what he wanted to and even consider hospice. His son suddenly showed up at the hospital in the morning of the stating that he was taking his dad. It was not clear whether he was taking him home or to [facility]. I was asked to discharge the patient to his care, which I refused to do, and that I had no idea what was going to happen. My concern was that he would take him to [facility], and if they would not admit him there, then he would be brought back home with no place to go. At the time of the dictation, I have no idea what happened to the patient under the son's care. The son did sign him out against medical advice. I will contact the son and the patient to see what happened and try to ensure that he gets appropriate and humane care. FINAL DIAGNOSIS: 1. 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 2. Perineal abscess. 3. Cirrhosis. 4. Alcoholism. 5. Intractable ascites. 6. Possible hepatocellular carcinoma. OPERATIONS: Paracentesis. CONSULTATIONS: General Surgery, Gastroenterology, and Oncology. MILENA / ADAM: [id number] /
--- NOTE | 2023-05-29 14:47 | P.PN ---
Subjective Progress Note Date: 05/27/23 Principal diagnosis: Reason for follow-up is perirectal abscess Patient is a 63-year-old male with a past medical history significant for COPD did have a history of Crohn's disease and hidradenitis suppurativa with multiple draining sinuses to the bilateral gluteal area also with a history of alcoholic cirrhosis patient presenting to the hospital for evaluation of mu ltiple draining sinuses near the rectal area that has been bleeding, patient did have a CT of abdominal pelvis suggestive of soft tissue mass with gas bubbles in the perineum suspicious for developing perineal abscess, general surgery was consulted recommending transfer to tertiary care and asked for infectious disease evaluation. On today's visit that is 05/27/2023, Patient is afebrile patient is currently on room air and denies having any shortness of breath, the patient denies any chest pain or cough, the patient denies any nausea vomiting did not have any abdominal pain and no diarrhea No lab draw today Objective - Vital Signs Vital signs: Vital Signs Temp 98.5 F 05/27/23 07:30 Pulse 84 05/27/23 07:30 Resp 19 05/27/23 07:30 BP 116/64 05/27/23 07:30 Pulse Ox 92 L 05/27/23 07:30 FiO2 Intake & Output 05/26/23 05/27/23 05/27/23 18:59 06:59 18:59 Output Total 400 Balance -400 Weight 65.771 kg Output: Urine 400 Other: Voiding Method Toilet Urinal # Voids 2 # Bowel Movements 3 - Exam GENERAL DESCRIPTION: Middle-age male lying in bed in no distress RESPIRATORY SYSTEM: Unlabored breathing , decreased breath sounds at bases HEART: S1 S2 regular rate and rhythm , ABDOMEN: Soft , no tenderness EXTREMITIES: No edema feet - Labs CBC & Chem 7: 05/25/23 05:51 05/25/23 05:51 Assessment and Plan (1) Perirectal abscess Status: Acute Priority: High Code(s): K61.1 - RECTAL ABSCESS SNOMED Code(s): 13038503 Plan: 1patient with a complicated history of Crohn's disease this patient with concer n for 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 perirectal area versus hidradenitis suppurative presenting to the hospital with multiple draining sinuses along the perirectal area with associated increasing pain patient did have abnormal CT suggestive of abscess we will need to cover for the enteric gram-negative both aerobes and anaerobes 2-patient would benefit from surgical drainage and culture that would guide further antibiotic therapy surgical team is requesting the patient to be michaels sferred to the tertiary care, [facility] has refused the transfer 3-patient is afebrile, patient did have repeat CT of the pelvis which was overall decrease in the abscess 4-patient is status post repeat paracentesis completed on 05/20/2023 with white count is only 5 not behaving as SBP, currently waiting for repeat paracentesis 5-patient remains to be afebrile no CBC was done today, patient is currently on Augmentin to continue, son at the bedside seen for the first time with the patient, son seems to be upset and wants to take them patient to [facility] multiple question concern answered Dictation was produced using [employer] dictation software. please excuse any grammatical, word or spelling errors. Time with Patient: Less than 30
== END 2023-05-27 13:46 | disposition left against medical advice (07) | DRG 386 ==
LOC: EC 17:50 → 4SSUR 05-08 01:15
PROVIDERS: ADMIT Family Medicine; ATTEND Family Medicine
PROC: 0W9G3ZZ Drainage of Peritoneal Cavity, Percutaneous Approach (ICD-10-PCS; principal; 2023-05-11)
PROC: 30233J1 Transfusion of Nonautologous Serum Albumin into Peripheral Vein, Percutaneous Approach (ICD-10-PCS; 2023-05-11)
PROC: 0W9G3ZZ Drainage of Peritoneal Cavity, Percutaneous Approach (ICD-10-PCS; 2023-05-15)
PROC: 0W9G3ZZ Drainage of Peritoneal Cavity, Percutaneous Approach (ICD-10-PCS; 2023-05-20)
PROC: 30233K1 Transfusion of Nonautologous Frozen Plasma into Peripheral Vein, Percutaneous Approach (ICD-10-PCS; 2023-05-20)
PROC: 0W9G3ZZ Drainage of Peritoneal Cavity, Percutaneous Approach (ICD-10-PCS; 2023-05-25)
DX: K50.113 Crohn's disease of large intestine with fistula (principal); C22.0 Liver cell carcinoma; E44.0 Moderate protein-calorie malnutrition; K76.6 Portal hypertension; E72.20 Disorder of urea cycle metabolism, unspecified; L02.215 Cutaneous abscess of perineum; K70.40 Alcoholic hepatic failure without coma; G31.2 Degeneration of nervous system due to alcohol; K70.31 Alcoholic cirrhosis of liver with ascites; E83.51 Hypocalcemia; D69.59 Other secondary thrombocytopenia; K70.11 Alcoholic hepatitis with ascites; F10.20 Alcohol dependence, uncomplicated; J44.9 Chronic obstructive pulmonary disease, unspecified; D53.9 Nutritional anemia, unspecified; T50.916A Underdosing of multiple unspecified drugs, medicaments and biological substances, initial encounter; F17.210 Nicotine dependence, cigarettes, uncomplicated; T50.2X6A Underdosing of carbonic-anhydrase inhibitors, benzothiadiazides and other diuretics, initial encounter; D75.89 Other specified diseases of blood and blood-forming organs; L73.2 Hidradenitis suppurativa; E27.9 Disorder of adrenal gland, unspecified; Z53.29 Procedure and treatment not carried out because of patient's decision for other reasons; Z91.A98 Caregiver's noncompliance with patient's other medical treatment and regimen for other reason; Z59.7 Insufficient social insurance and welfare support; Z91.141 Patient's other noncompliance with medication regimen due to financial hardship; H91.90 Unspecified hearing loss, unspecified ear; K31.89 Other diseases of stomach and duodenum; K44.9 Diaphragmatic hernia without obstruction or gangrene; B96.89 Other specified bacterial agents as the cause of diseases classified elsewhere; R26.9 Unspecified abnormalities of gait and mobility; Z79.899 Other long term (current) drug therapy; Z87.19 Personal history of other diseases of the digestive system; Z90.49 Acquired absence of other specified parts of digestive tract; Z80.3 Family history of malignant neoplasm of breast; Z83.79 Family history of other diseases of the digestive system; Z68.20 Body mass index [BMI] 20.0-20.9, adult
CPT/HCPCS: 36415; 49083; 71260; 74177; 74183; 80048; 80053; 81001; 82042; 82105; 82140; 82378; 82607; 82728; 82746; 82945; 83540; 83550; 83605; 83735; 83921; 84157; 85025; 85027; 85049; 85610; 85730; 86140; 86301; 86850; 86900; 86901; 87040; 87070; 87075; 87205; 88108; 88305; 89050; 94640; 94760; 96361; 96365; 96366; 96372; 99285

== ENCOUNTER 2023-06-16 16:30 | Inpatient (IN) | payer MEDICARE ==
[2023-06-16] MEDS: SODIUM CHLORIDE 0.9% 1,000 ML IV STA (16:52)
--- NOTE | 2023-06-16 17:03 | ED ---
Altered Mental Status HPI - General Chief Complaint: Abdominal Pain Stated Complaint: Weakness Time Seen by Provider: 06/16/23 16:36 Source: patient, EMS, RN notes reviewed, old records reviewed Mode of arrival: EMS Limitations: no limitations - History of Present Illness Initial Comments: This is a 63-year-old male to ER for evaluation today. Patient presents today for evaluation regards to altered mental status abdominal pain abdominal distention with recent hospital discharge. Patient has had history of esophageal varices does not have blood in his mouth and teeth MD Complaint: altered mental status, confusion -: days(s) Severity: mild Consistency of Symptoms: waxing and waning Associated Symptoms: chest pain Treatments Prior to Arrival: IV fluid - Related Data Home Medications Medication Instructions Recorded Confirmed Spironolactone 100 mg PO DAILY 05/05/18 06/16/23 Folic Acid 1 mg PO DAILY 06/16/23 06/16/23 Furosemide [Lasix] 20 mg PO DAILY 06/16/23 06/16/23 Gabapentin [Neurontin] 600 mg PO HS 06/16/23 06/16/23 Lactulose 20 gm PO TID 06/16/23 06/16/23 Multivitamins, Thera [Multivitamin 1 tab PO DAILY 06/16/23 06/16/23 (formulary)] Pantoprazole Sodium [Protonix] 40 mg PO AC-BID 06/16/23 06/16/23 Sulfamethox-Tmp 800-160Mg [Bactrim 1 tab PO DAILY 06/16/23 06/16/23 DS 800-160 mg] Tamsulosin [Flomax] 0.4 mg PO W/BRKFST 06/16/23 06/16/23 Thiamine [Vitamin B-1] 100 mg PO DAILY 06/16/23 06/16/23 Vitamin B-12 100mcg 100 mcg PO DAILY 06/16/23 06/16/23 predniSONE See Taper PO DAILY 06/16/23 06/16/23 Allergies Allergy/AdvReac Type Severity Reaction Status Date / Time No Known Allergies Allergy Verified 06/16/23 18:54 Review of Systems ROS Statement: Those systems with pertinent positive or pertinent negative responses have been documented in the HPI. ROS Other: All systems not noted in ROS Statement are negative. Past Medical History Past Medical History: COPD, GI Bleed, Hearing Disorder / Deafness, Liver Disease, Skin Disorder Additional Past Medical History / Comment(s): crohn's,. "ezcema type rash". seasonal allergies. HX CIRRHOSIS. FX LT WRIST 04/06/22 rt wrist 08/05/2022 fx History of Any Multi-Drug Resistant Organisms: None Reported Past Surgical History: Bowel Resection Additional Past Surgical History / Comment(s): lt achilles tendon repair , rt l eg ligament repair, bilateral cataract surgery with implants gary wrist fx repair. COLONOSCOPIES, left hand surgery Past Anesthesia/Blood Transfusion Reactions: No Reported Reaction Past Psychological History: No Psychological Hx Reported Smoking Status: Former smoker Past Alcohol Use History: None Reported Past Drug Use History: None Reported - Past Family History Father History Unknown: Yes Family Medical History: Cancer Additional Family Medical History / Comment(s): pancreatitis Mother History Unknown: Yes Family Medical History: Cancer Additional Family Medical History / Comment(s): mother of metastatic breast cancer General Exam Limitations: no limitations General appearance: alert, in no apparent distress Head exam: Present: atraumatic, normocephalic, normal inspection Eye exam: Present: normal appearance, PERRL, EOMI. Absent: scleral icterus, conjunctival injection, periorbital swelling ENT exam: Present: normal exam, mucous membranes moist Neck exam: Present: normal inspection. Absent: tenderness, meningismus, lymphadenopathy Respiratory exam: Present: normal lung sounds bilaterally. Absent: respiratory distress, wheezes, rales, rhonchi, stridor Cardiovascular Exam: Present: regular rate, normal rhythm, normal heart sounds. Absent: systolic murmur, diastolic murmur, rubs, gallop, clicks GI/Abdominal exam: Present: soft, normal bowel sounds. Absent: distended, tenderness, guarding, rebound, rigid Extremities exam: Present: normal inspection, full ROM, normal capillary refill. Absent: tenderness, pedal edema, joint swelling, calf tenderness Back exam: Present: normal inspection Neurological exam: Present: alert, oriented X3, CN II-XII intact Psychiatric exam: Present: normal affect, normal mood Skin exam: Present: warm, dry, intact, normal color. Absent: rash Course Vital Signs 06/16/23 06/16/23 06/16/23 16:41 17:20 18:02 Temperature 98.0 F 98.2 F Pulse Rate 89 75 64 Respiratory 17 19 20 Rate Blood Pressure 110/57 105/63 105/55 O2 Sat by Pulse 98 95 93 L Oximetry 06/16/23 06/16/23 06/16/23 19:26 20:11 20:20 Temperature Pulse Rate 105 H 101 H 100 Respiratory 19 17 Rate Blood Pressure 101/53 86/52 O2 Sat by Pulse 94 L 93 L Oximetry 06/16/23 06/16/23 06/16/23 20:42 20:43 20:48 Temperature Pulse Rate 103 H 101 H 99 Respiratory 20 19 Rate Blood Pressure 92/55 77/51 O2 Sat by Pulse 96 95 Oximetry 06/16/23 21:15 Temperature Pulse Rate 96 Respiratory 17 Rate Blood Pressure 96/48 O2 Sat by Pulse Oximetry - Reevaluation(s) Reevaluation #1: 06/16/23 17:29 Medical records are reviewed Reevaluation #2: 06/16/23 17:31 Patient symptoms are unchanged Reevaluation #3: 06/16/23 17:31 Patient aware of results and questions answered Reevaluation #4: Was pt. sent in by a medical professional or institution (, PA, GRAPHIC DESIGN PROFESSOR, urgent care, hospital, or jail...) When possible be specific @ -no Did you speak to anyone other than the patient for history (EMS, parent, family, police, friend...)? What history was obtained from this source @ -no Did you review nursing and triage notes (agree or disagree)? Why? @ -agree Are old charts reviewed (outside hosp., previous admission, EMS record, old EKG, old radiological studies, urgent care reports/EKG's, jail records)? Report findings @ -yes Differential Diagnosis (chest pain, altered mental status, abdominal pain women, abdominal pain men, vaginal bleeding, weakness, fever, dyspnea, syncope, headache, dizziness, GI bleed, back pain, seizure, CVA, palpatations, mental health, musculoskeletal)? @ -prior EKG interpreted by me (3pts min.). @ -yes X-rays interpreted by me (1pt min.). @ -no CT interpreted by me (1pt min.). @ -no U/S interpreted by me (1pt. min.). @ -no What testing was considered but not performed or refused? (CT, X-rays, U/S, labs)? Why? @ -none What meds were considered but not given or refused? Why? @ -none Did you discuss the management of the patient with other professionals (professionals i.e. , PA, GRAPHIC DESIGN PROFESSOR, lab, RT, psych nurse, social service coordinator, inspector tubes, teacher, consular officer, shoe caser)? Give summary @ -no Was smoking cessation discussed for >3mins.? @ -no Was critical care preformed (if so, how long)? @ -no Were there social determinants of health that impacted care today? How? (Homelessness, low income, unemployed, alcoholism, drug addiction, transportation, low edu. Level, literacy, decrease access to med. care, custodial, rehab)? @ -none Was there de-escalation of care discussed even if they declined (Discuss DNR or withdrawal of care, Hospice)? DNR status @ -no What co-morbidities impacted this encounter? (DM, HTN, Smoking, COPD, CAD, Cancer, CVA, ARF, Chemo, Hep., AIDS, mental health diagnosis, sleep apnea, morbid obesity)? @ -none Was patient admitted / discharged? Hospital course, mention meds given and route, prescriptions, significant lab abnormalities, going to OR and other pertinent info. @ - 63-year-old male with severe liver cirrhosis multiple acute abnormalities, patient recently had upper GI showing no active variceal bleeding. Patient will be admitted today as he does need placement for further outpatient evaluation and treatment and end-of-life care Admitted Undiagnosed new problem with uncertain prognosis? @ -no Drug Therapy requiring intensive monitoring for toxicity (Heparin, Nitro, Insulin, Cardizem)? @ -no Were any procedures done? @ -no Diagnosis/symptom? @ -Severe weakness, end-of-life care Acute, or Chronic, or Acute on Chronic? @ -Acute Uncomplicated (without systemic symptoms) or Complicated (systemic symptoms)? @ -Complicated Side effects of treatment? @ -no Exacerbation, Progression, or Severe Exacerbation? @ -exacerbation Poses a threat to life or bodily function? How? (Chest pain, [place], VA, pneumonia, PE, COPD, DKA, ARF, appy, cholecystitis, CVA, Diverticulitis, Homicidal, Suicidal, threat to staff... and all critical care pts) @ -yes significant end-of-life Reevaluation #5: Differential Abdominal Pain Men: Appendicitis, cholecystitis, diverticulosis, ischemic bowel, pancreatitis, hepatitis, UTI, gastroenteritis, AAA, incarcerated hernia, bowel obstruction, constipation, inflammatory bowel, hepatitis, peptic ulcer disease, splenic infarction, perforated viscus, testicular torsion, this is not meant to be an all-inclusive list - Consultations Consultation #1: Spoke with Dr. Burroughs and who agrees to admit this patient Medical Decision Making - Medical Decision Making 63-year-old male with severe liver cirrhosis multiple acute abnormalities, patient recently had upper GI showing no active variceal bleeding. Patient will be admitted today as he does need placement for further outpatient evaluation and treatment and end-of-life care - Lab Data Result diagrams: 06/16/23 16:51 06/16/23 16:51 Lab Results 06/16/23 06/16/23 06/16/23 Range/Units 16:51 16:51 16:51 WBC 13.4 H (3.8-10.6) k/uL RBC 2.36 L (4.30-5.90) m/uL Hgb 10.9 L (13.0-17.5) gm/dL Hct 28.2 L (39.0-53.0) % MCV 119.2 H D (80.0-100.0) fL MCH 46.2 H (25.0-35.0) pg MCHC 38.8 H (31.0-37.0) g/dL RDW 16.3 H (11.5-15.5) % Plt Count 51 L (150-450) k/uL MPV 9.7 Neutrophils % (Manual) 92 % Lymphocytes % (Manual) 2 % Monocytes % (Manual) 6 % Other Cells % % Neutrophils # (Manual) 12.33 H (1.3-7.7) k/uL Lymphocytes # (Manual) 0.27 L (1.0-4.8) k/uL Monocytes # (Manual) 0.80 (0-1.0) k/uL Nucleated RBCs 0 (0-0) /100 WBC Hypochromasia Slight Anisocytosis Slight Macrocytosis Marked A PT 25.4 H (10.0-12.5) sec INR 2.6 H (<1.2) APTT 34.1 H (22.0-30.0) sec Sodium 131 L (137-145) mmol/L Potassium 4.5 (3.5-5.1) mmol/L Chloride 107 (98-107) mmol/L Carbon Dioxide 15 L (22-30) mmol/L Anion Gap 9 mmol/L BUN 29 H (9-20) mg/dL Creatinine 0.88 (0.66-1.25) mg/dL Est GFR (CKD-EPI)AfAm >90 (>60 ml/min/1.73 sqM) Est GFR (CKD-EPI)NonAf >90 (>60 ml/min/1.73 sqM) Glucose 139 H (74-99) mg/dL Lactic Ac Sepsis Rflx Plasma Lactic Acid José (0.7-2.0) mmol/L Calcium 7.3 L (8.4-10.2) mg/dL Phosphorus 3.6 (2.5-4.5) mg/dL Magnesium 2.0 (1.6-2.3) mg/dL Total Bilirubin 17.3 H* (0.2-1.3) mg/dL AST 161 H (17-59) U/L ALT 138 H (4-49) U/L Alkaline Phosphatase 78 (38-126) U/L Ammonia (<30) umol/L Troponin I (0.000-0.034) ng/mL NT-Pro-B Natriuret Pep 193 pg/mL Total Protein 6.7 (6.3-8.2) g/dL Albumin 2.0 L (3.5-5.0) g/dL Lipase 89 (23-300) U/L 06/16/23 06/16/23 06/16/23 Range/Units 16:51 16:51 17:35 WBC (3.8-10.6) k/uL RBC (4.30-5.90) m/uL Hgb (13.0-17.5) gm/dL Hct (39.0-53.0) % MCV (80.0-100.0) fL MCH (25.0-35.0) pg MCHC (31.0-37.0) g/dL RDW (11.5-15.5) % Plt Count (150-450) k/uL MPV Neutrophils % (Manual) % Lymphocytes % (Manual) % Monocytes % (Manual) % Other Cells % % Neutrophils # (Manual) (1.3-7.7) k/uL Lymphocytes # (Manual) (1.0-4.8) k/uL Monocytes # (Manual) (0-1.0) k/uL Nucleated RBCs (0-0) /100 WBC Hypochromasia Anisocytosis Macrocytosis PT (10.0-12.5) sec INR (<1.2) APTT (22.0-30.0) sec Sodium (137-145) mmol/L Potassium (3.5-5.1) mmol/L Chloride (98-107) mmol/L Carbon Dioxide (22-30) mmol/L Anion Gap mmol/L BUN (9-20) mg/dL Creatinine (0.66-1.25) mg/dL Est GFR (CKD-EPI)AfAm (>60 ml/min/1.73 sqM) Est GFR (CKD-EPI)NonAf (>60 ml/min/1.73 sqM) Glucose (74-99) mg/dL Lactic Ac Sepsis Rflx Y Plasma Lactic Acid José 2.6 H* (0.7-2.0) mmol/L Calcium (8.4-10.2) mg/dL Phosphorus (2.5-4.5) mg/dL Magnesium (1.6-2.3) mg/dL Total Bilirubin (0.2-1.3) mg/dL AST (17-59) U/L ALT (4-49) U/L Alkaline Phosphatase (38-126) U/L Ammonia <9 (<30) umol/L Troponin I <0.012 (0.000-0.034) ng/mL NT-Pro-B Natriuret Pep pg/mL Total Protein (6.3-8.2) g/dL Albumin (3.5-5.0) g/dL Lipase (23-300) U/L - EKG Data -: EKG Interpreted by Me (EKG sinus 90 IL 187 QRS prolonged QTc 407) Disposition Clinical Impression: Abdominal pain, Cirrhosis, Anemia, Thrombocytopenia Disposition: ADMITTED IP TO THIS HOSP Condition: Fair Is patient prescribed a controlled substance at d/c from ED?: No Time of Disposition: 19:40
[2023-06-16 17:18] LABS: ALT 138 U/L (4-49); AST 161 U/L (17-59); African American GFR (CKD) >90 (>60 ml/min/1.73 sqM); Alkaline Phosphatase 78 U/L (38-126); Anion Gap 9 mmol/L; Blood Urea Nitrogen 29 mg/dL (9-20); Calcium 7.3 mg/dL (8.4-10.2); Carbon Dioxide 15 mmol/L (22-30); Chloride 107 mmol/L (98-107); Glucose 139 mg/dL (74-99); Lipase 89 U/L (23-300); Non-African American GFR(CKD) >90 (>60 ml/min/1.73 sqM); Phosphorus 3.6 mg/dL (2.5-4.5); Potassium 4.5 mmol/L (3.5-5.1); Sodium 131 mmol/L (137-145); Total Protein 6.7 g/dL (6.3-8.2)
[2023-06-16 17:19] LABS: Anisocytosis Slight; HCT 28.2 % (39.0-53.0); HGB 10.9 gm/dL (13.0-17.5); Hypochromasia Slight; Macrocytosis Marked; Mean Platelet Volume 9.7; Platelet Count 51 k/uL (150-450); RBC 2.36 m/uL (4.30-5.90); RDW 16.3 % (11.5-15.5); WBC 13.4 k/uL (3.8-10.6)
[2023-06-16 17:21] LABS: MCH 46.2 pg (25.0-35.0); MCHC 38.8 g/dL (31.0-37.0)
[2023-06-16 17:22] LABS: MCV 119.2 fL (80.0-100.0)
[2023-06-16 17:26] LABS: NT-Pro-B-Type Natriuretic Pept 193 pg/mL
[2023-06-16 17:35] LABS: Lactic Acid, Venous 2.6 mmol/L (0.7-2.0); Total Bilirubin 17.3 mg/dL (0.2-1.3)
[2023-06-16 17:40] LABS: INR 2.6 (<1.2); Partial Thromboplastin Time 34.1 sec (22.0-30.0); Prothrombin Time 25.4 sec (10.0-12.5)
[2023-06-16 18:07] LABS: Lymphocytes # (M) 0.27 k/uL (1.0-4.8); Neutrophils # (M) 12.33 k/uL (1.3-7.7); Neutrophils % (M) 92 %; Nucleated Red Blood Cells 0 /100 WBC (0-0); Total Cells Counted 100
[2023-06-16 18:32] VITALS: TEMP 98.2
[2023-06-16] MEDS: HYDROmorphone 0.5 MG/0.5 ML SYRINGE IVP STA (18:50)
[2023-06-16] MEDS ORDERED: HYDROmorphone 0.5 MG/0.5 ML SYRINGE IVP PRN (19:44)
[2023-06-16] MEDS ORDERED: NALOXONE 0.4 MG/ML 1 ML VIAL IV PRN (19:44)
[2023-06-16] MEDS ORDERED: ONDANSETRON 4 MG/2 ML VIAL IVP PRN (19:44)
[2023-06-16] MEDS: SODIUM CHLORIDE 0.9% 1,000 ML IV SCH (20:03)
[2023-06-16] MEDS ORDERED: LORazepam 2 MG/ML INJ IV PRN (20:14)
[2023-06-16] MEDS: IPRATROPIUM-ALBUTEROL 3 ML NEB INHALATION STA (20:20)
[2023-06-16 21:03] LABS: ABG Base Excess -7.1 mmol/L; ABG HCO3 17 mmol/L (21-25); ABG PCO2 26 mmHg (35-45); ABG PH 7.42 (7.35-7.45); ABG PO2 65 mmHg (83-108); ABG TCO2 18 mmol/L (19-24); Allen Test Performed? Yes
[2023-06-16] MEDS: SODIUM CHLORIDE 0.9% 500 ML 500 ML IV ONE ×2 (21:22)
[2023-06-16 21:23] LABS: Glucose,Whole Blood 76 mg/dL (70-110)
[2023-06-16] MEDS: NOREPINEPHRINE 4 MG in SODIUM CHLORIDE 0.9% 250 ML IV SCH (21:56)
[2023-06-16] MEDS ORDERED: MORPHINE SULFATE 2 MG/ML SYRINGE IV PRN (22:30)
[2023-06-16 23:02] VITALS: BP 92/54; PULSE 94; RESP 12
[2023-06-16] MEDS: MORPHINE SULFATE (100 MG/2 ML) 100 MG in SODIUM CHLORIDE 0.9% 100 ML IV SCH (23:12)
[2023-06-16] MEDS: ATROPINE OPHTH SOLN 1% 5ML BTL SUBLINGUAL PRN (23:14)
[2023-06-16] MEDS: SCOPOLAMINE 1 MG/72 HR PATCH TRANSDERM SCH (23:14)
--- NOTE | 2023-06-17 00:45 | P.CNPUL ---
History of Present Illness Consult date: 06/17/23 Requesting physician: Bart Oliveira Reason for consult: other (Hypotension; ICU management) Chief complaint: Altered mental status History of present illness: Patient is a 63-year-old white male with past medical history significant for alcoholism, cirrhosis of the liver, esophageal varices, Crohn's disease. Patient did have a recent hospital admission in April,. He did have an abdominal CT which showed a possible perineal abscess. He was also noted to have a large ill-defined mass within the liver highly suspicious for hepatocellular carcinoma. During that hospital admission, he did have multiple paracentesis on 05/12/2023 and 05/21/2023, which were nondiagnostic for malignancy. Cultures were positive for anaerobes. He was treated with antibiotics per infectious disease. There was recommendations for transfer to a tertiary care center, however, was apparently denied. The patient son ended up taking his father out of the hospital AGAINST MEDICAL ADVICE. He drove him to [facility], where he was admitted and subsequently discharged. According to the patient's daughter who is at the bedside, he did have an an EGD with variceal ligation while inpatient. No medical records are available. Patient presented back to our emergency room yesterday evening. Apparently, the patient was more confused and lethargic at home. He was having abdominal pain and had severe abdominal distention. The patient also reportedly had a coffee- ground emesis while in the emergency room and maroon stool. No other workup was done while in the emergency room. Patient was noted to be hypotensive, he has received a total of 3 L normal saline bolus. He was then admitted to the intensive care unit for vasopressor support. CBC on arrival: WBC count 13.4, hemoglobin 10.9, hematocrit 28.2, platelets 51. CMP on arrival: Sodium 131, potassium 4.5, chloride 107, serum bicarb 15, BUN 29, creatinine 0.88, glucose 139. Lactic acid level trending up, most recent result 3.5, LFTs are elevated. Total bilirubin is 17.3. Coagulation profile includes an INR of 2.6 and a PTT of 34.1. Troponins are less than 0.012. NT proBNP 193. Patient is currently resting in bed, he is very jaundiced, and he is lethargic and confused. He is only oriented to self. He is on a 4 L nasal cannula, and SpO2 is 94%. Heart rhythm appears to be normal sinus on bedside monitor. Blood pressure remains hypotensive. Patient's family is at bedside, including his son and daughter. Anjali rahman's primary care provider, Dr. Terry, has already spoken to the family. It was there decision to pursue comfort care measures. They do not want an additional workup or intervention. They do not want transfer to tertiary care center. The comfort care measures are in the process of being initiated. I agree with this decision, as the patient has multiple pre-existing medical comorbidities, that give the patient an overall very poor prognosis. My supervising physician has also been made aware of the family's decision to withdraw care. Review of Systems ROS unobtainable: due to mental status Past Medical History Past Medical History: COPD, GI Bleed, Hearing Disorder / Deafness, Liver Disease, Skin Disorder Additional Past Medical History / Comment(s): crohn's,. "ezcema type rash". seasonal allergies. HX CIRRHOSIS. FX LT WRIST 04/06/22 rt wrist 08/05/2022 fx History of Any Multi-Drug Resistant Organisms: None Reported Past Surgical History: Bowel Resection Additional Past Surgical History / Comment(s): lt achilles tendon repair , rt leg ligament repair, bilateral cataract surgery with implants gary wrist fx repair. COLONOSCOPIES, left hand surgery Past Anesthesia/Blood Transfusion Reactions: No Reported Reaction Past Psychological History: No Psychological Hx Reported Smoking Status: Former smoker Past Alcohol Use History: None Reported Past Drug Use History: None Reported - Past Family History Father History Unknown: Yes Family Medical History: Cancer Additional Family Medical History / Comment(s): pancreatitis Mother History Unknown: Yes Family Medical History: Cancer Additional Family Medical History / Comment(s): mother of metastatic breast cancer Medications and Allergies Home Medications Medication Instructions Recorded Confirmed Type Spironolactone 100 mg PO DAILY 05/05/18 06/16/23 History Folic Acid 1 mg PO DAILY 06/16/23 06/16/23 History Furosemide [Lasix] 20 mg PO DAILY 06/16/23 06/16/23 History Gabapentin [Neurontin] 600 mg PO HS 06/16/23 06/16/23 History Lactulose 20 gm PO TID 06/16/23 06/16/23 History Multivitamins, Thera [Multivitamin 1 tab PO DAILY 06/16/23 06/16/23 History (formulary)] Pantoprazole Sodium [Protonix] 40 mg PO AC-BID 06/16/23 06/16/23 History Sulfamethox-Tmp 800-160Mg [Bactrim 1 tab PO DAILY 06/16/23 06/16/23 History DS 800-160 mg] Tamsulosin [Flomax] 0.4 mg PO W/BRKFST 06/16/23 06/16/23 History Thiamine [Vitamin B-1] 100 mg PO DAILY 06/16/23 06/16/23 History Vitamin B-12 100mcg 100 mcg PO DAILY 06/16/23 06/16/23 History predniSONE See Taper PO DAILY 06/16/23 06/16/23 History Allergies Allergy/AdvReac Type Severity Reaction Status Date / Time No Known Allergies Allergy Verified 06/16/23 18:54 Physical Exam Vitals: Vital Signs Temp Pulse Pulse Resp BP BP Pulse Ox 06/16/23 22:45 94 12 92/54 93 L 06/16/23 22:30 96 12 102/55 93 L 06/16/23 22:15 92 15 100/55 94 L 06/16/23 22:00 98 13 95/60 94 L 06/16/23 21:46 98 13 95/60 06/16/23 21:30 100 16 105/59 06/16/23 21:15 96 17 96/48 06/16/23 20:48 99 19 77/51 95 06/16/23 20:43 101 H 20 92/55 96 06/16/23 20:42 103 H 06/16/23 20:20 100 06/16/23 20:11 101 H 17 86/52 93 L 06/16/23 19:26 105 H 19 101/53 94 L 06/16/23 18:02 98.2 F 64 20 105/55 93 L 06/16/23 17:20 75 19 105/63 95 06/16/23 16:41 98.0 F 89 17 110/57 98 Intake and Output 06/16/23 06/16/23 06/17/23 14:59 22:59 06:59 Intake Total 1000 1.428 Output Total 250 Balance 750 1.428 Intake: IV 1000 Sodium Chloride 0.9% 500 500 ml 500 ml @ 999 mls/hr IV .Q31M ONE Rx#:[id number] Sodium Chloride 0.9% 500 500 ml 500 ml @ 999 mls/hr IV .Q31M ONE Rx#:[id number] Intake, IV Titration 1.428 Amount Morphine Sulfate (100 mg/ 1.428 2 ml) 100 mg In Sodium Chloride 0.9% 100 ml @ 1 MG/HR 1.02 mls/hr IV . Q24H [facility] Rx#:[id number] Output: Urine 250 Other: Weight 65.771 kg GENERAL EXAM: Lethargic, 63-year-old white male, appearing older than stated age, cachectic, jaundiced, with severe abdominal distention HEAD: Normocephalic and atraumatic EYES: Normal reaction of pupils, equal size. Icteric sclera NOSE: Clear with pink turbinates. THROAT: No erythema or exudates. NECK: No masses, no JVD. CHEST: No chest wall deformity. LUNGS: Equal air entry with no crackles, wheeze, rhonchi or dullness. On 4 L/min nasal cannula. No conversational dyspnea or accessory muscle use.. CVS: S1 and S2 normal with no audible murmur, regular rhythm. No extra heart sounds ABDOMEN: Severe abdominal distention, and guarding. SPINE: No scoliosis or deformity SKIN: Multiple perineal fistulas and tracking. CENTRAL NERVOUS SYSTEM: No focal deficits, tone is weak in all 4 extremities. EXTREMITIES: There is no peripheral edema, clubbing, or cyanosis. Peripheral pulses are intact. Results - Laboratory Findings CBC and BMP: 06/16/23 16:51 06/16/23 16:51 ABG ABG pH 7.42 (7.35-7.45) 06/16/23 21:01 ABG pCO2 26 mmHg (35-45) L 06/16/23 21:01 ABG pO2 65 mmHg (83-108) L 06/16/23 21:01 ABG O2 Saturation 92.0 % (94-97) L 06/16/23 21:01 PT/INR, D-dimer PT 25.4 sec (10.0-12.5) H 06/16/23 16:51 INR 2.6 (<1.2) H 06/16/23 16:51 Abnormal lab findings: Abnormal Labs 06/16/23 06/16/23 06/16/23 16:51 16:51 16:51 WBC 13.4 H RBC 2.36 L Hgb 10.9 L Hct 28.2 L MCV 119.2 H D MCH 46.2 H MCHC 38.8 H RDW 16.3 H Plt Count 51 L Neutrophils # (Manual) 12.33 H Lymphocytes # (Manual) 0.27 L Macrocytosis Marked A PT 25.4 H INR 2.6 H APTT 34.1 H ABG pCO2 ABG pO2 ABG HCO3 ABG Total CO2 ABG O2 Saturation Sodium 131 L Carbon Dioxide 15 L BUN 29 H Glucose 139 H Plasma Lactic Acid José Calcium 7.3 L Total Bilirubin 17.3 H* AST 161 H ALT 138 H Albumin 2.0 L 06/16/23 06/16/23 06/16/23 16:51 20:31 21:01 WBC RBC Hgb Hct MCV MCH MCHC RDW Plt Count Neutrophils # (Manual) Lymphocytes # (Manual) Macrocytosis PT INR APTT ABG pCO2 26 L ABG pO2 65 L ABG HCO3 17 L ABG Total CO2 18 L ABG O2 Saturation 92.0 L Sodium Carbon Dioxide BUN Glucose Plasma Lactic Acid José 2.6 H* 3.5 H* Calcium Total Bilirubin AST ALT Albumin Assessment and Plan Assessment: Refractory hypotension and shock, refractory to fluid resuscitation, and requiring vasopressor support with admission to the ICU Possible GI bleeding, patient had a reported coffee-ground emesis and maroon stool while in the emergency room History of esophageal varices and portal hypertension Reported recent EGD and variceal ligation and/or banding at outside facility per family. No medical records are immediately available. Alcoholic liver cirrhosis and ascites History of alcoholism Hepatic mass, measuring 0.5 x 5.2 cm within the anterior right upper lobe of the liver, concerning for hepatocellular carcinoma. Patient did have multiple paracentesis on his most recent hospital admission at our facility, cytology nondiagnostic for malignancy. Recent history of an hospital admission for suspected perineal abscess and severe Crohn's disease with rectal involvement Leukocytosis, possibly secondary to above Non-anion gap metabolic acidosis Lactic acidosis Hyperbilirubinemia and jaundice Thrombocytopenia Chronic macrocytic anemia Coagulopathy, secondary to cirrhosis History of COPD Former tobacco smoker Plan: The patient's primary care provider, Dr. Terry, has already spoken to the patient's family. They wish to pursue comfort care measures at this time. The family is at bedside, do not want any additional workup or intervention. They do not want transfer to tertiary care center. Comfort care measures already in the process of being initiated. I agree with this decision, as the patient has multiple pre-existing medical comorbidities, that give the patient an overall very poor prognosis. My supervising physician has been made aware of the family's decision to withdraw care. I have personally seen and examined the patient, performed the documentation and the assessment and plan as written. Number of minutes spent on the visit:20 Time with Patient: Greater than 30
--- NOTE | 2023-06-17 08:35 | P.PN ---
Progress Note - Text Progress Note Date: 06/17/23 Patient admitted to the ICU with weakness hypotensive and advanced liver disease. Gastroenterology was initially put on consult. Patient's family has made him a DO NOT RESUSCITATE and comfort care only. Consultation will be canceled. Dr. Jeremy Lomas I agree with the dictator's note, documented as a scribe by Mary Anne Lafleur.
--- NOTE | 2023-06-19 23:24 | CDI ---
Documentation Clarification Form Date: 06/19/2023 11:09:16 PM From: Elza Tinoco Phone: Admit Date: 06/16/2023 07:47:00 PM Patient Name: Jesus Lindquist Visit Number: [id number] Discharge Date: 06/17/2023 12:21:00 PM ATTENTION: The Clinical Documentation Specialists (CDI) and [facility] Coding Staff appreciate your assistance in clarifying documentation. Please respond to the clarification below the line at the bottom and electronically sign. The CDI & [facility] Coding staff will review the response and follow-up if needed. Please note: Queries are made part of the Legal Health Record. If you have any questions, please contact the author of this message via ITS. Dr. Pramod Terry Shock is documented PER Consult Note. Additional clarification regarding the type of shock is requested. Patient history/risk factors: 63yo M, refractoryhypotension,shock, advancedliver disease, melena, esophageal varices, portal HTN, alcoholic liver cirrhosiswascites, hepatic mass concerning forhepatocellular carcinoma, NAGMA, hyperbilirubinemia, thrombocytopenia, chronicmacrocytic anemia, coagulopathy d/tcirrhosis Clinical Indicators: 06/16/2415:41 110/57 06/15/2416:20 105/63 06/16/2419:11 86/52 06/16/2419:48 77/51 06/15/2421:30 102/55 Treatment: additional fluids and norepinephrine, if necessary, to maintain a mean arterialpressureof 65 or higher. Planned to Trfx to H but family made DNR/Comfort care. Patient passed. Please clarify the type of shock, if known: [ ] Hypovolemic Shock [ ] Hemorrhagic Shock [ ] Cardiogenic Shock [ ] Other, please specify [ ] Unable to determine (Template Last Revised: May 2020) MTDD
--- NOTE | 2023-06-22 00:57 | HP ---
HISTORY AND PHYSICAL Admitted to ICU. CHIEF COMPLAINT: Hypotension, dehydration, malnutrition, and failure to thrive. HISTORY OF PRESENT ILLNESS: This is another admission for this 63-year-old male. He has been in and out of the hospital over the last several months with declining health due to cirrhosis with ascites, Crohn's disease with perineal fistula and pelvic abscess. He had been at [facility] and brought home the day before and the family could not handle him and brought him to the emergency room in extremis. He was hypotensive, dehydrated, and in severe protein-calorie malnutrition. He was jaundiced. When he had left this institution, it was felt that he may have hepatocellular carcinoma. This was never documented to [facility]. REVIEW OF SYSTEMS: He is extremely weak and confused. Remainder of his history is unchanged from his recent admitting studies. PHYSICAL EXAMINATION: VITAL SIGNS: Blood pressure is 86 systolically, pulse is 70, respirations are 35. GENERAL: He is weak and jaundiced. His orientation is questionable. He appears to be severely dehydrated and malnourished. CHEST: Breath sounds are heard bilaterally. CARDIAC: Normal. ABDOMEN: Distended with ascites and is slightly tender. There is purulent drainage from the perineal fistula. EXTREMITIES: Reveal poor muscle bulk. NEUROLOGICAL: He is intact, but lethargic. DIAGNOSES: He is admitted to the hospital with diagnoses: 1. Cirrhosis. 2. Chronic alcoholism. 3. Hepatic failure. 4. Ascites. 5. History of Crohn's disease with perineal fistula. 6. Dehydration. 7. Severe protein-calorie malnutrition. 8. Possible hepatocellular carcinoma. PLAN: 1. Bed rest. 2. IV fluids. 3. Keep patient comfortable. 4. Talk with the family about comfort measures only. MMODL / IJN: [id number] /
--- NOTE | 2023-06-22 08:24 | DS ---
DISCHARGE SUMMARY CHIEF COMPLAINTS: 1. Malnutrition. 2. Dehydration. 3. General debility and failure to thrive. 4. Alcoholism. 5. Cirrhosis. 6. Crohn's disease with perineal fistula. HISTORY OF PRESENT ILLNESS AND PHYSICAL EXAMINATION: Details of this man's history and physical can be found in the initial workup. LABORATORY STUDIES: While he was in the hospital, he had laboratory studies, details of which can be found in the laboratory section of his chart. COURSE IN HOSPITAL: After admission, he was placed on bedrest, on intravenous fluids. He had just been discharged from [facility] the day before. It was suspected he may have . The situations were discussed with the family and the 1. Hepatic failure. 2. . 3. Protein-calorie malnutrition. OPERATIONS: None. CONSULTATION: None, he was not improved, he . MMTERRYL / ADAM: [id number] /
--- NOTE | 2023-08-04 12:31 | MISC ---
MISCELLANOUS REPORT Hypovolemic shock. MMODL / IJN: [id number] /
== END 2023-06-17 12:21 | disposition expired | DRG 432 ==
LOC: EC 16:30 → 4SSUR 19:47 → 3SCARD 20:25 → 2SICU 21:05
PROVIDERS: ADMIT Family Medicine; ATTEND Family Medicine
DX: K70.31 Alcoholic cirrhosis of liver with ascites (principal); E43 Unspecified severe protein-calorie malnutrition; K65.1 Peritoneal abscess; K50.913 Crohn's disease, unspecified, with fistula; C22.0 Liver cell carcinoma; D68.4 Acquired coagulation factor deficiency; K76.6 Portal hypertension; E87.20 Acidosis, unspecified; K92.1 Melena; K72.90 Hepatic failure, unspecified without coma; R57.1 Hypovolemic shock; D69.6 Thrombocytopenia, unspecified; F10.20 Alcohol dependence, uncomplicated; J44.9 Chronic obstructive pulmonary disease, unspecified; D53.9 Nutritional anemia, unspecified; Z51.5 Encounter for palliative care; Z66 Do not resuscitate; E86.0 Dehydration; R62.7 Adult failure to thrive; H91.90 Unspecified hearing loss, unspecified ear; Z87.891 Personal history of nicotine dependence; Z79.899 Other long term (current) drug therapy; Z79.891 Long term (current) use of opiate analgesic; Z90.49 Acquired absence of other specified parts of digestive tract; Z68.21 Body mass index [BMI] 21.0-21.9, adult
CPT/HCPCS: 36415; 36600; 80053; 82140; 82805; 83605; 83690; 83735; 83880; 84100; 84484; 85025; 85610; 85730; 93005; 94640; 96361; 96374; 99285